=== PATIENT | male | born 1950 | race Caucasian/White ===

== ENCOUNTER 2022-04-22 16:35 | Emergency (ER) | payer OTHER, SELFPAY ==
--- NOTE | 2022-04-22 16:48 | ED.GENADULT ---
HPI - General Adult General Chief complaint: General Medical Stated complaint: needs trach replaced Time Seen by Provider: 04/22/22 16:47 Source: patient and EMS Mode of arrival: EMS Limitations: no limitations History of Present Illness HPI narrative: 72-year-old male presents via EMS for trach replacement. retirement facility removed the trach for cleaning, and they could not replace device back into his stoma. Onset (ago): hour(s) (With an hour of arrival) Location: neck Radiation: non-radiation Severity: mild Associated symptoms: denies other symptoms Treatments prior to arrival: none Related Data Allergies Allergy/AdvReac Type Severity Reaction Status Date / Time No Known Allergies Allergy Verified 04/22/22 16:52 Review of Systems Review of Systems: Constitutional: No Fever, No Chills ENT/Mouth: Trach stoma patent, No Ear Pain, No Hoarseness, No sore throat Eyes: No Eye Pain, No Swelling, No Redness, No Foreign Body Cardiovascular: No Chest Pain, No SOB Respiratory: No Cough, No Dyspnea Gastrointestinal: No Nausea, No Vomiting, No Diarrhea, No abdominal Pain Genitourinary: No Dysuria, No Hematuria Musculoskeletal: No joint pain, No Myalgias, No Joint Swelling Skin: No Skin lacerations, No rash Neuro: No Weakness, No Numbness, No Paresthesias, No Loss of Consciousness, No Dizziness, No Headache Psych: No Anxiety/Panic, No Depression Heme/Lymph: no easy bruising, no Lymphadenopathy Endocrine: No Polyuria, No Polydipsia Yes all other systems are reviewed and are negative [facility] Past Medical History Attestation statement: The following information was validated with the patient. Source: old records reviewed Social History Social History Advance Directives: Yes Advance Directives on File: Yes Advance Directives Date on File: 04/22/22 Physical Exam ED Vital Signs: Vital Signs - 24 hr 04/22/22 17:14 04/22/22 19:21 Temperature 98.0 F 97.6 F Pulse Rate 60 48 L Respiratory Rate 16 13 Blood Pressure 129/63 146/62 H Pulse Oximetry 100 100 Oxygen Delivery Method Room Air Nasal Cannula Oxygen Flow Rate 5 BMI result Body Mass Index 28.1 Appearance: Alert. Oriented X3. No acute distress. Eyes: Pupils equal, round and reactive to light. ENT: Pharynx normal. Trach stoma patent. Neck: Normal inspection. Neck supple. CVS: Normal heart rate and rhythm. Pulses normal. Respiratory: No respiratory distress. Breath sounds normal. Abdomen: Soft and nontender. Skin: Skin warm and dry. Normal skin color. Normal skin turgor. Extremities: No lower extremity edema. Moves all extremities against resistance. Neuro: No motor deficit. No sensory deficit. Cranial nerves 2-12 intact Course Course Course Narrative: 72-year-old male presents via EMS for trach replacement staff at his shelter facility removed the trach for cleaning, but could not get the trach back in. Patient has had this trach for over 20 years, [place] model, and would like his original trach placed. Patient did not arrive to this facility with a trach, nursing called shelter facility, stated that the trach was broken, however after further investigation, it was noted that there are no staff available to bring the trach to this patient at this facility. Respiratory at patient's bedside within 5 minutes of his arrival, called by this [facility] [facility]. Humidified air applied over trach site by Respiratory to keep stoma site moistened. 17:17 after multiple phone calls between chargemaster analyst, and shelter facility, patient's family will bring patient's trach to this facility. 19:00 trach replaced by respiratory. Supplies for care given to patient by respiratory. Patient [place] trach given to family. Patient verbalized understanding of and agrees to plan of care discharge home. Verbalized understanding of signs symptoms indicating need for emergent intervention Medications Administered Discontinued Medications Generic Name Dose Route Start Last Admin Trade Name Tami PRN Reason Stop Dose Admin Acetaminophen 650 mg 04/22/22 18:27 04/22/22 18:43 Acetaminophen 325 Mg Tablet PO 04/22/22 18:28 650 mg ONCE ONE Administration Morphine Sulfate 4 mg 04/22/22 16:52 04/22/22 17:23 Morphine Sulfate 4 Mg/Ml Cartridge IVPUSH 04/22/22 16:53 4 mg ONCE ONE Administration Protocol Ondansetron HCl 4 mg 04/22/22 16:52 04/22/22 17:23 Ondansetron Hcl 4 Mg/2 Ml Vial IVPUSH 04/22/22 16:53 4 mg ONCE ONE Administration Medical Decision Making Differential Diagnosis Differential Diagnosis: Trach replacement Medical Records Medical records reviewed: Yes I reviewed the patient's medical records. Discharge Plan Discharge Clinical Impression: Tracheostomy malfunction Patient Disposition: [facility] Instructions: Tracheostomy Care (ED) Additional Instructions: You were evaluated for tracheostomy replacement. Respiratory therapy replaced your tracheostomy. please continue tracheostomy care. Thank you for choosing this emergency department for evaluation. Please follow-up with primary care physician as needed. Return to the emergency department for any new, concerning, or worsening symptoms. Interventions: ED Discharge Assessment Last Done: 04/22/22 20:04 Discharge Date/Time: 04/22/22 20:05
[2022-04-22 16:56] VITALS: BP 156/80; PULSE 66; O2SAT 98; BMI 28.1
[2022-04-22 17:14] VITALS: BP 129/63; PULSE 60; RESP 16; TEMP 36.7; O2SAT 100
--- NOTE | 2022-04-22 17:21 | PC.RT ---
Addendum entered by Rik Bedolla, RT 04/22/22 17:47: Follow up pt spo2 97%, HR 86, rr 18. Original Note: Pt arrive ED CC loss of airway during care. Pt ia awake amd alert, placed om 28% coolmist to stoma, sxm small pale yellow sec. A 7.0 and 7.5 shiley cuffless trachs are at the bedside. Pts airway is as stated by pt as a 8.0 [place] metal trach. This airway was mot transported with patiemt, charge murse called pts facility, faclility refused to samd the airway over, RM spoke with family , son has offered to retrieve md zaragoza directly to the ER. Pt in mo distress, om monitor amd comfortable.
[2022-04-22] MEDS: ondansetron HCL 4 MG/2 ML VIAL IVPUSH (17:23)
[2022-04-22] MEDS: Morphine Sulfate 4 MG/ML CARTRIDGE IVPUSH (17:23)
--- OUTSIDE RECORDS SUMMARY | 2022-04-22 17:28 | XMS_ITS ---
:1950 Author Organization [facility] Address [address] [place] [id number] Support Name Relationship Address Phone HAY GU Unavailable [address] [place] [address] HAY GU Unavailable [address] [place] [address] Insurance Providers: All historical and current Section Date Range: From patient's date of to the date document was created.This section includes the names of all active insurance providers for the patient. Insurance Type of Plan Start of End of Group Member Insurance Policy P atient's Provider Coverage Name Policy Policy Number ID Provider's Ronquillo's Relationship Coverage Coverage Telephone Name to Policy Number Ronquillo MEDICARE MEDICARE PART Mar 23, PART A [id number] [place] N PATIENT (WNR) (M) A 2002A 4 MICHAEL MORRIS MEDICARE MEDICARE PART Mar 23, PART B [phone] HOFF[place] N PATIENT (WNR) (M) B 2002A 4 MICHAEL MORRIS MEDICARE MEDICARE PART Mar 23, PART A [id number] HOFFMA N,E PATIENT (WNR) (M) A [id number] [place] MEDICARE MEDICARE PART Mar 23, PART B [id number] HOFFMA N,E PATIENT (WNR) (M) B 2002A [place] MEDICARE MEDICARE PART Mar 23, PART A [id number] HOFFMA N PATIENT (WNR) (M) A 2002A 1 MICAHERNANDEZ MEDICARE MEDICARE PART Mar 23, PART B [id number] HOFFMA N PATIENT (WNR) (M) B 2002A MICHAEL Selected Encounter This section includes the information on record at [place] for the Encounter. Date/Time Encounter Type Encounter Description Reason Provider Source Apr 29, 2021 02:40 Outpatient Encounter PRIMARY CARE/MEDICINE PM [facility] Encounter Template Text not used by [place] Plan of Treatment: Future Appointments (+ 6 months) and Future Tests (+/- 45 days) The Plan of Treatment section includes future care activities for the patient from [facility] [place] [facility] This section includes future appointments and future orders which are active, pending orscheduled.Future Appointments This section includes appointments that were scheduled to occur 6 months from the date of the Encounter, up to a maximum of 20 appointments. The data comes from all [place] treatment [facility]. Appointment Date/Time Appointment Type Appointment Facili ty Name May 12, 2021 12:00 PM AM[facility] [place] [facility] May 13, 2021 12:30 PM [facility] [place] [facility] Jul 14, 2021 01:00 PM AMBULATORY - MEDICINE [place] Oct 27, 2021 01:00 PM AMBULATORY PSYCHIATRY [place] Active, Pending, and Scheduled Orders This section includes a listing of several types of active, pending, and scheduled orders, including clinic medications orders, diagnostic test orders, procedure orders and consult orders; where the start date of the order is 45 days before the date of the Encounter or 45 days after the date of the Encounter. The data comes from all [place] treatment [facility]. Test Date/Time Test Type Test Details Facility Name May 13, 2021 11:56 AM Consult Order [facility] Interactive Media Director's Choice Social History: Smoking Status (Most current) and Tobacco Use (All prior to encounter date) This section includes the most current, and the historical, smoking and tobacco-related health factors from the [place] facility where the Encounter took place.Current Smoking Status This section includes the most current smoking, or tobacco-related health factor, from the [place] facility where the Encounter took place. Date/Time Current Smoking Status Comment Facility Jul 03, 2020 02:53 PM VA-TOBACCO NEVER USED [place] [facility] Advance Directives: All historical and current Section Date Range: From patient's date of to the date document was created. This section includes ALL of a patient's completed or amended [place] Advance and Rescinded Directives. The entries below indicate that a directive exists for the patient, but an actual copy is not included with this document. The data comes from all [place] facilities. Date Advance Directives Provider Source Jan 06, 2022 ADVANCE DIRECTIVE CODEY WEBSTER Encounter Notes: All associated encounter notes This section contains the clinical notes associated to the Encounter. Date/Time Encounter Note(s) Provider Source Apr 29, 2021 02:40 PM PRIMARY CARE NOTE: MARIELENA BRYAN [facility] LOCAL TITLE: WALK-IN NOTE PRIMARY CARE (T) [facility] STANDARD TITLE: PRIMARY CARE NOTE DATE OF NOTE: APR 29, 2021@14:40 ENTRY DATE: APR 29, 2021@14:40:37 AUTHOR: MARIELENA BRYAN EXP COSIGNER: URGENCY: STATUS: COMPLETED WALK-IN NOTE PRIMARY CARE (T) Has ADDENDA * <====Click to Start Advanced Medical Support presents to the Primary Care clinic with the following request: [ ]Medication Renewal/Refill [ ]Consultation with Team RN [ X ]Symptoms cough, fever etc - waiting in car cell [phone] [ ]Other The states they are: [ X ]Waiting [ ]Not Waiting Yes Walk in visit scheduled with PACT Nurse [ X ] At this encounter the 's demographi cs were verified. [ X ] At this encounter the [place]'s Insurance information was verified. [ X ] At this encounter the below scheduled visi ts for the [place] were discussed and appointment reminder card wa s offered. Future appointments: 04/29/2021 15:00 CWM/NO/SIC K CALL RN /mainor/ MARIELENA BRYAN ADVANCED MSA Signed: 04/29/2021 14:41 Receipt Acknowledged By: * AWAITING SIGNATURE * MORE CORLEY 04/29/2021 ADDENDUM STATUS: COMPLETED Covid test ordered. /mainor/ DORY VALENTIN SALES AGENT PROTECTIVE SERVICE- NURSE PRACTITIONER Signed: 04/29/2021 15:00
--- OUTSIDE RECORDS SUMMARY | 2022-04-22 17:28 | XMS_ITS | Continuity of Care Document ---
:1950 Author Organization [facility] Care Team Providers Name Role Phone [facility] Unavailable Unavailable Problems Combined list of problems from Department of Defense and Veterans Affairs facilities. It does not include entries that were removed or entered in error. Problem Status Onset Problem Type Date of Comments Source Date Resolution Alcohol abuse Active Condition Feb 07, [facility] TRL 2018 Entered WSTRN By: KEYSHA CARMONA [facility] Comment: reviewed Anemia Active Condition [facility] WSTRN ANKITA Givens [facility] Bladder Carcinoma Active Condition [facility] (ICD-9-CM 188.9) WST RN ANKITA Givens [facility] Cancer, bladder, Active Condition [place] bladder neck JCT [facility] FRED Chronic low back Active Condition Nov 11, [place] pain (SNOMED CT 2017 Entered [id number]) By: ESTHER TRINH Comment: xray ordered- patient did not complete Chronic Active Condition [place] Obstructive [place] [facility] OC Pulmonary Disease * (ICD-9-CM 496.) Chronic pain Active Condition Jul 25, [facility] CNT RL 2013 Entered WSTRN By: BECCA THOMSON [facility] J Comment: NC RX REGISTRY CHECK 06/29/13 NO EVENTS Chronic Active Condition Jun 23springFIE LD post-traumatic 2018 Entered stress disorder By: KEYSHA ORTIZ Comment: reviewed Chronic sinusitis Active Condition [place] (ICD-9-CM 473.9) [facility] Chronic sinusitis Active Condition [facility] (SNOMED CT WSTRN [id number]) ANKITA Givens [facility] Deep venous Active Condition Jan 03, [facility] thrombosis of 2006 Entered WST RN lower extremity By: ANTHONY MARCH [facility] Tea ANDUJAR Comment: [facility] 1994 Depressive Active Condition Dec 02, [facility] disorder (SNOMED [address] 12780841) By: KEYSHA DOMINGUEZ [facility] Comment: reviewed Diabetes Mellitus Active Condition Nov 01, [place] Type II or 2006 Entered unspecified By: ANTHONY GLASS Comment: Sees Dr. Joel Sanchez Diverticulosis, Active Condition Jan 03, [facility] Colonic 2006 Entered WSTRN By: ANTHONY MONROY Comment: Colonosocpy1 [facility] September 27, 2011 Entered By: BECCA GUERRERO Comment: C'scope 02/2011 No new lesions May 01, 2008 Entered By: ANTHONY GLASS Comment: Colonscopy 04/17/08 just divertic adn hemmoroid Rodri Essential Active Condition [place] hypertension Generalized Active Condition Mar 13, [facility] anxiety disorder 2018 Entered WSTRN (SNOMED CT By: CARIDAD VASQUEZ [id number]) KEYSHA ORTIZ [facility] Comment: reviewed GERD * (ICD-9-CM Active Condition [facility] 530.81) WSTRN ANKITA Givens [facility] Gross Hematuria Active Condition Jun 03, [facility] 2008 Entered By: ANTHONY GLASS Comment: Negative ultrasound Hepatitis * Active Condition May 08, [facility] (ICD-9-CM 573.3) 2006 Entered WSTRN By: ANTHONY MONROY Comment: Negative Hep B & C and ceruloplasmi n, ferritin History of male Active Condition [facility] erectile disorder (SNOMED CT 494747253) Hyperlipidemia * Active Condition [facility] (ICD-9-CM 272.4) WST RN ANKITA Givens [facility] Low Back Pain * Active Condition [place] (ICD-9-CM 724.2) [facility] Obstructive Active Condition [place] chronic Bronchitis, with (Acute) Exacerbation (ICD-9-CM 491.21) Pain in joint Active Condition [place] involving forearm HC S (ICD-9-CM 719.43) 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, [facility] 2019 Entered By: MARCELLE CASH Comment: Blindness R Eye Sleep Apnea Active Condition Sep 01, [facility] (ICD-9-CM 2005 Entered WSTRN 780.57/786.09) By: [facility] [place]THONY RAINEY Comment: Severe resulting in TRACH in [place] 2001 Sleep Apnea Active Condition [place] (ICD-9-CM HCS 780.57/786.09) Tracheostomy Active Condition [place] Status (ICD-9-CM JCT [facility] V44.0) Tremor Active Condition [facility] [place] [facility] Diabetes Mellitus Inactive Condition 07/19/2006 V A CNTRL Type II or WSTRN unspecified [place] [facility] Diagnosis: Active Diagnosis [facility] ICD-10-CM F43.12 WST RN Post-traumatic [place] stress disorder, HCS chronicwith Provider Comments: Chronic post-traumatic stress disorder ([facility] [id number]) Diagnosis: Active Diagnosis [facility] ICD-10-CM G89.29 WST RN Other chronic [place] painwith Provider HC S Comments: Chronic pain ([facility] [id number]) Diagnosis: Active Diagnosis [facility] CNTR ICD-10-CM Z71.9 WSTR N Counseling, [place] unspecifiedwith HCS Provider Comments: Counseling, unspecified Medications Combined list of outpatient medications from Department of Defense and Veterans Affairs facilities. Medications provided include 1) outpatient medications from the last 15 months, and 2) patient-reported medications. Medication Details Route Status Patient Prescription Prescription Last Ordering Order Source Instructions Expires Number Dispense Provider Date Date ASPIRIN TAKE ONE ORAL ACTIVE GLASS,D 12/02/ SPR INGF 81MG TAB,EC TABLET RAIN CON 2005 IEL D BY MOUTH DAILY CETIRIZINE TAKE ONE ORAL 04/15/2022 [id number] L CAPO MOSLEY [facility] H[facility] 10MG TABLET 1 EL J 2020 CNTRL TAB BY MOUTH WSTRN ONCE [place] DAILY SETS FOR HCS ALLERGIE S GABAPENTIN TAKE ONE ORAL ACTIVE 10/26/2022 [id number] BROCK IANI springF 600MG TAB AND 2 ,CHINYERE 2021 IELD ONE-HALF TABLETS BY MOUTH THREE TIMES A DAY GABAPENTIN TAKE ONE ORAL DISCONT 06/25/2022 [id number] LETTY Y-GR 06/24/ VA 600MG TAB AND INUED 2 NICOLAS,CYNTH 2021 CNTRL ONE-HALF IA WSTRN TABLETS [place] BY MOUTH SETS THREE HCS TIMES A DAY GUAIFENESIN TAKE 10 ORAL 06/05/2021 [id number] MCCRA CKEN 12/16/ [place] 100MG/5ML MILLILIT 1 ,JEFFERSON 2020 IELD (SF & AF) ERS (2 LIQUID TEASPOON FULS) BY MOUTH EVERY 8 HOURS NEEDED FOR CONGESTI ON GUAIFENESIN TAKE TWO ORAL 07/30/2021 [id number] CAPO GUERRERO 07/30/ VA 200MG TAB TABLETS 2 EL J 2020 CNTRL BY MOUTH WSTRN TWICE [place] DAILY SETS NEEDED HCS FOR CONGESTI ON HYDROCODONE TAKE 1 ORAL DISCONT 07/24/2021 [id number] REED -GR VA 5MG/ACETAMI TABLET INUE 2 NICOLAS,CYNTH 2021 CNT RL NOPHEN BY MOUTH IA WSTRN 325MG TAB ONCE [place] DAILY SETS NEEDED HCS FOR PAIN [NEXT FILL 07/23/21 ] HYDROCODONE TAKE 1 ORAL 12/27/2021 [id number] MICHAE LS, 5MG/ACETAMI TABLET 2 [facility] 2021 IELD NOPHEN BY MOUTH 325MG TAB ONCE DAILY HYDROCODONE TAKE 1 ORAL 11/25/2021 [id number] DAVITI ANI springF 5MG/ACETAMI TABLET 2 ,CHINYERE2021 IELD NOPHEN BY MOUTH 325MG TAB ONCE DAILY HYDROCODONE TAKE 1 ORAL 08/18/2021 [id number] DAVITI ANI 07/20/ VA 5MG/ACETAMI TABLET 2 ,CHINYERE 2021 CNTRL NOPHEN BY MOUTH WSTRN 325MG TAB ONCE [place] DAILY SETS NEEDED HCS FOR PAIN NEXT FILL 08/20/21* * HYDROCODONE TAKE 1 ORAL 05/14/2021 [id number] Tea GUERRERO ANI 04/15/ VA 5MG/ACETAMI TABLET 1 EL J 2020 CNTRL NOPHEN BY MOUTH WSTRN 325MG TAB ONCE [place] DAILY SETS NEEDED HCS FOR PAIN [NEXT FILL 05/13/21 ] HYDROCODONE TAKE 1 ORAL 03/17/2021 [id number] Tea GUERRERO ANI 02/16/ VA 5MG/ACETAMI TABLET 1 EL J 2020 CNTRL NOPHEN BY MOUTH WSTRN 325MG TAB ONCE [place] DAILY SETS NEEDED HCS FOR PAIN (NEXT FILL 03/16/21 ) LISINOPRIL TAKE ONE ORAL 08/11/2021 [id number] CAPO DENNIS springF 10MG TAB TABLET 2 EL J 2020 IELD BY MOUTH DAILY TO CONTROL BLOOD PRESSURE METFORMIN TAKE ONE ORAL ACTIVE 10/26/2022 [id number] DAVITI ANI springF HCL 500MG TABLET 2 ,2021 IELD TAB BY MOUTH TWICE DAILY FOR DIABETES METFORMIN TAKE ONE ORAL DISCONT 08/11/2021 [id number] CAPO GUERRERO HCL 500MG TABLET INUED 2 J 2020 IELD TAB BY MOUTH TWICE DAILY FOR DIABETES MULTIVITAMI TAKE ONE ORAL ACTIVE GLASS,D NS TABLET RAIN ANDUJAR 2005 IELD W/MINERALS BY MOUTH TAB DAILY PRIMIDONE TAKE ONE ORAL ACTIVE 10/26/2022 [id number] DAVITI ANI springF 50MG TAB TABLET 2 ,2021 IELD BY MOUTH TWICE DAILY PRIMIDONE TAKE ONE ORAL DISCONT 12/19/2021 [id number] CAPO GUERRERO 12/18/ VA 50MG TAB TABLET INUED 2 J 2020 CNTRL BY MOUTH WSTRN TWICE [place] DAILY SETS HCS TRAZODONE TAKE ONE ORAL ACTIVE 10/08/2022 [id number] LUISA ORTIZ springF HCL 100MG AND 2 2021 IELD TAB ONE-HALF TABLETS BY MOUTH AT BEDTIME NEEDED FOR SLEEP TRAZODONE TAKE ONE ORAL DISCONT 2022 [id number] RINA AlcalaBR 04/16/ VA HCL 100MG AND INUED 2 JERRY 2020 CNTRL TAB ONE-HALF WSTRN TABLETS [place] BY MOUTH SETS AT [facility] BEDTIME NEEDED FOR SLEEP TRAZODONE TAKE ONE ORAL DISCONT 12/18/2021 [id number] RINA AlcalaBR 12/18/ [place] HCL 100MG AND INUE 1 JERRY 2020 IELD TAB ONE-HALF TABLETS BY MOUTH AT BEDTIME NEEDED FOR SLEEP VORTIOXETIN TAKE ONE ORAL DISCONT 12/18/2021 [id number] LARR[place],BR E 20MG TAB TABLET INUE 1 JERRY2020 IELD BY MOUTH EVERY MORNING VORTIOXETIN TAKE ONE ORAL 2022 [id number] L[place]OW,BR 04/16/ VA E 20MG TAB TABLET 1 JERRY2020 CNTRL BY MOUTH WSTRN EVERY [place] MORNING SETS HCS Allergies, Adverse Reactions, Alerts Combined list of allergies from Department of Defense and Veterans Affairs facilities. It does not include entries that were removed or entered in error. Substance Category Reaction Severity Reaction Status Date Comments S ource type Reported AMOXICILLIN Propensity HIVES Propensity active [facility] CNTRL to adverse to adverse 5 WS TRN reactions reactions [place] to drug to drug ETS HCS (finding) (finding) AMOXICILLIN Propensity Eruption Propensity active [place] to adverse to adverse 6 CU T HCS reactions reactions to drug to drug (finding) (finding) PENICILLIN Propensity Anaphylaxi Propensity active WHITE to adverse s to adverse 1 RI YUE reactions reactions JCT to drug to drug [facility] (finding) (finding) Immunizations Combined list of available immunizations from the Department of Defense and Veterans Affairs facilities. Immunization Series Date Administered Site Reaction Lot CVX Drug St atus Comments Source Given By Number Code Guidance Adviser COVID-19 1 complet MOD; SP RINGF (MODERNA), 2020 ed [id number]; IELD MRNA, LNP-S, 02 PF, 100 1 MCG/0.5 ML DOSE INFLUENZA, complet Site: INJECTABLE, 2018 ed Left IE LD QUADRIVALENT, Deltoi d PRESERVATIVE FREE PNEUMOCOCCAL complet POLYSACCHARID 2018 ed IELD E PPV23 PNEUMOCOCCAL complet CONJUGATE PCV 2017 ed IELD 13 TDAP complet Site: [place] 2018 ed Right IELD Deltoid ZOSTER 1 complet SPRI NGF RECOMBINANT 2017 ed IE LD INFLUENZA, complet VA SEASONAL, 2017 ed CNTR L INJECTABLE WST RN [place] [facility]S HCS FLU,3 YRS complet Site: S [place] (HISTORICAL) 2014 ed Right I ELD Deltoid FLU,3 YRS complet Site: S DOV (HISTORICAL) 2012 ed Left I ELD Deltoid FLU,3 YRS complet Site: [place] (HISTORICAL) 2011 ed Right I ELD Deltoid FLU,3 YRS complet Pt. was [facility] (HISTORICAL) 2010 ed vaccina te CNTRL d at a [facility] HCS FLU,3 YRS complet Site: [place] (HISTORICAL) 2009 ed Right I ELD Deltoid FLU,3 YRS complet Site: S DOV (HISTORICAL) 2008 ed Right I ELD Deltoid FLU,3 YRS complet Site: [place] (HISTORICAL) 2006 ed Right I ELD Deltoid FLU,3 YRS complet V A (HISTORICAL) 2005 ed C NTRL [facility] HCS FLU,3 YRS complet Site: C [place] (HISTORICAL) 2004 ed Left I CUT Deltoid HCS FLU,3 YRS 06/10/ VLADIMIR GAONA 88 complet [place] (HISTORICAL) 2004 ed I ELD PNEUMOCOCCAL, 06/10/ VLADIMIR GAONA 109 com plet [place] UNSPECIFIED 2004 ed IE LD FORMULATION TD(ADULT) 06/10/ VLADIMIR GAONA 139 complet [place] UNSPECIFIED 2004 ed IE LD FORMULATION FLU,3 YRS 03/27/ HAMZAH EVERETT 88 complet Site: [facility] (HISTORICAL) 2001 T M ed Left O N Deltoid Results Combined list of recent chemistry, hematology and other laboratory results from Department of Defense and Veterans Affairs, ranging from 15 months to all on record, depending upon the facility. Order Results Value Reference Date Interpretation Specimen Commen ts Source Name Range BASIC UREA 15 7 - 25 07/02 Specimen Type: S CESAR [place] METABOLIC NITROGEN /2020 No comment en tered. LD PANEL [MASS/VOLUM Ordering Pr ovider: BECCA GUERRERO (fasting) Cassie] IN SERUM Report Re leased Date/Time: Jul 02, 2020 01:27 PM OR PLASMA Reporting Lab : [address] [address] Performing Lab: [address] [place] [address] BASIC GLUCOSE 89 65 - 100 07/02 Specimen Type: [place] METABOLIC [MASS/VOLUM /2020 No comment entered. LD PANEL E] IN SERUM Ordering Pr ovider: BECCA GUERRERO (fasting) OR PLASMA Report Rele ased Date/Time: Jul 02, 2020 01:27 PM Reporting Lab: [facility] [address] [facility] [address] Performing Lab: [address] [address] BASIC SODIUM 134 135 - 145 02/10 L Specimen Type: SERUM [place] METABOLIC [MOLES/VOLU /2020 No comment entered. LD PANEL ME] IN Ordering Provid er: BECCA GUERRERO (fasting) SERUM OR Report Relea sed Date/Time: Jul 02, 2020 01:27 PM PLASMA Reporting Lab: [address] [address] Performing Lab: [address] [address] BASIC POTASSIUM 4.9 3.5 - 5.0 07/02 Specimen Typ e: SERUM [place] METABOLIC [MOLES/VOLU No comment entered. LD PANEL ME] IN Ordering Provid er: BECCA GUERRERO (fasting) SERUM OR Report Relea sed Date/Time: Jul 02, 2020 01:27 PM PLASMA Reporting Lab: [address] [address] Performing Lab: [address] [address] BASIC CHLORIDE 101 100 - 110 07/02 Specimen Type : SERUM [place] METABOLIC [MOLES/VOLU /2020 No comment entered. LD PANEL ME] IN Ordering Provid er: BECCA GUERRERO (fasting) SERUM OR Report Relea sed Date/Time: Jul 02, 2020 01:27 PM PLASMA Reporting Lab: [address] [address] Performing Lab: [address] [place] [address] BASIC CARBON 26 20 - 30 07/02 Specimen Type: S CESAR [place] METABOLIC DIOXIDE, /2020 No comment en tered. LD PANEL TOTAL Ordering Provid er: BECCA GUERRERO (fasting) [MOLES/VOLU Report Re leased Date/Time: Jul 02, 2020 01:27 PM ME] IN Reporting Lab: [facility] SERUM OR [address] [place] [address] PLASMA Performing Lab: [facility] [address] [facility] [address] BASIC CREATININE 0.85 0.50 - 07/02 Specimen Type : SERUM [place] METABOLIC [MASS/VOLUM 1.40 /2020 No comment entered. LD PANEL E] IN SERUM Ordering Pr ovider: BECCA GUERRERO (fasting) OR PLASMA Report Rele ased Date/Time: Jul 02, 2020 01:27 PM Reporting Lab: [address] [address] Performing Lab: [address] [address] BASIC GLOMERULAR 89 60 07/02 Specimen Type : SERUM [place] METABOLIC FILTRATION /2020 No comment entered. LD PANEL RATE/1.73 Ordering Prov ider: BECCA GUERRERO (fasting) SQ Report Releas ed Date/Time: Jul 02, 2020 01:27 PM M.PREDICTED Reporting L ab: [facility] [VOLUME [address] [facility] [address] RATE/AREA] Performing L ab: [facility] IN SERUM OR [address] [facility] [address] PLASMA BY CREATININE- BASED FORMULA (MDRD) MAGNESIUM MAGNESIUM 1.6 1.6 - 2.6 06/02 Specimen T ype: SERUM [place] [MASS/VOLUM /2020 No comment e ntered. LD E] IN SERUM Ordering Pr ovider: BECCA GUERRERO OR PLASMA Report Releas ed Date/Time: Feb 28, 2020 04:21 PM Reporting Lab: [address] [place] [address] Performing Lab: [facility] CN[facility]L WSTRN [facility] [address] [facility] [address] THYROGLOB THYROGLOBUL <1 - 1 06/02 Specimen T ype: SERUM [facility] ULIN IN AB /2020 Comment: Test [facility] by [facility], [facility], [address] [place] [address] Storm Bloom M.D., Ph.D., Director of Laboratories , CLIA [id number] WSTRN ANTIBODY [UNITS/VOLU Ordering P rovider: BECCA OLIVAS (q) ME] IN Report Released Date/Time: Jun 02, 2020 02:58 PM TS [facility] SERUM OR Reporting Lab: [facility] WSTRN [facility] PLASMA [address] [place] [address] Performing Lab: [facility] CN[facility] WSTRN [facility] THYROID TRIIODOTHYR 81.21 70 - 180 06/02 Specimen Ty pe: SERUM [facility] TOTAL T3 ONINE (T3) No comment e ntered. WSTRN [MASS/VOLUM Ordering Pr ovider: BECCA OLIVAS E] IN SERUM Report Rele ased Date/Time: Jun 02, 2020 02:58 PM TS HCS OR PLASMA Reporting Lab : [facility] WSTRN [facility] [address] [facility] [address] Performing Lab: [facility] CNTRL WSTRN [facility] [address] [facility] [address] VITAMIN D 25-HYDROXYV 66 20 - 50 06/02 H Specimen T ype: SERUM [facility] (25-OH) ITAMIN D3 No comment ent ered. WSTRN [MASS/VOLUM Ordering Pr ovider: BECCA OLIVAS] IN SERUM Report Rele ased Date/Time: Jun 02, 2020 02:58 PM TS HCS OR PLASMA Reporting Lab : [facility] WSTRN [facility] [address] [facility] [address] Performing Lab: [facility] [place] [facility] [address] [facility] [address] IRON & IRON 352 204 - 475 06/02 Specimen Type: SERUM [facility] TIBC BINDING /2020 No comment enter ed. WSTRN PANEL CAPACITY Ordering Provi shyam: BECCA OLIVAS [MASS/VOLUM Report Rele ased Date/Time: Jun 02, 2020 02:58 PM TS HCS E] IN SERUM Reporting L ab: [facility] [place] [facility] OR PLASMA [address] [facility] [address] Performing Lab: [facility] [facility] [address] [facility] [address] IRON & IRON 106 40 - 160 06/02 Specimen Type: SERUM [facility] TIBC [MASS/VOLUM /2020 No comment e ntered. WSTRN PANEL E] IN SERUM Ordering Pr ovider: BECCA OLIVAS OR PLASMA Report Releas ed Date/Time: Jun 02, 2020 02:58 PM TS HCS Reporting Lab: [facility] [place] [facility] [address] [facility] [address] Performing Lab: [facility] [facility] [address] [facility] [address] IRON & IRON/IRON 30.1 20.0 - 06/02 Specimen Type: SERUM [facility] TIBC BINDING 50.0 /2020 No comment enter ed. WSTRN PANEL CAPACITY.TO Ordering Pr ovider: BECCA OLIVAS YAHIR [MASS Report Releas ed Date/Time: Jun 02, 2020 02:58 PM TS HCS RATIO] IN Reporting Lab : [facility] [place] [facility] SERUM OR [address] [facility] [address] PLASMA Performing Lab: [facility] [place] [facility] [address] [facility] [address] CBC LEUKOCYTES 6.99 4.50 - 06/02 Specimen Type : BLOOD [facility] [#/VOLUME] . No comment en tered. WSTRN IN BLOOD BY Ordering Pr ovider: BECCA OLIVAS AUTOMATED Report Releas ed Date/Time: Jun 02, 2020 02:58 PM TS HCS COUNT Reporting Lab: [facility] [place] [facility] [address] [facility] [address] Performing Lab: [facility] [place] [facility] [address] [facility] [address] CBC ERYTHROCYTE 4.01 4.23 - 01 L Specimen Typ e: BLOOD [facility] S 5.66 /2020 No comment enter ed. WSTRN [#/VOLUME] Ordering Pro vider: BECCA OLIVAS [place] IN BLOOD BY Report Rele ased Date/Time: Jun 02, 2020 02:58 PM TS HCS AUTOMATED Reporting Lab : [facility] [place] [facility] COUNT [address] [facility] [address] Performing Lab: [facility] [place] [facility] [address] [facility] [address] CBC HEMOGLOBIN 13.6 12.8 - 17 06/02 Specimen Ty pe: BLOOD [facility] [MASS/VOLUM /2020 No comment e ntered. WSTRN E] IN BLOOD Ordering Pr ovider: BECCA OLIVAS [place] Report Released Date/Time: Jun 02, 2020 02:58 PM TS HCS Reporting Lab: [facility] [place] [facility] [address] [facility] [address] Performing Lab: [facility] [place] [facility] [address] [facility] [address] CBC HEMATOCRIT 39.6 39.2 - 06/02 Specimen Type : BLOOD [facility] [VOLUME 50.4 No comment enter ed. WSTRN FRACTION] Ordering Prov ider: BECCA OLIVAS [place] OF BLOOD BY Report Rele ased Date/Time: Jun 02, 2020 02:58 PM TS HCS AUTOMATED Reporting Lab : [facility] [place] [facility] COUNT [address] [facility] [address] Performing Lab: [facility] [place] [facility] [address] [facility] [address] CBC MCV 98.8 82 - 99 06/02 Specimen Type: B LOOD [facility] [ENTITIC /2020 No comment ente red. WSTRN VOLUME] BY Ordering Pro vider: BECCA OLIVASCHADRIEL AUTOMATED Report Releas ed Date/Time: Jun 02, 2020 02:58 PM TS HCS COUNT Reporting Lab: [facility] [place] [facility] [address] [facility] [address] Performing Lab: [facility] [place] [facility] [address] [facility] [address] CBC MCHC 34.3 30.8 - 06/02 Specimen Type: B LOOD [facility] [MASS/VOLUM 35.1 /2020 No comment e ntered. WSTRN E] BY Ordering Provid er: BECCA OLIVASCHUSE AUTOMATED Report Releas ed Date/Time: Jun 02, 2020 02:58 PM TS HCS COUNT Reporting Lab: [facility] [place] [facility] [address] [facility] [address] Performing Lab: [facility] [place] [facility] [address] [facility] [address] CBC PLATELETS 164 140 - 360 06/02 Specimen Typ e: BLOOD [facility] [#/VOLUME] /2020 No comment en tered. WSTRN IN BLOOD BY Ordering Pr ovider: BECCA OLIVASCHADRIEL AUTOMATED Report Releas ed Date/Time: Jun 02, 2020 02:58 PM TS HCS COUNT Reporting Lab: [facility] [place] [facility] [address] [facility] [address] Performing Lab: [facility] [place] [facility] [address] [facility] [address] CBC ERYTHROCYTE 12.6 12.0 - 06/02 Specimen Typ e: BLOOD [facility] DISTRIBUTIO 16.0 No comment e ntered. WSTRN N WIDTH Ordering Provid er: BECCA OLIVAS [RATIO] BY Report Relea sed Date/Time: Jun 02, 2020 02:58 PM TS HCS AUTOMATED Reporting Lab : [facility] [place] [facility] COUNT [address] [facility] [address] Performing Lab: [facility] [place] [facility] [address] [facility] [address] CBC MCH 33.9 26.2 - 06/02 H Specimen Type: B LOOD [facility] [ENTITIC 32.6 No comment ente red. WSTRN MASS] BY Ordering Provi shyam: BECCA OLIVAS MAS[place] AUTOMATED Report Releas ed Date/Time: Jun 02, 2020 02:58 PM TS HCS COUNT Reporting Lab: [facility] [place] [facility] [address] [facility] [address] Performing Lab: [facility] [place] [facility] [address] [facility] [address] Encounters Combined list of: 1) Encounters from Department of Veterans Affairs facilities going back up to the last 18 months. 2) Encounters from the Department of Defense facilities going back up to 280 months. Location Location Encounter Encounter Reason Attending ADM DC Stat us Disposition Source Details Type Number For Provider Date Date Visit Outpatient [id number] 11/21 [id number] [facility] [facility] Outpatient [id number] 11/21 [facility] [id number] [facility] [place] [facility] Outpatient [id number] 11/26 [facility] En[facility] [id number] /2020 [facility] [place] [facility] Outpatient [id number] 12/05 [facility] [id number] [facility] [place] [facility] Outpatient [id number] 12/08 [facility] En[facility] [id number] /2020 [facility] [place] [facility] Outpatient [id number] 12/08 [facility] [id number] /2020 [facility] [place] [facility] Outpatient [id number] 12/17 [facility] En[facility] [id number] /2020 [facility] [place] [facility] [facility] PRO [id number] [place], [place] 12/25 V A PHONE CALL [id number] is: CK L /2020 [facility] L 5-10 MIN ICD-10- [facility] CM [place] Z71.9 SETS [employer] HCS ing, unspeci fied
with Provide r Comment s: [employer] ing, unspeci fied Outpatient [id number] 01/15 [facility] [id number] [facility] [place] [facility] [id number] 01/16 [facility] [id number] [facility] [place] [id number] 01/16 [facility] [id number] [facility] [place] [facility] [id number] 01/16 [facility] [id number] [facility] [place] 11909-6.63 02/12 [facility] [id number] [facility] [place] [facility] 52412-2.63 02/13 [facility] [id number] [facility] [id number] 03/11 [facility] En[facility] [id number] /2021 [facility] [place] [facility] Outpatient [id number] 04/14 [facility] Encounter [id number] /2021 [facility] [place] [facility] Outpatient 49429-3.63 04/14 [facility] Encounter [id number] /2021 [facility] [place] [facility] Outpatient 60627-3.63 04/14 [facility] Encounter [id number] [facility] [place] [facility] Outpatient 24612-4.63 04/29 [facility] Encounter [id number] /2021 [facility] [place] [facility] OFFICE O/P 25507-3.63 Diagnos KELSEYLSON,TI 04/29 [facility] EST [id number] is: EMMETT E CNTRL MINIMAL ICD-10- WSTR[facility] PROB CM [place] Z71.9 SETS Windows Infrastructure Engineer HCS ing, unspeci fied
with Provide r Comment s: Windows Infrastructure Engineer ing, unspeci fied Outpatient [id number] 04/30 [facility] Encounter [id number] [facility] Outpatient 02484-6.63 04/30 [facility] Encounter [id number] [facility] Outpatient 91415-4.63 04/30 [facility] Encounter [id number] /2021 [facility] Outpatient 19632-3.63 05/04 [facility] Encounter [id number] [facility] Outpatient 04991-2.63 05/07 [facility] Encounter [id number] [facility] Outpatient 44714-1.63 05/08 [facility] Encounter [id number] [facility] Outpatient 55535-7.63 05/08 [facility] Encounter [id number] [facility] Outpatient 65006-6.63 05/11 [facility] Encounter [id number] /2021 [facility] Outpatient [id number] 05/12 [facility] Encounter [id number] [facility] Outpatient [id number] 05/12 [facility] Encounter [id number] [facility] Outpatient 72690-5.63 05/13 [facility] Encounter [id number] /2021 [facility] Outpatient [id number] 05/13 [facility] Encounter [id number] [facility] Outpatient 79506-0.63 06/04 [facility] Encounter [id number] /2022 [facility] Outpatient 56577-6.63 06/24 [facility] Encounter [id number] [facility] Outpatient [id number] 06/24 [facility] Encounter [id number] [facility] Outpatient 71051-5.63 06/24 [facility] Encounter [id number] /2022 [facility] Outpatient [id number] 07/15 [facility] Encounter [id number] [facility] Outpatient [id number] 07/17 [facility] Encounter [id number] [facility] Outpatient [id number] 07/18 [facility] Encounter [id number] [facility] Outpatient 76303-6.63 08/05 [facility] Encounter 1. [facility] Outpatient [id number] 08/07 [facility] Encounter [id number] /2022 [facility] Outpatient 56275-9.63 08/10 [facility] Encounter 1. [facility] Outpatient 89990-9.63 08/10 [facility] Encounter [id number] [facility] Outpatient 80939-6.63 08/10 [facility] Encounter [id number] [facility] Outpatient 61729-9.63 08/17 [facility] Encounter [id number] I[facility] 36 Outpatient 76693-2.63 09/01 [facility] Encounter [id number] [facility] 38 Outpatient 15294-1.63 10/05 [facility] Encounter 1. [facility] Outpatient [id number] 10/06 [facility] Encounter 1. [facility] Outpatient [id number] 10/16 [facility] Encounter 1. [facility] Outpatient 40461-9.63 10/26 [facility] Encounter 1. [facility] Outpatient 15906-2.63 10/26 [facility] Encounter [id number] [facility] Outpatient 58881-3.63 10/27 [facility] Encounter [id number] [facility] 42 Outpatient 94038-6.63 11/11 [facility] Encounter [id number] /2022 [facility] Outpatient 19930-5.63 11/16 [facility] Encounter [id number] /2022 [facility] Outpatient 79130-0.63 11/18 [facility] Encounter [id number] /2022 [facility] Outpatient 21137-2.63 07 [facility] Encounter [id number] [facility] Outpatient 47929-3.63 07 [facility] Encounter [id number] /2022 [facility] Outpatient 16271-4.63 07 [facility] Encounter [id number] /2022 [facility] Outpatient 04987-7.63 11/27 [facility] Encounter [id number] [facility] Outpatient 59721-6.63 11/27 [facility] Encounter [id number] /2022 [facility] Outpatient 42421-7.63 12/03 [facility] Encounter 1BY. [place] 08 Outpatient 63476-2.63 12/15 [facility] Encounter [id number] [facility] Outpatient 87244-9.63 12/15 VA Encounter [id number] /2022 [facility] Outpatient 77017-9.63 12/23 [facility] Encounter [id number] [facility] Outpatient 69744-9.63 12/24 [facility] Encounter [id number] [facility] Outpatient 49974-5.63 12/28 [facility] Encounter [id number] [facility] Outpatient 10959-4.63 12/28 [facility] Encounter [id number] /2022 [facility] Outpatient 94919-3.63 01/06 [facility] Encounter [id number] [facility] Outpatient 78979-8.63 01/07 [facility] Encounter [id number] [facility] Outpatient 80687-9.63 01/11 VA Encounter [id number] /2022 [facility] Outpatient 23532-3.63 01/18 [facility] Encounter [id number] [facility] Outpatient 27468-1.63 01/19 [facility] Encounter [id number] [facility] Outpatient 03794-9.63 01/19 [facility] Encounter [id number] [facility] Outpatient 72228-6.63 01/19 [facility] Encounter [id number] [facility] Outpatient 28574-4.63 02/08 [facility] Encounter [id number] [facility] Outpatient 21460-3.63 Diagnos Meredith BULLOCK 02/08 [facility] Encounter [id number] is: TIN J /2021 CNTR L ICD-10- [facility] [place] G89.29 SETS Other HCS chronic pain
with Provide r Comment s: Chronic pain (SCT [id number] 1) Outpatient 93229-4.63 02/15 [facility] Encounter [id number] /2022 [facility] Outpatient 46042-3.63 02/19 [facility] Encounter [id number] /2022 [facility] Outpatient 62029-8.63 02/19 [facility] Encounter [id number] [facility] Outpatient 53217-8.63 02/22 [facility] Encounter [id number] /2022 [facility] Outpatient 19925-4.63 02/22 [facility] Encounter [id number] [facility] [place] [facility] OFFICE O/P 01568-4.63 Diagnos EMORY DRUMMOND 03/04 [facility] EST [id number] is: ISTINE E /2021 [facility] MINIMAL ICD-10- [facility] PROB CM [place] F43.12 [facility] Post-tr HCS aumatic stress disorde r, chronic
wi Provide r Comment s: Chronic post-tr aumatic stress disorde r (SCT [id number] 04) Outpatient [id number] 03/08 [facility] Encounter [id number] /2022 [facility] Outpatient 59593-0.63 03/12 [facility] Encounter [id number] /2022 [facility] HC PRO 71409-0.63 Diagnos EMORY DRUMMOND 04/01 V A PHONE CALL [id number] is: ISTINE E C NTRL 11-20 MIN ICD-10- [facility] [place] F43.12 [facility] Post-tr HCS aumatic stress disorde r, chronic
wi th Provide r Comment s: Chronic post-tr aumatic stress disorde r (SCT [id number] 04) Social History Combined list of available smoking, tobacco, and other social [facility]. Social History Type Response Date Comment Source Tobacco smoking VA-TOBACCO NEVER USED 07/03/2020 [facility] status [facility] History of tobacco VA-TOBACCO QUIT 15 YRS 07/17/2019 [place] use OR MORE History of tobacco VA-TOBACCO NEVER USED 06/23/2018 [place] use History of tobacco FORMER SMOKER - <100 09/19/2017 [facility] [place] use LIFETIME CIGARETTES History of tobacco LIFETIME NON-TOBACCO 02/04/2017 [place] use USER History of tobacco QUIT TOBACCO USE > 7 06/05/2015 [place] use YEARS AGO History of tobacco LIFETIME NON-TOBACCO 03/16/2005 [facility] use USER History of tobacco LIFETIME NON-SMOKER 06/10/2004 [facility] use Advance Directives List of completed, amended, or rescinded Advance Directives on record at [facility] facilities. An actual copy of the Directive is not included. Date Advance Directive Provider Source 01/06/2022 ADVANCE DIRECTIVE CODEY WEBSTER
--- OUTSIDE RECORDS SUMMARY | 2022-04-22 17:28 | XMS_ITS ---
:1950 Author Organization [facility] Address [address] [place] [address] Support Name Relationship Address Phone HAY GU Unavailable [address] [place] [address] HAY GU Unavailable [address] [place] [address] Insurance Providers: All historical and current Section [...] MEDICARE MEDICARE PART Mar 23, PART A [id number] [place] N PATIENT (WNR) (M) A 2002A 4 MICHAEL [place]RIS MEDICARE MEDICARE PART Mar 23, PART B [id number] [place] N PATIENT (WNR) (M) B 2002A 4 [place] MEDICARE MEDICARE PART Mar 23, PART A [id number] [id number] [place] N,E PATIENT (WNR) (M) A 2002 26A 00 [place] MEDICARE MEDICARE PART Mar 23, PART B [id number] HOFF[place] N,E PATIENT (WNR) (M) B 2002A [place] MEDICARE MEDICARE PART Mar 23, PART A [id number] H[place] N PATIENT (WNR) (M) A 2002A 1 MICHAEL M[place]RIS MEDICARE MEDICARE PART Mar 23, PART B [id number] HOFF[place] N PATIENT (WNR) (M) B 2002A MICAHERNANDEZ Selected Encounter This section includes the information on record at [place] for the Encounter. Date/Time Encounter Type Encounter Reason Provider Source Description Apr 29, 2021 OFFICE O/P EST PRIMARY ICD-10-CM Z71.9 BARNEYCHERYLMICHEL 03:00 PM MINIMAL PROB CARE/MEDICINE Counseling, Y E unspecified with Provider Comments: Counseling, unspecified IHE Encounter Template Text not used by [place] Assessments - Encounter Diagnoses This section includes the primary and secondary diagnoses documented for the Encounter. Date/Time Primary/Secondary Diagnosis Name Provider Source Diagnosis Apr 29, 2021 PRIMARY Counseling, MARILYNN CORLEY [place] [facility] 03:34 PM unspecified Y E [facility] Plan of Treatment: Future Appointments (+ 6 months) and Future Tests (+/- 45 days) The Plan of Treatment section includes future care activities for the patient from all [place] [facility]. This section includes future appointments and future orders which are active, pending orscheduled.Future Appointments This section includes appointments that were scheduled to occur 6 months from the date of the Encounter, up to a maximum of 20 appointments. The data comes from all [place] treatment facilities. Appointment Date/Time Appointment Type Appointment Facili ty Name May 12, 2021 12:00 PM AMBULATORY - PSYCHIATRY [place] [facility] [place] [facility] May 13, 2021 12:30 PM AMBULATORY - MEDICINE [place] [facility] [place] [facility] Jul 14, 2021 01:00 PM AMBULATORY - MEDICINE [place] Oct 27, 2021 01:00 PM AMBULATORY PSYCHIATRY [place] Active, Pending, and Scheduled Orders This section includes a listing of several types of active, pending, and scheduled orders, including clinic medications orders, diagnostic test orders, procedure orders and consult orders; where the start date of the order is 45 days before the date of the Encounter or 45 days after the date of the Encounter. The data comes from all [place] treatment [facility]. Test Date/Time Test Type Test Details Facility Name May 13, 2021 11:56 AM Consult Order [facility] L [facility] Contemporary Or Modern Dancer's Choice Social History: Smoking Status (Most current) and Tobacco Use (All prior to encounter date) This section includes the most current, and the historical, smoking and tobacco-related health factors from the [place] facility where the Encounter took place.Current Smoking Status This section includes the most current smoking, or tobacco-related health factor, from the [facility] facility where the Encounter took place. Date/Time Current Smoking Status Comment Facility Jul 03, 2020 02:53 PM VA-TOBACCO NEVER USED ND C NTRL [facility] Advance Directives: All historical and current Section Date Range: From patient's date of to the date document was created. This section includes ALL of a patient's completed or amended [place] Advance and Rescinded Directives. The entries below indicate that a directive exists for the patient, but an actual copy is not included with this document. The data comes from all [place] facilities. Date Advance Directives Provider Source Jan 06, 2022 ADVANCE DIRECTIVE CODEY WEBSTER Encounter Notes: All associated encounter notes This section contains the clinical notes associated to the Encounter. Date/Time Encounter Note(s) Provider Source Apr 29, 2021 02:51 PM PRIMARY CARE OUTPATIENT NOTE: SEUN CORLEY [place] [facility] LOCAL TITLE: AMBULATORY/OUTPATIENT CARE NOTE [facility] STANDARD TITLE: PRIMARY CARE OUTPATIENT NOTE DATE OF NOTE: APR 29, 2021@14:51 ENTRY DATE: APR 29, 2021@14:51:57 AUTHOR: MORE CORLEY EXP COSIGNER: URGENCY: STATUS: COMPLETED AMBULATORY/OUTPATIENT CARE NOTE Has ADDENDA F: Walk-in D: Vet and two friends prese nted to [facility] walk-up window saying that this vet, has been coughing, has H/A, fever, N/V and w ould like to be seen. [facility] told them to wait out side in their car- they went in to the corridor and said that they are not going to wait out side in 30 degree weather. [facility] came and asked me to do a secondary survey and to get them outside to wait for a Covid swab. Two of the people who were in the yuliana maggie did not have a mask on. They got angry and said I'm going to report this . One of them said I h ave had both vaccines I don't have to worry. They were antonieta d that the protocol for suspected Covid was to swab them first and once found to be negative they could come in to be evaluated for their symtems. They were told that it could take 1-2 hrs to get results back from the test. It was suggested that they go to a local ER as they have Isolation rooms where he cou ld be tested and kept comfortable. They were brought out to the testing site and asked to get into th eir car and pull it into the tent. They were told that is RN would get a Covid test ordered and will bring out the swab. The PPE, order , swab was obtained when I went out to the tent they were gone. Tried to call them twice on the phone number provided in the [employer]agraph[employer] section of his chart but was unable to leave a message. /mainor/ MORE CORLEY MSN Ed., BSN BILINGUAL CASE MANAGER NURSE Signed: 04/29/2021 15:34 Receipt Acknowledged By: * AWAITING SIGNATURE * GILMER GOLDMAN * AWAITING SIGNATURE * BECCA GUERRERO * AWAITING SIGNATURE * PAKO MANCUSO * AWAITING SIGNATURE * DORY VALENTIN 04/29/2021 15:47 /es/ Mary Renee MSN RN C Firm Space Operations Officer 04/29/2021 ADDENDUM STATUS: COMPLETED F: Telephone call D: Called the number jamaal d- [phone] asked for Zhao- and was told that it was not Zhao. He saID that we were reporte d and that we would be on the news tonight. Was not allowed to speak to vet. /mainor/ MORE CORLEY MSN Ed., BSN BILINGUAL CASE MANAGER NURSE Signed: 04/29/2021 15:52
--- OUTSIDE RECORDS SUMMARY | 2022-04-22 17:29 | XMS_ITS | Encounter Summary ---
:1950 Author Organization [facility] Address [address] [place] [address] Support Name Relationship Address Phone HAY GU Unavailable [address] [place] [address] HAY GU Unavailable [address] [place] [address] Insurance Providers: All historical and current Section [...] MEDICARE MEDICARE PART Mar 23, PART A [id number] HOFF[place] N PATIENT (WNR) (M) A 2002A 1 MICHAEL MORRIS MEDICARE MEDICARE PART Mar 23, PART B [id number] HOFF[place] N PATIENT (WNR) (M) B 2002A 1 MICHAEL [place] MEDICARE MEDICARE PART Mar 23, PART B [id number] H[place] N PATIENT (WNR) (M) B 2002A 4 MICHAEL [place] MEDICARE MEDICARE PART Mar 23, PART A [id number] H[place] N PATIENT (WNR) (M) A 2002A 4 MIC[place]EL [place] MEDICARE MEDICARE PART Mar 23, PART A [id number] [phone] HOFFMA N,E PATIENT (WNR) (M) A 2002 00 [place] MEDICARE MEDICARE PART Mar 23, PART B [id number] [phone] HOFFMA N,E PATIENT (WNR) (M) B 2002 [place] Selected Encounter This section includes the information on record at ID for the Encounter. Date/Time Encounter Type Encounter Description Reason Provider Source Apr 30, 2021 09:02 Outpatient Encounter TELEPHONE CASE AM MANAGEMENT IHE Encounter Template Text not used by ID Plan of Treatment: Future Appointments (+ 6 months) and Future Tests (+/- 45 days) The Plan of Treatment section includes future care activities for the patient from all [facility]. This section includes future appointments and future orders which are active, pending orscheduled.Future Appointments This section includes appointments that were scheduled to occur 6 months from the date of the Encounter, up to a maximum of 20 appointments. The data comes from all ID treatment [facility]. Appointment Date/Time Appointment Type Appointment Facili ty Name May 12, 2021 12:00 PM AMBUL[facility]ORY [facility] [place] [facility] May 13, 2021 12:30 PM AM[facility]ULATORY - MEDICINE [place] [facility] [place] [facility] Jul 14, 2021 01:00 PM AMBULATORY - MEDICINE [place] Oct 27, 2021 01:00 PM AMBULATORY PSYCHIATRY [place] Active, Pending, and Scheduled Orders This section includes a listing of several types of active, pending, and scheduled orders, including clinic medications orders, diagnostic test orders, procedure orders and consult orders; where the start date of the order is 45 days before the date of the Encounter or 45 days after the date of the Encounter. The data comes from all ID treatment [facility]. Test Date/Time Test Type Test Details Facility Name May 13, 2021 11:56 AM Consult Order [facility] [place] [facility] Validation Scientist's Choice Social History: Smoking Status (Most current) and Tobacco Use (All prior to encounter date) This section includes the most current, and the historical, smoking and tobacco-related health factors from the ID facility where the Encounter took place.Current Smoking Status This section includes the most current smoking, or tobacco-related health factor, from the ID facility where the Encounter took place. Date/Time Current Smoking Status Comment Facility Jul 03, 2020 02:53 PM VA-TOBACCO NEVER USED ID C NTRL WSTRN [facility] Advance Directives: All historical and current Section Date Range: From patient's date of to the date document was created. This section includes ALL of a patient's completed or amended [place] Advance and Rescinded Directives. The entries below indicate that a directive exists for the patient, but an actual copy is not included with this document. The data comes from all ID facilities. Date Advance Directives Provider Source Jan 06, 2022 ADVANCE DIRECTIVE CODEY WEBSTER Encounter Notes: All associated encounter notes This section contains the clinical notes associated to the Encounter. Date/Time Encounter Note(s) Provider Source Apr 30, 2021 09:03 TRANSFER SUMMARIZATION NOTE: Linsey HAYES [facility] CNTRL WSTRN AM LOCAL TITLE: STICKER MACHINE OPERATOR/OCC/HOSPITAL NOTIFICATION NOTE [place] [facility] STANDARD TITLE: TRANSFER SUMMARIZATION NOTE DATE OF NOTE: APR 30, 2021@09:03 ENTRY DATE: APR 30, 2021@09:03:04 AUTHOR: GEOVANNY HAYES EXP COSIGNER: URGENCY: STATUS: COMPLETED STICKER MACHINE OPERATOR/OCC/HOSPITAL NOTIFICAT ION NOTE Has ADDENDA Call received from AMARA Nikki @ [facility] ER [facility] [place] presented last evening accompanied by friend and is currently being worked up- but at the moment Dx is failure to thrive. AMARA is interested in LTC placement as friend info rmed the facility that the is unable to care fo r hinself and does not have a working toilet in his apartment. PACT provider information given for more medical consultation. /mainor/ LAURIE HAYES RN, MSN, CERT CLINICAL STICKER MACHINE OPERATOR Signed: 04/30/2021 09:06 Receipt Acknowledged By: * AWAITING SIGNATURE * DEANA HOFFMANN 05/01/2021 ADDENDUM STATUS: COMPLETED per Edwina SORENSON, the [place] i s being treated for COPD and poor self care. He was seen by inpatient psych and found to lack capaci ty. /mainor/ Jacquelyn Delcid RN-BS Sweatband Separator Signed: 05/01/2021 12:56
--- OUTSIDE RECORDS SUMMARY | 2022-04-22 17:29 | XMS_ITS | Encounter Summary ---
:1950 Author Organization [facility] Address [address] [place] [id number] Support Name Relationship Address Phone HAY GU Unavailable [address] [place] [address] HAY GU Unavailable [address] [place] [address] Insurance Providers: All historical and current Section [...] MEDICARE MEDICARE PART Mar 23, PART A [id number] HOFFMA N PATIENT (WNR) (M) A 2002A 4 MICHAEL MORRIS MEDICARE MEDICARE PART Mar 23, PART B [id number] HOFFMA N PATIENT (WNR) (M) B 2002A 4 MICHAEL MORRIS MEDICARE MEDICARE PART Mar 23, PART A [id number] [id number] HOFFMA N,E PATIENT (WNR) (M) A 2002A 00 [place] MEDICARE MEDICARE PART Mar 23, PART B [id number] HOFFMA N,E PATIENT (WNR) (M) B 2002A [place] MEDICARE MEDICARE PART Mar 23, PART A [id number] HOFFMA N PATIENT (WNR) (M) A 2002A 1 MICHAEL MORRIS MEDICARE MEDICARE PART Mar 23, PART B [id number] HOFFMA N PATIENT (WNR) (M) B 2002A MICHAEL Selected Encounter This section includes the information on record at [place] for the Encounter. Date/Time Encounter Type Encounter Description Reason Provider Source Apr 30, 2021 09:15 Outpatient Encounter TELEPHONE TRIAGE AM IHE Encounter Template Text not used by [place] Plan of Treatment: Future Appointments (+ 6 months) and Future Tests (+/- 45 days) The Plan of Treatment section includes future care activities for the patient from [facility] [place] [facility] This section includes future appointments and future orders which are active, pending orscheduled.Future Appointments This section includes appointments that were scheduled to occur 6 months from the date of the Encounter, up to a maximum of 20 appointments. The data comes from all [facility]. Appointment Date/Time Appointment Type Appointment Facili ty Name May 12, 2021 12:00 PM AM[place] [place] [place] [facility] May 13, 2021 12:30 PM [facility] [place] [facility] Jul 14, 2021 01:00 PM AMBULATORY - MEDICINE [place] Oct 27, 2021 01:00 PM AMBULATORY PSYCHIATRY [place] Active, Pending, and Scheduled Orders This section includes a listing of several types of active, pending, and scheduled orders, including clinic medications orders, diagnostic test orders, procedure orders and consult orders; where the start date of the order is 45 days before the date of the Encounter or 45 days after the date of the Encounter. The data comes from all [facility]. Test Date/Time Test Type Test Details Facility Name May 13, 2021 11:56 AM Consult Order [facility] CN[facility] L [facility] [place] [facility] Social History: Smoking Status (Most current) and Tobacco Use (All prior to encounter date) This section includes the most current, and the historical, smoking and tobacco-related health factors from the [place] facility where the Encounter took place.Current Smoking Status This section includes the most current smoking, or tobacco-related health factor, from the [place] facility where the Encounter took place. Date/Time Current Smoking Status Comment Facility Jul 03, 2020 02:53 PM VA-TOBACCO NEVER USED [place] C NTRL [facility] Advance Directives: All historical and current Section Date Range: From patient's date of to the date document was created. This section includes ALL of a patient's completed or amended [place] Advance and Rescinded Directives. The entries below indicate that a directive exists for the patient, but an actual copy is not included with this document. The data comes from all [place] facilities. Date Advance Directives Provider Source Jan 06, 2022 ADVANCE DIRECTIVE YEE WESTON Encounter Notes: All associated encounter notes This section contains the clinical notes associated to the Encounter. Date/Time Encounter Note(s) Provider Source Apr 30, 2021 09:15 AM NURSING TELEPHONE ENCOUNTER TRIAGE NOTE: SANDOR GAGNON CNTRL [facility] LOCAL TITLE: VISN 1 [facility] STANDARD TITLE: NURSING TELEPHONE ENCOUNTER TRIA GE NOTE DATE OF NOTE: APR 30, 2021@09:15:16 ENTRY DATE: APR 30, 2021@09:18:09 AUTHOR: SANDOR DUARTE EXP COSIGNER: URGENCY: STATUS: COMPLETED VISN 1 CLINICAL CONTACT CENTER Has ADDENDA The patient, MICHAEL GU ([id number]) called the call center. The following identifiers were used to verify th is patient: SSN. Contact Type of call: ADMINISTRATIVE. Caller Response: ADM CALL RESOLVED Caller Area: [place] [facility] PC[facility] Provider Info: [facility] ([id number]) PACT: SO PACT 2 (Focus: Primary Care Only) Primary Care Provider: Hari Russo PHONE:[phone] Infant Childcare Provider: Yee Weston Clinical Associate: Nuha Reynaga Train Station Agent: Bruno Smith Clinical POC: Clinical Associate Linsey Reynaga Administrative POC: Train Station Agent Bruno Smith Author: SANDOR DUARTE Comments: Nikki Acosta showcase trimmer from [facility] called req to s peak to team. She can be reached at [phone]. She did not elaborate t o agent. kindly assist. Evaluation/Management Code: HC PRO PHONE CALL 5- 10 MIN ([phone]). Starting at: 04/30/2021 @ 9:15:16 AM Ending at: 04/30/2021 @ 9:16:58 AM Length: 1 minutes. Chief Complaint: Not applicable to call. Class Code: Other specified counseling. Patient's Email Address: /mainor/ SANDOR DUARTE ADVANCED COLOR REPAIRER Signed: 04/30/2021 09:18 Receipt Acknowledged By: 05/01/2021 09:21 /es/ MEGAN MCCARTHY RN-NATALEE REGISTERED NURSE 05/01/2021 09:22 /es/ NUHA REYNAGA LPN LPN 05/01/2021 ADDENDUM STATUS: COMPLETED Called and spoke to Nikki who reports that [place] 's family is seeking guardianship for . Nikki reports due to Tammyt amrit's inability to care for himself and his dog safely in home he is unable to return home at this time. Nikki reports that [place]'s sisters and friends a re working with [facility] regarding discharge planning and possible assistant terminal manager placem ent at a SNF. Nikki will be in contact with [facility] transfer staff and PACT team as needed. /mainor/ MEGAN MCCARTHY RN-NATALEE REGISTERED NURSE Signed: 05/04/2021 11:23
--- OUTSIDE RECORDS SUMMARY | 2022-04-22 17:30 | XMS_ITS | Encounter Summary ---
:1950 Author Organization [facility] Address [address] [place] [address] Support Name Relationship Address Phone HAY GU Unavailable [address] [place] [address] HAY GU Unavailable [address] [place] [address] Insurance Providers: All historical and current Section [...] MEDICARE MEDICARE PART Mar 23, PART A [id number] HOFFMA N PATIENT (WNR) (M) A 2002A 1 MICHAEL MORRIS MEDICARE MEDICARE PART Mar 23, PART B [id number] HOFFMA N PATIENT (WNR) (M) B 2002A 1 MICHAEL MORRIS MEDICARE MEDICARE PART Mar 23, PART A [id number] HOFFMA N PATIENT (WNR) (M) A 2002A 4 MICHAEL MORRIS MEDICARE MEDICARE PART Mar 23, PART B [id number] HOFFMA N PATIENT (WNR) (M) B 2002A 4 MICHAEL MORRIS MEDICARE MEDICARE PART Mar 23, PART A [id number] [phone] HOFFMA N,E PATIENT (WNR) (M) A 2002A 00 [place] MEDICARE MEDICARE PART Mar 23, PART B [id number] [id number] HOFFMA N,E PATIENT (WNR) (M) B 2002 SHAL[place] Selected Encounter This section includes the information on record at [place] for the Encounter. Date/Time Encounter Type Encounter Description Reason Provider Source Aug 10, 2021 10:47 Outpatient Encounter PRIMARY CARE/MEDICINE AM IHE Encounter Template Text not used by [place] Plan of Treatment: Future Appointments (+ 6 months) and Future Tests (+/- 45 days) The Plan of Treatment section includes future care activities for the patient [facility] [place] [facility]. This section includes future appointments and future orders which are active, pending orscheduled.Future Appointments This section includes appointments that were scheduled to occur 6 months from the date of the Encounter, up to a maximum of 20 appointments. The data comes from all [place] treatment facilities. Appointment Date/Time Appointment Type Appointment Facili ty Name Oct 27, 2021 01:00 PM AMBULATORY PSYCHIATRY [place] Nov 25, 2021 04:00 PM [facility]UL[place]ICINE [place] [facility] Jan 19, 2022 01:30 PM [facility] Social History: Smoking Status (Most current) and Tobacco Use (All prior to encounter date) This section includes the most current, and the historical, smoking and tobacco-related health factors from the [place] facility where the Encounter took place.Current Smoking Status This section includes the most current smoking, or tobacco-related health factor, from the [place] facility where the Encounter took place. Date/Time Current Smoking Status [facility] Facility Jul 03, 2020 02:53 PM [place]-TOBACCO NEVER USED [facility] Advance Directives: All historical and current Section Date Range: From patient's date of to the date document was created. This section includes ALL of a patient's completed or amended [place] Advance and Rescinded Directives. The entries below indicate that a directive exists for the patient, but an actual copy is not included with this document. The data comes from all [place] facilities. Date Advance Directives Provider Source Jan 06, 2022 ADVANCE DIRECTIVE CODEY WEBSTER Encounter Notes: All associated encounter notes This section contains the clinical notes associated to the Encounter. Date/Time Encounter Note(s) Provider Source Aug 10, 2021 10:47 AM ADMINISTRATIVE NOTE: TOLU PRAJAPATI [facility] LOCAL TITLE: ADMINISTRATIVE NOTE STANDARD TITLE: ADMINISTRATIVE NOTE DATE OF NOTE: AUG 10, 2021@10:47 ENTRY DATE: AUG 10, 2021@10:47:49 AUTHOR: TOLU PRAJAPATI EXP COSIGNER: URGENCY: STATUS: COMPLETED TELEPHONE CALL - Scheduling PCP appointment [place] record with respect to receipt of COVID- 19 vaccination [X} Received INITIAL VACCINATION at or via [facility] [phone] [ ] Received at another [place] facility [ ] Received in the community [X] CANCELLED APPT FOR 2ND VACCINATION, DID NOT RESCHEDULE [X] No indication of receipt of BOOSTER COVID-19 Initial Vaccination series NOT COMPLETE D PATIENT PHONE - PHONE NUMBER [CELLULAR] - NONE FOUND PURPOSE OF CALL: [X} Schedule appointment with PRIMARY CARE PROVI MARTIN [ ] Reschedule appointment with PRIMARY CARE PRO VIDER [X} Offer to schedule CWM/SO/MOD BOOSTER vaccine appointment Human Resources Leader called [place] - RESULTS OF CALL: [X] SUCCESSFUL CONTACT: [ ] UNABLE TO SCHEDULE an appointment [X] Scheduled subject appointment with PRIMARY CARE PROVIDER [X] Scheduled subject appointment to receive CW M/SO/COVID BOOSTER VACCINE === DETAILS OF CALL: Utilizing HIPAA Guidelines per current policy, maryam bautista with respondent, [ ] Patient [X} Patient open claims representative, sibling jamil Montoya whom [place] has authorized VA to communicate 's medi garth information. 's identity actively confirmed by: [X} Full name [X} Complete date of [X} Confirmed 's mailing address [X} Human Resources Leader negotiated with respondent, and sched uled subject PCP appointment for [place]. [X} Letter mailed as appointment reminder. [X} Confirmed 's mailing address as the following: MICHAEL GU [address] [place] [address] [X} Reminded respondent that wearing of masks is mandatory in VA facilities, and that an d any other visitor wear mask to any appointment, lab oratory testing, or other activities in [facility], as VA soto s not issue masks. Re: COVID-19 VACCINATION STATUS [X} Respondent requests a CWM/SO/COVID VACCINE a ppointment for [place]. [X} Human Resources Leader negotiated with respondent, and sched uled CWM/SO/COVID VACCINE appointments for [place]. [X} Reminded respondent that wearing of masks is mandatory in [place] facilities, and that an d any other visitor wear mask to any appointment, lab oratory testing, or other activies in [facility], as [place] does not issue masks. [X} Letter mailed as appointment reminder. Upcoming Appointments: 08/17/2021 13:00 CWM/SO/PACT 2 09/01/2021 14:00 SPOPC/MHC/PSYCHIATRY RESI /es/ TOLU PARIKH, [place] [facility], [facility] Signed: 08/10/2021 11:08
--- OUTSIDE RECORDS SUMMARY | 2022-04-22 17:30 | XMS_ITS | Encounter Summary ---
:1950 Author Organization [facility] Address [address] [place] [address] Support Name Relationship Address Phone HAY GU Unavailable [address] [place] [address] HAY GU Unavailable [address] [place] [address] Insurance Providers: All historical and current Section [...] MEDICARE MEDICARE PART Mar 23, PART A [id number] HOFFMA N PATIENT (WNR) (M) A 2002A 4 MICHAEL MORRIS MEDICARE MEDICARE PART Mar 23, PART B [id number] HOFFMA N PATIENT (WNR) (M) B 2002A 4 MICHAEL MORRIS MEDICARE MEDICARE PART Mar 23, PART A [id number] HOFFMA N PATIENT (WNR) (M) A 2002A 1 MICHAEL MORRIS MEDICARE MEDICARE PART Mar 23, PART B [id number] HOFFMA N PATIENT (WNR) (M) B 2002A 1 MICHAEL MORRIS MEDICARE MEDICARE PART Mar 23, PART A [id number] HOFFMA N,E PATIENT (WNR) (M) A 2002A 00 [place] MEDICARE MEDICARE PART Mar 23, PART B [id number] [id number] HOFFMA N,E PATIENT (WNR) (M) B 2002 SHALA Selected Encounter This section includes the information on record at [place] for the Encounter. Date/Time Encounter Type Encounter Description Reason Provider Source Aug 10, 2021 12:13 Outpatient Encounter TELEPHONE TRIAGE PM IHE Encounter Template Text not used by [place] Plan of Treatment: Future Appointments (+ 6 months) and Future Tests (+/- 45 days) The Plan of Treatment section includes future care activities for the patient from all [place] treatmentfacilities. This section includes future appointments and future orders which are active, pending orscheduled.Future Appointments This section includes appointments that were scheduled to occur 6 months from the date of the Encounter, up to a maximum of 20 appointments. The data comes from all [place] treatment facilities. Appointment Date/Time Appointment Type Appointment Facili ty Name Oct 27, 2021 01:00 PM AMBULATORY - PSYCHIATRY [facility] [place] Nov 25, 2021 04:00 PM [facility] Jan 19, 2022 01:30 PM [facility] Social History: Smoking Status (Most current) and Tobacco Use (All prior to encounter date) This section includes the most current, and the historical, smoking and tobacco-related health factors from the [place] facility where the Encounter took place.Current Smoking Status This section includes the most current smoking, or tobacco-related health factor, from the [place] facility where the Encounter took place. Date/Time Current Smoking Status Comment Facility Jul 03, 2020 02:53 PM [place]-TOBACCO NEVER USED [facility] Advance Directives: All historical and current Section Date Range: From patient's date of to the date document was created. This section includes ALL of a patient's completed or amended [place] Advance and Rescinded Directives. The entries below indicate that a directive exists for the patient, but an actual copy is not included with this document. The data comes from all [place] facilities. Date Advance Directives Provider Source Jan 06, 2022 ADVANCE DIRECTIVE CODEY WEBSTER NOREEN Encounter Notes: All associated encounter notes This section contains the clinical notes associated to the Encounter. Date/Time Encounter Note(s) Provider Source Aug 10, 2021 12:13 PM TELEPHONE ENCOUNTER NOTE: SHARI DUARTE [facility] LOCAL TITLE: VISN 1 CCC ACTION REQUIRED [facility] STANDARD TITLE: TELEPHONE ENCOUNTER NOTE DATE OF NOTE: AUG 10, 2021@12:13:10 ENTRY DATE: AUG 10, 2021@12:15:48 AUTHOR: SHARI DUARTE EXP COSIGNER: URGENCY: STATUS: COMPLETED [place] called in for MICHAEL GU ([phone]) . The following identifiers were used to verify th is patient: SSN. Contact Type of call: ADMINISTRATIVE. Caller Response: ADM CALL RESOLVED Caller Area: [facility] PCMM Provider Info: [facility] ([id number]) PACT: SO PACT 2 (Focus: Primary Care Only) Primary Care Provider: CHINYERE GUTIÉRREZ Lens Hardener: CODEY WEBSTER Clinical Associate: SARITA REYNAGA Pharmacy Laboratory Technician: TOLU PRAJAPATI Clinical POC: Clinical Associate Linsey REYNAGA Administrative POC: Pharmacy Laboratory Technician TOLU PRAJAPATI Author: SHARI DUARTE Comments: Sister Lindsay (on auth) called humberto britt to speak with [employer]. Kindly call back . Evaluation/Management Code: HC PRO PHONE CALL 5- 10 MIN ([phone]). Starting at: 08/10/2021 @ 12:13:10 PM Ending at: 08/10/2021 @ 12:14:44 PM Length: 1 minutes. Chief Complaint: Not applicable to call. Class Code: Other specified counseling. Patient's Email Address: /mainor/ SHARI DUARTE Advanced Line Out Man Signed: 08/10/2021 12:15 Receipt Acknowledged By: * AWAITING SIGNATURE * TOLU PRAJAPATI
--- OUTSIDE RECORDS SUMMARY | 2022-04-22 17:30 | XMS_ITS ---
:1950 Author Organization [facility] Address [address] [place] [address] Support Name Relationship Address Phone HAY GU Unavailable [address] [place] [address] HAY GU Unavailable [address] [place] [address] Insurance Providers: All historical and current Section [...] MEDICARE MEDICARE PART Mar 23, PART A [id number] HOFFMA N PATIENT (WNR) (M) A 2002A 1 MICHAEL MORRIS MEDICARE MEDICARE PART Mar 23, PART B [id number] HOFFMA N PATIENT (WNR) (M) B 2002A 1 MICHAEL MORRIS MEDICARE MEDICARE PART Mar 23, PART A [id number] HOFFMA N PATIENT (WNR) (M) A 2002A 4 MICHAEL MORRIS MEDICARE MEDICARE PART Mar 23, PART B [id number] HOFFMA N PATIENT (WNR) (M) B 2002A 4 MICHAEL MORRIS MEDICARE MEDICARE PART Mar 23, PART A [id number] HOFFMA N,E PATIENT (WNR) (M) A 2002 00 DWARD MEDICARE MEDICARE PART Mar 23, PART B [id number] HOFFMA N,E PATIENT (WNR) (M) B 2002 ISAARD Selected Encounter This section includes the information on record at [place] for the Encounter. Date/Time Encounter Type Encounter Description Reason Provider Source May 12, 2021 12:00 Outpatient Encounter [facility] PM - IND IHE Encounter Template Text not used by [place] Plan of Treatment: Future Appointments (+ 6 months) and Future Tests (+/- 45 days) The Plan of Treatment section includes future care activities for the patient [facility] [place] [facility] This section includes future appointments and future orders which are active, pending orscheduled.Future Appointments This section includes appointments that were scheduled to occur 6 months from the date of the Encounter, up to a maximum of 20 appointments. The data comes from all [place] treatment facilities. Appointment Date/Time Appointment Type Appointment Facili ty Name May 13, 2021 12:30 PM AMBULATORY - MEDICINE [place] [facility] Jul 14, 2021 01:00 PM AMBULATORY - MEDICINE [place] Oct 27, 2021 01:00 PM AMBULATORY - PS[place]CHIATRY [place] Active, Pending, and Scheduled Orders This section includes a listing of several types of active, pending, and scheduled orders, including clinic medications orders, diagnostic test orders, procedure orders and consult orders; where the start date of the order is 45 days before the date of the Encounter or 45 days after the date of the Encounter. The data comes from all [place] treatment [facility]. Test Date/Time Test Type Test Details Facility Name May 13, 2021 11:56 Consult Order [facility] CNTRL W STRN AM [facility] Cons [place] [facility] Rehab Tech[facility] Choice Jun 24, 2021 12:00 Laboratory - ALCOHOL, ETHYL URINE [place] CN[facility] AM Chemistry Order PANEL URINE (DRUG) [place] [facility] Jun 24, 2021 12:00 Laboratory - FENTANYL SCREEN PANEL [place] CNTR L W[facility]N AM Chemistry Order URINE (DRUG) [place] [facility] Jun 24, 2021 12:00 Laboratory - AMPHETAMINES SCREEN PANEL [place] [facility] AM Chemistry Order URINE (DRUG) [place] [facility] Jun 24, 2021 12:00 Laboratory - BENZODIAZEPINES SCREEN [place] CNT RL WSTRN AM Chemistry Order PANEL URINE (DRUG) [place] [facility] Jun 24, 2021 12:00 Laboratory - BUPRENORPHINE SCREEN [place] CNTRL W[facility] AM Chemistry Order PANEL URINE (DRUG) [place] [facility] Jun 24, 2021 12:00 Laboratory - CANNABINOIDS SCREEN PANEL [facility] W[facility] AM Chemistry Order URINE (DRUG) [facility] Jun 24, 2021 12:00 Laboratory - COCAINE SCREEN PANEL [facility] AM Chemistry Order URINE (DRUG) [facility] Jun 24, 2021 12:00 Laboratory - ETG SCREEN (wx) URINE [place] CN[facility] L [facility] AM Chemistry Order (DRUG) SP [facility] Jun 24, 2021 12:00 Laboratory - OPIATES SCREEN PANEL [place] [facility] AM Chemistry Order URINE (DRUG) SP [facility] Jun 24, 2021 12:00 Laboratory - METHADONE SCREEN URINE SP [place] CNTRL WSTRN AM Chemistry Order [facility] Jun 24, 2021 12:00 Laboratory - OXYCODONE SCREEN PANEL [place] CNT RL WSTRN AM Chemistry Order URINE (DRUG) [facility] Jun 24, 2021 12:00 Laboratory - URINALYSIS URINE SP [place] CNTRL WSTRN AM Chemistry Order [facility] Jun 24, 2021 12:00 Laboratory - CBC AND DIFF (AUTO) BLOOD [place] CN[facility] AM Chemistry Order (LAV-BLOOD) [facility] Jun 24, 2021 12:00 Laboratory - HEMOGLOBIN A1C PANEL [facility] CN[facility]L W[facility] AM Chemistry Order BLOOD (LAV-BLOOD) [facility] Jun 24, 2021 12:00 Laboratory - PSA BLOOD (SST-SERUM) SP [facility] C NTRL WSTRN AM Chemistry Order [facility] Jun 24, 2021 12:00 Laboratory - PROTEIN,TOTAL BLOOD [facility] CN[facility] AM Chemistry Order (SST-SERUM) [facility] Jun 24, 2021 12:00 Laboratory - BILIRUBIN, TOTAL BLOOD [facility] CNT RL WSTRN AM Chemistry Order (SST-SERUM) [facility] Jun 24, 2021 12:00 Laboratory - TSH BLOOD (SST-SERUM) SP [facility] C NTRL WSTRN AM Chemistry Order [facility] Jun 24, 2021 12:00 Laboratory - URIC ACID BLOOD [facility] CNTRL WSTR N AM Chemistry Order (SST-SERUM) [facility] Jun 24, 2021 12:00 Laboratory - AST BLOOD (SST-SERUM) SP [facility] C NTRL WSTRN AM Chemistry [facility] Jun 24, 2021 12:00 Laboratory - ALBUMIN BLOOD (SST-SERUM) [facility] AM Chemistry Order SP [facility] Jun 24, 2021 12:00 Laboratory - ALT BLOOD (SST-SERUM) [facility] C NTRL WSTRN AM Chemistry Order [facility] Jun 24, 2021 12:00 Laboratory - GAMMA-GTP BLOOD [facility] CNTRL WSTR N AM Chemistry Order (SST-SERUM) SP [facility] Jun 24, 2021 12:00 Laboratory - GLUCOSE BLOOD (SST-SERUM) [facility] AM Chemistry Order SP [facility] Jun 24, 2021 12:00 Laboratory - CREATININE (GFR [facility] CNTRL WSTR N AM Chemistry Order Est.included) BLOOD [facility] (SST-SERUM) Jun 24, 2021 12:00 Laboratory - UREA NITROGEN BLOOD [place] CNTRL WSTRN AM Chemistry Order (SST-SERUM) [facility] Jun 24, 2021 12:00 Laboratory - ELECTROLYTE PANEL BLOOD NC CN TRL WSTRN AM Chemistry Order (SST-SERUM) [facility] Jun 24, 2021 12:00 Laboratory - LIPID PANEL FASTING BLOOD [place] CNTRL WSTRN AM Chemistry Order (SST-SERUM) [facility] Jun 24, 2021 12:00 Laboratory - GABAPENTIN, Urine URINE [place] CN TRL WSTRN AM Chemistry Order (DRUG) [facility] Social History: Smoking Status (Most current) and Tobacco Use (All prior to encounter date) This section includes the most current, and the historical, smoking and tobacco-related health factors from the [place] facility where the Encounter took place.Current Smoking Status This section includes the most current smoking, or tobacco-related health factor, from the [place] facility where the Encounter took place. Date/Time Current Smoking Status Comment Facility Jul 03, 2020 02:53 PM VA-TOBACCO NEVER USED [facility] NTRL WSTRN [facility] Advance Directives: All historical and current Section Date Range: From patient's date of to the date document was created. This section includes ALL of a patient's completed or amended [place] Advance and Rescinded Directives. The entries below indicate that a directive exists for the patient, but an actual copy is not included with this document. The data comes from all [place] facilities. Date Advance Directives Provider Source Jan 06, 2022 ADVANCE DIRECTIVE CODEY WEBSTER Encounter Notes: All associated encounter notes This section contains the clinical notes associated to the Encounter. Date/Time Encounter Note(s) Provider Source May 12, 2021 12:56 PM CLERICAL NOTE: ARNEL ORTIZ [place] CN[facility] STR[facility] LOCAL TITLE: APPOINTMENT NO SHOW [facility] STANDARD TITLE: CLERICAL NOTE DATE OF NOTE: MAY 12, 2021@12:56 ENTRY DATE: MAY 12, 2021@12:57:02 AUTHOR: ARNEL ORTIZ EXP COSIGNER: URGENCY: STATUS: COMPLETED Patient Name: MICHAEL GU Patient SSN: [id number] Date and time of Appointment No show : 05/12/21 12:00 PATIENT PHONE - PHONE NUMBER [CELLULAR] - NONE FOUND Patient's medical record was reviewed. Follow-up actions were determined and initiated: Please check/complete as applies: [X]Telephoned Directly [ ]Re-scheduled for next available appt [ ]Sent a N0-show letter ( must call for appointment) [ ]Other (Emergent/Overbook, etc.): Additional Comments: No answer. Steffi from the [facility] agency to which he'd been referred says his current coverage is through [employer], an Advantage Plan carve-out of some sort. Have alerted nurse that there's no workable plan in place yet. Future Clinic Visits No data available /es/ ARNEL ORTIZ, PhD Clinical Psychologist Signed: 05/12/2021 13:05 Receipt Acknowledged By: * AWAITING SIGNATURE * ARNOLDO PANCHAL
--- OUTSIDE RECORDS SUMMARY | 2022-04-22 17:31 | XMS_ITS | Encounter Summary ---
:1950 Author Organization [facility] Address [address] [place] [address] Support Name Relationship Address Phone HAY GU Unavailable [address] [place] [address] HAY GU Unavailable [address] [place] [address] Insurance Providers: All historical and current Section [...] MEDICARE MEDICARE PART Mar 23, PART A [id number] HOFFMA N,E PATIENT (WNR) (M) A 2002A 00 DWARD MEDICARE MEDICARE PART Mar 23, PART B [id number] HOFFMA N,E PATIENT (WNR) (M) B 2002A 00 DW[place] MEDICARE MEDICARE PART Mar 23, PART A [id number] HOFFMA N PATIENT (WNR) (M) A 2002A 4 MICHAEL MORRIS MEDICARE MEDICARE PART Mar 23, PART B [id number] HOFFMA N PATIENT (WNR) (M) B 2002A 4 MICHAEL MORRIS MEDICARE MEDICARE PART Mar 23, PART A [id number] HOFFMA N PATIENT (WNR) (M) A 2002A 1 MICHEAL MORRIS MEDICARE MEDICARE PART Mar 23, PART B [id number] HOFFMA N PATIENT (WNR) (M) B 2002A 1 MICHAEL Selected Encounter This section includes the information on record at [place] for the Encounter. Date/Time Encounter Type Encounter Description Reason Provider Source Jul 17, 2021 03:53 Outpatient Encounter TELEPHONE TRIAGE PM IHE Encounter Template Text not used by [place] Plan of Treatment: Future Appointments (+ 6 months) and Future Tests (+/- 45 days) The Plan of Treatment section includes future care activities for the patient [facility] [place] [facility] This section includes future appointments and future orders which are active, pending orscheduled.Future Appointments This section includes appointments that were scheduled to occur 6 months from the date of the Encounter, up to a maximum of 20 appointments. The data comes from all [place] treatment facilities. Appointment Date/Time Appointment Type Appointment Facili ty Name Oct 27, 2021 01:00 PM AMBULATORY - PS[place]CHIATRY [place] Nov 25, 2021 04:00 PM AMBULATORY - MEDICINE [place] CNTR [facility] Active, Pending, and Scheduled Orders This section includes a listing of several types of active, pending, and scheduled orders, including clinic medications orders, diagnostic test orders, procedure orders and consult orders; where the start date of the order is 45 days before the date of the Encounter or 45 days after the date of the Encounter. The data comes from all [place] treatment [facility]. Test Date/Time Test Type Test Details Facility Name Jun 24, 2021 12:00 Laboratory - AMPHETAMINES SCREEN PANEL [place] CN[facility]L W[facility] AM Chemistry [facility] Jun 24, 2021 12:00 Laboratory - ALCOHOL, ETHYL URINE [place] CN[facility] AM Chemistry Order PAN[facility] Jun 24, 2021 12:00 Laboratory - FENTANYL SCREEN PANEL [place] CNTR L WSTRN AM Chemistry Order URINE (DRUG) [place] [facility] Jun 24, 2021 12:00 Laboratory - BENZODIAZEPINES SCREEN [place] CNT RL WSTRN AM Chemistry Order PANEL URINE (DRUG) [place] [facility] Jun 24, 2021 12:00 Laboratory - CANNABINOIDS SCREEN PANEL [place] CNTRL WSTR[facility] AM Chemistry Order URINE (DRUG) [place] [facility] Jun 24, 2021 12:00 Laboratory - BUPRENORPHINE SCREEN [place] CNTRL WSTRN AM Chemistry Order PANEL URINE (DRUG) [place] [facility] Jun 24, 2021 12:00 Laboratory - COCAINE SCREEN PANEL [place] CNTRL WSTRN AM Chemistry [facility] Jun 24, 2021 12:00 Laboratory - OPIATES SCREEN PANEL [place] CNTRL WSTRN AM Chemistry Order URINE (DRUG) [facility] Jun 24, 2021 12:00 Laboratory - ETG SCREEN (wx) URINE [facility] CNTR L WSTRN AM Chemistry Order (DRUG) [facility] Jun 24, 2021 12:00 Laboratory - METHADONE SCREEN URINE SP [place] CNTRL WSTRN AM Chemistry Order [facility] Jun 24, 2021 12:00 Laboratory - OXYCODONE SCREEN PANEL [facility] CNT RL WSTRN AM Chemistry Order URINE (DRUG) [facility] Jun 24, 2021 12:00 Laboratory - URINALYSIS URINE SP [facility] CNTRL WSTRN AM Chemistry Order [facility] Jun 24, 2021 12:00 Laboratory - HEMOGLOBIN A1C PANEL [facility] CNTRL WSTRN AM Chemistry Order BLOOD (LAV-BLOOD) [facility] Jun 24, 2021 12:00 Laboratory - CBC AND DIFF (AUTO) BLOOD [facility] CN[facility] AM Chemistry Order (LAV-BLOOD) [facility] Jun 24, 2021 12:00 Laboratory - PSA BLOOD (SST-SERUM) SP [facility] C NTRL WSTRN AM Chemistry Order [facility] Jun 24, 2021 12:00 Laboratory - ALBUMIN BLOOD (SST-SERUM) [facility] AM Chemistry Order [facility] Jun 24, 2021 12:00 Laboratory - URIC ACID BLOOD [facility] CNTRL WSTR N AM Chemistry Order (SST-SERUM) [facility] Jun 24, 2021 12:00 Laboratory - BILIRUBIN, TOTAL BLOOD VA CNT RL WSTRN AM Chemistry Order (SST-SERUM) [facility] Jun 24, 2021 12:00 Laboratory - TSH BLOOD (SST-SERUM) SP [facility] C NTRL WSTRN AM Chemistry Order [facility] Jun 24, 2021 12:00 Laboratory - PROTEIN,TOTAL BLOOD [facility] CN[facility] W[facility] AM Chemistry Order (SST-SERUM) [facility] Jun 24, 2021 12:00 Laboratory - ALT BLOOD (SST-SERUM) SP [facility] C NTRL WSTRN AM Chemistry Order [facility] Jun 24, 2021 12:00 Laboratory - GAMMA-GTP BLOOD [place] CNTRL WSTR N AM Chemistry Order (SST-SERUM) [facility] Jun 24, 2021 12:00 Laboratory - AST BLOOD (SST-SERUM) SP [place] C NTRL WSTRN AM Chemistry [facility] Jun 24, 2021 12:00 Laboratory - GLUCOSE BLOOD (SST-SERUM) [facility] AM Chemistry Order [facility] Jun 24, 2021 12:00 Laboratory - UREA NITROGEN BLOOD [place] CNTRL WSTRN AM Chemistry Order (SST-SERUM) [facility] Jun 24, 2021 12:00 Laboratory - ELECTROLYTE PANEL BLOOD [place] CN TRL WSTRN AM Chemistry Order (SST-SERUM) [facility] Jun 24, 2021 12:00 Laboratory - CREATININE (GFR [place] CNTRL WSTR N AM Chemistry Order Est.included) BLOOD [facility] (SST-SERUM) Jun 24, 2021 12:00 Laboratory - LIPID PANEL FASTING BLOOD [place] CNTRL WSTRN AM Chemistry Order (SST-SERUM) [facility] Jun 24, 2021 12:00 Laboratory - GABAPENTIN, Urine URINE [place] CN TRL WSTRN AM Chemistry Order (DRUG) [facility] Social History: Smoking Status (Most current) and Tobacco Use (All prior to encounter date) This section includes the most current, and the historical, smoking and tobacco-related health factors from the [place] facility where the Encounter took place.Current Smoking Status This section includes the most current smoking, or tobacco-related health factor, from the [place] facility where the Encounter took place. Date/Time Current Smoking Status Comment Facility Jul 03, 2020 02:53 PM VA-TOBACCO NEVER USED [place] C NTRL WSTRN [facility] Advance Directives: All historical and current Section Date Range: From patient's date of to the date document was created. This section includes ALL of a patient's completed or amended [place] Advance and Rescinded Directives. The entries below indicate that a directive exists for the patient, but an actual copy is not included with this document. The data comes from all [place] facilities. Date Advance Directives Provider Source Jan 06, 2022 ADVANCE DIRECTIVE CODEY WEBSTER Encounter Notes: All associated encounter notes This section contains the clinical notes associated to the Encounter. Date/Time Encounter Note(s) Provider Source Jul 17, 2021 03:53 PM TELEPHONE ENCOUNTER NOTE: NEISHA KATZ [facility] LOCAL TITLE: VISN 1 [facility] STANDARD TITLE: TELEPHONE ENCOUNTER NOTE DATE OF NOTE: JUL 17, 2021@15:53:01 ENTRY DATE: JUL 17, 2021@15:55:15 AUTHOR: NEISHA KATZ EXP COSIGNER: URGENCY: STATUS: COMPLETED The patient, MICHAEL GU ([id number]) called the call center. The following identifiers were used to verify th is patient: . SSN. Contact Type of call: PHARMACY. Caller Response: ADM CALL RESOLVED Caller Area: [place] [facility] Provider Info: [facility] ([id number]) PACT: SO PACT 2 (Focus: Primary Care Only) Primary Care Provider: CHINYERE GUTIÉRREZ Winch Driver: CODEY WEBSTER Clinical Associate: SARITA REYNAGA Chief Of Field Operations: TOLU PRAJAPATI Clinical POC: Clinical Associate Linsey REYNAGA Administrative POC: Chief Of Field Operations TOLU PRAJAPATI Author: NEISHA KATZ Comments: Renew for mail Imported Information: Medications ACTIVE: HYDROCODONE 5MG/ACETAMINOPHEN 325MG TAB Prescription #:[id number] Prescribing Physician: EVGENY LAW [facility] on 06/24/2021 13:25 Frequency/Dosage: 1 TABLET HYDROCODONE 5MG /ACETAMINOPHEN 325MG TAB ACTIVE: LISINOPRIL 10MG TAB Prescription #:[id number] Prescribing Physician: BECCA GUERRERO (PHYSICIAN) on 08/10/2020 22:08 Frequency/Dosage: 10MG ORAL DAILY OMEPRAZOLE 20MG CAP,EC [id number] 11/20/2019 11/23/2019 (0) SIG: TAKE ONE CAPSULE BY MOUTH EVERY MORNING NEEDED Provider: BECCA GUERRERO Cost/Fill: $ 1.62 Exp/C an Dt: 02/18/2020 Evaluation/Management Code: HC PRO PHONE CALL 5- 10 MIN ([phone]). Starting at: 07/17/2021 @ 3:53:01 PM Ending at: 07/17/2021 @ 3:54:12 PM Length: 1 minutes. Chief Complaint: Not applicable to call. Class Code: Other specified counseling. Patient's Email Address: /mainor/ NEISHA KATZ [employer] DIRECTOR Signed: 07/17/2021 15:55 Receipt Acknowledged By: * AWAITING SIGNATURE * CODEY WEBSTER * AWAITING SIGNATURE * SARITA REYNAGA
--- OUTSIDE RECORDS SUMMARY | 2022-04-22 17:31 | XMS_ITS ---
:1950 Author Organization [facility] Address [address] [place] [id number] Support Name Relationship Address Phone HAY GU Unavailable [address] [place] [address] HAY GU Unavailable [address] [place] [address] Insurance Providers: All historical and current Section [...] [place] MEDICARE MEDICARE PART Mar 23, PART B [id number] HOFF[place] N PATIENT (WNR) (M) B 2002A 4 MICHAEL MORRIS MEDICARE MEDICARE PART Mar 23, PART A [id number] HOFFMA N PATIENT (WNR) (M) A 2002A 4 MICHAEL MORRIS MEDICARE MEDICARE PART Mar 23, PART A [id number] HOFFMA N,E PATIENT (WNR) (M) A 2002 26A 00 [place] MEDICARE MEDICARE PART Mar 23, PART B [id number] HOFFMA N,E PATIENT (WNR) (M) B 2002A 00 [place] MEDICARE MEDICARE PART Mar 23, PART A [id number] HOFFMA N PATIENT (WNR) (M) A 2002A 1 MICHAEL MORRIS MEDICARE MEDICARE PART Mar 23, PART B [id number] HOFFMA N PATIENT (WNR) (M) B 2002A 1 MICHAEL Selected Encounter This section includes the information on record at ME for the Encounter. Date/Time Encounter Type Encounter Description Reason Provider Source Aug 07, 2021 01:59 Outpatient Encounter PRIMARY CARE/MEDICINE PM IHE Encounter Template Text not used by ME Plan of Treatment: Future Appointments (+ 6 months) and Future Tests (+/- 45 days) The Plan of Treatment section includes future care activities for the patient from all [facility] This section includes future appointments and future orders which are active, pending orscheduled.Future Appointments This section includes appointments that were scheduled to occur 6 months from the date of the Encounter, up to a maximum of 20 appointments. The data comes from all [place] treatment [facility]. Appointment Date/Time Appointment Type Appointment Facili ty Name Oct 27, 2021 01:00 PM AMBULATORY - [place]IATRY [place] Nov 25, 2021 04:00 PM [facility] Jan 19, 2022 01[facility]30 PM [facility] Active, Pending, and Scheduled Orders This section includes a listing of several types of active, pending, and scheduled orders, including clinic medications orders, diagnostic test orders, procedure orders and consult orders; where the start date of the order is 45 days before the date of the Encounter or 45 days after the date of the Encounter. The data comes from all ME treatment [facility]. Test Date/Time Test Type Test Details Facility Name Jun 24, 2021 12:00 Laboratory - AMPHETAMINES SCREEN PANEL ME [facility]L W[facility]N AM Chemistry Order URINE (DRUG) [facility] Jun 24, 2021 12:00 Laboratory - ALCOHOL, ETHYL URINE [facility] AM Chemistry Order PANEL URINE (DRUG) [place] [facility] Jun 24, 2021 12:00 Laboratory - FENTANYL SCREEN PANEL ME CNTR L WSTRN AM Chemistry Order URINE (DRUG[facility] Jun 24, 2021 12:00 Laboratory - BENZODIAZEPINES SCREEN ME CNT RL WSTRN AM Chemistry Order PANEL URINE (DRUG) [place] [facility] Jun 24, 2021 12:00 Laboratory - BUPRENORPHINE SCREEN [facility]N AM Chemistry Order PANEL URINE (DRUG) [place] [facility] Jun 24, 2021 12:00 Laboratory - CANNABINOIDS SCREEN PANEL [facility] Chemistry [facility] Jun 24, 2021 12:00 Laboratory - COCAINE SCREEN PANEL [facility] AM Chemistry Order URINE (DRUG) SP [facility] Jun 24, 2021 12:00 Laboratory - OXYCODONE SCREEN PANEL [facility] CNT RL WSTRN AM Chemistry Order URINE (DRUG) SP [facility] Jun 24, 2021 12:00 Laboratory - ETG SCREEN (wx) URINE [facility] AM Chemistry Order (DRUG) SP [facility] Jun 24, 2021 12:00 Laboratory - OPIATES SCREEN PANEL [facility] AM Chemistry Order URINE (DRUG) SP [facility] Jun 24, 2021 12:00 Laboratory - METHADONE SCREEN URINE SP [facility] AM Chemistry Order [facility] Jun 24, 2021 12:00 Laboratory - CBC AND DIFF (AUTO) BLOOD [facility] AM Chemistry Order (LAV-BLOOD) [facility] Jun 24, 2021 12:00 Laboratory - HEMOGLOBIN A1C PANEL [facility] AM Chemistry Order BLOOD (LAV-BLOOD) [facility] Jun 24, 2021 12:00 Laboratory - URIC ACID BLOOD [facility] N AM Chemistry Order (SST-SERUM) [facility] Jun 24, 2021 12:00 Laboratory - PSA BLOOD (SST-SERUM) [facility] AM Chemistry Order [facility] Jun 24, 2021 12:00 Laboratory - ALBUMIN BLOOD (SST-SERUM) [facility] AM Chemistry Order SP [facility] Jun 24, 2021 12:00 Laboratory - URINALYSIS URINE SP [facility] AM Chemistry Order [facility] Jun 24, 2021 12:00 Laboratory - PROTEIN,TOTAL BLOOD [facility] AM Chemistry Order (SST-SERUM) [facility] Jun 24, 2021 12:00 Laboratory - BILIRUBIN, TOTAL BLOOD VA CNT RL WSTRN AM Chemistry Order (SST-SERUM) SP [facility] Jun 24, 2021 12:00 Laboratory - TSH BLOOD (SST-SERUM) [facility] C N[facility] AM Chemistry Order [facility] Jun 24, 2021 12:00 Laboratory - ALT BLOOD (SST-SERUM) SP ME C NTRL WSTRN AM Chemistry [facility] Jun 24, 2021 12:00 Laboratory - AST BLOOD (SST-SERUM) [facility] C NTRL WSTRN AM Chemistry Order [facility] Jun 24, 2021 12:00 Laboratory - GAMMA-GTP BLOOD ME CN[facility]L WSTR N AM Chemistry Order (SST-SERUM) [facility] Jun 24, 2021 12:00 Laboratory - GLUCOSE BLOOD (SST-SERUM) [facility] AM Chemistry Order SP [facility] Jun 24, 2021 12:00 Laboratory - UREA NITROGEN BLOOD [facility]L [facility]N AM Chemistry Order (SST-SERUM) [facility] Jun 24, 2021 12:00 Laboratory - CREATININE (GFR [facility] N AM Chemistry Order Est.included) BLOOD [facility] (SST-SERUM) Jun 24, 2021 12:00 Laboratory - ELECTROLYTE PANEL BLOOD ME CN TRL WSTRN AM Chemistry Order (SST-SERUM) [facility] Jun 24, 2021 12:00 Laboratory - LIPID PANEL FASTING BLOOD ME CN[facility]L WSTRN AM Chemistry Order (SST-SERUM) [facility] Jun 24, 2021 12:00 Laboratory - GABAPENTIN, Urine URINE ME CN TRL WSTRN AM Chemistry Order (DRUG) [facility] Social History: Smoking Status (Most current) and Tobacco Use (All prior to encounter date) This section includes the most current, and the historical, smoking and tobacco-related health factors from the ME facility where the Encounter took place.Current Smoking Status This section includes the most current smoking, or tobacco-related health factor, from the ME facility where the Encounter took place. Date/Time Current Smoking Status Comment Facility Jul 03, 2020 02:53 PM VA-TOBACCO NEVER USED [facility] NTRL WSTRN [facility] Advance Directives: All historical and current Section Date Range: From patient's date of to the date document was created. This section includes ALL of a patient's completed or amended [place] Advance and Rescinded Directives. The entries below indicate that a directive exists for the patient, but an actual copy is not included with this document. The data comes from all [place] facilities. Date Advance Directives Provider Source Jan 06, 2022 ADVANCE DIRECTIVE WEBSTERCODEY NOREEN Encounter Notes: All associated encounter notes This section contains the clinical notes associated to the Encounter. Date/Time Encounter Note(s) Provider Source Aug 07, 2021 01:59 PM ADMINISTRATIVE NOTE: TOLU PRAJAPATI [facility] LOCAL TITLE: ADMINISTRATIVE NOTE STANDARD TITLE: ADMINISTRATIVE NOTE DATE OF NOTE: AUG 07, 2021@13:59 ENTRY DATE: AUG 07, 2021@13:59:52 AUTHOR: TOLU PRAJAPATI EXP COSIGNER: URGENCY: STATUS: COMPLETED ADMINISTRATIVE NOTE Has ADDENDA TELEPHONE CALL Cataloging Assistant called PATIENT PHONE - PHONE NUMBER [CELLULAR] - NONE FOUND PURPOSE OF CALL: To remind 1) of the following appt, 2) of any need for bloodwork prior to upcoming appt, and 3) of requirement to wear a mask whenever insid e a ME facility. [X} CWM/SO/PACT 2 [ ] CWM/SO/PACT 2 TEL [ ] CWM/SO/TH/VVC/PACT 2 and [ ] CWM/SO/ENTER Laboratory - Fasting blood work [ ] CWM/SO/ENTER Laboratory - Non-fasting blood work [X} Blood work has NOT been DONE. UNSUCCESSFUL CONTACT: [X} Unable to leave a message, PERSISTENT BUSY SIGNAL; NO ANSWER, NO VM. [ ] Unable to leave a message, mail Box is full, or no VM set up on phone. Upcoming Appointments: 08/10/2021 11:00 CWM/SO/PACT 2 09/01/2021 14:00 SPOPC/MHC/PSYCHIATRY RESI /mainor/ TOLU PRAJAPATI [facility], [facility] Signed: 08/07/2021 14:06 08/10/2021 ADDENDUM STATUS: COMPLETED Spoke with Veterans sister Lindsay - she is requ esting an appt tomorrow, if possible. [place] had appt today but he canceled , sister states he was being difficult. /mainor/ SARITA REYNAGA LPN LPN Signed: 08/10/2021 10:00 Receipt Acknowledged By: * AWAITING SIGNATURE * TOLU PRAJAPATI
--- OUTSIDE RECORDS SUMMARY | 2022-04-22 17:31 | XMS_ITS ---
:1950 Author Organization [facility] Address [address] [place] [id number] Support Name Relationship Address Phone HAY GU Unavailable [address] [place] [address] HAY GU Unavailable [address] [place] [address] Insurance Providers: All historical and current Section [...] MEDICARE MEDICARE PART Mar 23, PART A [id number] HOFFMA N PATIENT (WNR) (M) A 2002A 4 MICHAEL MORRIS MEDICARE MEDICARE PART Mar 23, PART B [id number] HOFFMA N PATIENT (WNR) (M) B 2002A 4 MICHAEL MORRIS MEDICARE MEDICARE PART Mar 23, PART A [id number] HOFFMA N,E PATIENT (WNR) (M) A 2002 26A 00 [place] MEDICARE MEDICARE PART Mar 23, PART B [id number] HOFFMA N,E PATIENT (WNR) (M) B 2002A 00 [place] MEDICARE MEDICARE PART Mar 23, PART A [id number] HOFFMA N PATIENT (WNR) (M) A 2002A 1 MICAHERNANDEZ MEDICARE MEDICARE PART Mar 23, PART B [id number] HOFFMA N PATIENT (WNR) (M) B 2002A MICHAEL Selected Encounter This section includes the information on record at [place] for the Encounter. Date/Time Encounter Type Encounter Description Reason Provider Source Aug 10, 2021 12:54 Outpatient Encounter PRIMARY CARE/MEDICINE PM IHE Encounter Template Text not used by [place] Plan of Treatment: Future Appointments (+ 6 months) and Future Tests (+/- 45 days) The Plan of Treatment section includes future care activities for the patient from all [place] [facility]. This section includes future appointments and future orders which are active, pending orscheduled.Future Appointments This section includes appointments that were scheduled to occur 6 months from the date of the Encounter, up to a maximum of 20 appointments. The data comes from all [place] treatment facilities. Appointment Date/Time Appointment Type Appointment Facili ty Name Oct 27, 2021 01:00 PM AMBULATORY PSYCHIATRY [facility] Nov 25, 2021 04:00 PM AM[facility]ULATORY [facility]ICINE [place] [facility] Jan 19, 2022 01:30 PM [facility] Social History: Smoking Status (Most current) and Tobacco Use (All prior to encounter date) This section includes the most current, and the historical, smoking and tobacco-related health factors from the [facility] facility where the Encounter took place.Current Smoking Status This section includes the most current smoking, or tobacco-related health factor, from the [place] facility where the Encounter took place. Date/Time Current Smoking Status Comment Facility Jul 03, 2020 02:53 PM VA-TOBACCO NEVER USED [facility] NTR [facility]N [facility] Advance Directives: All historical and current Section Date Range: From patient's date of to the date document was created. This section includes ALL of a patient's completed or amended [place] Advance and Rescinded Directives. The entries below indicate that a directive exists for the patient, but an actual copy is not included with this document. The data comes from all [place] facilities. Date Advance Directives Provider Source Jan 06, 2022 ADVANCE DIRECTIVE CODEY WEBSTER Encounter Notes: All associated encounter notes This section contains the clinical notes associated to the Encounter. Date/Time Encounter Note(s) Provider Source Aug 10, 2021 12:54 PM ADMINISTRATIVE NOTE: TOLU PRAJAPATI [facility] LOCAL TITLE: ADMINISTRATIVE NOTE STANDARD TITLE: ADMINISTRATIVE NOTE DATE OF NOTE: AUG 10, 2021@12:54 ENTRY DATE: AUG 10, 2021@12:54:59 AUTHOR: TOLU PRAJAPATI EXP COSIGNER: URGENCY: STATUS: COMPLETED [employer] returned call per [facility] note this d ate, spoke with , who requested to cancel PCP appt sched for 08/17/2021. [place] stated intent to call back to later to reschedule. /mainor/ TOLU PRAJAPATI [facility], [facility] Signed: 08/10/2021 12:59
--- OUTSIDE RECORDS SUMMARY | 2022-04-22 17:31 | XMS_ITS ---
:1950 Author Organization [facility] Address [address] [place] [address] Support Name Relationship Address Phone HAY GU Unavailable [address] [place] [address] HAY GU Unavailable [address] [place] [address] Insurance Providers: All historical and current Section [...] MEDICARE MEDICARE PART Mar 23, PART A [id number] HOFFMA N PATIENT (WNR) (M) A 2002A 4 MICHAEL MORRIS MEDICARE MEDICARE PART Mar 23, PART B [id number] HOFFMA N PATIENT (WNR) (M) B 2002A 4 MICHAEL MORRIS MEDICARE MEDICARE PART Mar 23, PART A [id number] HOFFMA N,E PATIENT (WNR) (M) A 2002 26A 00 DWARD MEDICARE MEDICARE PART Mar 23, PART B [id number] HOFFMA N,E PATIENT (WNR) (M) B 2002A [place] MEDICARE MEDICARE PART Mar 23, PART A [id number] HOFFMA N PATIENT (WNR) (M) A 2002A 1 MICAHERNANDEZ MEDICARE MEDICARE PART Mar 23, PART B [id number] HOFFMA N PATIENT (WNR) (M) B 2002A MICHAEL Selected Encounter This section includes the information on record at [place] for the Encounter. Date/Time Encounter Type Encounter Description Reason Provider Source Jul 18, 2021 08:39 Outpatient Encounter PRIMARY CARE/MEDICINE PM IHE Encounter Template Text not used by [place] Plan of Treatment: Future Appointments (+ 6 months) and Future Tests (+/- 45 days) The Plan of Treatment section includes future care activities for the patient from [facility] [place] [facility]. This section includes future appointments and future orders which are active, pending orscheduled.Future Appointments This section includes appointments that were scheduled to occur 6 months from the date of the Encounter, up to a maximum of 20 appointments. The data comes from all [place] treatment facilities. Appointment Date/Time Appointment Type Appointment Facili ty Name Oct 27, 2021 01:00 PM AMBULATORY - PSYCHIATRY [place] Nov 25, 2021 04:00 PM AMBULATORY - [facility]ICINE [place] [facility] Active, Pending, and Scheduled Orders This section includes a listing of several types of active, pending, and scheduled orders, including clinic medications orders, diagnostic test orders, procedure orders and consult orders; where the start date of the order is 45 days before the date of the Encounter or 45 days after the date of the Encounter. The data comes from all [place] treatment [facility]. Test Date/Time Test Type Test Details Facility Name Jun 24, 2021 12:00 Laboratory - ALCOHOL, ETHYL URINE [place] [facility] AM Chemistry Order PANEL URINE (DRUG) [place] [facility] Jun 24, 2021 12:00 Laboratory - AMPHETAMINES SCREEN PANEL [place] [facility] AM Chemistry Order [facility] ([facility] Jun 24, 2021 12:00 Laboratory - FENTANYL SCREEN PANEL [place] [facility] L [facility] AM Chemistry [facility] Jun 24, 2021 12:00 Laboratory - BENZODIAZEPINES SCREEN [place] CNT RL WSTRN AM Chemistry Order PANEL URINE (DRUG) SP [place] [facility] Jun 24, 2021 12:00 Laboratory - BUPRENORPHINE SCREEN [place] [facility] W[facility]N AM Chemistry Order PANEL [facility]DRUG[facility] Jun 24, 2021 12:00 Laboratory - COCAINE SCREEN PANEL [place] [facility] AM Chemistry Order URINE (DRUG) SP [facility] Jun 24, 2021 12:00 Laboratory - ETG SCREEN (wx) URINE [place] CN[place] L W[facility] AM Chemistry Order (DRUG) SP [facility] Jun 24, 2021 12:00 Laboratory - CANNABINOIDS SCREEN PANEL [place] [facility] AM Chemistry Order URINE (DRUG) SP [facility] Jun 24, 2021 12:00 Laboratory - OPIATES SCREEN PANEL [place] [facility] AM Chemistry Order URINE (DRUG) SP [facility] Jun 24, 2021 12:00 Laboratory - METHADONE SCREEN URINE SP [place] [facility] AM Chemistry Order [facility] Jun 24, 2021 12:00 Laboratory - OXYCODONE SCREEN PANEL [place] CNT RL WSTRN AM Chemistry Order URINE (DRUG) SP [facility] Jun 24, 2021 12:00 Laboratory - URINALYSIS URINE SP [place] [facility] AM Chemistry Order [facility] Jun 24, 2021 12:00 Laboratory - CBC AND DIFF (AUTO) BLOOD [place] [facility] AM Chemistry Order (LAV-BLOOD) SP [facility] Jun 24, 2021 12:00 Laboratory - ALBUMIN BLOOD (SST-SERUM) [place] [facility] AM Chemistry Order SP [facility] Jun 24, 2021 12:00 Laboratory - PSA BLOOD (SST-SERUM) SP [place] C NTRL W[facility]N AM Chemistry Order [facility] Jun 24, 2021 12:00 Laboratory - URIC ACID BLOOD [place] [facility] WSTR N AM Chemistry Order (SST-SERUM) [facility] Jun 24, 2021 12:00 Laboratory - HEMOGLOBIN A1C PANEL [place] [facility] AM Chemistry Order BLOOD (LAV-BLOOD) SP [facility] Jun 24, 2021 12:00 Laboratory - PROTEIN,TOTAL BLOOD [place] [facility] AM Chemistry Order (SST-SERUM) SP [facility] Jun 24, 2021 12:00 Laboratory - BILIRUBIN, TOTAL BLOOD [place] CNT RL WSTRN AM Chemistry Order (SST-SERUM) SP [facility] Jun 24, 2021 12:00 Laboratory - TSH BLOOD (SST-SERUM) SP [place] C NTRL WSTRN AM Chemistry Order [facility] Jun 24, 2021 12:00 Laboratory - AST BLOOD (SST-SERUM) SP [place] C N[facility]L [facility]N AM Chemistry Order [facility] Jun 24, 2021 12:00 Laboratory - ALT BLOOD (SST-SERUM) SP [place] C NTRL WSTRN AM Chemistry Order [facility] Jun 24, 2021 12:00 Laboratory - GAMMA-GTP BLOOD [place] [facility] N AM Chemistry Order (SST-SERUM) SP [facility] Jun 24, 2021 12:00 Laboratory - GLUCOSE BLOOD (SST-SERUM) [place] [facility] AM Chemistry Order SP [facility] Jun 24, 2021 12:00 Laboratory - UREA NITROGEN BLOOD [place] CN[facility] AM Chemistry Order (SST-SERUM) SP [facility] Jun 24, 2021 12:00 Laboratory - CREATININE (GFR [place] [facility] N AM Chemistry Order Est.included) [facility] ([facility]ST-[facility]UM[facility] Jun 24, 2021 12:00 Laboratory - ELECTROLYTE PANEL BLOOD [place] CN TRL WSTRN AM Chemistry Order (SST-SERUM) [facility] Jun 24, 2021 12:00 Laboratory - LIPID PANEL FASTING BLOOD [place] [facility] AM Chemistry Order (SST-SERUM) [facility] Jun 24, 2021 12:00 Laboratory - GABAPENTIN, Urine URINE [place] CN TRL W[facility]N AM Chemistry Order (DRUG) [facility] Social History: Smoking Status (Most current) and Tobacco Use (All prior to encounter date) This section includes the most current, and the historical, smoking and tobacco-related health factors from the [place] facility where the Encounter took place.Current Smoking Status This section includes the most current smoking, or tobacco-related health factor, from the [place] facility where the Encounter took place. Date/Time Current Smoking Status Comment Facility Jul 03, 2020 02:53 PM VA-TOBACCO NEVER USED [place] C NTRL WSTRN [facility] Advance Directives: All historical and current Section Date Range: From patient's date of to the date document was created. This section includes ALL of a patient's completed or amended [place] Advance and Rescinded Directives. The entries below indicate that a directive exists for the patient, but an actual copy is not included with this document. The data comes from all [place] facilities. Date Advance Directives Provider Source Jan 06, 2022 ADVANCE DIRECTIVE CODEY WESTON Encounter Notes: All associated encounter notes This section contains the clinical notes associated to the Encounter. Date/Time Encounter Note(s) Provider Source Jul 18, 2021 08:45 PM ACCOUNTING OF DISCLOSURES NOTE: NOMI WESTON [facility] TITLE: STATE PRESCRIPTION DRUG MONITORING PROGRAM STANDARD TITLE: ACCOUNTING OF DISCLOSURES NOTE DATE OF NOTE: JUL 18, 2021@20:45:40 ENTRY DATE: JUL 18, 2021@20:45:40 AUTHOR: CODEY WESTON EXP COSIGNER: LINDSAY LLOYD URGENCY: STATUS: COMPLETED This PDMP query was submitted by Codey Weston n behalf of Lindsay Tony NP. The clinical justification for this PDMP query i s to review controlled substances prescribed outside of the [facility], and any additional information that may become available, as an important compo nent of standard clinical care, and in accordance with [facility] policy. Patient information was shared with the PDMP Sheila [facility] [place]. The VA prescriber, for which I am a delegate, wi ll be alerted of these PDMP findings through co-signature of this progr ess note. No prescription(s) for controlled substances out side the [facility] were found in the last 90 days. /MEGAN Miles RN-BC REGISTERED NURSE Signed: 07/18/2021 20:45 /mainor/ LINDSAY TONY RN,MSN,GLOBAL MARKETING COORDINATOR-C PRIMARY CARE NURSE PRACTITIONER Cosigned: 07/20/2021 11:36 Jul 18, 2021 08:45 PM ADMINISTRATIVE NOTE: CODEY WESTON [facility] TITLE: ADMINISTRATIVE NOTE STANDARD TITLE: ADMINISTRATIVE NOTE DATE OF NOTE: JUL 18, 2021@20:45 ENTRY DATE: JUL 18, 2021@20:45:54 AUTHOR: CODEY WESTON COSIGNER: URGENCY: STATUS: COMPLETED ADMINISTRATIVE NOTE Has ADDENDA Please contact Elora and advise that he has fa sting labwork orders in place and to please present to lab prior to upcoming p cp appt. /MEGAN Miles RN-BC REGISTERED NURSE Signed: 07/18/2021 20:46 Receipt Acknowledged By: 07/21/2021 10:23 /mainor/ SIMEON MORRELL NUISANCE ANIMAL DAMAGE CONTROL AGENT REGULATORY AFFAIRS COORDINATOR for TOLU PRAJAPATI 07/21/2021 ADDENDUM STATUS: COMPLETED FORWARD TO LEAD JL /mainor/ SIMEON MORRELL NUISANCE ANIMAL DAMAGE CONTROL AGENT REGULATORY AFFAIRS COORDINATOR Signed: 07/21/2021 10:23 Receipt Acknowledged By: 07/21/2021 13:21 /mainor/ JUSTIN SIMMONS ADVANCED REGULATORY AFFAIRS COORDINATOR 07/21/2021 ADDENDUM STATUS: COMPLETED Done /mainor/ JUSTIN SIMMONS ADVANCED REGULATORY AFFAIRS COORDINATOR Signed: 07/21/2021 13:21 Jul 18, 2021 08:40 PM MEDICATION MGT NOTE: CODEY WESTON LOCAL TITLE: OPIOID/CONTROLLED SUBSTANCE RENEWA L NOTE STANDARD TITLE: MEDICATION MGT NOTE DATE OF NOTE: JUL 18, 2021@20:40 ENTRY DATE: JUL 18, 2021@20:40:20 AUTHOR: CODEY WESTON EXP COSIGNER: URGENCY: STATUS: COMPLETED Standard Opioid Renewal/Controlled Substance Not e Requested Medication: Vicodin Mail to patient A Valid Consent for Long-Term Opioids for Pain i s on file and available for viewing in appweevr. CONSENT FOR LONG-TERM OPIOIDS FOR PAIN Feb 20 015 A State Prescription Drug Monitoring Program (SP DMP) Review Note has been documented in the medical r ecord at least once in the last 9 months. [facility] PRESCRIPTION DRUG MONITORING PROGRAM (SPDM P) NOTE Mar 13, 2020 [place] Prescription Monitoring Program (M A PRECIPITATOR) checked today. [email or web address] Drug Screen Last UDFebruary 2020. Orders for UDS and fastin g blood work are in place Most Recent Naloxone Prescription Information: Reminder Term: VA-NALOXONE USE Drug: NALOXONE HCL 4MG/SPRAY SOLN NASAL SPRAY Outpatient Medication: NALOXONE HCL 4MG/SPRAY S OLN NASAL SPRAY 12/18/2019@15:53 Status: Start date: 12/17/2019@15:53 Stop date: 020@15:53 Duration: 1 D Last release date: 12/17/2019@15:53 Days supply : Ramya /mainor/ MEGAN MCCARTHY RN-BC REGISTERED NURSE Signed: 07/18/2021 20:44 Jul 18, 2021 08:39 PM MEDICATION MGT NOTE: CODEY WESTON LOCAL TITLE: OUTPATIENT MEDICATION REQUEST STANDARD TITLE: MEDICATION MGT NOTE DATE OF NOTE: JUL 18, 2021@20:39 ENTRY DATE: JUL 18, 2021@20:39:29 AUTHOR: CODEY WESTON EXP COSIGNER: URGENCY: STATUS: COMPLETED Renew for mail Imported Information: Medications ACTIVE: HYDROCODONE 5MG/ACETAMINOPHEN 325MG TAB Prescription #:[id number] Prescribing Physician: LINDSAY TONY ([facility]) on 06/24/2021 13:25 Frequency/Dosage: 1 TABLET HYDROCODONE 5MG /ACETAMINOPHEN 325MG TAB /es/ BROOKE MCCARTHYN RN-BC REGISTERED NURSE Signed: 07/18/2021 20:39 Receipt Acknowledged By: * AWAITING SIGNATURE * CHINYERE GUTIÉRREZ
--- OUTSIDE RECORDS SUMMARY | 2022-04-22 17:31 | XMS_ITS ---
:1950 Author Organization [facility] Address [address] [place] [address] Support Name Relationship Address Phone HAY GU Unavailable [address] [place] [address] HAY GU Unavailable [address] [place] [address] Insurance Providers: All historical and current Section [...] MEDICARE MEDICARE PART Mar 23, PART A [id number] HOFFMA N PATIENT (WNR) (M) A 2002A 4 MICHAEL MORRIS MEDICARE MEDICARE PART Mar 23, PART B [id number] HOFFMA N PATIENT (WNR) (M) B 2002A 4 MICHAEL MORRIS MEDICARE MEDICARE PART Mar 23, PART A [id number] HOFFMA N PATIENT (WNR) (M) A 2002A 1 MICHAEL MORRIS MEDICARE MEDICARE PART Mar 23, PART B [id number] HOFFMA N PATIENT (WNR) (M) B 2002A 1 MICHAEL MORRIS MEDICARE MEDICARE PART Mar 23, PART A [id number] HOFFMA N,E PATIENT (WNR) (M) A 2002A 00 DWARD MEDICARE MEDICARE PART Mar 23, PART B [id number] HOFFMA N,E PATIENT (WNR) (M) B 2002 SHALA Selected Encounter This section includes the information on record at [place] for the Encounter. Date/Time Encounter Type Encounter Description Reason Provider Source Aug 05, 2021 01:45 Outpatient Encounter PRIMARY CARE/MEDICINE PM IHE Encounter Template Text not used by [place] Plan of Treatment: Future Appointments (+ 6 months) and Future Tests (+/- 45 days) The Plan of Treatment section includes future care activities for the patient from all [place] [facility]. This section includes future appointments and future orders which are active, pending orscheduled.Future Appointments This section includes appointments that were scheduled to occur 6 months from the date of the Encounter, up to a maximum of 20 appointments. The data comes from all [place] treatment [facility]. Appointment Date/Time Appointment Type Appointment Facili ty Name Oct 27, 2021 01:00 PM AMBULATORY - PSYCHIATRY [place] Nov 25, 2021 04:00 PM [facility]ORY MED[facility] Jan 19, 2022 01:30 PM AMBULATORY MEDICINE [facility] Active, Pending, and Scheduled Orders This section includes a listing of several types of active, pending, and scheduled orders, including clinic medications orders, diagnostic test orders, procedure orders and consult orders; where the start date of the order is 45 days before the date of the Encounter or 45 days after the date of the Encounter. The data comes from all [place] treatment [facility]. Test Date/Time Test Type Test Details Facility Name Jun 24, 2021 12:00 Laboratory - ALCOHOL, ETHYL URINE [place] CN[facility] W[facility] AM Chemistry Order PAN[facility] Jun 24, 2021 12:00 Laboratory - AMPHETAMINES SCREEN PANEL [facility] Chemistry [facility] Jun 24, 2021 12:00 Laboratory - FENTANYL SCREEN PANEL [place] CNTR L [facility] AM Chemistry Order URINE (DRUG) [facility] Jun 24, 2021 12:00 Laboratory - BENZODIAZEPINES SCREEN [place] CNT RL WSTRN AM Chemistry Order PANEL URINE (DRUG) [place] [facility] Jun 24, 2021 12:00 Laboratory - BUPRENORPHINE SCREEN [place] CNTRL WSTRN AM Chemistry Order PANEL URINE (DRUG) [facility] Jun 24, 2021 12:00 Laboratory - CANNABINOIDS SCREEN PANEL [facility] AM Chemistry [facility] Jun 24, 2021 12:00 Laboratory - ETG SCREEN (wx) URINE [place] [facility] AM Chemistry Order (DRUG) [facility] Jun 24, 2021 12:00 Laboratory - OPIATES SCREEN PANEL [place] CN[facility]L [facility]N AM Chemistry Order URINE (DRUG) SP [facility] Jun 24, 2021 12:00 Laboratory - METHADONE SCREEN URINE SP [facility] CN[facility] AM Chemistry Order [facility] Jun 24, 2021 12:00 Laboratory - OXYCODONE SCREEN PANEL [place] CNT RL WSTRN AM Chemistry Order URINE (DRUG) [facility] Jun 24, 2021 12:00 Laboratory - COCAINE SCREEN PANEL [place] [facility] AM Chemistry Order URINE (DRUG) [facility] Jun 24, 2021 12:00 Laboratory - URINALYSIS URINE SP [facility] AM Chemistry Order [facility] Jun 24, 2021 12:00 Laboratory - HEMOGLOBIN A1C PANEL [place] [facility] AM Chemistry Order BLOOD (LAV-BLOOD) [facility] Jun 24, 2021 12:00 Laboratory - PSA BLOOD (SST-SERUM) SP [facility] C NTRL WSTRN AM Chemistry Order [facility] Jun 24, 2021 12:00 Laboratory - ALBUMIN BLOOD (SST-SERUM) [facility] AM Chemistry Order [facility] Jun 24, 2021 12:00 Laboratory - CBC AND DIFF (AUTO) BLOOD [facility] AM Chemistry Order (LAV-BLOOD) [facility] Jun 24, 2021 12:00 Laboratory - PROTEIN,TOTAL BLOOD [place] [facility] AM Chemistry Order (SST-SERUM) [facility] Jun 24, 2021 12:00 Laboratory - URIC ACID BLOOD [place] CN[facility]L WSTR N AM Chemistry Order (SST-SERUM) [facility] Jun 24, 2021 12:00 Laboratory - BILIRUBIN, TOTAL BLOOD [place] CNT RL WSTRN AM Chemistry Order (SST-SERUM) [facility] Jun 24, 2021 12:00 Laboratory - TSH BLOOD (SST-SERUM) SP [facility] C NTRL WSTRN AM Chemistry Order [facility] Jun 24, 2021 12:00 Laboratory - AST BLOOD (SST-SERUM) SP [place] C NTRL WSTRN AM Chemistry [facility] Jun 24, 2021 12:00 Laboratory - ALT BLOOD (SST-SERUM) [facility] C NTRL WSTRN AM Chemistry Order [facility] Jun 24, 2021 12:00 Laboratory - GAMMA-GTP BLOOD [place] CNTRL WSTR N AM Chemistry Order (SST-SERUM) SP [facility] Jun 24, 2021 12:00 Laboratory - UREA NITROGEN BLOOD [place] [facility] AM Chemistry Order (SST-SERUM) [facility] Jun 24, 2021 12:00 Laboratory - CREATININE (GFR [place] [facility] WSTR N AM Chemistry Order Est.included) [facility] (SST-SERUM) Jun 24, 2021 12:00 Laboratory - ELECTROLYTE PANEL BLOOD [place] CN TRL WSTRN AM Chemistry Order (SST-SERUM) [facility] Jun 24, 2021 12:00 Laboratory - LIPID PANEL FASTING BLOOD [place] CN[facility]L W[facility]N AM Chemistry Order (SST-SERUM) [facility] Jun 24, 2021 12:00 Laboratory - GLUCOSE BLOOD (SST-SERUM) [place] CN[facility] AM Chemistry Order [facility] Jun 24, 2021 12:00 Laboratory - GABAPENTIN, Urine URINE [place] CN TRL WSTRN AM Chemistry Order (DRUG) [facility] Social History: Smoking Status (Most current) and Tobacco Use (All prior to encounter date) This section includes the most current, and the historical, smoking and tobacco-related health factors from the [place] facility where the Encounter took place.Current Smoking Status This section includes the most current smoking, or tobacco-related health factor, from the [place] facility where the Encounter took place. Date/Time Current Smoking Status Comment Facility Jul 03, 2020 02:53 PM VA-TOBACCO NEVER USED [facility] NTRL WSTRN [facility] Advance Directives: All historical and current Section Date Range: From patient's date of to the date document was created. This section includes ALL of a patient's completed or amended [place] Advance and Rescinded Directives. The entries below indicate that a directive exists for the patient, but an actual copy is not included with this document. The data comes from all [place] facilities. Date Advance Directives Provider Source Jan 06, 2022 ADVANCE DIRECTIVE CODEY WEBSTER Encounter Notes: All associated encounter notes This section contains the clinical notes associated to the Encounter. Date/Time Encounter Note(s) Provider Source Aug 05, 2021 02:14 PM NURSING NOTE: CODEY WEBSTER LOCAL TITLE: NURSING/TELEPHONE STANDARD TITLE: NURSING NOTE DATE OF NOTE: AUG 05, 2021@14:14 ENTRY DATE: AUG 05, 2021@14:14:33 AUTHOR: CODEY WEBSTER EXP COSIGNER: URGENCY: STATUS: COMPLETED Received call from 's sister, Rosie delacruz on comm auth, and she reports that she will be able to come with Veter an to his pcp appt on 08/10. author advised Rosie of information discussed between author and serenity in earlier call. Author advised Rosie that she sh ould stop with at mental health check in/out window on 08/10 and ivania donohueuss scheduling [place] for a mental health appt since has not had an appt with a mental health provider since early 2020. rosie advised author that mental healt h schedulers can contact her to assist with scheduling 's appt... /es/ MEGAN MCCARTHY RN-BC REGISTERED NURSE Signed: 08/05/2021 14:22 Aug 05, 2021 01:45 PM NURSING NOTE: CODEY WEBSTER LOCAL TITLE: NURSING/TELEPHONE STANDARD TITLE: NURSING NOTE DATE OF NOTE: AUG 05, 2021@13:45 ENTRY DATE: AUG 05, 2021@13:45:18 AUTHOR: CODEY WEBSTERIGNER: URGENCY: STATUS: COMPLETED NURSING/TELEPHONE Has ADDENDA Received call from Serenity Becerra at [facility] on Aging inquiring whether there are manager social services or menta health providers through the [place] health system that can go to 's homes for visits to work wit h and evaluate/assist with his living situation. Author advised that [facility] does have a PCP appt coming up on 08/10 at 11 am but author was unable to reach by phne to pr ovide a reminder of appt and labs ordered. Serenity reports thatTammyterastephen does not always participate with phone calls and does not drive him self to appt. Author advised that [facility] transportation is available if contacted by [facility] or family member to request transportation to [facility] appt from home. Author notes that [facility] was participating in t elephone visits with mental health dept at [place] but does not appear to be a no te since August 2020. Author will included primary care s ocial worker and previous mental health provider to this alert for review and assistance. /mainor/ BROOKE MCCARTHYN RN-BC REGISTERED NURSE Signed: 08/05/2021 13:51 Receipt Acknowledged By: 08/07/2021 10:59 /mainor/ JESSICA PATTON CLIN ASST 08/05/2021 14:03 /mainor/ KEYSHA ORTIZ DO Psychiatrist 08/05/2021 ADDENDUM STATUS: COMPLETED AMSA--please try again to schedule with Dr. Lynne. Thank you. /mainor/ KEYSHA ORTIZ DO Psychiatrist Signed: 08/05/2021 14:04 Receipt Acknowledged By: 08/05/2021 14:37 /mainor/ LULU GRUBER ADVANCED GIS SPECIALIST 08/05/2021 20:17 /mainor/ Cat Kilgore ADVANCED GIS SPECIALIST 08/05/2021 ADDENDUM STATUS: COMPLETED consumer loan underwriter spoke to rosie, ([phone]) on comm auth, and scd next f2f appt 09/01/2021 @ 1400. /mainor/ LULU GRUBER ADVANCED GIS SPECIALIST Signed: 08/05/2021 14:38 08/07/2021 ADDENDUM STATUS: COMPLETED This consumer loan underwriter is available to see vet when he come s for PCP appt if needed. Possible options to evaluate/assist with his li ving situation are [facility] and/or [facility] c ontracted home care services if vet is in agreement. Thanks /mainor/ JESSICA PATTON CLIN ASST Signed: 08/07/2021 11:02 Receipt Acknowledged By: * AWAITING SIGNATURE * CODEY WEBSTER * AWAITING SIGNATURE * CHINYERE GUTIÉRREZ
--- OUTSIDE RECORDS SUMMARY | 2022-04-22 17:32 | XMS_ITS ---
:1950 Author Organization [facility] Address [address] [place] [id number] Support Name Relationship Address Phone HAY GU Unavailable [address] [place] [address] HAY GU Unavailable [address] [place] [address] Insurance Providers: All historical and current Section [...] MEDICARE MEDICARE PART Mar 23, PART A [id number] HOFFMA N PATIENT (WNR) (M) A 2002A 4 MICHAEL MORRIS MEDICARE MEDICARE PART Mar 23, PART B [id number] HOFF[place] N PATIENT (WNR) (M) B 2002A 4 MICHAEL MORRIS MEDICARE MEDICARE PART Mar 23, PART A [id number] HOFFMA N,E PATIENT (WNR) (M) A 2002 26A 00 DWARD MEDICARE MEDICARE PART Mar 23, PART B [id number] HOFFMA N,E PATIENT (WNR) (M) B 2002A 00 [place] MEDICARE MEDICARE PART Mar 23, PART A [id number] HOFFMA N PATIENT (WNR) (M) A 2002A 1 MICAHERNANDEZ MEDICARE MEDICARE PART Mar 23, PART B [id number] HOFFMA N PATIENT (WNR) (M) B 2002A 1 MICHAEL Selected Encounter This section includes the information on record at [place] for the Encounter. Date/Time Encounter Type Encounter Description Reason Provider Source Jun 24, 2021 12:42 Outpatient Encounter PRIMARY CARE/MEDICINE PM IHE Encounter Template Text not used by [place] Plan of Treatment: Future Appointments (+ 6 months) and Future Tests (+/- 45 days) The Plan of Treatment section includes future care activities for the patient from all [place] [facility] This section includes future appointments and future orders which are active, pending orscheduled.Future Appointments This section includes appointments that were scheduled to occur 6 months from the date of the Encounter, up to a maximum of 20 appointments. The data comes from all [place] treatment facilities. Appointment Date/Time Appointment Type Appointment Facili ty Name Jul 14, 2021 01:00 PM AMBULATORY - MEDICINE [place] Oct 27, 2021 01:00 PM AMBULATORY - PSYCHIATRY [place] Nov 25, 2021 04:00 PM [facility]UL[facility] [place] [facility] Active, Pending, and Scheduled Orders This section includes a listing of several types of active, pending, and scheduled orders, including clinic medications orders, diagnostic test orders, procedure orders and consult orders; where the start date of the order is 45 days before the date of the Encounter or 45 days after the date of the Encounter. The data comes from all [place] treatment [facility]. Test Date/Time Test Type Test Details Facility Name May 13, 2021 11:56 Consult Order [facility] CNTRL W STRN AM [facility] CARE Cons [place] [facility] Butadiene Converter Operator's Choice Jun 24, 2021 12:00 Laboratory - ALCOHOL, ETHYL URINE [facility] AM Chemistry Order PANEL URINE (DRUG) [place] [facility] Jun 24, 2021 12:00 Laboratory - AMPHETAMINES SCREEN PANEL [facility] AM Chemistry Order URINE (DRUG) [place] [facility] Jun 24, 2021 12:00 Laboratory - FENTANYL SCREEN PANEL [facility] CNTR L WSTRN AM Chemistry Order URINE (DRUG) [place] [facility] Jun 24, 2021 12:00 Laboratory - BENZODIAZEPINES SCREEN [facility] CNT RL WSTRN AM Chemistry Order PANEL URINE (DRUG) [place] [facility] Jun 24, 2021 12:00 Laboratory - COCAINE SCREEN PANEL [facility] AM Chemistry Order URINE (DRUG) [place] [facility] Jun 24, 2021 12:00 Laboratory - CANNABINOIDS SCREEN PANEL [facility] AM Chemistry Order URINE (DRUG) SP [facility] Jun 24, 2021 12:00 Laboratory - ETG SCREEN (wx) URINE [facility] CN[facility] L W[facility] AM Chemistry Order (DRUG) SP [facility] Jun 24, 2021 12:00 Laboratory - OPIATES SCREEN PANEL [facility] AM Chemistry Order URINE (DRUG) [facility] Jun 24, 2021 12:00 Laboratory - METHADONE SCREEN URINE SP [facility] CN[facility]L [facility] AM Chemistry Order [facility] Jun 24, 2021 12:00 Laboratory - BUPRENORPHINE SCREEN [facility] CN[facility]L WSTRN AM Chemistry Order PANEL URINE (DRUG) [facility] Jun 24, 2021 12:00 Laboratory - OXYCODONE SCREEN PANEL [facility] CNT RL WSTRN AM Chemistry Order URINE (DRUG) [facility] Jun 24, 2021 12:00 Laboratory - CBC AND DIFF (AUTO) BLOOD [facility] AM Chemistry Order (LAV-BLOOD) [facility] Jun 24, 2021 12:00 Laboratory - HEMOGLOBIN A1C PANEL [facility] CN[facility]L [facility] AM Chemistry Order BLOOD (LAV-BLOOD) [facility] Jun 24, 2021 12:00 Laboratory - PSA BLOOD (SST-SERUM) SP [facility] C NTRL WSTRN AM Chemistry Order [facility] Jun 24, 2021 12:00 Laboratory - URINALYSIS URINE SP [facility] CN[facility]L W[facility] AM Chemistry Order [facility] Jun 24, 2021 12:00 Laboratory - ALBUMIN BLOOD (SST-SERUM) [facility] CN[facility] AM Chemistry Order SP [facility] Jun 24, 2021 12:00 Laboratory - URIC ACID BLOOD [facility] CNTRL WSTR N AM Chemistry Order (SST-SERUM) [facility] Jun 24, 2021 12:00 Laboratory - PROTEIN,TOTAL BLOOD [facility] CN[facility]L W[facility] AM Chemistry Order (SST-SERUM) [facility] Jun 24, 2021 12:00 Laboratory - TSH BLOOD (SST-SERUM) SP [facility] C NTRL WSTRN AM Chemistry Order [facility] Jun 24, 2021 12:00 Laboratory - BILIRUBIN, TOTAL BLOOD VA CNT RL WSTRN AM Chemistry Order (SST-SERUM) [facility] Jun 24, 2021 12:00 Laboratory - AST BLOOD (SST-SERUM) [facility] C NTRL WSTRN AM Chemistry Order [facility] Jun 24, 2021 12:00 Laboratory - GAMMA-GTP BLOOD SD CNTRL WSTR N AM Chemistry Order (SST-SERUM) [facility] Jun 24, 2021 12:00 Laboratory - GLUCOSE BLOOD (SST-SERUM) [facility] AM Chemistry Order [facility] Jun 24, 2021 12:00 Laboratory - ALT BLOOD (SST-SERUM) [facility] C NTRL WSTRN AM Chemistry Order [facility] Jun 24, 2021 12:00 Laboratory - UREA NITROGEN BLOOD [place] CNTRL WSTRN AM Chemistry Order (SST-SERUM) [facility] Jun 24, 2021 12:00 Laboratory - CREATININE (GFR [facility] CNTRL WSTR N AM Chemistry Order Est.included) BLOOD [facility] (SST-SERUM) Jun 24, 2021 12:00 Laboratory - ELECTROLYTE PANEL BLOOD SD CN TRL WSTRN AM Chemistry Order (SST-SERUM) [facility] Jun 24, 2021 12:00 Laboratory - LIPID PANEL FASTING BLOOD SD CNTRL WSTRN AM Chemistry Order (SST-SERUM) [facility] Jun 24, 2021 12:00 Laboratory - GABAPENTIN, Urine URINE [place] CN TRL WSTRN AM Chemistry Order (DRUG) [facility] Social History: Smoking Status (Most current) and Tobacco Use (All prior to encounter date) This section includes the most current, and the historical, smoking and tobacco-related health factors from the [place] facility where the Encounter took place.Current Smoking Status This section includes the most current smoking, or tobacco-related health factor, from the [place] facility where the Encounter took place. Date/Time Current Smoking Status Comment Facility Jul 03, 2020 02:53 PM VA-TOBACCO NEVER USED [facility] NTRL WSTRN [facility] Advance Directives: All historical and current Section Date Range: From patient's date of to the date document was created. This section includes ALL of a patient's completed or amended [place] Advance and Rescinded Directives. The entries below indicate that a directive exists for the patient, but an actual copy is not included with this document. The data comes from all [place] facilities. Date Advance Directives Provider Source Jan 06, 2022 ADVANCE DIRECTIVE CODEY WEBSTERFIELD Encounter Notes: All associated encounter notes This section contains the clinical notes associated to the Encounter. Date/Time Encounter Note(s) Provider Source Jun 24, 2021 12:42 PM ACCOUNTING OF DISCLOSURES NOTE: FARA PAREDES LOCAL TITLE: STATE PRESCRIPTION DRUG MONITORING PROGRAM STANDARD TITLE: ACCOUNTING OF DISCLOSURES NOTE DATE OF NOTE: JUN 24, 2021@12:42:50 ENTRY DATE: JUN 24, 2021@12:42:50 AUTHOR: FARA GOMEZ EXP COSIGNER: LINDSAY WILSON URGENCY: STATUS: COMPLETED This PDMP query was submitted by David Gomez RN on behalf of Lindsay Tony NP. The clinical justification for this PDMP query i s to review controlled substances prescribed outside of the [facility], and any additional information that may become available, as an important compo nent of standard clinical care, and in accordance with [facility] policy. Patient information was shared with the PDMP [place]. The VA prescriber, for which I am a delegate, wi ll be alerted of these PDMP findings through co-signature of this progr ess note. No prescription(s) for controlled substances out side the [facility] were found in the last 90 days. /mainor/ Fara Gomez RN Registered Nurse Signed: 06/24/2021 12:42 /mainor/ LINDSAY TONY RN,MSN,MUSIC HISTORIAN-C PRIMARY CARE NURSE PRACTITIONER Cosigned: 06/24/2021 13:14
--- OUTSIDE RECORDS SUMMARY | 2022-04-22 17:32 | XMS_ITS | Encounter Summary ---
:1950 Author Organization [facility] Address [address] [place] [address] Support Name Relationship Address Phone HAY GU Unavailable [address] [place] [address] HAY GU Unavailable [address] [place] [address] Insurance Providers: All historical and current Section [...] MEDICARE MEDICARE PART Mar 23, PART A [id number] HOFF[place] N PATIENT (WNR) (M) A 2002A 4 MICHAEL MORRIS MEDICARE MEDICARE PART Mar 23, PART B [id number] HOFF[place] N PATIENT (WNR) (M) B 2002A 4 MICHAEL MORRIS MEDICARE MEDICARE PART Mar 23, PART A [id number] HOFF[place] N PATIENT (WNR) (M) A 2002A 1 MICHAEL MORRIS MEDICARE MEDICARE PART Mar 23, PART B [id number] [place] N PATIENT (WNR) (M) B 2002A 1 MICHAEL MORRIS MEDICARE MEDICARE PART Mar 23, PART A [id number] [place] N,E PATIENT (WNR) (M) A 2002A 00 DWARD MEDICARE MEDICARE PART Mar 23, PART B [id number] [id number] HOFFMA N,E PATIENT (WNR) (M) B 2002 SHALA Selected Encounter This section includes the information on record at [place] for the Encounter. Date/Time Encounter Type Encounter Description Reason Provider Source Jun 24, 2021 11:58 Outpatient Encounter TELEPHONE TRIAGE AM IHE Encounter Template Text not used by [place] Plan of Treatment: Future Appointments (+ 6 months) and Future Tests (+/- 45 days) The Plan of Treatment section includes future care activities for the patient from all [place] [facility]. This section includes future appointments and future orders which are active, pending orscheduled.Future Appointments This section includes appointments that were scheduled to occur 6 months from the date of the Encounter, up to a maximum of 20 appointments. The data comes from all [place] treatment facilities. Appointment Date/Time Appointment Type Appointment Facili ty Name Jul 14, 2021 01:00 PM AMBULATORY - MEDICINE [place] Oct 27, 2021 01:00 PM AMBULATORY - PSYCHIATRY [place] Nov 25, 2021 04:00 PM AMBULATORY - MEDICINE [facility] WSTRN [facility] Active, Pending, and Scheduled Orders This section includes a listing of several types of active, pending, and scheduled orders, including clinic medications orders, diagnostic test orders, procedure orders and consult orders; where the start date of the order is 45 days before the date of the Encounter or 45 days after the date of the Encounter. The data comes from all [place] treatment [facility]. Test Date/Time Test Type Test Details Facility Name May 13, 2021 11:56 Consult Order [facility] CNTRL W STRN AM SKILLED HOME CARE Cons [place] [facility] Computer Engineering Technologist's Choice Jun 24, 2021 12:00 Laboratory - ALCOHOL, ETHYL URINE [place] CNTRL WSTR[place] AM Chemistry Order PANEL URINE (DRUG) [place] [facility] Jun 24, 2021 12:00 Laboratory - AMPHETAMINES SCREEN PANEL [place] CNTRL [place] AM Chemistry Order URINE (DRUG) SP [place] [facility] Jun 24, 2021 12:00 Laboratory - BENZODIAZEPINES SCREEN VA CNT RL WSTRN AM Chemistry Order PANEL URINE (DRUG) [place] [facility] Jun 24, 2021 12:00 Laboratory - FENTANYL SCREEN PANEL [place] CNTR L WSTR[place] AM Chemistry Order URINE (DRUG) [place] [facility] Jun 24, 2021 12:00 Laboratory - BUPRENORPHINE SCREEN [place] CNTRL W[place] AM Chemistry Order PANEL URINE (DRUG) [place] [facility] Jun 24, 2021 12:00 Laboratory - CANNABINOIDS SCREEN PANEL [facility] CN[facility]L WSTRN AM Chemistry Order URINE (DRUG) SP [facility] Jun 24, 2021 12:00 Laboratory - COCAINE SCREEN PANEL [facility] CNTRL WSTRN AM Chemistry Order URINE (DRUG) SP [facility] Jun 24, 2021 12:00 Laboratory - OPIATES SCREEN PANEL [facility] CNTRL WSTRN AM Chemistry Order URINE (DRUG) [facility] Jun 24, 2021 12:00 Laboratory - ETG SCREEN (wx) URINE [facility] CNTR L WSTRN AM Chemistry Order (DRUG) SP [facility] Jun 24, 2021 12:00 Laboratory - OXYCODONE SCREEN PANEL VA CNT RL WSTRN AM Chemistry Order URINE (DRUG) [facility] Jun 24, 2021 12:00 Laboratory - METHADONE SCREEN URINE SP [facility] CNTRL WSTRN AM Chemistry Order [facility] Jun 24, 2021 12:00 Laboratory - CBC AND DIFF (AUTO) BLOOD [facility] CNTRL WSTRN AM Chemistry Order (LAV-BLOOD) SP [facility] Jun 24, 2021 12:00 Laboratory - HEMOGLOBIN A1C PANEL [facility] CNTRL WSTRN AM Chemistry Order BLOOD (LAV-BLOOD) [facility] Jun 24, 2021 12:00 Laboratory - URINALYSIS URINE SP [facility] CNTRL WSTRN AM Chemistry Order [facility] Jun 24, 2021 12:00 Laboratory - PSA BLOOD (SST-SERUM) SP [facility] C NTRL WSTRN AM Chemistry Order [facility] Jun 24, 2021 12:00 Laboratory - ALBUMIN BLOOD (SST-SERUM) [facility] CN[facility]L [facility] AM Chemistry Order SP [facility] Jun 24, 2021 12:00 Laboratory - URIC ACID BLOOD [facility] CNTRL WSTR N AM Chemistry Order (SST-SERUM) SP [facility] Jun 24, 2021 12:00 Laboratory - PROTEIN,TOTAL BLOOD [facility] CNTRL WSTRN AM Chemistry Order (SST-SERUM) [facility] Jun 24, 2021 12:00 Laboratory - BILIRUBIN, TOTAL BLOOD VA CNT RL WSTRN AM Chemistry Order (SST-SERUM) [facility] Jun 24, 2021 12:00 Laboratory - TSH BLOOD (SST-SERUM) SP [facility] C NTRL WSTRN AM Chemistry Order [facility] Jun 24, 2021 12:00 Laboratory - ALT BLOOD (SST-SERUM) [facility] C NTRL WSTRN AM Chemistry Order [facility] Jun 24, 2021 12:00 Laboratory - GAMMA-GTP BLOOD [facility] CNTRL WSTR N AM Chemistry Order (SST-SERUM) SP [facility] Jun 24, 2021 12:00 Laboratory - AST BLOOD (SST-SERUM) [facility] C NTRL WSTRN AM Chemistry Order [facility] Jun 24, 2021 12:00 Laboratory - GLUCOSE BLOOD (SST-SERUM) [facility] AM Chemistry Order [facility] Jun 24, 2021 12:00 Laboratory - UREA NITROGEN BLOOD [place] CNTRL [place] AM Chemistry Order (SST-SERUM) [facility] Jun 24, 2021 12:00 Laboratory - CREATININE (GFR [facility] CNTRL WSTR N AM Chemistry Order Est.included) BLOOD [facility] (SST-SERUM) Jun 24, 2021 12:00 Laboratory - ELECTROLYTE PANEL BLOOD [place] CN TRL WSTRN AM Chemistry Order (SST-SERUM) [facility] Jun 24, 2021 12:00 Laboratory - LIPID PANEL FASTING BLOOD [place] CNTRL WSTR[place] AM Chemistry Order (SST-SERUM) [facility] Jun 24, 2021 12:00 Laboratory - GABAPENTIN, Urine URINE [place] CN TRL WSTRN AM Chemistry Order (DRUG) [facility] Social History: Smoking Status (Most current) and Tobacco Use (All prior to encounter date) This section includes the most current, and the historical, smoking and tobacco-related health factors from the [place] facility where the Encounter took place.Current Smoking Status This section includes the most current smoking, or tobacco-related health factor, from the [place] facility where the Encounter took place. Date/Time Current Smoking Status Comment Facility Jul 03, 2020 02:53 PM VA-TOBACCO NEVER USED [place] NTRL WSTRN [facility] Advance Directives: All historical and current Section Date Range: From patient's date of to the date document was created. This section includes ALL of a patient's completed or amended [place] Advance and Rescinded Directives. The entries below indicate that a directive exists for the patient, but an actual copy is not included with this document. The data comes from all [place] facilities. Date Advance Directives Provider Source Jan 06, 2022 ADVANCE DIRECTIVE CODEY WESTON Encounter Notes: All associated encounter notes This section contains the clinical notes associated to the Encounter. Date/Time Encounter Note(s) Provider Source Jun 24, 2021 11:58 AM TELEPHONE ENCOUNTER NOTE: YUSRA MAC [place] CNTRL WSTR[place] LOCAL TITLE: VISN 1 CCC MED RENEWAL [place] [facility] STANDARD TITLE: TELEPHONE ENCOUNTER NOTE DATE OF NOTE: JUN 24, 2021@11:58:57 ENTRY DATE: JUN 24, 2021@11:59:45 AUTHOR: YUSRA MAC EXP COSIGNER: URGENCY: STATUS: COMPLETED VISN 1 CCC MED RENEWAL Has ADDENDA The patient, MICHAEL GU ([id number]) called the call center. The following identifiers were used to verify th is patient: . SSN. Contact Type of call: PHARMACY. Caller Response: ADM CALL RESOLVED Caller Area: [place] [facility] Provider Info: [facility] ([id number]) PACT: SO PACT 2 (Focus: Primary Care Only) Primary Care Provider: Lindsay Law PHONE:[phone] Knot Tier: Codey Weston Clinical Associate: Nuha Reynaga [facility] Aide: Tolu Prajapati Clinical POC: Clinical Associate Linsey Reynaga Administrative POC: Hospice Home Health Aide Tolu Prajapati Author: YUSRA MAC Comments: renew and mail Imported Information: Medications : GABAPENTIN 600MG TAB Prescription #:[id number] Prescribing Physician: BECCA GUERRERO (PHYSICIAN) on 03/16/20 09:39 Frequency/Dosage: 900MG ORAL TID : HYDROCODONE 5MG/ACETAMINOPHEN 325MG TA B Prescription #:[id number] Prescribing Physician: BECCA GUERRERO (PHYSICIAN) on 04/14/2021 15:35 Frequency/ Dosage: 1 TABLET HYDROCODONE 5MG/ACETAMINOPHEN 3 25MG TAB Evaluation/Management Code: HC PRO PHONE CALL 5- 10 MIN ([id number]). Starting at: 06/24/2021 @ 11:58:57 AM Ending at: 06/24/2021 @ 11:59:25 AM Length: 0 minutes. Chief Complaint: Not applicable to call. Class Code: Other specified counseling. Patient's Email Address: /es/ YUSRA MAC ADVANCED ASSEMBLER SEMICONDUCTOR Signed: 06/24/2021 11:59 Receipt Acknowledged By: 06/24/2021 12:42 /es/ SIENNA FULLER EMBROIDERY CUTTER PCASALLY EMBROIDERY CUTTER for CODEY WESTON 06/24/2021 12:42 /es/ NUHA REYNAGA LPN LPN 06/24/2021 ADDENDUM STATUS: COMPLETED Please schedule fasting labs and OD recall w PAC T 2 provider. /es/ LINDSAY LAW RN,MSN,ASSISTANT OPERATIONS MANAGER-C PRIMARY CARE NURSE PRACTITIONER Signed: 06/24/2021 13:19 Receipt Acknowledged By: * AWAITING SIGNATURE * TOLU PRAJAPATI 07/07/2021 ADDENDUM STATUS: COMPLETED As seen in [facility] lab and PCP appt have been booked . /es/ JUSTIN SIMMONS ADVANCED ASSEMBLER SEMICONDUCTOR Signed: 07/07/2021 11:06
--- OUTSIDE RECORDS SUMMARY | 2022-04-22 17:32 | XMS_ITS | Encounter Summary ---
:1950 Author Organization [facility] Address [address] [place] [id number] Support Name Relationship Address Phone HAY GU Unavailable [address] [place] [address] HAY GU Unavailable [address] [place] [address] Insurance Providers: All historical and current Section [...] MEDICARE MEDICARE PART Mar 23, PART A [id number] HOFFMA N PATIENT (WNR) (M) A 2002A 4 MICHAEL MORRIS MEDICARE MEDICARE PART Mar 23, PART B [id number] HOFFMA N PATIENT (WNR) (M) B 2002A 4 MICHAEL MORRIS MEDICARE MEDICARE PART Mar 23, PART A [id number] HOFFMA N PATIENT (WNR) (M) A 2002A 1 MICHAEL MORRIS MEDICARE MEDICARE PART Mar 23, PART B [id number] HOFFMA N PATIENT (WNR) (M) B 2002A 1 MICHAEL MORRIS MEDICARE MEDICARE PART Mar 23, PART A [id number] [id number] HOFFMA N,E PATIENT (WNR) (M) A 2002A 00 DWARD MEDICARE MEDICARE PART Mar 23, PART B [id number] [id number] HOFFMA N,E PATIENT (WNR) (M) B 2002 SHALA Selected Encounter This section includes the information on record at NE for the Encounter. Date/Time Encounter Type Encounter Description Reason Provider Source Jun 24, 2021 12:38 Outpatient Encounter PRIMARY CARE/MEDICINE PM IHE Encounter Template Text not used by NE Plan of Treatment: Future Appointments (+ 6 months) and Future Tests (+/- 45 days) The Plan of Treatment section includes future care activities for the patient from all [facility] This section includes future appointments and future orders which are active, pending orscheduled.Future Appointments This section includes appointments that were scheduled to occur 6 months from the date of the Encounter, up to a maximum of 20 appointments. The data comes from all NE treatment facilities. Appointment Date/Time Appointment Type Appointment Facili ty Name Jul 14, 2021 01:00 PM AMBULATORY - MEDICINE [place] Oct 27, 2021 01:00 PM AMBULATORY - PSYCHIATRY [place] Nov 25, 2021 04:00 PM [facility] Active, Pending, and Scheduled Orders This section includes a listing of several types of active, pending, and scheduled orders, including clinic medications orders, diagnostic test orders, procedure orders and consult orders; where the start date of the order is 45 days before the date of the Encounter or 45 days after the date of the Encounter. The data comes from all NE treatment [facility]. Test Date/Time Test Type Test Details Facility Name May 13, 2021 11:56 Consult Order [facility] CNTRL W STRN AM [facility] Cons [place] [facility] Jun 24, 2021 12:00 Laboratory - ALCOHOL, ETHYL URINE NE CNTRL WSTRN AM Chemistry Order PANEL URINE (DRUG) [place] [facility] Jun 24, 2021 12:00 Laboratory - FENTANYL SCREEN PANEL NE CNTR L WSTRN AM Chemistry Order URINE (DRUG) [place] [facility] Jun 24, 2021 12:00 Laboratory - AMPHETAMINES SCREEN PANEL [facility] CNTRL W[facility]N AM Chemistry Order URINE (DRUG) SP [place] [facility] Jun 24, 2021 12:00 Laboratory - BENZODIAZEPINES SCREEN NE CNT RL WSTRN AM Chemistry Order PANEL URINE (DRUG) [place] [facility] Jun 24, 2021 12:00 Laboratory - CANNABINOIDS SCREEN PANEL NE CNTRL WSTRN AM Chemistry Order URINE (DRUG) SP [place] [facility] Jun 24, 2021 12:00 Laboratory - BUPRENORPHINE SCREEN [facility] CNTRL W[facility]N AM Chemistry Order PANEL URINE (DRUG) SP [facility] Jun 24, 2021 12:00 Laboratory - COCAINE SCREEN PANEL [facility] CNTRL W[facility]N AM Chemistry Order URINE (DRUG) SP [facility] Jun 24, 2021 12:00 Laboratory - ETG SCREEN (wx) URINE [facility] CNTR L WSTRN AM Chemistry Order (DRUG) SP [facility] Jun 24, 2021 12:00 Laboratory - METHADONE SCREEN URINE SP [facility] CNTRL WSTRN AM Chemistry Order [facility] Jun 24, 2021 12:00 Laboratory - OPIATES SCREEN PANEL VA CNTRL WSTRN AM Chemistry Order URINE (DRUG) [facility] Jun 24, 2021 12:00 Laboratory - OXYCODONE SCREEN PANEL VA CNT RL WSTRN AM Chemistry Order URINE (DRUG) [facility] Jun 24, 2021 12:00 Laboratory - URINALYSIS URINE SP [facility] CNTRL WSTRN AM Chemistry Order [facility] Jun 24, 2021 12:00 Laboratory - CBC AND DIFF (AUTO) BLOOD [facility] CNTRL WSTRN AM Chemistry Order (LAV-BLOOD) SP [facility] Jun 24, 2021 12:00 Laboratory - HEMOGLOBIN A1C PANEL [facility] CNTRL WSTRN AM Chemistry Order BLOOD (LAV-BLOOD) [facility] Jun 24, 2021 12:00 Laboratory - PSA BLOOD (SST-SERUM) SP VA C NTRL WSTRN AM Chemistry Order [facility] Jun 24, 2021 12:00 Laboratory - URIC ACID BLOOD VA CNTRL WSTR N AM Chemistry Order (SST-SERUM) [facility] Jun 24, 2021 12:00 Laboratory - PROTEIN,TOTAL BLOOD [facility] CNTRL WSTRN AM Chemistry Order (SST-SERUM) [facility] Jun 24, 2021 12:00 Laboratory - ALBUMIN BLOOD (SST-SERUM) [facility] CN[facility]L [facility] AM Chemistry Order [facility] Jun 24, 2021 12:00 Laboratory - BILIRUBIN, TOTAL BLOOD VA CNT RL WSTRN AM Chemistry Order (SST-SERUM) [facility] Jun 24, 2021 12:00 Laboratory - TSH BLOOD (SST-SERUM) SP [facility] C NTRL WSTRN [facility] Jun 24, 2021 12:00 Laboratory - AST BLOOD (SST-SERUM) SP NE C NTRL WSTRN AM Chemistry Order [facility] Jun 24, 2021 12:00 Laboratory - ALT BLOOD (SST-SERUM) SP NE C NTRL WSTRN AM Chemistry Order [facility] Jun 24, 2021 12:00 Laboratory - GAMMA-GTP BLOOD VA CNTRL WSTR N AM Chemistry Order (SST-SERUM) SP [facility] Jun 24, 2021 12:00 Laboratory - GLUCOSE BLOOD (SST-SERUM) [facility] CNTRL WSTRN AM Chemistry Order SP [facility] Jun 24, 2021 12:00 Laboratory - UREA NITROGEN BLOOD [facility] CNTRL WSTRN AM Chemistry Order (SST-SERUM) [facility] Jun 24, 2021 12:00 Laboratory - CREATININE (GFR [facility] CNTRL WSTR N AM Chemistry Order Est.included) BLOOD [facility] (SST-SERUM) Jun 24, 2021 12:00 Laboratory - ELECTROLYTE PANEL BLOOD NE CN TRL WSTRN AM Chemistry Order (SST-SERUM) [facility] Jun 24, 2021 12:00 Laboratory - LIPID PANEL FASTING BLOOD NE CNTRL WSTRN AM Chemistry Order (SST-SERUM) [facility] Jun 24, 2021 12:00 Laboratory - GABAPENTIN, Urine URINE NE CN TRL WSTRN AM Chemistry Order (DRUG) [facility] Social History: Smoking Status (Most current) and Tobacco Use (All prior to encounter date) This section includes the most current, and the historical, smoking and tobacco-related health factors from the NE facility where the Encounter took place.Current Smoking Status This section includes the most current smoking, or tobacco-related health factor, from the NE facility where the Encounter took place. Date/Time Current Smoking Status Comment Facility Jul 03, 2020 02:53 PM VA-TOBACCO NEVER USED [facility] NTRL WSTRN [facility] Advance Directives: All historical and current Section Date Range: From patient's date of to the date document was created. This section includes ALL of a patient's completed or amended NE Advance and Rescinded Directives. The entries below indicate that a directive exists for the patient, but an actual copy is not included with this document. The data comes from all NE facilities. Date Advance Directives Provider Source Jan 06, 2022 ADVANCE DIRECTIVE WEBSTERCODEY NOREEN Encounter Notes: All associated encounter notes This section contains the clinical notes associated to the Encounter. Date/Time Encounter Note(s) Provider Source Jun 24, 2021 12:40 PM MEDICATION MGT NOTE: SARITA REYNAGA [facility] TITLE: OPIOID/CONTROLLED SUBSTANCE RENEWA L NOTE STANDARD TITLE: MEDICATION MGT NOTE DATE OF NOTE: JUN 24, 2021@12:40 ENTRY DATE: JUN 24, 2021@12:40:50 AUTHOR: SARITA REYNAGA EXP COSIGNER: URGENCY: STATUS: COMPLETED Standard Opioid Renewal/Controlled Substance Not e Requested Medication: hydrocodone Mail to vasyl Harper Valid Consent for Long-Term Opioids for Pain i s on file and available for viewing in [employer]. CONSENT FOR LONG-TERM OPIOIDS FOR PAIN Feb 20 015 A State Prescription Drug Monitoring Program (SP DMP) Review Note has been documented in the medical r ecord at least once in the last 9 months. [facility] PRESCRIPTION DRUG MONITORING PROGRAM (SPDM P) NOTE Mar 13, 2020 [place] Prescription Monitoring Program (M A REPAIR MANAGER) checked today. [email or web address] Drug Screen No data available for: OPIATES SCREEN OXYCODONE SCREEN METHADONE SCREEN BENZODIAZEPINES SCREEN COCAINE SCREEN CANNABINOIDS SCREEN ALCOHOL, ETHYL URINE AMPHETAMINES SCREEN BUPRENORPHINE (URINE) Ethyl Glucuronide Screen Ethyl Sulfate Ethyl Glucuronide Conf Naloxone Most Recent Naloxone Prescription Information: Reminder Term: VA-NALOXONE USE Drug: NALOXONE HCL 4MG/SPRAY SOLN NASAL SPRAY Outpatient Medication: NALOXONE HCL 4MG/SPRAY S OLN NASAL SPRAY 12/18/2019@15:53 Status: Start date: 12/17/2019@15:53 Stop date: 020@15:53 Duration: 1 D Last release date: 12/17/2019@15:53 Days supply : Ramya /mainor/ SARITA REYNAGA LPN LPN Signed: 06/24/2021 12:42 Jun 24, 2021 12:39 PM ACCOUNTING OF DISCLOSURES NOTE: SARITA REYNAGA LOCAL TITLE: STATE PRESCRIPTION DRUG MONITORING PROGRAM STANDARD TITLE: ACCOUNTING OF DISCLOSURES NOTE DATE OF NOTE: JUN 24, 2021@12:39:59 ENTRY DATE: JUN 24, 2021@12:39:59 AUTHOR: SARITA REYNAGA EXP COSIGNER: EVGENY LANE URGENCY: STATUS: COMPLETED This PDMP query was submitted by Quynh Reynaga on behalf of Evgeny Tony TUBE FILLER. The clinical justification for this PDMP query i s to review controlled substances prescribed outside of the [facility], and any additional information that may become available, as an important compo nent of standard clinical care, and in accordance with [facility] policy. Patient information was shared with the PDMP [place]. The VA prescriber, for which I am a delegate, wi ll be alerted of these PDMP findings through co-signature of this progr ess note. No prescription(s) for controlled substances out side the VA were found in the last 90 days. /mainor/ SARITA REYNAGA LPN LPN Signed: 06/24/2021 12:43 /mainor/ EVGENY OTNY RN,MSN,SONOGRAPHY TECHNICIAN-C PRIMARY CARE NURSE PRACTITIONER Cosigned: 06/24/2021 13:32 Jun 24, 2021 12:38 PM MEDICATION MGT NOTE: SARITA REYNAGA [facility] TITLE: OUTPATIENT MEDICATION REQUEST STANDARD TITLE: MEDICATION MGT NOTE DATE OF NOTE: JUN 24, 2021@12:38 ENTRY DATE: JUN 24, 2021@12:39 AUTHOR: SARITA REYNAGA EXP COSIGNER: URGENCY: STATUS: COMPLETED Medication Request Date of Request: Jun Is this a New Medication? No Requests Renewal and Mail : GABAPENTIN 600MG TAB Prescription #:[id number] Prescribing Physician: BECCA GUERRERO (PHYSICIAN) on 03/16/20 09:39 Frequency/Dosage: 900MG ORAL TID : HYDROCODONE 5MG/ACETAMINOPHEN 325MG TA B Prescription #:[id number] Prescribing Physician: BECCA GUERRERO (PHYSICIAN) on 04/14/2021 15:35 Frequency/ Dosage: 1 TABLET HYDROCODONE 5MG/ACETAMINOPHEN 3 25MG TAB /mainor/ SARITA REYNAGA LPN LPN Signed: 06/24/2021 12:39 Receipt Acknowledged By: * AWAITING SIGNATURE * EVGENY TONY
--- OUTSIDE RECORDS SUMMARY | 2022-04-22 17:32 | XMS_ITS | Encounter Summary ---
:1950 Author Organization [facility] Address [address] [place] [id number] Support Name Relationship Address Phone HAY GU Unavailable [address] [place] [address] HAY GU Unavailable [address] [place] [address] Insurance Providers: All historical and current Section [...] MEDICARE MEDICARE PART Mar 23, PART A [id number] HOFFMA N PATIENT (WNR) (M) A 2002A 4 MICHAEL MORRIS MEDICARE MEDICARE PART Mar 23, PART B [id number] HOFFMA N PATIENT (WNR) (M) B 2002A 4 MICHAEL MORRIS MEDICARE MEDICARE PART Mar 23, PART A [id number] HOFFMA N,E PATIENT (WNR) (M) A 2002A 00 [place] MEDICARE MEDICARE PART Mar 23, PART B [id number] HOFFMA N,E PATIENT (WNR) (M) B 2002A 00 [place] MEDICARE MEDICARE PART Mar 23, PART A [id number] HOFFMA N PATIENT (WNR) (M) A 2002A 1 MICAHERNANDEZ MEDICARE MEDICARE PART Mar 23, PART B [id number] HOFFMA N PATIENT (WNR) (M) B 2002A MICHAEL Selected Encounter This section includes the information on record at [place] for the Encounter. Date/Time Encounter Type Encounter Description Reason Provider Source Jul 15, 2021 09:47 Outpatient Encounter TELEPHONE TRIAGE AM IHE Encounter Template Text not used by [place] Plan of Treatment: Future Appointments (+ 6 months) and Future Tests (+/- 45 days) The Plan of Treatment section includes future care activities for the [facility] This section includes future appointments and future orders which are active, pending orscheduled.Future Appointments This section includes appointments that were scheduled to occur 6 months from the date of the Encounter, up to a maximum of 20 appointments. The data comes from all [place] treatment facilities. Appointment Date/Time Appointment Type Appointment Facili ty Name Oct 27, 2021 01:00 PM AMBULATORY - PSYCHIATRY [place] Nov 25, 2021 04:00 PM [facility] Active, Pending, and Scheduled Orders This section includes a listing of several types of active, pending, and scheduled orders, including clinic medications orders, diagnostic test orders, procedure orders and consult orders; where the start date of the order is 45 days before the date of the Encounter or 45 days after the date of the Encounter. The data comes from all [place] treatment [facility]. Test Date/Time Test Type Test Details Facility Name Jun 24, 2021 12:00 Laboratory - ALCOHOL, ETHYL URINE DE CNTRL WSTRN AM Chemistry Order PANEL URINE (DRUG) [place] [facility] Jun 24, 2021 12:00 Laboratory - AMPHETAMINES SCREEN PANEL DE CNTRL WSTRN AM Chemistry [facility] Jun 24, 2021 12:00 Laboratory - FENTANYL SCREEN PANEL DE CNTR L WSTRN AM Chemistry Order URINE (DRUG) [place] [facility] Jun 24, 2021 12:00 Laboratory - BENZODIAZEPINES SCREEN DE CNT RL WSTRN AM Chemistry Order PANEL URINE (DRUG) SP [place] [facility] Jun 24, 2021 12:00 Laboratory - BUPRENORPHINE SCREEN DE CNTRL WSTRN AM Chemistry Order PANEL URINE (DRUG) SP [place] [facility] Jun 24, 2021 12:00 Laboratory - CANNABINOIDS SCREEN PANEL DE CNTRL WSTRN AM Chemistry Order [facility]INE (DRUG) [facility] Jun 24, 2021 12:00 Laboratory - COCAINE SCREEN PANEL DE CNTRL WSTRN AM Chemistry Order URINE (DRUG) [facility] Jun 24, 2021 12:00 Laboratory - [...] VA CNTRL WSTRN AM Chemistry Order (LAV-BLOOD) [facility] Jun 24, 2021 12:00 Laboratory - HEMOGLOBIN A1C PANEL VA CNTRL WSTRN AM Chemistry Order BLOOD (LAV-BLOOD) SP [facility] Jun 24, 2021 12:00 Laboratory - PSA BLOOD (SST-SERUM) SP VA C NTRL WSTRN AM Chemistry Order [facility] Jun 24, 2021 12:00 Laboratory - ALBUMIN BLOOD (SST-SERUM) [facility] CNTRL WSTRN AM Chemistry Order [facility] Jun 24, 2021 12:00 Laboratory - URIC ACID BLOOD VA CNTRL WSTR N AM Chemistry Order (SST-SERUM) [facility] Jun 24, 2021 12:00 Laboratory - [...] 24, 2021 12:00 Laboratory - PROTEIN,TOTAL BLOOD DE CNTRL WSTRN AM Chemistry Order (SST-SERUM) [facility] Jun 24, 2021 12:00 Laboratory - GAMMA-GTP BLOOD DE CNTRL WSTR N AM Chemistry Order (SST-SERUM) [facility] Jun 24, 2021 12:00 Laboratory - GLUCOSE BLOOD (SST-SERUM) [facility] CNTRL [facility] AM Chemistry Order [facility] Jun 24, 2021 12:00 Laboratory - UREA NITROGEN BLOOD DE CNTRL WSTRN AM Chemistry Order (SST-SERUM) [facility] Jun 24, 2021 12:00 Laboratory - CREATININE (GFR VA CNTRL WSTR N AM Chemistry Order Est.included) [facility]LOOD [facility] (SST-SERUM) Jun 24, 2021 12:00 Laboratory - ELECTROLYTE PANEL BLOOD DE CN TRL WSTRN AM Chemistry Order (SST-SERUM) [facility] Jun 24, 2021 12:00 Laboratory - GABAPENTIN, Urine URINE DE CN TRL WSTRN AM Chemistry Order (DRUG) [facility] Jun 24, 2021 12:00 Laboratory - LIPID PANEL FASTING BLOOD DE CNTRL WSTRN AM Chemistry Order (SST-SERUM) [facility] Social History: Smoking Status (Most current) and Tobacco Use (All prior to encounter date) This section includes the most current, and the historical, smoking and tobacco-related health factors from the [place] facility where the Encounter took place.Current Smoking Status This section includes the most current smoking, or tobacco-related health factor, from the [place] facility where the Encounter took place. Date/Time Current Smoking Status Comment Facility Jul 03, 2020 02:53 PM VA-TOBACCO NEVER USED DE C NTRL WSTRN [facility] Advance Directives: All historical and current Section Date Range: From patient's date of to the date document was created. This section includes ALL of a patient's completed or amended [place] Advance and Rescinded Directives. The entries below indicate that a directive exists for the patient, but an actual copy is not included with this document. The data comes from all [place] facilities. Date Advance Directives Provider Source Jan 06, 2022 ADVANCE DIRECTIVE CODEY WEBSTER Encounter Notes: All associated encounter notes This section contains the clinical notes associated to the Encounter. Date/Time Encounter Note(s) Provider Source Jul 15, 2021 09:47 AM TELEPHONE ENCOUNTER NOTE: SHARI DUARTE DE CNTRL WSTRN LOCAL TITLE: VISN 1 CCC ACTION REQUIRED [place] [facility] STANDARD TITLE: TELEPHONE ENCOUNTER NOTE DATE OF NOTE: JUL 15, 2021@09:47:29 ENTRY DATE: JUL 15, 2021@09:50:20 AUTHOR: SHARI DUARTE EXP COSIGNER: URGENCY: STATUS: COMPLETED VISN 1 CCC ACTION REQUIRED Has ADDENDA OTHER called in for MICHAEL GU ([phone]) . The following identifiers were used to verify th is patient: . SSN. Contact [phone] Type of call: REFERRAL/CONSULT REQUEST. Caller Response: ADM CALL RESOLVED Caller Area: [facility] Provider Info: [facility] ([id number]) PACT: PACT 2 (Focus: Primary Care Only) Primary Care Provider: CHINYERE GUTIÉRREZ Sandwich Peddler: CODEY WEBSTER Clinical Associate: SARITA REYNAGA Bleach Maker: TOLU PRAJAPATI Clinical POC: Clinical Associate Linsey REYNAGA Administrative POC: Bleach Maker TOLU PRAJAPATI Author: SHARI DUARTE Comments: Serenity SUÁREZ from [facility] called to request a home SW consult for the to have outside support . She is requesting a call back at [phone]. Evaluation/Management Code: HC PRO PHONE CALL 5- 10 MIN ([phone]). Starting at: 07/15/2021 @ 9:47:29 AM Ending at: 07/15/2021 @ 9:49:09 AM Length: 1 minutes. Chief Complaint: Not applicable to call. Class Code: Other specified counseling. Patient's Email Address: /mainor/ SHARI DUARTE Advanced Silviculturist Signed: 07/15/2021 09:50 Receipt Acknowledged By: 07/15/2021 13:33 /mainor/ BROOKE MCCARTHYN RN-BC REGISTERED NURSE * AWAITING SIGNATURE * SARITA REYNAGA 07/15/2021 ADDENDUM STATUS: COMPLETED Called Serenity Becerra and left voicemail requesting call back to author's direct line to discuss request /es/ BROOKE MCCARTHYN RN-BC REGISTERED NURSE Signed: 07/15/2021 13:34
--- OUTSIDE RECORDS SUMMARY | 2022-04-22 17:33 | XMS_ITS | Encounter Summary ---
:1950 Author Organization [facility] Address [address] [place] [id number] Support Name Relationship Address Phone HAY GU Unavailable [address] [place] [address] HAY GU Unavailable [address] [place] [address] Insurance Providers: All historical and current Section [...] MEDICARE MEDICARE PART Mar 23, PART B [id number] HOFFMA N PATIENT (WNR) (M) B 2002A 4 MICHAEL MORRIS MEDICARE MEDICARE PART Mar 23, PART A [id number] HOFFMA N PATIENT (WNR) (M) A 2002A 4 MICHAEL MORRIS MEDICARE MEDICARE PART Mar 23, PART A [id number] HOFFMA N,E PATIENT (WNR) (M) A 2002A 00 [place] MEDICARE MEDICARE PART Mar 23, PART B [id number] HOFFMA N,E PATIENT (WNR) (M) B 2002A [place] MEDICARE MEDICARE PART Mar 23, PART A [id number] HOFFMA N PATIENT (WNR) (M) A 2002A 1 MICHAEL MORRIS MEDICARE MEDICARE PART Mar 23, PART B [id number] HOFFMA N PATIENT (WNR) (M) B 2002A MICHAEL Selected Encounter This section includes the information on record at MI for the Encounter. Date/Time Encounter Type Encounter Description Reason Provider Source May 12, 2021 09:32 Outpatient Encounter TELEPHONE TRIAGE AM IHE Encounter Template Text not used by MI Plan of Treatment: Future Appointments (+ 6 months) and Future Tests (+/- 45 days) The Plan of Treatment section includes future care activities for the patient from all [facility] This section includes future appointments and future orders which are active, pending orscheduled.Future Appointments This section includes appointments that were scheduled to occur 6 months from the date of the Encounter, up to a maximum of 20 appointments. The data comes from all MI treatment facilities. Appointment Date/Time Appointment Type Appointment Facili ty Name May 13, 2021 12:30 PM [facility] Jul 14, 2021 01:00 PM [facility]UL[facility]ORY - MEDICINE [place] Oct 27, 2021 01:00 PM AMBULATORY - PSYCHIATRY [place] Active, Pending, and Scheduled Orders This section includes a listing of several types of active, pending, and scheduled orders, including clinic medications orders, diagnostic test orders, procedure orders and consult orders; where the start date of the order is 45 days before the date of the Encounter or 45 days after the date of the Encounter. The data comes from all MI treatment [facility]. Test Date/Time Test Type Test Details Facility Name May 13, 2021 11:56 Consult Order [facility] [place] [facility] Chemical Radiation Technician's Choice Jun 24, 2021 12:00 Laboratory - ALCOHOL, ETHYL URINE [facility] WSTRN AM Chemistry Order PANEL URINE (DRUG) [place] [facility] Jun 24, 2021 12:00 Laboratory - AMPHETAMINES SCREEN PANEL [place] CNTRL WSTRN AM Chemistry Order URINE (DRUG) SP [place] [facility] Jun 24, 2021 12:00 Laboratory - FENTANYL SCREEN PANEL [place] CNTR L WSTRN AM Chemistry Order URINE (DRUG) SP [place] [facility] Jun 24, 2021 12:00 Laboratory - BENZODIAZEPINES SCREEN [facility] RL WSTRN AM Chemistry Order PANEL URINE (DRUG) [place] [facility] Jun 24, 2021 12:00 Laboratory - BU[facility]ENORPHINE [facility]CREEN [facility] Chemistry Order PANEL URINE (DRUG) [place] [facility] Jun 24, 2021 12:00 Laboratory - CANNABINOIDS SCREEN PANEL [facility] AM Chemistry Order URINE (DRUG) SP [facility] Jun 24, 2021 12:00 Laboratory - COCAINE SCREEN PANEL [facility] AM Chemistry Order URINE (DRUG) SP [facility] Jun 24, 2021 12:00 Laboratory - ETG SCREEN (wx) URINE [facility] L [facility] AM Chemistry Order (DRUG) SP [facility] Jun 24, 2021 12:00 Laboratory - METHADONE SCREEN URINE SP [facility] W[facility] AM Chemistry Order [facility] Jun 24, 2021 12:00 Laboratory - OPIATES SCREEN PANEL [facility] W[facility] AM Chemistry Order URINE (DRUG) [facility] Jun 24, 2021 12:00 Laboratory - OXYCODONE SCREEN PANEL [facility] CNT RL WSTRN AM Chemistry Order URINE (DRUG) [facility] Jun 24, 2021 12:00 Laboratory - URINALYSIS URINE SP [facility] CN[facility]L W[facility] AM Chemistry Order [facility] Jun 24, 2021 12:00 Laboratory - CBC AND DIFF (AUTO) BLOOD [facility] AM Chemistry Order (LAV-BLOOD) SP [facility] Jun 24, 2021 12:00 Laboratory - HEMOGLOBIN A1C PANEL [facility] W[facility] AM Chemistry Order BLOOD (LAV-BLOOD) [facility] Jun 24, 2021 12:00 Laboratory - PSA BLOOD (SST-SERUM) SP [facility] C NTRL WSTRN AM Chemistry Order [facility] Jun 24, 2021 12:00 Laboratory - ALBUMIN BLOOD (SST-SERUM) [facility] AM Chemistry Order SP [facility] Jun 24, 2021 12:00 Laboratory - URIC ACID BLOOD [facility] WSTR N AM Chemistry Order (SST-SERUM) [facility] Jun 24, 2021 12:00 Laboratory - PROTEIN,TOTAL BLOOD [facility] W[facility] AM Chemistry Order (SST-SERUM) [facility] Jun 24, 2021 12:00 Laboratory - BILIRUBIN, TOTAL BLOOD [facility] CNT RL WSTRN AM Chemistry Order (SST-SERUM) [facility] Jun 24, 2021 12:00 Laboratory - TSH BLOOD (SST-SERUM) SP [facility] C NTRL WSTRN AM [facility] Jun 24, 2021 12:00 Laboratory - AST BLOOD (SST-SERUM) SP [facility] NTRL WSTRN AM Chemistry Order [facility] Jun 24, 2021 12:00 Laboratory - ALT BLOOD (SST-SERUM) [facility] C NTRL WSTRN AM Chemistry Order [facility] Jun 24, 2021 12:00 Laboratory - GAMMA-GTP BLOOD MI CNTRL WSTR N AM Chemistry Order (SST-SERUM) [facility] Jun 24, 2021 12:00 Laboratory - GLUCOSE BLOOD (SST-SERUM) [facility] AM Chemistry Order SP [facility] Jun 24, 2021 12:00 Laboratory - UREA NITROGEN BLOOD [facility] W[facility] AM Chemistry Order (SST-SERUM) [facility] Jun 24, 2021 12:00 Laboratory - CREATININE (GFR [facility] CN[facility]L WSTR N AM Chemistry Order Est.included) BLOOD [facility] (SST-SERUM) Jun 24, 2021 12:00 Laboratory - ELECTROLYTE PANEL BLOOD MI CN TRL WSTRN AM Chemistry Order (SST-SERUM) [facility] Jun 24, 2021 12:00 Laboratory - LIPID PANEL FASTING BLOOD MI CNTRL WSTRN AM Chemistry Order (SST-SERUM) [facility] Jun 24, 2021 12:00 Laboratory - GABAPENTIN, Urine URINE MI CN TRL WSTRN AM Chemistry Order (DRUG) [facility] Social History: Smoking Status (Most current) and Tobacco Use (All prior to encounter date) This section includes the most current, and the historical, smoking and tobacco-related health factors from the MI facility where the Encounter took place.Current Smoking Status This section includes the most current smoking, or tobacco-related health factor, from the MI facility where the Encounter took place. Date/Time Current Smoking Status Comment Facility Jul 03, 2020 02:53 PM VA-TOBACCO NEVER USED [facility] NTRL WSTRN [facility] Advance Directives: All historical and current Section Date Range: From patient's date of to the date document was created. This section includes ALL of a patient's completed or amended MI Advance and Rescinded Directives. The entries below indicate that a directive exists for the patient, but an actual copy is not included with this document. The data comes from all MI facilities. Date Advance Directives Provider Source Jan 06, 2022 ADVANCE DIRECTIVE CODEY WESTON Encounter Notes: All associated encounter notes This section contains the clinical notes associated to the Encounter. Date/Time Encounter Note(s) Provider Source May 12, 2021 09:32 AM TELEPHONE ENCOUNTER NOTE: ANNETTE RIOS [place] CNTRL WSTRN LOCAL TITLE: VISN 1 CCC ACTION REQUIRED [place] [facility] STANDARD TITLE: TELEPHONE ENCOUNTER NOTE DATE OF NOTE: MAY 12, 2021@09:32:59 ENTRY DATE: MAY 12, 2021@09:35:35 AUTHOR: ANNETTE RIOS EXP COSIGNER: URGENCY: STATUS: COMPLETED The patient, MICHAEL GU ([id number]) called the call center. The following identifiers were used to verify th is patient: . SSN. Contact Type of call: SCHEDULING. Caller Response: ADM CALL RESOLVED Caller Area: [facility] Provider Info: LOCAL [facility] ([id number]) PACT: SO PACT 2 (Focus: Primary Care Only) Primary Care Provider: Hari Russo PHONE:[phone] Audit Analyst: Codey Weston Clinical Associate: Nuha Graff Travel Rn Or: Bruno Smith Clinical POC: Clinical Associate Linsey Graff Administrative POC: Travel Rn Or Bruno Smith Author: ANNETTE RIOS Comments: Vet requests to cancel the ollowing appt., and will C/B at a later date to R/S Imported Information: Appointments S: 05/12/2021 12:00:00 PM BAUDILIOM/AGUSTÍN/ANGEL Evaluation/Management Code: HC PRO PHONE CALL 5- 10 MIN ([phone]). Starting at: 05/12/2021 @ 9:32:59 AM Ending at: 05/12/2021 @ 9:34:37 AM Length: 1 minutes. Chief Complaint: Not applicable to call. Class Code: Other specified counseling. Patient's Email Address: /mainor/ ANNETTE RIOS [employer] MECHANIC APPRENTICE Signed: 05/12/2021 09:35 Receipt Acknowledged By: * AWAITING SIGNATURE * ARNEL ORTIZ * AWAITING SIGNATURE * LILY ALEJO
--- OUTSIDE RECORDS SUMMARY | 2022-04-22 17:33 | XMS_ITS ---
:1950 Author Organization [facility] Address [address] [place] [address] Support Name Relationship Address Phone HAY GU Unavailable [address] [place] [address] HAY GU Unavailable [address] [place] [address] Insurance Providers: All historical and current Section [...] MEDICARE MEDICARE PART Mar 23, PART A [id number] HOFFMA N PATIENT (WNR) (M) A 2002A 4 MICHAEL MORRIS MEDICARE MEDICARE PART Mar 23, PART B [id number] HOFFMA N PATIENT (WNR) (M) B 2002A 4 MICHAEL MORRIS MEDICARE MEDICARE PART Mar 23, PART A [id number] HOFFMA N PATIENT (WNR) (M) A 2002A 1 MICHAEL MORRIS MEDICARE MEDICARE PART Mar 23, PART B [id number] HOFFMA N PATIENT (WNR) (M) B 2002A 1 MICHAEL MORRIS MEDICARE MEDICARE PART Mar 23, PART A [id number] HOFFMA N,E PATIENT (WNR) (M) A 2002A 00 [place] MEDICARE MEDICARE PART Mar 23, PART B [id number] HOFFMA N,E PATIENT (WNR) (M) B 2002 SHALA Selected Encounter This section includes the information on record at IA for the Encounter. Date/Time Encounter Type Encounter Description Reason Provider Source Jun 04, 2021 10:34 Outpatient Encounter PRIMARY CARE/MEDICINE AM IHE Encounter Template Text not used by IA Plan of Treatment: Future Appointments (+ 6 months) and Future Tests (+/- 45 days) The Plan of Treatment section includes future care activities for the patient from all [facility]. This section includes future appointments and future orders which are active, pending orscheduled.Future Appointments This section includes appointments that were scheduled to occur 6 months from the date of the Encounter, up to a maximum of 20 appointments. The data comes from all IA treatment facilities. Appointment Date/Time Appointment Type Appointment Facili ty Name Jul 14, 2021 01:00 PM AMBULATORY - MEDICINE [place] Oct 27, 2021 01:00 PM AMBULATORY - PSYCHIATRY [place] Nov 25, 2021 04:00 PM AMBULATORY - MEDICINE [facility] WSTRN [facility] Active, Pending, and Scheduled Orders This section includes a listing of several types of active, pending, and scheduled orders, including clinic medications orders, diagnostic test orders, procedure orders and consult orders; where the start date of the order is 45 days before the date of the Encounter or 45 days after the date of the Encounter. The data comes from all IA treatment [facility]. Test Date/Time Test Type Test Details Facility Name May 13, 2021 11:56 Consult [facility] AM SK[facility]ED HOME CARE Cons [place] [facility] Oak [facility] Jun 24, 2021 12:00 Laboratory - ALCOHOL, ETHYL URINE [place] CNTRL WSTRN AM Chemistry Order PANEL URINE (DRUG) SP [place] [facility] Jun 24, 2021 12:00 Laboratory - AMPHETAMINES SCREEN PANEL [place] CNTRL WSTRN AM Chemistry Order URINE (DRUG) SP [place] [facility] Jun 24, 2021 12:00 Laboratory - FENTANYL SCREEN PANEL IA CNTR L WSTRN AM Chemistry Order URINE (DRUG) SP [place] [facility] Jun 24, 2021 12:00 Laboratory - BENZODIAZEPINES SCREEN IA CNT RL WSTRN AM Chemistry Order PANEL URINE (DRUG) [place] [facility] Jun 24, 2021 12:00 Laboratory - BUPRENORPHINE SCREEN [place] CNTRL WSTRN AM Chemistry Order PANEL URINE (DRUG) [place] [facility] Jun 24, 2021 12:00 Laboratory - COCAINE SCREEN PANEL [facility] CN[facility]L WSTRN AM Chemistry Order URINE (DRUG) SP [facility] Jun 24, 2021 12:00 Laboratory - OPIATES SCREEN PANEL [facility] CN[facility]L WSTRN AM Chemistry Order URINE (DRUG) SP [facility] Jun 24, 2021 12:00 Laboratory - CANNABINOIDS SCREEN PANEL [facility]L WSTRN AM Chemistry Order URINE (DRUG) SP [facility] Jun 24, 2021 12:00 Laboratory - METHADONE SCREEN URINE SP [facility] CN[facility]L WSTRN AM Chemistry Order [facility] Jun 24, 2021 12:00 Laboratory - ETG SCREEN (wx) URINE [facility] CNTR L WSTRN AM Chemistry Order (DRUG) [facility] Jun 24, 2021 12:00 Laboratory - OXYCODONE SCREEN PANEL VA CNT RL WSTRN AM Chemistry Order URINE (DRUG) [facility] Jun 24, 2021 12:00 Laboratory - URINALYSIS URINE SP [facility] CNTRL WSTRN AM Chemistry Order [facility] Jun 24, 2021 12:00 Laboratory - CBC AND DIFF (AUTO) BLOOD [facility]L WSTRN AM Chemistry Order (LAV-BLOOD) [facility] Jun 24, 2021 12:00 Laboratory - PSA BLOOD (SST-SERUM) SP [facility] C NTRL WSTRN AM Chemistry Order [facility] Jun 24, 2021 12:00 Laboratory - ALBUMIN BLOOD (SST-SERUM) [facility] WSTR[facility] AM Chemistry Order SP [facility] Jun 24, 2021 12:00 Laboratory - HEMOGLOBIN A1C PANEL [facility] CN[facility]L WSTRN AM Chemistry Order BLOOD (LAV-BLOOD) [facility] Jun 24, 2021 12:00 Laboratory - URIC ACID BLOOD IA CNTRL WSTR N AM Chemistry Order (SST-SERUM) [facility] Jun 24, 2021 12:00 Laboratory - PROTEIN,TOTAL BLOOD [facility] CN[facility]L WSTRN AM Chemistry Order (SST-SERUM) [facility] Jun 24, 2021 12:00 Laboratory - BILIRUBIN, TOTAL BLOOD VA CNT RL WSTRN AM Chemistry Order (SST-SERUM) [facility] Jun 24, 2021 12:00 Laboratory - TSH BLOOD (SST-SERUM) SP [facility] C NTRL WSTRN AM [facility] Jun 24, 2021 12:00 Laboratory - AST BLOOD (SST-SERUM) SP IA C NTRL WSTRN AM Chemistry Order [facility] Jun 24, 2021 12:00 Laboratory - GAMMA-GTP BLOOD IA CNTRL WSTR N AM Chemistry Order (SST-SERUM) [facility] Jun 24, 2021 12:00 Laboratory - ALT BLOOD (SST-SERUM) [facility] C NTRL WSTRN AM Chemistry Order [facility] Jun 24, 2021 12:00 Laboratory - UREA NITROGEN BLOOD IA CNTRL WSTRN AM Chemistry Order (SST-SERUM) [facility] Jun 24, 2021 12:00 Laboratory - GLUCOSE BLOOD (SST-SERUM) [place] CNTRL WSTRN AM Chemistry Order [facility] Jun 24, 2021 12:00 Laboratory - CREATININE (GFR [facility] CNTRL WSTR N AM Chemistry Order Est.included) BLOOD [facility] (SST-SERUM) Jun 24, 2021 12:00 Laboratory - ELECTROLYTE PANEL BLOOD IA CN TRL WSTRN AM Chemistry Order (SST-SERUM) [facility] Jun 24, 2021 12:00 Laboratory - LIPID PANEL FASTING BLOOD IA CNTRL WSTRN AM Chemistry Order (SST-SERUM) [facility] Jun 24, 2021 12:00 Laboratory - GABAPENTIN, Urine URINE IA CN TRL WSTRN AM Chemistry Order (DRUG) [facility] Social History: Smoking Status (Most current) and Tobacco Use (All prior to encounter date) This section includes the most current, and the historical, smoking and tobacco-related health factors from the [place] facility where the Encounter took place.Current Smoking Status This section includes the most current smoking, or tobacco-related health factor, from the [place] facility where the Encounter took place. Date/Time Current Smoking Status Comment Facility Jul 03, 2020 02:53 PM VA-TOBACCO NEVER USED [facility] NTRL WSTRN [facility] Advance Directives: All historical and current Section Date Range: From patient's date of to the date document was created. This section includes ALL of a patient's completed or amended [place] Advance and Rescinded Directives. The entries below indicate that a directive exists for the patient, but an actual copy is not included with this document. The data comes from all [place] facilities. Date Advance Directives Provider Source Jan 06, 2022 ADVANCE DIRECTIVE CODEY WEBSTER Encounter Notes: All associated encounter notes This section contains the clinical notes associated to the Encounter. Date/Time Encounter Note(s) Provider Source Jun 04, 2021 10:34 AM ADMINISTRATIVE NOTE: ROSA MARIA MORALES [facility] LOCAL TITLE: ADMINISTRATIVE NOTE STANDARD TITLE: ADMINISTRATIVE NOTE DATE OF NOTE: JUN 04, 2021@10:34 ENTRY DATE: JUN 04, 2021@10:34:14 AUTHOR: ROSA MARIA MORALES EXP COSIGNER: URGENCY: STATUS: COMPLETED CALLED VET TO SCHEDULE PID 12/17/20 APPT. NO ANS WER ON PHONE. == [place] [address] [phone] * [phone] * Fax [phone] == MICHAEL GU [address], [place] [address] Date: JUN 04, 2021 Dear Biggs: Thank you for choosing [facility] as your primary choice for health care. As a partner in your health care, we are attempt ing to contact you because we have been unsuccessful in re aching you by phone to schedule an appointment with Dr. Garrison. We want to assure you that e are doing everything possible to schedule veterans for their appointments. Please call us at to speak with a staff member who can assist you with securing an appointment. Thank you for your service and we look forward t o hearing from you soon. Sincerely; [facility] [address] [place] [address] [phone] Upcoming Appointments: No data available /mainor/ ROSA MARIA PARIKH Signed: 06/04/2021 10:36
--- OUTSIDE RECORDS SUMMARY | 2022-04-22 17:33 | XMS_ITS | Encounter Summary ---
:1950 Author Organization [facility] Address [address] [place] [id number] Support Name Relationship Address Phone HAY GU Unavailable [address] [place] [address] HAY GU Unavailable [address] [place] [address] Insurance Providers: All historical and current Section [...] MEDICARE MEDICARE PART Mar 23, PART A [id number] HOFFMA N PATIENT (WNR) (M) A 2002A 1 MICHAEL MORRIS MEDICARE MEDICARE PART Mar 23, PART B [id number] HOFFMA N PATIENT (WNR) (M) B 2002A 1 MICHAEL MORRIS MEDICARE MEDICARE PART Mar 23, PART A [id number] HOFFMA N PATIENT (WNR) (M) A 2002A 4 MICHAEL MORRIS MEDICARE MEDICARE PART Mar 23, PART B [id number] HOFFMA N PATIENT (WNR) (M) B 2002A 4 MICHAEL MORRIS MEDICARE MEDICARE PART Mar 23, PART A [id number] HOFFMA N,E PATIENT (WNR) (M) A 2002 00 [place] MEDICARE MEDICARE PART Mar 23, PART B [id number] HOFFMA N,E PATIENT (WNR) (M) B 2002 SHALA Selected Encounter This section includes the information on record at [place] for the Encounter. Date/Time Encounter Type Encounter Description Reason Provider Source May 13, 2021 08:56 Outpatient Encounter TELEPHONE TRIAGE AM IHE Encounter Template Text not used by [place] Plan of Treatment: Future Appointments (+ 6 months) and Future Tests (+/- 45 days) The Plan of Treatment section includes future care activities for the patient from [facility] [place] [facility] This section includes future appointments and future orders which are active, pending orscheduled.Future Appointments This section includes appointments that were scheduled to occur 6 months from the date of the Encounter, up to a maximum of 20 appointments. The data comes from all [place] treatment facilities. Appointment Date/Time Appointment Type Appointment Facili ty Name Jul 14, 2021 01:00 PM AMBULATORY - MEDICINE [facility] Oct 27, 2021 01:00 PM AMBULATORY - PSYCHIATRY [facility] Active, Pending, and Scheduled Orders This section includes a listing of several types of active, pending, and scheduled orders, including clinic medications orders, diagnostic test orders, procedure orders and consult orders; where the start date of the order is 45 days before the date of the Encounter or 45 days after the date of the Encounter. The data comes from all [place] treatment [facility]. Test Date/Time Test Type Test Details Facility Name May 13, 2021 11:56 Consult Order [facility] CNTRL W STRN AM [facility] Cons [place] [facility] Art Therapy Specialist's Choice Jun 24, 2021 12:00 Laboratory - ALCOHOL, ETHYL URINE [place] CNTRL W[facility] AM Chemistry Order PANEL URINE (DRUG) [place] [facility] Jun 24, 2021 12:00 Laboratory - FENTANYL SCREEN PANEL [place] CNTR L WSTR[facility] AM Chemistry Order URINE (DRUG) [place] [facility] Jun 24, 2021 12:00 Laboratory - AMPHETAMINES SCREEN PANEL [place] CNTRL W[facility] AM Chemistry Order URINE (DRUG) SP [place] [facility] Jun 24, 2021 12:00 Laboratory - BENZODIAZEPINES SCREEN [place] CNT RL WSTRN AM Chemistry Order PANEL URINE (DRUG) SP [place] [facility] Jun 24, 2021 12:00 Laboratory - BUPRENORPHINE SCREEN [place] CNTRL W[facility] AM Chemistry Order PANEL URINE (DRUG) [facility] [place] [facility] Jun 24, 2021 12:00 Laboratory - COCAINE SCREEN PANEL [place] CNTR W[facility] AM Chemistry Order URINE (DRUG) SP [place] [facility] Jun 24, 2021 12:00 Laboratory - CANNABINOIDS SCREEN PANEL [facility] AM Chemistry Order URINE (DRUG) [facility] Jun 24, 2021 12:00 Laboratory - OPIATES SCREEN PANEL [facility] AM Chemistry Order URINE (DRUG) [facility] Jun 24, 2021 12:00 Laboratory - ETG SCREEN (wx) URINE [facility] CN[facility] L W[facility] AM Chemistry Order (DRUG) [facility] Jun 24, 2021 12:00 Laboratory - METHADONE SCREEN URINE SP [facility] CNTRL WSTRN AM Chemistry Order [facility] Jun 24, 2021 12:00 Laboratory - OXYCODONE SCREEN PANEL [facility] CNT RL WSTRN AM Chemistry Order URINE (DRUG) [facility] Jun 24, 2021 12:00 Laboratory - URINALYSIS URINE SP [facility] CN[facility]L W[facility] AM Chemistry Order [facility] Jun 24, 2021 12:00 Laboratory - HEMOGLOBIN A1C PANEL [facility] CN[facility] AM Chemistry Order BLOOD (LAV-BLOOD) [facility] Jun 24, 2021 12:00 Laboratory - PSA BLOOD (SST-SERUM) SP [facility] C NTRL WSTRN AM Chemistry Order [facility] Jun 24, 2021 12:00 Laboratory - ALBUMIN BLOOD (SST-SERUM) [facility] CNTRL W[facility] AM Chemistry Order [facility] Jun 24, 2021 12:00 Laboratory - CBC AND DIFF (AUTO) BLOOD [facility] AM Chemistry Order (LAV-BLOOD) [facility] Jun 24, 2021 12:00 Laboratory - URIC ACID BLOOD [facility] CNTRL WSTR N AM Chemistry Order (SST-SERUM) [facility] Jun 24, 2021 12:00 Laboratory - PROTEIN,TOTAL BLOOD [facility] CN[facility]L WSTRN AM Chemistry Order (SST-SERUM) [facility] Jun 24, 2021 12:00 Laboratory - BILIRUBIN, TOTAL BLOOD [facility] CNT RL WSTRN AM Chemistry Order (SST-SERUM) [facility] Jun 24, 2021 12:00 Laboratory - TSH BLOOD (SST-SERUM) SP [facility] C NTRL WSTRN AM Chemistry Order [facility] Jun 24, 2021 12:00 Laboratory - AST BLOOD (SST-SERUM) SP [facility] C NTRL WSTRN AM Chemistry Order [facility] Jun 24, 2021 12:00 Laboratory - GAMMA-GTP BLOOD [place] CNTRL WSTR N AM Chemistry Order (SST-SERUM) SP [facility] Jun 24, 2021 12:00 Laboratory - ALT BLOOD (SST-SERUM) [facility] C NTRL WSTRN AM Chemistry Order [facility] Jun 24, 2021 12:00 Laboratory - GLUCOSE BLOOD (SST-SERUM) [facility] CN[facility] AM Chemistry Order SP [facility] Jun 24, 2021 12:00 Laboratory - UREA NITROGEN BLOOD [place] CNTRL WSTRN AM Chemistry Order (SST-SERUM) [facility] Jun 24, 2021 12:00 Laboratory - CREATININE (GFR [facility] CNTRL WSTR N AM Chemistry Order Est.included) BLOOD [facility] (SST-SERUM) Jun 24, 2021 12:00 Laboratory - ELECTROLYTE PANEL BLOOD [place] CN TRL WSTRN AM Chemistry Order (SST-SERUM) [facility] Jun 24, 2021 12:00 Laboratory - LIPID PANEL FASTING BLOOD [place] CNTRL WSTRN AM Chemistry Order (SST-SERUM) [facility] Jun 24, 2021 12:00 Laboratory - GABAPENTIN, Urine URINE [place] CN TRL WSTRN AM Chemistry Order (DRUG) [facility] Social History: Smoking Status (Most current) and Tobacco Use (All prior to encounter date) This section includes the most current, and the historical, smoking and tobacco-related health factors from the [place] facility where the Encounter took place.Current Smoking Status This section includes the most current smoking, or tobacco-related health factor, from the [place] facility where the Encounter took place. Date/Time Current Smoking Status Comment Facility Jul 03, 2020 02:53 PM VA-TOBACCO NEVER USED [facility] NTRL WSTRN [facility] Advance Directives: All historical and current Section Date Range: From patient's date of to the date document was created. This section includes ALL of a patient's completed or amended [place] Advance and Rescinded Directives. The entries below indicate that a directive exists for the patient, but an actual copy is not included with this document. The data comes from all [place] facilities. Date Advance Directives Provider Source Jan 06, 2022 ADVANCE DIRECTIVE CODEY WESTON Encounter Notes: All associated encounter notes This section contains the clinical notes associated to the Encounter. Date/Time Encounter Note(s) Provider Source May 13, 2021 08:56 AM TELEPHONE ENCOUNTER NOTE: SHARI DUARTE CNTRL WSTRN LOCAL TITLE: VISN 1 CCC ACTION REQUIRED [place] [facility] STANDARD TITLE: TELEPHONE ENCOUNTER NOTE DATE OF NOTE: MAY 13, 2021@08:56:48 ENTRY DATE: MAY 13, 2021@09:00:35 AUTHOR: SHARI DUARTE EXP COSIGNER: URGENCY: STATUS: COMPLETED VISN 1 CCC ACTION REQUIRED Has ADDENDA OTHER called in for BRITTANIEMICHAEL ([id number]) . The following identifiers were used to verify th is patient: DOB. LEY. Contact Type of call: ADMINISTRATIVE. Caller Response: ADM CALL RESOLVED Caller Area: [facility] PCMM Provider Info: [facility] ([id number]) PACT: SO PACT 2 (Focus: Primary Care Only) Primary Care Provider: Hari Russo PHONE:[phone] Hat Stock Laminating Machine Operator: Codey Weston Clinical Associate: Nuha Reynaga Putty Patcher: Bruno Smith Clinical POC: Clinical Associate Linsey Reynaga Administrative POC: Putty Patcher Bruno Smith Author: SHARI DUARTE Comments: [place] was discharged from [facility] 1 week a go. Ngoc shoe caser called in regards to 's home care. [place] canceled auth due to private insurance. Ngoc stated that Priyanka does not take the Medicare Advanta ge plan the has. She requesting shelter and SW for the vetera n through the [place]. Ngoc can be reached at [phone]. Evaluation/Management Code: HC PRO PHONE CALL 5- 10 MIN ([id number]). Starting at: 05/13/2021 @ 8:56:48 AM Ending at: 05/13/2021 @ 8:59:02 AM Length: 2 minutes. Chief Complaint: Not applicable to call. Class Code: Other specified counseling. Patient's Email Address: /mainor/ SHARI DUARTE Advanced Docking Saw Operator Signed: 05/13/2021 09:00 Receipt Acknowledged By: 05/13/2021 12:21 /mainor/ ARNOLDO PANCHAL, QUEEN'S COUNSEL NURSE for CODEY WESTON * AWAITING SIGNATURE * NUHA REYNAGA 05/13/2021 ADDENDUM STATUS: COMPLETED this has been taken care of by home care purchas e coordinator. /mainor/ ARNOLDO PANCHAL, QUEEN'S COUNSEL NURSE Signed: 05/13/2021 12:22
--- OUTSIDE RECORDS SUMMARY | 2022-04-22 17:33 | XMS_ITS | Encounter Summary ---
:1950 [facility] Address [address] [place] [id number] Support Name Relationship Address Phone HAY GU Unavailable [address] [place] [address] HAY GU Unavailable [address] [place] [address] Insurance Providers: All historical and current Section [...] MEDICARE MEDICARE PART Mar 23, PART A [id number] [place] N PATIENT (WNR) (M) A 2002A 4 MICHAEL MORRIS MEDICARE MEDICARE PART Mar 23, PART B [id number] HOFF[place] N PATIENT (WNR) (M) B 2002A 4 MICHAEL MORRIS MEDICARE MEDICARE PART Mar 23, PART A [id number] [place] N PATIENT (WNR) (M) A 2002A 1 MICHAEL MORRIS MEDICARE MEDICARE PART Mar 23, PART B [id number] H[place] N PATIENT (WNR) (M) B 2002A 1 MICHAEL MORRIS MEDICARE MEDICARE PART Mar 23, PART A [id number] HOFF[place] N,E PATIENT (WNR) (M) A 2002A 00 [place] MEDICARE MEDICARE PART Mar 23, PART B [id number] HOFFMA N,E PATIENT (WNR) (M) B 2002 SHALA Selected Encounter This section includes the information on record at [place] for the Encounter. Date/Time Encounter Type Encounter Description Reason Provider Source May 11, 2021 08:33 Outpatient Encounter TELEPHONE TRIAGE AM IHE Encounter Template Text not used by [place] Plan of Treatment: Future Appointments (+ 6 months) and Future Tests (+/- 45 days) The Plan of Treatment section includes future care activities for the patient from all [place] [facility]. This section includes future appointments and future orders which are active, pending orscheduled.Future Appointments This section includes appointments that were scheduled to occur 6 months from the date of the Encounter, up to a maximum of 20 appointments. The data comes from all [place] treatment [facility]. Appointment Date/Time Appointment Type Appointment Facili ty Name May 12, 2021 12:00 PM AMBULATORY [facility]IAT[facility] [place] [facility] May 13, 2021 12:30 PM AMBULATORY - MEDICINE [place] [facility] [place] [facility] Jul 14, 2021 01:00 PM AMBULATORY - MEDICINE [facility] Oct 27, 2021 01:00 PM AMBULATORY PSYCHIATRY [facility] Active, Pending, and Scheduled Orders This section includes a listing of several types of active, pending, and scheduled orders, including clinic medications orders, diagnostic test orders, procedure orders and consult orders; where the start date of the order is 45 days before the date of the Encounter or 45 days after the date of the Encounter. The data comes from all [place] treatment [facility]. Test Date/Time Test Type Test Details Facility Name May 13, 2021 11:56 Consult Order [facility] CNTRL W STRN AM [facility] CARE Cons [facility] Reheat Furnace Operator's Choice Jun 24, 2021 12:00 Laboratory - AMPHETAMINES SCREEN PANEL [place] CNTRL WSTRN AM Chemistry Order URINE (DRUG) [place] [facility] Jun 24, 2021 12:00 Laboratory - ALCOHOL, ETHYL URINE [place] CNTRL WSTRN AM Chemistry Order PANEL URINE (DRUG) [facility] [place] [facility] Jun 24, 2021 12:00 Laboratory - FENTANYL SCREEN PANEL [place] CNTR L WSTRN AM Chemistry Order URINE (DRUG) SP [place] [facility] Jun 24, 2021 12:00 Laboratory - BENZODIAZEPINES SCREEN [place] CNT RL WSTRN AM Chemistry Order PANEL URINE (DRUG) [facility] [place] [facility] Jun 24, 2021 12:00 Laboratory - BUPRENORPHINE SCREEN [place] CNTRL WSTRN AM Chemistry Order PANEL URINE (DRUG) [facility] [place] [facility] Jun 24, 2021 12:00 Laboratory - CANNABINOIDS SCREEN PANEL [facility] AM Chemistry [facility] Jun 24, 2021 12:00 Laboratory - COCAINE SCREEN PANEL [facility] CN[facility]L WSTRN AM Chemistry Order URINE (DRUG) SP [facility] Jun 24, 2021 12:00 Laboratory - ETG SCREEN (wx) URINE [facility] CNTR L WSTR[facility] AM Chemistry Order (DRUG) SP [facility] Jun 24, 2021 12:00 Laboratory - OPIATES SCREEN PANEL [facility] CN[facility]L W[facility] AM Chemistry Order URINE (DRUG) SP [facility] Jun 24, 2021 12:00 Laboratory - METHADONE SCREEN URINE SP [facility] CNTRL WSTRN AM Chemistry Order [facility] Jun 24, 2021 12:00 Laboratory - OXYCODONE SCREEN PANEL [facility] CNT RL WSTRN AM Chemistry Order URINE (DRUG) SP [facility] Jun 24, 2021 12:00 Laboratory - CBC AND DIFF (AUTO) BLOOD [facility] AM Chemistry Order (LAV-BLOOD) SP [facility] Jun 24, 2021 12:00 Laboratory - HEMOGLOBIN A1C PANEL [facility] CN[facility]L WSTRN AM Chemistry Order BLOOD (LAV-BLOOD) SP [facility] Jun 24, 2021 12:00 Laboratory - PSA BLOOD (SST-SERUM) SP [facility] C NTRL WSTRN AM Chemistry Order [facility] Jun 24, 2021 12:00 Laboratory - ALBUMIN BLOOD (SST-SERUM) [facility] AM [facility] Jun 24, 2021 12:00 Laboratory - URINALYSIS URINE SP [facility] CN[facility]L W[facility] AM Chemistry Order [facility] Jun 24, 2021 12:00 Laboratory - URIC ACID BLOOD [facility] CNTRL WSTR N AM Chemistry Order (SST-SERUM) SP [facility] Jun 24, 2021 12:00 Laboratory - PROTEIN,TOTAL BLOOD [facility] CNTRL WSTRN AM Chemistry Order (SST-SERUM) SP [facility] Jun 24, 2021 12:00 Laboratory - BILIRUBIN, TOTAL BLOOD [facility] CNT RL WSTRN AM Chemistry Order (SST-SERUM) SP [facility] Jun 24, 2021 12:00 Laboratory - TSH BLOOD (SST-SERUM) SP [place] C NTRL WSTRN AM [facility] Jun 24, 2021 12:00 Laboratory - AST BLOOD (SST-SERUM) SP [place] C NTRL WSTRN AM Chemistry Order [facility] Jun 24, 2021 12:00 Laboratory - ALT BLOOD (SST-SERUM) [facility] C NTRL WSTRN AM Chemistry Order [facility] Jun 24, 2021 12:00 Laboratory - GAMMA-GTP BLOOD [facility] CNTRL WSTR N AM Chemistry Order (SST-SERUM) [facility] Jun 24, 2021 12:00 Laboratory - UREA NITROGEN BLOOD [facility] CNTRL WSTRN AM Chemistry Order (SST-SERUM) [facility] Jun 24, 2021 12:00 Laboratory - GLUCOSE BLOOD (SST-SERUM) [place] CNTRL WSTRN AM Chemistry Order [facility] Jun 24, 2021 12:00 Laboratory - CREATININE (GFR [facility] CNTRL WSTR N AM Chemistry Order Est.included) BLOOD [facility] (SST-SERUM) Jun 24, 2021 12:00 Laboratory - ELECTROLYTE PANEL BLOOD [place] CN TRL WSTRN AM Chemistry Order (SST-SERUM) [facility] Jun 24, 2021 12:00 Laboratory - GABAPENTIN, Urine URINE [place] CN TRL WSTRN AM Chemistry Order (DRUG) [facility] Jun 24, 2021 12:00 Laboratory - LIPID PANEL FASTING BLOOD [place] CNTRL WSTRN AM Chemistry Order (SST-SERUM) [facility] Social History: Smoking Status (Most current) [...] 03, 2020 02:53 PM VA-TOBACCO NEVER USED IA C NTRL WSTRN [facility] Advance Directives: All historical and current Section [...] Encounter. Date/Time Encounter Note(s) Provider Source May 11, 2021 08:33 AM TELEPHONE ENCOUNTER NOTE: NEISHA KATZ [place] CNTRL WSTRN LOCAL TITLE: VISN 1 CCC ACTION REQUIRED [place] [facility] STANDARD TITLE: TELEPHONE ENCOUNTER NOTE DATE OF NOTE: MAY 11, 2021@08:33:32 ENTRY DATE: MAY 11, 2021@08:37:55 AUTHOR: NEISHA KATZ EXP COSIGNER: URGENCY: STATUS: COMPLETED VISN 1 CCC ACTION REQUIRED Has ADDENDA VNA called in for BRITTANIEMICHAEL ([id number]) . The following identifiers were used to verify th is patient: . SSN. Contact Type of call: REFERRAL/CONSULT REQUEST. Caller Response: ADM CALL RESOLVED Caller Area: [facility] CB PCMM Provider Info: [facility] ([id number]) PACT: SO PACT 2 (Focus: Primary Care Only) Primary Care Provider: Hari Russo PHONE:[phone] Buttermaker: Codey Weston Clinical Associate: Nuha Reynaga Physics Department Chair: Bruno Smith Clinical POC: Clinical Associate Linsey Reynaga Administrative POC: Physics Department Chair Bruno Smith Author: NEISHA KATZ Comments: Steffi, calling with [employer] [facility], , requests an authorization to start care with vet. Please see notes from . Evaluation/Management Code: HC PRO PHONE CALL 5- 10 MIN ([phone]). Starting at: 05/11/2021 @ 8:33:32 AM Ending at: 05/11/2021 @ 8:35:52 AM Length: 2 minutes. Chief Complaint: Not applicable to call. Class Code: Other specified counseling. Patient's Email Address: /mainor/ NEISHA KATZ ADVANCED FIELD SALES MANAGER Signed: 05/11/2021 08:37 Receipt Acknowledged By: 05/11/2021 10:32 /mainor/ ARNOLDO PANCHAL, TIRE VULCANIZER NURSE for CODEY WESTON 05/11/2021 11:23 /es/ NUHA REYNAGA LPN LPN 05/11/2021 ADDENDUM STATUS: COMPLETED call returned to Steffi. Pt was d/c from [facility] on 05/06/21 and has been mariely e without any services since then. He is in need of SN and MACHINE SANDER BRITANY. Steffi jamil ll fax the referral and d/c summary that she rec'd. Will place order and ask MD to please sign today so they can go in for assessment. /mainor/ ARNOLDO PANCHAL, TIRE VULCANIZER NURSE Signed: 05/11/2021 10:41 05/11/2021 ADDENDUM STATUS: COMPLETED Ngoc called back from [facility] regarding his V NA services - he was d/c home on 05/06 and apparently have not been able to get his services started as they have been waiting for approval. I placed VNA consult this am, however it was den ied stating that he should be utilizing his Medicare. She tells me she could not find his medicare info - she ended finding it and sent to [facility]. She tells me everything is all set. /mainor/ ARNOLDO PANCHLA, TIRE VULCANIZER NURSE Signed: 05/11/2021 16:05
--- OUTSIDE RECORDS SUMMARY | 2022-04-22 17:34 | XMS_ITS | Encounter Summary ---
:1950 Author Organization [facility] Address [address] [place] [address] Support Name Relationship Address Phone HAY GU Unavailable [address] [place] [address] HAY GU Unavailable [address] [place] [address] Insurance Providers: All historical and current Section [...] MEDICARE MEDICARE PART Mar 23, PART A [id number] HOFFMA N PATIENT (WNR) (M) A 2002A 4 MICHAEL MORRIS MEDICARE MEDICARE PART Mar 23, PART B [id number] HOFFMA N PATIENT (WNR) (M) B 2002A 4 MICHAEL MORRIS MEDICARE MEDICARE PART Mar 23, PART A [id number] HOFFMA N PATIENT (WNR) (M) A 2002A 1 MICHAEL MORRIS MEDICARE MEDICARE PART Mar 23, PART B [id number] HOFFMA N PATIENT (WNR) (M) B 2002A 1 MICHAEL MORRIS MEDICARE MEDICARE PART Mar 23, PART A [id number] HOFFMA N,E PATIENT (WNR) (M) A 2002A 00 [place]ARD MEDICARE MEDICARE PART Mar 23, PART B [id number] HOFFMA N,E PATIENT (WNR) (M) B 2002 SHLAA Selected Encounter This section includes the information on record at NH for the Encounter. Date/Time Encounter Type Encounter Description Reason Provider Source May 07, 2021 08:24 Outpatient Encounter TELEPHONE TRIAGE AM IHE Encounter Template Text not used by NH Plan of Treatment: Future Appointments (+ 6 months) and Future Tests (+/- 45 days) The Plan of Treatment section includes future care activities for the patient from all [facility] This section includes future appointments and future orders which are active, pending orscheduled.Future Appointments This section includes appointments that were scheduled to occur 6 months from the date of the Encounter, up to a maximum of 20 appointments. The data comes from all [facility]. Appointment Date/Time Appointment Type Appointment Facili ty Name May 12, 2021 12:00 PM AMBULATORY - [facility] May 13, 2021 12:30 PM AMBULATORY - MEDICINE [place] [facility] Jul 14, 2021 01:00 PM AMBULATORY - MEDICINE [place] Oct 27, 2021 01:00 PM AMBULATORY PSYCHIATRY [place] Active, Pending, and Scheduled Orders This section includes a listing of several types of active, pending, and scheduled orders, including clinic medications orders, diagnostic test orders, procedure orders and consult orders; where the start date of the order is 45 days before the date of the Encounter or 45 days after the date of the Encounter. The data comes from all [facility]. Test Date/Time Test Type Test Details Facility Name May 13, 2021 11:56 AM Consult Order [facility] CNTR L [facility] [place] [facility] Winder Helper's Choice Social History: Smoking Status (Most current) and Tobacco Use (All prior to encounter date) This section includes the most current, and the historical, smoking and tobacco-related health factors from the NH facility where the Encounter took place.Current Smoking Status This section includes the most current smoking, or tobacco-related health factor, from the NH facility where the Encounter took place. Date/Time Current Smoking Status Comment Facility Jul 03, 2020 02:53 PM VA-TOBACCO NEVER USED NH C NTRL WSTRN [facility] Advance Directives: All historical and current Section Date Range: From patient's date of to the date document was created. This section includes ALL of a patient's completed or amended NH Advance and Rescinded Directives. The entries below indicate that a directive exists for the patient, but an actual copy is not included with this document. The data comes from all NH facilities. Date Advance Directives Provider Source Jan 06, 2022 ADVANCE DIRECTIVE CODEY WESTON Encounter Notes: All associated encounter notes This section contains the clinical notes associated to the Encounter. Date/Time Encounter Note(s) Provider Source May 07, 2021 08:24 AM TELEPHONE ENCOUNTER NOTE: YUSRA MAC [place] CNTRL WSTRN LOCAL TITLE: VISN 1 CCC ACTION REQUIRED [place] [facility] STANDARD TITLE: TELEPHONE ENCOUNTER NOTE DATE OF NOTE: MAY 07, 2021@08:24:20 ENTRY DATE: MAY 07, 2021@08:25:34 AUTHOR: YUSRA MAC EXP COSIGNER: URGENCY: STATUS: COMPLETED VISN 1 CCC ACTION REQUIRED Has ADDENDA OTHER called in for GUMICHAEL AMES ([id number]) . The following identifiers were used to verify th is patient: . Other: Ngoc. Contact Type of call: REFERRAL/CONSULT REQUEST. Caller Response: ADM CALL RESOLVED Caller Area: [facility] PCMM Provider Info: [facility] ([id number]) PACT: SO PACT 2 (Focus: Primary Care Only) Primary Care Provider: Hari Russo PHONE:[phone] Scan Technician: Codey Weston Clinical Associate: Sarita Reynaga Rest Room Maid: Bruno Smith Clinical POC: Clinical Associate Linsey Reynaga Administrative POC: Rest Room Maid Bruno Smith Author: YUSRA MAC Comments: Ngoc from [facility] states the was d\c yesterday and needs to have VNA services. They would like a referral to [facility]. Ngoc can be reached at [phone] Evaluation/Management Code: HC PRO PHONE CALL 5- 10 MIN ([phone]). Starting at: 05/07/2021 @ 8:24:20 AM Ending at: 05/07/2021 @ 8:25:03 AM Length: 0 minutes. Chief Complaint: Not applicable to call. Class Code: Other specified counseling. Patient's Email Address: /mainor/ YUSRA MAC ADVANCED RESP THERAPIST Signed: 05/07/2021 08:25 Receipt Acknowledged By: 05/08/2021 14:43 /mainor/ MEGAN MCCARTHY RN-BC REGISTERED NURSE * AWAITING SIGNATURE * SARITA REYNAGA 05/08/2021 ADDENDUM STATUS: COMPLETED Called to Ngoc at contact num ric provided and left voicemail requesting call back to [phone] to request services needed and o ther details for consult request. /mainor/ MEGAN MCCARTHY RN-BC REGISTERED NURSE Signed: 05/08/2021 14:42
--- OUTSIDE RECORDS SUMMARY | 2022-04-22 17:34 | XMS_ITS | Encounter Summary ---
:1950 Author Organization [facility] Address [address] [place] [address] Support Name Relationship Address Phone HAY GU Unavailable [address] [place] [address] HAY GU Unavailable [address] [place] [address] Insurance Providers: All historical and current Section [...] MEDICARE MEDICARE PART Mar 23, PART A [id number] [id number] HOFFMA N,E PATIENT (WNR) (M) A 2002A 00 [place] MEDICARE MEDICARE PART Mar 23, PART B [id number] [id number] HOFFMA N,E PATIENT (WNR) (M) B 2002A 00 [place] MEDICARE MEDICARE PART Mar 23, PART B [id number] HOFFMA N PATIENT (WNR) (M) B 2002A 4 MICHAEL MORRIS MEDICARE MEDICARE PART Mar 23, PART A [id number] HOFFMA N PATIENT (WNR) (M) A 2002A 4 MICHAEL MORRIS MEDICARE MEDICARE PART Mar 23, PART A [id number] HOFFMA N PATIENT (WNR) (M) A 2002A 1 MICHAEL MORRIS MEDICARE MEDICARE PART Mar 23, PART B [id number] HOFFMA N PATIENT (WNR) (M) B 2002A 1 MICHAEL Selected Encounter This section includes the information on record at [place] for the Encounter. Date/Time Encounter Type Encounter Description Reason Provider Source May 08, 2021 03:43 Outpatient Encounter TELEPHONE TRIAGE PM IHE Encounter Template Text not used by [place] Plan of Treatment: Future Appointments (+ 6 months) and Future Tests (+/- 45 days) The Plan of Treatment section includes future care activities for the patient from all [place] [facility]. This section includes future appointments and future orders which are active, pending orscheduled.Future Appointments This section includes appointments that were scheduled to occur 6 months from the date of the Encounter, up to a maximum of 20 appointments. The data comes from all [place] treatment [facility]. Appointment Date/Time Appointment Type Appointment Facili ty Name May 12, 2021 12:00 PM AMBULATORY - [facility] [place] [facility] May 13, 2021 12:30 PM AMBULATORY - MEDICINE [place] [facility] Jul 14, 2021 01:00 PM AMBULATORY - MEDICINE [place] Oct 27, 2021 01:00 PM AMBULATORY PSYCHIATRY [place] Active, Pending, and Scheduled Orders This section includes a listing of several types of active, pending, and scheduled orders, including clinic medications orders, diagnostic test orders, procedure orders and consult orders; where the start date of the order is 45 days before the date of the Encounter or 45 days after the date of the Encounter. The data comes from all [place] treatment [facility]. Test Date/Time Test Type Test Details Facility Name May 13, 2021 11:56 AM Consult Order [facility] CNTR L W[facility]N [facility] [place] [facility] Gas Booster Engineer's Choice Social History: Smoking Status (Most current) and Tobacco Use (All prior to encounter date) This section includes the most current, and the historical, smoking and tobacco-related health factors from the [place] facility where the Encounter took place.Current Smoking Status This section includes the most current smoking, or tobacco-related health factor, from the [place] facility where the Encounter took place. Date/Time Current Smoking Status Comment Facility Jul 03, 2020 02:53 PM VA-TOBACCO NEVER USED [place] C NTRL WSTRN [facility] Advance Directives: All historical and current Section Date Range: From patient's date of to the date document was created. This section includes ALL of a patient's completed or amended [place] Advance and Rescinded Directives. The entries below indicate that a directive exists for the patient, but an actual copy is not included with this document. The data comes from all [place] facilities. Date Advance Directives Provider Source Jan 06, 2022 ADVANCE DIRECTIVE CODEY WESTON Encounter Notes: All associated encounter notes This section contains the clinical notes associated to the Encounter. Date/Time Encounter Note(s) Provider Source May 08, 2021 03:43 TELEPHONE ENCOUNTER NOTE: SIMEON KRAFT CNTRL WSTRN PM LOCAL TITLE: VISN 1 CCC ACTION REQUIRED [place] [facility] STANDARD TITLE: TELEPHONE ENCOUNTER NOTE DATE OF NOTE: MAY 08, 2021@15:43:09 ENTRY DATE: MAY 08, 2021@15:47:23 AUTHOR: SIMEON KRAFT EXP COSIGNER: URGENCY: STATUS: COMPLETED OTHER called in for BRITTANIEMICHAEL SERAFIN ([id number]) . The following identifiers were used to verify th is patient: . Contact Type of call: ADMINISTRATIVE. Caller Response: ADM CALL RESOLVED Caller Area: [place] [facility] PCMM Provider Info: [facility] ([id number]) PACT: SO PACT 2 (Focus: Primary Care Only) Primary Care Provider: Hari Russo PHONE:[phone] [address] Machine Operator: Codey Weston Clinical Associate: Nuha Reynaga Tile Grader: Bruno Smith Clinical POC: Clinical Associate Linsey Reynaga Administrative POC: Tile Grader Bruno Smith Author: SIMEON KRAFT Comments: Ngoc rn field case manager from [facility] called requesting to s peak to Pact RN. Window Shade Cutter And Mounter reached out to RN via MS Teams unsucessfully Ngoc can be reached at [phone] (direct line) Evaluation/Management Code: HC PRO PHONE CALL 5- 10 MIN ([phone]). Starting at: 05/08/2021 @ 3:43:09 PM Ending at: 05/08/2021 @ 3:45:33 PM Length: 2 minutes. Chief Complaint: Not applicable to call. Class Code: Other specified counseling. Patient's Email Address: /mainor/ SIMEON KRAFT ADVANCED HAMMERER TAB Signed: 05/08/2021 15:47 Receipt Acknowledged By: * AWAITING SIGNATURE * CODEY WESTON * AWAITING SIGNATURE * NUHA REYNAGA
--- OUTSIDE RECORDS SUMMARY | 2022-04-22 17:34 | XMS_ITS ---
:1950 Author Organization [facility] Address [address] [place] [address] Support Name Relationship Address Phone HAY GU Unavailable [address] [place] [address] HAY GU Unavailable [address] [place] [address] Insurance Providers: All historical and current Section [...] MEDICARE MEDICARE PART Mar 23, PART A [id number] HOFFMA N PATIENT (WNR) (M) A 2002A 4 MICHAEL MORRIS MEDICARE MEDICARE PART Mar 23, PART B [id number] HOFFMA N PATIENT (WNR) (M) B 2002A 4 MICHAEL MORRIS MEDICARE MEDICARE PART Mar 23, PART A [id number] HOFFMA N PATIENT (WNR) (M) A 2002A 1 MICHAEL MORRIS MEDICARE MEDICARE PART Mar 23, PART B [id number] HOFFMA N PATIENT (WNR) (M) B 2002A 1 MICHAEL MORRIS MEDICARE MEDICARE PART Mar 23, PART A [id number] [id number] HOFFMA N,E PATIENT (WNR) (M) A 2002A 00 DW[place] MEDICARE MEDICARE PART Mar 23, PART B [id number] [phone] HOFFMA N,E PATIENT (WNR) (M) B 2002 SHALA Selected Encounter This section includes the information on record at CT for the Encounter. Date/Time Encounter Type Encounter Description Reason Provider Source Apr 30, 2021 01:14 Outpatient Encounter TELEPHONE CASE PM MANAGEMENT IHE Encounter Template Text not used by CT Plan of Treatment: Future Appointments (+ 6 months) and Future Tests (+/- 45 days) The Plan of Treatment section includes future care activities for the patient from all [facility]. This section includes future appointments and future orders which are active, pending orscheduled.Future Appointments This section includes appointments that were scheduled to occur 6 months from the date of the Encounter, up to a maximum of 20 appointments. The data comes from all [facility] treatment [facility]. Appointment Date/Time Appointment Type Appointment Facili ty Name May 12, 2021 12:00 PM AMBULATORY - PSYCHIATRY [facility] May 13, 2021 12:30 PM AMBULATORY - MEDICINE [place] [facility] Jul 14, 2021 01:00 PM AMBULATORY - MEDICINE [place] Oct 27, 2021 01:00 PM AMBULATORY PSYCHIATRY [place] Active, Pending, and Scheduled Orders This section includes a listing of several types of active, pending, and scheduled orders, including clinic medications orders, diagnostic test orders, procedure orders and consult orders; where the start date of the order is 45 days before the date of the Encounter or 45 days after the date of the Encounter. The data comes from all [facility] treatment [facility]. Test Date/Time Test Type Test Details Facility Name May 13, 2021 11:56 AM Consult Order [facility] CNTR L WSTRN [facility] [place] [facility] Splitter Hand's Choice Social History: Smoking Status (Most current) and Tobacco Use (All prior to encounter date) This section includes the most current, and the historical, smoking and tobacco-related health factors from the CT facility where the Encounter took place.Current Smoking Status This section includes the most current smoking, or tobacco-related health factor, from the CT facility where the Encounter took place. Date/Time Current Smoking Status Comment Facility Jul 03, 2020 02:53 PM VA-TOBACCO NEVER USED CT C NTRL WSTRN [facility] Advance Directives: All historical and current Section Date Range: From patient's date of to the date document was created. This section includes ALL of a patient's completed or amended [place] Advance and Rescinded Directives. The entries below indicate that a directive exists for the patient, but an actual copy is not included with this document. The data comes from all CT facilities. Date Advance Directives Provider Source Jan 06, 2022 ADVANCE DIRECTIVE CODEY WEBSTER Encounter Notes: All associated encounter notes This section contains the clinical notes associated to the Encounter. Date/Time Encounter Note(s) Provider Source May 04, 2021 01:14 TRANSFER SUMMARIZATION NOTE: Linsey HAYES CT CNTRL WSTRN PM LOCAL TITLE: THIRD RAIL INSTALLER/OCC/HOSPITAL NOTIFICATION NOTE [place] [facility] STANDARD TITLE: TRANSFER SUMMARIZATION NOTE DATE OF NOTE: MAY 04, 2021@13:14 ENTRY DATE: MAY 04, 2021@13:14:52 AUTHOR: GEOVANNY HAYES EXP COSIGNER: URGENCY: STATUS: COMPLETED TC office to follow for transfer/discharge dispo sition /mainor/ LAURIE HAYES, RN, MSN, CERT CLINICAL THIRD RAIL INSTALLER Signed: 05/04/2021 13:15
--- OUTSIDE RECORDS SUMMARY | 2022-04-22 17:34 | XMS_ITS ---
:1950 Author Organization [facility] Address [address] [place] [address] Support Name Relationship Address Phone HAY GU Unavailable [address] [place] [address] HAY GU Unavailable [address] [place] [address] Insurance Providers: All historical and current Section [...] MEDICARE MEDICARE PART Mar 23, PART A [id number] HOFFMA N PATIENT (WNR) (M) A 2002A 4 MICHAEL MORRIS MEDICARE MEDICARE PART Mar 23, PART B [id number] HOFFMA N PATIENT (WNR) (M) B 2002A 4 MICHAEL MORRIS MEDICARE MEDICARE PART Mar 23, PART A [id number] HOFFMA N PATIENT (WNR) (M) A 2002A 1 MICHAEL MORRIS MEDICARE MEDICARE PART Mar 23, PART B [id number] HOFFMA N PATIENT (WNR) (M) B 2002A 1 MICHAEL MORRIS MEDICARE MEDICARE PART Mar 23, PART A [id number] [phone] HOFFMA N,E PATIENT (WNR) (M) A 2002A 00 [place] MEDICARE MEDICARE PART Mar 23, PART B [id number] [phone] HOFFMA N,E PATIENT (WNR) (M) B 2002 SHALA Selected Encounter This section includes the information on record at [place] for the Encounter. Date/Time Encounter Type Encounter Description Reason Provider Source May 04, 2021 11:10 Outpatient Encounter COMMUNITY CARE AM CONSULT IHE Encounter Template Text not used by [place] Plan of Treatment: Future Appointments (+ 6 months) and Future Tests (+/- 45 days) The Plan of Treatment section includes future care activities for the patient from all [place] [facility]. This section includes future appointments and future orders which are active, pending orscheduled.Future Appointments This section includes appointments that were scheduled to occur 6 months from the date of the Encounter, up to a maximum of 20 appointments. The data comes from all [place] treatment [facility]. Appointment Date/Time Appointment Type Appointment Facili ty Name May 12, 2021 12:00 PM AMBULATORY - [facility] [place] [facility] May 13, 2021 12:30 PM AMBULATORY - MEDICINE [place] [facility] Jul 14, 2021 01:00 PM AMBULATORY - MEDICINE [place] Oct 27, 2021 01:00 PM AMBULATORY PSYCHIATRY [place] Active, Pending, and Scheduled Orders This [...] The data comes from all [place] treatment [facility]. Test Date/Time Test Type Test Details Facility Name May 13, 2021 11:56 AM Consult Order [facility] CNTR L WSTRN [facility] [place] [facility] Counterintelligence Agent's Choice Social History: Smoking Status (Most current) [...] 03, 2020 02:53 PM VA-TOBACCO NEVER USED [place] C NTRL WSTRN [facility] Advance Directives: All historical and [...] Encounter Note(s) Provider Source May 04, 2021 11:10 AM NONVA NOTE: 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 Yes Route of Admission: ER Date/Time of Admission: Admitting Diagnosis: Z600 - Problems of adjustm ent to life-cycle transitions Community Care Provider: Confirm Level of Care: Community Facility Point of Contact: Name: Marion info from [employer] /mainor/ DILLON PRAKASH AMSMeredith Signed: 05/04/2021 11:11 Receipt Acknowledged By: 05/04/2021 11:23 /mainor/ MEGAN MCCARTHY RN-BC REGISTERED NURSE * AWAITING SIGNATURE * LAURIE HAYES * AWAITING SIGNATURE * TOMÁS PATRICK * AWAITING SIGNATURE * BECCA GUERRERO 05/04/2021 ADDENDUM STATUS: COMPLETED Please request copy of ED/inpatient records from [facility] /MEGAN Miles RN-BC REGISTERED NURSE Signed: 05/04/2021 11:23 Receipt Acknowledged By: * AWAITING SIGNATURE * TOLU PRAJAPATI
--- OUTSIDE RECORDS SUMMARY | 2022-04-22 17:34 | XMS_ITS | Encounter Summary ---
:1950 Author Organization [facility] Address [address] [place] [address] Support Name Relationship Address Phone HAY GU Unavailable [phone] [place] [address] HAY GU Unavailable [address] [place] [address] Insurance Providers: All historical and current Section [...] MEDICARE MEDICARE PART Mar 23, PART A [id number] HOFFMA N PATIENT (WNR) (M) A 2002A 1 MICHAEL MORRIS MEDICARE MEDICARE PART Mar 23, PART B [id number] HOFFMA N PATIENT (WNR) (M) B 2002A 1 MICHAEL MORRIS MEDICARE MEDICARE PART Mar 23, PART A [id number] HOFFMA N PATIENT (WNR) (M) A 2002A 4 MICHAEL MORRIS MEDICARE MEDICARE PART Mar 23, PART B [id number] HOFFMA N PATIENT (WNR) (M) B 2002A 4 MICHAEL MORRIS MEDICARE MEDICARE PART Mar 23, PART A [id number] HOFFMA N,E PATIENT (WNR) (M) A 2002A 00 DWARD MEDICARE MEDICARE PART Mar 23, PART B [id number] [id number] HOFFMA N,E PATIENT (WNR) (M) B 2002 SHALA Selected Encounter This section includes the information on record at [place] for the Encounter. Date/Time Encounter Type Encounter Description Reason Provider Source May 08, 2021 02:52 Outpatient Encounter TELEPHONE TRIAGE PM IHE Encounter Template Text not used by [place] Plan of Treatment: Future Appointments (+ 6 months) and Future Tests (+/- 45 days) The Plan of Treatment section includes future care activities for the patient from all [place] [facility] This section includes future appointments and future orders which are active, pending orscheduled.Future Appointments This section includes appointments that were scheduled to occur 6 months from the date of the Encounter, up to a maximum of 20 appointments. The data comes from all [place] treatment [facility]. Appointment Date/Time Appointment Type Appointment Facili ty Name May 12, 2021 12:00 PM AMBULATORY [place] [place] [facility] May 13, 2021 12:30 PM [place]UL[place] [place]ICINE [place] [facility] [place] [facility] Jul 14, 2021 01:00 PM AMBULATORY - MEDICINE [place] Oct 27, 2021 01:00 PM AMBULATORY PSYCHIATRY [place] Active, Pending, and Scheduled Orders This section includes a listing of several types of active, pending, and scheduled orders, including clinic medications orders, diagnostic test orders, procedure orders and consult orders; where the start date of the order is 45 days before the date of the Encounter or 45 days after the date of the Encounter. The data comes from all [place] treatment [facility]. Test Date/Time Test Type Test Details Facility Name May 13, 2021 11:56 AM Consult Order [facility] [place] [facility] Psychiatrist's Choice Social History: Smoking Status (Most current) and Tobacco Use (All prior to encounter date) This section includes the most current, and the historical, smoking and tobacco-related health factors from the [place] facility where the Encounter took place.Current Smoking Status This section includes the most current smoking, or tobacco-related health factor, from the [place] facility where the Encounter took place. Date/Time Current Smoking Status Comment Facility Jul 03, 2020 02:53 PM VA-TOBACCO NEVER USED [place] C [facility]TRL [facility] Advance Directives: All historical and current Section Date Range: From patient's date of to the date document was created. This section includes ALL of a patient's completed or amended [place] Advance and Rescinded Directives. The entries below indicate that a directive exists for the patient, but an actual copy is not included with this document. The data comes from all [place] facilities. Date Advance Directives Provider Source Jan 06, 2022 ADVANCE DIRECTIVE CODEY WESTON Encounter Notes: All associated encounter notes This section contains the clinical notes associated to the Encounter. Date/Time Encounter Note(s) Provider Source May 08, 2021 02:52 PM TELEPHONE ENCOUNTER NOTE: SHARI DUARTE [place] [facility] LOCAL TITLE: VISN 1 CCC ACTION REQUIRED [place] [facility] STANDARD TITLE: TELEPHONE ENCOUNTER NOTE DATE OF NOTE: MAY 08, 2021@14:52:25 ENTRY DATE: MAY 08, 2021@14:53:50 AUTHOR: SHARI DUARTE EXP COSIGNER: URGENCY: STATUS: COMPLETED VISN 1 CCC ACTION REQUIRED Has ADDENDA OTHER called in for GUMICHAEL AMES ([id number]) . The following identifiers were used to verify th is patient: . SSN. Contact Type of call: ADMINISTRATIVE. Caller Response: ADM CALL RESOLVED Caller Area: [place] [facility] Provider Info: LOCAL [facility] ([id number]) PACT: SO PACT 2 (Focus: Primary Care Only) Primary Care Provider: Hari Guerrero PHONE:[phone] Squilgeer: Cdoey Weston Clinical Associate: Nuha Reynaga Cooler Room Worker: Bruno Smith Clinical POC: Clinical Associate Linsey Reynaga Administrative POC: Cooler Room Worker Bruno Smith Author: SHARI DUARTE Comments: Ngoc registered nurse hh case manager from [facility] re turned missed call from RN. She stated that will need correction. Kindly call back. Evaluation/Management Code: HC PRO PHONE CALL 5- 10 MIN ([phone]). Starting at: 05/08/2021 @ 2:52:25 PM Ending at: 05/08/2021 @ 2:53:16 PM Length: 0 minutes. Chief Complaint: Not applicable to call. Class Code: Other specified counseling. Patient's Email Address: /mainor/ SHARI DUARTE [employer] Signed: 05/08/2021 14:53 Receipt Acknowledged By: 05/08/2021 16:19 /MEGAN Miles RN-BC REGISTERED NURSE * AWAITING SIGNATURE * NUHA REYNAGA 05/08/2021 ADDENDUM STATUS: COMPLETED Called Ngoc back and she repo rts that was discharged to home and he is in need of correction services at home for med ication management and education. was deemed competitent while inpatient and chose to return to his home and was agreeabl e to homecare services as recommended by discharging provider. Ngoc also provided contact number for Tea bhagat ([phone]) who is staff with [employer] [facility] who is mayela britt to obtain referral for services for . Author will forward request to PCP for review /mainor/ MEGAN MCCARTHY RN-BC REGISTERED NURSE Signed: 05/08/2021 16:33 Receipt Acknowledged By: * AWAITING SIGNATURE * HARI GUERRERO 05/08/2021 ADDENDUM STATUS: COMPLETED Author called dian and left voicemail requesting call back to PACT team at /mainor/ MEGAN MCCARTHY RN-BC REGISTERED NURSE Signed: 05/08/2021 16:36
--- OUTSIDE RECORDS SUMMARY | 2022-04-22 17:40 | XMS_ITS ---
:1950 Author Organization [facility] Address [address] [place] [address] Support Name Relationship Address Phone HAY GU Unavailable [address] [email or web address] [address] HAY GU Unavailable [address] [email or web address] [address] Insurance Providers: All historical and current Section [...] MEDICARE MEDICARE PART Mar 23, PART A [id number] HOFFMA N PATIENT (WNR) (M) A 2002A 4 MICHAEL MORRIS MEDICARE MEDICARE PART Mar 23, PART B [id number] HOFFMA N PATIENT (WNR) (M) B 2002A 4 MICHAEL MORRIS MEDICARE MEDICARE PART Mar 23, PART A [id number] [id number] HOFFMA N,E PATIENT (WNR) (M) A 2002A 00 DWARD MEDICARE MEDICARE PART Mar 23, PART A [id number] HOFFMA N PATIENT (WNR) (M) A 2002A 1 MICHAEL MORRIS MEDICARE MEDICARE PART Mar 23, PART B [id number] HOFFMA N PATIENT (WNR) (M) B 2002A 1 MICHAEL MORRIS MEDICARE MEDICARE PART Mar 23, PART B [id number] [id number] HOFFMA N,E PATIENT (WNR) (M) B 2002A [place] Selected Encounter This section includes the information on record at [place] for the Encounter. Date/Time Encounter Type Encounter Description Reason Provider Source October 05, 2021 01:24 Outpatient Encounter ADMIN PAT CEDRICK PM (AISHA) IHE Encounter Template Text not used by [place] Plan of Treatment: Future Appointments (+ 6 months) and Future Tests (+/- 45 days) The Plan of Treatment section includes future care activities for the patient from all [place] treatmentfacilities. This section includes future appointments and future orders which are active, pending orscheduled.Future Appointments This section includes appointments that were scheduled to occur 6 months from the date of the Encounter, up to a maximum of 20 appointments. The data comes from all [place] treatment facilities. Appointment Date/Time Appointment Type Appointment Facili ty Name Oct 27, 2021 01:00 PM AMBULATORY - PS[place]CHIATRY [place] Nov 25, 2021 04:00 PM AMBULATORY MEDICINE [place] [facility] [place] [facility] Jan 19, 2022 01:30 PM [facility] Feb 22, 2022 10:15 AM [facility] Social History: Smoking Status (Most current) and Tobacco Use (All prior to encounter date) This section includes the most current, and the historical, smoking and tobacco-related health factors from the [place] facility where the Encounter took place.Current Smoking Status This section includes the most current smoking, or tobacco-related health factor, from the [place] facility where the Encounter took place. Date/Time Current Smoking Status Comment Facility Jul 03, 2020 02:53 PM [place]-TOBACCO NEVER USED [facility] Advance Directives: All historical and current Section Date Range: From patient's date of to the date document was created. This section includes ALL of a patient's completed or amended [place] Advance and Rescinded Directives. The entries below indicate that a directive exists for the patient, but an actual copy is not included with this document. The data comes from all [place] facilities. Date Advance Directives Provider Source Jan 06, 2022 ADVANCE DIRECTIVE CODEY WEBSTER [place] Encounter Notes: All associated encounter notes This section contains the clinical notes associated to the Encounter. Date/Time Encounter Note(s) Provider Source October 05, 2021 01:24 PM NURSING TELEPHONE ENCOUNTER TRIAGE NOTE: SANDOR GAGNON [facility] LOC[facility] TITLE: VISN 1 CLINICAL CONTACT CENTER [facility] STANDARD TITLE: NURSING TELEPHONE ENCOUNTER [place] LR NOTE DATE OF NOTE: OCTOBER 05, 2021@13:24:02 ENTRY DATE: OCTOBER 05, 2021@13:27:39 AUTHOR: SANDOR DUARTE EXP COSIGNER: URGENCY: STATUS: COMPLETED The patient, MICHAEL GU ([id number]) called the call center. The following identifiers were used to verify th is patient: SSN. Contact Type of call: ADMINISTRATIVE. Caller Response: ADM CALL RESOLVED Caller Area: [place] CB PCMM Provider Info: LOCAL [facility] ([id number]) PACT: SO PACT 2 (Focus: Primary Care Only) Primary Care Provider: CHINYERE GUTIÉRREZ Turn Sewer: CODEY WEBSTER Clinical Associate: DARIO AGUILAR Demand Generator Manager: TOLU PRAJAPATI Clinical POC: Clinical Associate Linsey AGUILAR Administrative POC: Demand Generator Manager TOLU PRAJAPATI Author: SANDOR DUARTE Comments: Renew med and mail. vet req meds that re not sharron marrero . kindly assist. Imported Information: Medications ACTIVE: PRIMIDONE 50MG TAB Prescription #:[id number] Prescribing Physician: BECCA GUERRERO (PHYSICIAN) on 12/18/2020 13:43 Fr equency/Dosage: 50MG ORAL BID ACTIVE: TRAZODONE HCL 100MG TAB Prescription #: [id number] Prescribing Physician: KEYSHA ORTIZ (PSYCHIATRIST) on 2020 08:13 Frequency/Dosage: 150MG ORAL QHS PRN DISCONTINUED: HYDROCODONE 5MG/ACETAMINOPHEN 325 MG TAB Prescription #:[id number] Prescribing Physician: EVGENY LAW ([facility] PRACTITIO) on 06/24/2021 13:25 Frequency/Dosage: 1 TABLET HYDROCODONE 5MG /ACETAMINOPHEN 325MG TAB : METFORMIN HCL 500MG TAB Prescription # :[id number] Prescribing Physician: BECCA GUERRERO (PHYSICIAN) on 08/11/19 21 22:08 Frequency/Dosage: 500MG ORAL BID Evaluation/Management Code: HC PRO PHONE CALL 5- 10 MIN ([phone]). Starting at: 10/05/2021 @ 1:24:02 PM Ending at: 10/05/2021 @ 1:26:00 PM Length: 1 minutes. Chief Complaint: Not applicable to call. Class Code: Other specified counseling. Patient's Email Address: /mainor/ SANDOR DUARTE [employer] Signed: 10/05/2021 13:27 Receipt Acknowledged By: * AWAITING SIGNATURE * CODEY WEBSTER * AWAITING SIGNATURE * DARIO AGUILAR
--- OUTSIDE RECORDS SUMMARY | 2022-04-22 17:40 | XMS_ITS | Encounter Summary ---
:1950 Author Organization [facility] Address [address] [place] [address] Support Name Relationship Address Phone HAY GU Unavailable [address] [place] [address] HAY GU Unavailable [address] [place] [address] Insurance Providers: All historical and current Section [...] MEDICARE MEDICARE PART Mar 23, PART A [id number] HOFFMA N PATIENT (WNR) (M) A 2002A 1 MICHAEL MORRIS MEDICARE MEDICARE PART Mar 23, PART B [id number] HOFFMA N PATIENT (WNR) (M) B 2002A 1 MICHAEL MORRIS MEDICARE MEDICARE PART Mar 23, PART A [id number] HOFFMA N PATIENT (WNR) (M) A 2002A 4 MICHAEL MORRIS MEDICARE MEDICARE PART Mar 23, PART B [id number] HOFFMA N PATIENT (WNR) (M) B 2002A 4 MICHAEL MORRIS MEDICARE MEDICARE PART Mar 23, PART A [id number] HOFFMA N,E PATIENT (WNR) (M) A 2002A 00 DW[place] MEDICARE MEDICARE PART Mar 23, PART B [id number] [phone] HOFFMA N,E PATIENT (WNR) (M) B 2002 SHALA Selected Encounter This section includes the information on record at [place] for the Encounter. Date/Time Encounter Type Encounter Description Reason Provider Source October 06, 2021 02:06 Outpatient Encounter PRIMARY CARE/MEDICINE PM IHE Encounter Template Text not used by [place] Plan of Treatment: Future Appointments (+ 6 months) and Future Tests (+/- 45 days) The Plan of Treatment section includes future care activities for the patient [facility] [place] [facility]. This section includes future appointments and future orders which are active, pending orscheduled.Future Appointments This section includes appointments that were scheduled to occur 6 months from the date of the Encounter, up to a maximum of 20 appointments. The data comes from all [place] treatment facilities. Appointment Date/Time Appointment Type Appointment Facili ty Name Oct 27, 2021 01:00 PM AMBULATORY PSYCHIATRY [place] Nov 25, 2021 04:00 PM AMBULATORY MEDICINE [place] [facility] [place] [facility] Jan 19, 2022 01:30 PM AMBULATORY MEDICINE [place] [facility] [facility] Feb 22, 2022 10:15 AM [facility] Social History: Smoking Status (Most current) and Tobacco Use (All prior to encounter date) This section includes the most current, and the historical, smoking and tobacco-related health factors from the [place] facility where the Encounter took place.Current Smoking Status This section includes the most current smoking, or tobacco-related health factor, from the [place] facility where the Encounter took place. Date/Time Current Smoking Status Comment Facility Jul 03, 2020 02:53 PM [place]-TOBACCO NEVER [facility]ED [facility] Advance Directives: All historical and current Section Date Range: From patient's date of to the date document was created. This section includes ALL of a patient's completed or amended [place] Advance and Rescinded Directives. The entries below indicate that a directive exists for the patient, but an actual copy is not included with this document. The data comes from all [place] facilities. Date Advance Directives Provider Source Jan 06, 2022 ADVANCE DIRECTIVE CODEY WEBSTER Encounter Notes: All associated encounter notes This section contains the clinical notes associated to the Encounter. Date/Time Encounter Note(s) Provider Source October 06, 2021 02:06 PM MEDICATION MGT NOTE: CODEY WEBSTER [facility] LOCAL TITLE: OUTPATIENT MEDICATION REQUEST STANDARD TITLE: MEDICATION MGT NOTE DATE OF NOTE: OCTOBER 06, 2021@14:06 ENTRY DATE: OCTOBER 06, 2021@14:07 AUTHOR: CODEY WEBSTER EXP COSIGNER: URGENCY: STATUS: COMPLETED OUTPATIENT MEDICATION REQUEST Has ADDENDA * Renew med and mail. Imported Information: Medications ACTIVE: PRIMIDONE 50MG TAB Prescription #:[id number] Prescribing Physician: BECCA GUERRERO (PHYSICIAN) on 12/18/2020 13:43 Fr equency/Dosage: 50MG ORAL BID ACTIVE: TRAZODONE HCL 100MG TAB Prescription #: [id number] Prescribing Physician: KEYSHA ORTIZ (PSYCHIATRIST) on 2020 08:13 Frequency/Dosage: 150MG ORAL QHS PRN DISCONTINUED: HYDROCODONE 5MG/ACETAMINOPHEN 325 MG TAB Prescription #:[id number] Prescribing Physician: EVGENY LAW ([facility] PRACTITIO) on 06/24/2021 13:25 Frequency/Dosage: 1 TABLET HYDROCODONE 5MG /ACETAMINOPHEN 325MG TAB : METFORMIN HCL 500MG TAB Prescription # :[id number] Prescribing Physician: BECCA GUERRERO (PHYSICIAN) on 08/11/19 22:08 Frequency/Dosage: 500MG ORAL BID TRACHEOSTOMY TUBE RONQUILLO KENTRELL #240 USE 1 TUBE RONQUILLO DIRECTED ONCE DAILY Quantity: 30 Refills: /es/ BROOKE MCCARTHYN RN-BC REGISTERED NURSE Signed: 10/06/2021 14:12 Receipt Acknowledged By: 10/07/2021 13:28 /mainor/ KEYSHA ORTIZ DO Psychiatrist * AWAITING SIGNATURE * CHINYERE GUTIÉRREZ 10/07/2021 ADDENDUM STATUS: COMPLETED I atempted to call veter, as he canceled his last appointment with Dr. Lynne and didn't reschedule. There was no answer, and I was not given the option of leaving a message. AMSA--please schedule for a follow-up appt. in resident clinic, and mail out a letter indicatin g date and time to . Thank you. /naga ORTIZ DO Psychiatrist Signed: 10/07/2021 13:29 Receipt Acknowledged By: * AWAITING SIGNATURE * ALICE RANDHAWA
--- OUTSIDE RECORDS SUMMARY | 2022-04-22 17:41 | XMS_ITS | Encounter Summary ---
:1950 Author Organization [facility] Address [address] [place] [address] Support Name Relationship Address Phone HAY GU Unavailable [address] [place] [address] HAY GU Unavailable [address] [place] [address] Insurance Providers: All historical and current Section [...] MEDICARE MEDICARE PART Mar 23, PART B [id number] HOFFMA N PATIENT (WNR) (M) B 2002A 4 MICHAEL MORRIS MEDICARE MEDICARE PART Mar 23, PART A [id number] HOFFMA N PATIENT (WNR) (M) A 2002A 4 MICHAEL MORRIS MEDICARE MEDICARE PART Mar 23, PART A [id number] HOFFMA N,E PATIENT (WNR) (M) A 2002A [place] MEDICARE MEDICARE PART Mar 23, PART B [id number] HOFFMA N,E PATIENT (WNR) (M) B 2002A [place] MEDICARE MEDICARE PART Mar 23, PART A [id number] HOFFMA N PATIENT (WNR) (M) A 2002A 1 MICHAEL MORRIS MEDICARE MEDICARE PART Mar 23, PART B [id number] HOFFMA N PATIENT (WNR) (M) B 2002A MICHAEL Selected Encounter This section includes the information on record at ME for the Encounter. Date/Time Encounter Type Encounter Description Reason Provider Source Aug 17, 2021 01:00 Outpatient Encounter PRIMARY CARE/MEDICINE PM IHE Encounter Template Text not used by ME Plan of Treatment: Future Appointments (+ 6 months) and Future Tests (+/- 45 days) The Plan of Treatment section includes future care activities for the [facility] This section includes future appointments and future orders which are active, pending orscheduled.Future Appointments This section includes appointments that were scheduled to occur 6 months from the date of the Encounter, up to a maximum of 20 appointments. The data comes from all ME treatment facilities. Appointment Date/Time Appointment Type Appointment Facili ty Name Oct 27, 2021 01:00 PM AMBULATORY - PSYCHIATRY [facility] Nov 25, 2021 04:00 PM AMBULATORY MEDICINE [facility] Jan 19, 2022 01:30 PM AMBULATORY MEDICINE [facility] Social History: Smoking Status (Most [...] Date/Time Current Smoking Status Comment Facility Jul 17, 2019 02:48 PM ME-TOBACCO QUIT 15 YRS OR MORE [facility] Tobacco Use History This section includes a history of the smoking, or tobacco- related health factors, that were collected on or before the date of the Encounter. The data comes from the ME facility where the Encounter took place. Date/Time Smoking Status/Tobacco Use Comment [facility] Jul 17, 2019 02:48 PM VA-TOBACCO QUIT 15 YRS OR MORE [facility] Jun 23, 2018 02:38 PM VA-TOBACCO NEVER USED [facility] Sep 19, 2017 01:57 PM FORMER SMOKER - <100 LIFETIME CIGARETTES [facility] Feb 04, 2017 01:33 PM LIFETIME NON-TOBACCO USER [facility] Jun 05, 2015 03:07 PM QUIT TOBACCO USE > 7 YEARS AGO [facility] Jun 10, 2004 09:45 AM LIFETIME NON-SMOKER [facility] Jun 10, 2004 09:45 AM LIFETIME NON-TOBACCO USER [facility] Advance Directives: All historical and current Section [...] Encounter. Date/Time Encounter Note(s) Provider Source October 16, 2021 04:05 PM MEDICATION MGT NOTE: PHAN BUSTILLO [facility] TITLE: OUTPATIENT MEDICATION REQUEST STANDARD TITLE: MEDICATION MGT NOTE DATE OF NOTE: OCTOBER 16, 2021@16:05 ENTRY DATE: OCTOBER 16, 2021@16:05:30 AUTHOR: PHAN BUSTILLO EXP COSIGNER: URGENCY: STATUS: COMPLETED OUTPATIENT MEDICATION REQUEST Has ADDENDA * Medication Request Date of Request: September Is this a New Medication? No RENEW/MAIL Imported Information: Medications : HYDROCODONE 5MG/ACETAMINOPHEN 325MG TA B Prescription #:[id number] Prescribing Physician: CHINYERE GUTIÉRREZ (PHYSICI AN) on 07/19/2021 08:42 Frequency/Dosage: 1 TABLET HYDROCODONE 5MG/ACETA MINOPHEN 325MG TAB : METFORMIN HCL 500MG TAB Prescription # :[id number] Prescribing Physician: BECCA GUERRERO (PHYSICIAN) on 08/11/19 21 22:08 Frequency/Dosage: 500MG ORAL BID /mainor/ Phan Bustillo RN Registered Nurse (RN) Signed: 10/16/2021 16:06 Receipt Acknowledged By: * AWAITING SIGNATURE * CHINYERE GUTIÉRREZ * AWAITING SIGNATURE * DELMI HAMMOND 10/16/2021 ADDENDUM STATUS: COMPLETED Vet also requests to order a trach collar /mainor/ Phan Bustillo RN Registered Nurse (RN) Signed: 10/16/2021 16:12 Receipt Acknowledged By: * AWAITING SIGNATURE * CHINYERE GUTIÉRREZ * AWAITING SIGNATURE * DELMI HAMMOND October 16, 2021 04:03 PM ACCOUNTING OF DISCLOSURES NOTE: RACHAEL [facility] LOCAL TITLE: STATE PRESCRIPTION DRUG MONITORING PROGRAM STANDARD TITLE: ACCOUNTING OF DISCLOSURES NOTE DATE OF NOTE: OCTOBER 16, 2021@16:03:24 ENTRY DATE: OCTOBER 16, 2021@16:03:24 AUTHOR: PHAN BUSTILLO EXP COSIGNER: ALIYAH HAMMOND URGENCY: STATUS: COMPLETED This PDMP query was submitted by Phan Bustillo behalf of Delmi Hammond. The clinical justification for this PDMP query i s to review controlled substances prescribed outside of the [facility], and any additional information that may become available, as an important compo nent of standard clinical care, and in accordance with [facility] policy. Patient information was shared with the PDMP [employer] [place]. The VA prescriber, for which I am a delegate, wi ll be alerted of these PDMP findings through co-signature of this progr ess note. No prescription(s) for controlled substances out side the [facility] were found in the last 90 days. /mainor/ Phan Bustillo RN Registered Nurse (RN) Signed: 10/16/2021 16:03 /mainor/ DELMI HAMMOND MD, EDELMIRA PHYSICIAN, DIMETHYLANILINE SULFATOR OPERATOR Cosigned: 10/20/2021 09:26 October 16, 2021 04:03 PM MEDICATION MGT NOTE: PHAN BUSTILLO COUNTS INCLUDE 234 BEDS AT THE [facility] LOCAL TITLE: OPIOID/CONTROLLED SUBSTANCE RENEWA L NOTE STANDARD TITLE: MEDICATION MGT NOTE DATE OF NOTE: OCTOBER 16, 2021@16:03 ENTRY DATE: OCTOBER 16, 2021@16:03:44 AUTHOR: PHAN BUSTILLO EXP COSIGNER: URGENCY: STATUS: COMPLETED Standard Opioid Renewal/Controlled Substance Not e Requested Medication: HYDROCODONE 5MG/ACETAMINOP HEN 325MG TAB A Valid Consent for Long-Term Opioids for Pain i s on file and available for viewing in [employer] Education. CONSENT FOR LONG-TERM OPIOIDS FOR PAIN Feb 20 015 A State Prescription Drug Monitoring Program (SP DMP) Review Note has been documented in the medical r ecord at least once in the last 9 months. [facility] PRESCRIPTION DRUG MONITORING PROGRAM (SPDM P) NOTE Mar 13, 2020 [place] Prescription Monitoring Program ( A COLLEGE COUNSELOR) checked today. [email or web address] Drug ScreenLAST UDS 02/2020 No data available for: ---- URINE DRUG SCREEN AND CONFIRMATIONS (Con) B Y GC/MS or HPLC ---- URINE Feb 272019 14:44 Units Ranges BENZO NONE-DETECTED Ref: None-Detected, Cutoff = 200 ng/mL BenzCon Ref: Negative, Cutoff = 100 (Alprazolam 50) ng/mL COCAINE NONE-DETECTED Ref: None-Detected,Cutoff = 300 ng/mL CocaCon ng/mL Ref: Not Detected: Cutoff = 100 ng /mL OPIATES NONE-DETECTED Ref: None-Detected, Cutoff = 300 ng/mL OpiConf Ref: Negative, Cutoff = 100 ng/mL THC NONE-DETECTED Ref: None-Detected,Cutoff = 50 ng/mL THCConf ng/mL Ref: Not Detected: Cutoff = 5 ng/m L BARBIT Ref: None-Detected,Cutoff = 200 ng/mL BARBCon Ref: Neg PROPOXY PROPCon Ref: Negative, Cutoff = 100 ng/mL /mainor/ Phan Bustillo, MAURY Registered Nurse (RN) Signed: 10/16/2021 16:05 Receipt Acknowledged By: * AWAITING SIGNATURE * DELMI HAMMOND
--- OUTSIDE RECORDS SUMMARY | 2022-04-22 17:41 | XMS_ITS | Encounter Summary ---
:1950 Author Organization [facility] Address [address] [place] [address] Support Name Relationship Address Phone HAY GU Unavailable [address] [place] [address] HAY GU Unavailable [address] [place] [address] Insurance Providers: All historical and current Section [...] MEDICARE MEDICARE PART Mar 23, PART A [id number] HOFFMA N PATIENT (WNR) (M) A 2002A 4 MICHAEL MORRIS MEDICARE MEDICARE PART Mar 23, PART A [id number] [id number] HOFFMA N,E PATIENT (WNR) (M) A 2002 26A 00 [place] MEDICARE MEDICARE PART Mar 23, PART B [id number] HOFFMA N,E PATIENT (WNR) (M) B 2002 26A 00 [place] MEDICARE MEDICARE PART Mar 23, PART B [id number] HOFFMA N PATIENT (WNR) (M) B 2002A 4 MICHAEL MORRIS MEDICARE MEDICARE PART Mar 23, PART A [id number] HOFFMA N PATIENT (WNR) (M) A 2002A 1 MICHAEL MORRIS MEDICARE MEDICARE PART Mar 23, PART B [id number] HOFFMA N PATIENT (WNR) (M) B 2002A 1 MICHAEL MORRIS Selected Encounter This section includes the information on record at [place] for the Encounter. Date/Time Encounter Type Encounter Description Reason Provider Source October 16, 2021 03:55 Outpatient Encounter TELEPHONE TRIAGE PM IHE Encounter Template Text not used by [place] Plan of Treatment: Future Appointments (+ 6 months) and Future Tests (+/- 45 days) The Plan of Treatment section includes future care activities for the patient from all [place] [facility]. This section includes future appointments and future orders which are active, pending orscheduled.Future Appointments This section includes appointments that were scheduled to occur 6 months from the date of the Encounter, up to a maximum of 20 appointments. The data comes from all [place] treatment facilities. Appointment Date/Time Appointment Type Appointment Facili ty Name Oct 27, 2021 01:00 PM AMBULATORY - PSYCHIATRY [facility] Nov 25, 2021 04:00 PM [facility] Jan 19, 2022 01:30 PM [facility] Feb 22, 2022 10:15 AM AMBULATORY MEDICINE [facility] Social History: Smoking Status (Most current) and Tobacco Use (All prior to encounter date) This section includes the most current, and the historical, smoking and tobacco-related health factors from the [place] facility where the Encounter took place.Current Smoking Status This section includes the most current smoking, or tobacco-related health factor, from the [place] facility where the Encounter took place. Date/Time Current Smoking Status Comment Facility Jul 03, 2020 02:53 PM [place]-TOBACCO NEVER USED [facility] Advance Directives: All historical and current Section Date Range: From patient's date of to the date document was created. This section includes ALL of a patient's completed or amended [place] Advance and Rescinded Directives. The entries below indicate that a directive exists for the patient, but an actual copy is not included with this document. The data comes from all [place] facilities. Date Advance Directives Provider Source Jan 06, 2022 ADVANCE DIRECTIVE CODEY WEBSTER [facility] Encounter Notes: All associated encounter notes This section contains the clinical notes associated to the Encounter. Date/Time Encounter Note(s) Provider Source October 16, 2021 03:55 PM TELEPHONE ENCOUNTER NOTE: ANNETTE RIOS [facility] LOCAL TITLE: VISN 1 [facility] STANDARD TITLE: TELEPHONE ENCOUNTER NOTE DATE OF NOTE: OCTOBER 16, 2021@15:55:35 ENTRY DATE: OCTOBER 16, 2021@15:59:03 AUTHOR: ANNETTE RIOS EXP COSIGNER: URGENCY: STATUS: COMPLETED The patient, MICHAEL GU ([id number]) called the call center. The following identifiers were used to verify th is patient: . SSN. Contact Type of call: PHARMACY. Caller Response: ADM CALL RESOLVED Caller Area: [facility] Provider Info: [facility] ([id number]) PACT: SO PACT 8 (Focus: Womens Health) Designated Pcp: DELMI [facility]OCK Slot Floor Supervisor: CODEY WEBSTER Clinical Associate: AIDAN SCHRADER PHON E:[id number] Police Officer: KRIS BUSCH Clinical POC: Clinical Associate AIDAN CONNOR PHONE:[phone] Administrative POC: Police Officer KRIS BUSCH Author: ANNETTE RIOS Comments: RENEW/MAIL Vet also requests to order a trach collar Imported Information: Medications : HYDROCODONE 5MG/ACETAMINOPHEN 325MG TA B Prescription #:[id number] Prescribing Physician: CHINYERE GUTIÉRREZ (PHYSICI AN) on 07/19/2021 08:42 Frequency/Dosage: 1 TABLET HYDROCODONE 5MG/ACETA MINOPHEN 325MG TAB : METFORMIN HCL 500MG TAB Prescription # :[id number] Prescribing Physician: BECCA GUERRERO (PHYSICIAN) on 08/11/19 21 22:08 Frequency/Dosage: 500MG ORAL BID Evaluation/Management Code: HC PRO PHONE CALL 5- 10 MIN ([phone]). Starting at: 10/16/2021 @ 3:55:35 PM Ending at: 10/16/2021 @ 3:57:42 PM Length: 2 minutes. Chief Complaint: Not applicable to call. Class Code: Other specified counseling. Patient's Email Address: /mainor/ ANNETTE RIOS [employer] SUPERINTENDENT Signed: 10/16/2021 15:59 Receipt Acknowledged By: * AWAITING SIGNATURE * DELMI BULLOCK * AWAITING SIGNATURE * CODEY WEBSTER
--- OUTSIDE RECORDS SUMMARY | 2022-04-22 17:44 | XMS_ITS ---
:1950 Author Organization [facility] Address [address] [place] [address] Support Name Relationship Address Phone HAY GU Unavailable [address] [place] [address] HAY GU Unavailable [address] [place] [address] Insurance Providers: All historical and current Section [...] MEDICARE MEDICARE PART Mar 23, PART B [id number] HOFFMA N PATIENT (WNR) (M) B 2002A 4 MICHAEL MORRIS MEDICARE MEDICARE PART Mar 23, PART A [id number] HOFFMA N PATIENT (WNR) (M) A 2002A 4 MICHAEL MORRIS MEDICARE MEDICARE PART Mar 23, PART A [id number] [phone] HOFFMA N,E PATIENT (WNR) (M) A 2002 26A 00 [place] MEDICARE MEDICARE PART Mar 23, PART B [id number] [id number] HOFFMA N,E PATIENT (WNR) (M) B 2002A 00 [place] MEDICARE MEDICARE PART Mar 23, PART A [id number] HOFFMA N PATIENT (WNR) (M) A 2002A 1 MICHAEL MORRIS MEDICARE MEDICARE PART Mar 23, PART B [id number] HOFFMA N PATIENT (WNR) (M) B 2002A MICHAEL Selected Encounter This section includes the information on record at [place] for the Encounter. Date/Time Encounter Type Encounter Description Reason Provider Source Oct 26, 2021 11:38 Outpatient Encounter PRIMARY CARE/MEDICINE AM IHE Encounter Template Text not used by [place] Plan of Treatment: Future Appointments (+ 6 months) and Future Tests (+/- 45 days) The Plan of Treatment section includes future care activities for the patient from all [place] [facility]. This section includes future appointments and future orders which are active, pending orscheduled.Future Appointments This section includes appointments that were scheduled to occur 6 months from the date of the Encounter, up to a maximum of 20 appointments. The data comes from all [place] treatment facilities. Appointment Date/Time Appointment Type Appointment Facili ty Name Oct 27, 2021 01:00 PM AMBULATORY PSYCHIATRY [facility] Nov 25, 2021 04:00 PM AMBULATORY MEDICINE [facility] [place] [facility] Jan 19, 2022 01:30 PM AMBULATORY MEDICINE [facility] [place] [facility] Feb 22, 2022 10:15 AM [facility] Social History: Smoking Status (Most current) and Tobacco Use (All prior to encounter date) This section includes the most current, and the historical, smoking and tobacco-related health factors from the [place] facility where the Encounter took place.Current Smoking Status This section includes the most current smoking, or tobacco-related health factor, from the [place] facility where the Encounter took place. Date/Time Current Smoking Status Comment Facility Jul 03, 2020 02:53 PM [place]-TOBACCO NEVER USED [facility] Advance Directives: All historical and current Section Date Range: From patient's date of to the date document was created. This section includes ALL of a patient's completed or amended [place] Advance and Rescinded Directives. The entries below indicate that a directive exists for the patient, but an actual copy is not included with this document. The data comes from all [place] facilities. Date Advance Directives Provider Source Jan 06, 2022 ADVANCE DIRECTIVE CODEY WEBSTER Encounter Notes: All associated encounter notes This section contains the clinical notes associated to the Encounter. Date/Time Encounter Note(s) Provider Source Oct 26, 2021 11:40 AM MEDICATION MGT NOTE: CODEY WEBSTER [facility] LOCAL TITLE: OUTPATIENT MEDICATION REQUEST STANDARD TITLE: MEDICATION MGT NOTE DATE OF NOTE: OCT 26, 2021@11:40 ENTRY DATE: OCT 26, 2021@11:40:45 AUTHOR: CODEY WEBSTER EXP COSIGNER: URGENCY: STATUS: COMPLETED Please renew for mail TRACHEOSTOMY TUBE RONQUILLO [facility][id number] USE 1 TUBE RONQUILLO DIRECTED ONCE DAILY Quantity: 30 Refills: / MEGAN MCCARTHY RN-BC REGISTERED NURSE Signed: 10/26/2021 11:41 Receipt Acknowledged By: * AWAITING SIGNATURE * DELMI BULLOCK
--- OUTSIDE RECORDS SUMMARY | 2022-04-22 17:45 | XMS_ITS | Encounter Summary ---
:1950 Author Organization [facility] Address [address] [place] [address] Support Name Relationship Address Phone HAY GU Unavailable [address] [place] [address] HAY GU Unavailable [address] [place] [address] Insurance Providers: All historical and current Section [...] MEDICARE MEDICARE PART Mar 23, PART B [id number] HOFFMA N PATIENT (WNR) (M) B 2002A 4 MICHAEL MORRIS MEDICARE MEDICARE PART Mar 23, PART A [id number] HOFFMA N PATIENT (WNR) (M) A 2002A 4 MICHAEL MORRIS MEDICARE MEDICARE PART Mar 23, PART A [id number] [id number] HOFFMA N,E PATIENT (WNR) (M) A 2002A 00 [place] MEDICARE MEDICARE PART Mar 23, PART B [id number] [id number] HOFFMA N,E PATIENT (WNR) (M) B 2002A [place] MEDICARE MEDICARE PART Mar 23, PART A [id number] HOFFMA N PATIENT (WNR) (M) A 2002A 1 MICHAEL MORRIS MEDICARE MEDICARE PART Mar 23, PART B [id number] HOFFMA N PATIENT (WNR) (M) B 2002A MICHAEL Selected Encounter This section includes the information on record at [place] for the Encounter. Date/Time Encounter Type Encounter Description Reason Provider Source Nov 18, 2021 03:18 Outpatient Encounter TELEPHONE CASE PM MANAGEMENT IHE Encounter Template Text not used by [place] Plan of Treatment: Future Appointments (+ 6 months) and Future Tests (+/- 45 days) The Plan of Treatment section includes future care activities for the patient from all [place] treatmentfacilities. This section includes future appointments and future orders which are active, pending orscheduled.Future Appointments This section includes appointments that were scheduled to occur 6 months from the date of the Encounter, up to a maximum of 20 appointments. The data comes from all [place] treatment facilities. Appointment Date/Time Appointment Type Appointment Facili ty Name Nov 25, 2021 04:00 PM AMBULATORY - [facility]ICINE [place] [facility] Jan 19, 2022 01:30 PM [facility] Feb 22, 2022 10:15 AM AMBULATORY MEDICINE [facility] Social History: Smoking Status (Most current) and Tobacco Use (All prior to encounter date) This section includes the most current, and the historical, smoking and tobacco-related health factors from the [place] facility where the Encounter took place.Current Smoking Status This section includes the most current smoking, or tobacco-related health factor, from the [place] facility where the Encounter took place. Date/Time Current Smoking Status Comment Facility Jul 03, 2020 02:53 PM VA-TOBACCO NEVER [facility] Advance Directives: All historical and current Section Date Range: From patient's date of to the date document was created. This section includes ALL of a patient's completed or amended [place] Advance and Rescinded Directives. The entries below indicate that a directive exists for the patient, but an actual copy is not included with this document. The data comes from all [place] facilities. Date Advance Directives Provider Source Jan 06, 2022 ADVANCE DIRECTIVE CODEY WEBSTER Encounter Notes: All associated encounter notes This section contains the clinical notes associated to the Encounter. Date/Time Encounter Note(s) Provider Source Nov 18, 2021 03:18 PM TRANSFER SUMMARIZATION NOTE: JACQUELYN PATRICK [facility] LOC[facility] TITLE: SOFTWARE LICENSING EXECUTIVE/OCC/HOSPITAL NOTIFICATION NOTE [facility] STANDARD TITLE: TRANSFER SUMMARIZATION NOTE DATE OF NOTE: NOV 18, 2021@15:18 ENTRY DATE: NOV 18, 2021@15:18:47 AUTHOR: JACQUELYN PATRICK EXP COSIGNER: URGENCY: STATUS: COMPLETED SOFTWARE LICENSING EXECUTIVE/[facility]/HOSPITAL NOTIFICAT JIN NOTE Has ADDENDA call from cyanide case hardener Ariadna at [facility]. Veter an in the hospital and per Ariadna, house may be condemned due to hoarding. Psych eval is pending to determine capacity. Ariadna notified that [facility] eligible for VA rehab or LTC benefit. Plan to be determined based on psych ev al. /mainor/ RC Saeed Heating Unit Installer Signed: 11/18/2021 15:20 11/20/2021 ADDENDUM STATUS: COMPLETED Ariadna cyanide case hardener at [facility] called to see if eligible for respite stay at a VA contracted facility. has no caregiver living in the home and per Ariadna, home is a ho arding situation and family unable to assist at this time. Has no rehab needs. Paramjit bagley aware of the names of [place] contracted facilities and may refer for LTC. /RC Calloway Heating Unit Installer Signed: 11/20/2021 13:59 Receipt Acknowledged By: 11/20/2021 16:09 /mainor/ Donnie Valenzuela [facility] SKILLED NURSINGWATERSHED TENDER 11/24/2021 17:02 /mainor/ CHRISTINE ANTHONY,[facility] STAFF BIODIESEL PLANT MANAGER 11/25/2021 ADDENDUM STATUS: COMPLETED TC office received notifkeyonna sotelo that offered VA short term rehab bed at [facility] and per Ariadna at [facility], he is medically stable for discharge today. Per Ariadna, the is on Avilez 6B in room 73 A. He has an old trach but not currently requiring suctioning . COVID was negative as of 11/23/21. No other needs. Call to Jacquelyn at [facility] [phone] to arrange 1600 ETA at [facility]. [facility] will trans port from [facility] to [facility] in [place]. Per Jacquelyn, [facility] can accomodate this time frame. Ariadna aware that transport arranged. /mainor/ Jacquelyn Farhana, RN-BS Heating Unit Installer Signed: 11/25/2021 15:08 Receipt Acknowledged By: * AWAITING SIGNATURE * ONESIMO MALONEY
--- OUTSIDE RECORDS SUMMARY | 2022-04-22 17:45 | XMS_ITS ---
:1950 Author Organization [facility] Address [address] [place] [address] Support Name Relationship Address Phone HAY GU Unavailable [address] [place] [address] HAY GU Unavailable [address] [place] [address] Insurance Providers: All historical and current Section [...] MEDICARE MEDICARE PART Mar 23, PART A [id number] HOFFMA N,E PATIENT (WNR) (M) A 2002A 00 [place] MEDICARE MEDICARE PART Mar 23, PART B [id number] [id number] HOFFMA N,E PATIENT (WNR) (M) B 2002A 00 [place] MEDICARE MEDICARE PART Mar 23, PART A [id number] HOFFMA N PATIENT (WNR) (M) A 2002A 4 MICHAEL MORRIS MEDICARE MEDICARE PART Mar 23, PART B [id number] HOFFMA N PATIENT (WNR) (M) B 2002A 4 MICHAEL MORRIS MEDICARE MEDICARE PART Mar 23, PART A [id number] HOFFMA N PATIENT (WNR) (M) A 2002A 1 MICHAEL MORRIS MEDICARE MEDICARE PART Mar 23, PART B [id number] HOFFMA N PATIENT (WNR) (M) B 2002A 1 MICHAEL MORRIS Selected Encounter This section includes the information on record at [place] for the Encounter. Date/Time Encounter Type Encounter Description Reason Provider Source Nov 11, 2021 11:32 Outpatient Encounter ADMIN YOLANDA CEDRICK HERI (AISHA) CARLOZ Encounter Template Text not used by [place] Plan of Treatment: Future Appointments (+ 6 months) and Future Tests (+/- 45 days) The Plan of Treatment section includes future care activities for the patient from all [place] treatmentfacilities. This section includes future appointments and future orders which are active, pending orscheduled.Future Appointments This section includes appointments that were scheduled to occur 6 months from the date of the Encounter, up to a maximum of 20 appointments. The data comes from all [place] treatment facilities. Appointment Date/Time Appointment Type Appointment Facili ty Name Nov 25, 2021 04:00 PM AMBULAT[facility] [place] [facility] Jan 19, 2022 01:30 PM AMBULATORY MEDIC[facility] [place] [facility] [place] [facility] Feb 22, 2022 10:15 AM [facility] Social History: Smoking Status (Most current) and Tobacco Use (All prior to encounter date) This section includes the most current, and the historical, smoking and tobacco-related health factors from the VA facility where the Encounter took place.Current Smoking Status This section includes the most current smoking, or tobacco-related health factor, from the [place] facility where the Encounter took place. Date/Time Current Smoking Status Comment Facility Jul 03, 2020 02:53 PM AL-TOBACCO NEVER USED [facility] Advance Directives: All historical and current Section Date Range: From patient's date of to the date document was created. This section includes ALL of a patient's completed or amended [place] Advance and Rescinded Directives. The entries below indicate that a directive exists for the patient, but an actual copy is not included with this document. The data comes from all [place] facilities. Date Advance Directives Provider Source Jan 06, 2022 ADVANCE DIRECTIVE CODEY WEBSTER Encounter Notes: All associated encounter notes This section contains the clinical notes associated to the Encounter. Date/Time Encounter Note(s) Provider Source Nov 11, 2021 11:32 TELEPHONE ENCOUNTER NOTE: ARVIN ELMORE AL CNTR WSTRN LOCAL TITLE: VISN 1 [facility] STANDARD TITLE: TELEPHONE ENCOUNTER NOTE DATE OF NOTE: NOV 11, 2021@11:32:59 ENTRY DATE: NOV 11, 2021@11:35:25 AUTHOR: ARVIN ELMORE EXP COSIGNER: URGENCY: STATUS: COMPLETED VISN 1 [facility] ACTION REQUIRED Has ADDENDA OTHER called in for MICHAEL GU ([id number]) . The following identifiers were used to v erify this patient: SSN. Other: Karina. Contact [phone] Type of call: CLINICAL INFORMATION/EDUCATION. Caller Response: ADM CALL RESOLVED Caller Area: VIAN CB PCMM Provider Info: [facility] ([id number]) PACT: PACT 8 (Focus: Womens Health) Designated Pcp: DELMI BULLOCK Beam Racker: CODEY WEBSTER Clinical Associate: AIDAN SCHRADER PHON E:[phone] Election Clerk: KRIS BUSCH Clinical POC: Clinical Associate AIDAN CONNOR PHONE:[phone] Administrative POC: Election Clerk KRIS BUSCH Author: ARVIN ELMORE Comments: Karina from [facility] [employer] is reques ting whether is able to make decisions for himself, the level of care , medical compliance, and if the Dr. have any concerns. Evaluation/Management Code: HC PRO PHONE CALL 5- 10 MIN ([phone]). Starting at: 11/11/2021 @ 11:32:59 AM Ending at: 11/11/2021 @ 11:34:24 AM Length: 1 minutes. Chief Complaint: Not applicable to call. Class Code: Other specified counseling. Patient's Email Address: /es/ ARVIN SMITHN 1 [facility] AMSA Signed: 11/11/2021 11:35 Receipt Acknowledged By: 11/12/2021 10:14 /mainor/ MEGAN MCCARTHY RN-BC REGISTERED NURSE 11/12/2021 10:18 /mainor/ AIDAN SCHRADER LPN Licensed Practical Nurse 11/12/2021 ADDENDUM STATUS: COMPLETED Returned call to Karina and a dvised that has not seen new provider so PCP does not know [facility] yet. A dvised Karina of recently cancelled appts by [facility] but that [facility] has been requesting medication refills within last 2 months without issue. /es/ MEGAN MCCARTHY RN-BC REGISTERED NURSE Signed: 11/12/2021 10:16
--- OUTSIDE RECORDS SUMMARY | 2022-04-22 17:45 | XMS_ITS | Encounter Summary ---
:1950 Author Organization [facility] Address [address] [place] [address] Support Name Relationship Address Phone HAY GU Unavailable [address] [place] [address] HAY GU Unavailable [address] [place] [address] Insurance Providers: All historical and current Section [...] MEDICARE MEDICARE PART Mar 23, PART A [id number] [id number] HOFFMA N,E PATIENT (WNR) (M) A 2002A 00 [place] MEDICARE MEDICARE PART Mar 23, PART B [id number] [id number] HOFFMA N,E PATIENT (WNR) (M) B 2002A 00 [place] MEDICARE MEDICARE PART Mar 23, PART A [id number] HOFFMA N PATIENT (WNR) (M) A 2002A 4 MICHAEL MORRIS MEDICARE MEDICARE PART Mar 23, PART B [id number] HOFFMA N PATIENT (WNR) (M) B 2002A 4 MICHAEL MORRIS MEDICARE MEDICARE PART Mar 23, PART A [id number] HOFFMA N PATIENT (WNR) (M) A 2002A 1 MICHAEL MORRIS MEDICARE MEDICARE PART Mar 23, PART B [id number] HOFFMA N PATIENT (WNR) (M) B 2002A 1 MICAHERNANDEZ Selected Encounter This section includes the information on record at [place] for the Encounter. Date/Time Encounter Type Encounter Description Reason Provider Source Oct 27, 2021 01:00 Outpatient Encounter [facility] PM - IND IHE Encounter Template Text not used by [place] Plan of Treatment: Future Appointments (+ 6 months) and Future Tests (+/- 45 days) The Plan of Treatment section includes future care activities for the patient from [facility] [place] [facility] This section includes future appointments and future orders which are active, pending orscheduled.Future Appointments This section includes appointments that were scheduled to occur 6 months from the date of the Encounter, up to a maximum of 20 appointments. The data comes from all [place] treatment facilities. Appointment Date/Time Appointment Type Appointment Facili ty Name Nov 25, 2021 04:00 PM AMBULATORY MEDICINE [facility] Jan 19, 2022 01:30 PM [facility] MEDICINE [facility] Feb 22, 2022 10:15 AM [facility] MEDICINE [facility] Social History: Smoking Status (Most current) and Tobacco Use (All prior to encounter date) This section includes the most current, and the historical, smoking and tobacco-related health factors from the [place] facility where the Encounter took place.Current Smoking Status This section includes the most current smoking, or tobacco-related health factor, from the [place] facility where the Encounter took place. Date/Time Current Smoking Status Comment Facility Jul 17, 2019 02:48 PM LA-TOBACCO QUIT 15 YRS OR MORE [facility] Tobacco Use History This section includes a history of the smoking, or tobacco- related health factors, that were collected on or before the date of the Encounter. The data comes from the [place] facility where the Encounter took place. Date/Time Smoking Status/Tobacco Use Comment [facility] Jul 17, 2019 02:48 PM [place]-TOBACCO QUIT 15 YRS OR MORE [facility] Jun 23, 2018 02:38 PM VA-TOBACCO NEVER USED [facility] Sep 19, 2017 01:57 PM FORMER SMOKER - <100 LIFETIME CIGARETTES [facility] Feb 04, 2017 01:33 PM LIFETIME NON-TOBACCO USER [facility] Jun 05, 2015 03:07 PM QUIT TOBACCO USE > 7 YEARS AGO [facility] Jun 10, 2004 09:45 AM LIFETIME NON-SMOKER [facility] Jun 10, 2004 09:45 AM LIFETIME NON-TOBACCO USER [facility] Advance Directives: All historical and current Section Date Range: From patient's date of to the date document was created. This section includes ALL of a patient's completed or amended VA Advance and Rescinded Directives. The entries below indicate that a directive exists for the patient, but an actual copy is not included with this document. The data comes from all [place] facilities. Date Advance Directives Provider Source Jan 06, 2022 ADVANCE DIRECTIVE CODEY WEBSTER Encounter Notes: All associated encounter notes This section contains the clinical notes associated to the Encounter. Date/Time Encounter Note(s) Provider Source Oct 27, 2021 01:13 PM CLERICAL NOTE: PAMELA BRAGG LOCAL TITLE: APPOINTMENT NO SHOW STANDARD TITLE: CLERICAL NOTE DATE OF NOTE: OCT 27, 2021@13:13 ENTRY DATE: OCT 27, 2021@13:13:51 AUTHOR: PAMELA BRAGG COSIGNER: Joyce ORTIZ URGENCY: STATUS: COMPLETED APPOINTMENT NO SHOW Has ADDENDA Patient Name: MICHAEL GU Patient SSN: [id number] Date and time of Appointment No show : 10/27/21 13:00 PATIENT PHONE - PHONE NUMBER [CELLULAR] - NONE FOUND Patient's medical record was reviewed. Follow-up actions were determined and initiated: Please check/complete as applies: [X]Telephoned Directly [ ]Re-scheduled for next available appt [X]Sent a N0-show letter ( must call for appointment) [ ]Other (Emergent/Overbook, etc.): Additional Comments: Attempted to call patient but there was no answe r. This is patient's first psychiatry appointment in ap proximately one year and it is not clear his reason for re-engagement. Future Clinic Visits No data available /mainor/ PAMELA BRAGG FINISHING WIRE SAWYER Signed: 10/27/2021 13:15 /mainor/ KEYSHA ORTIZ DO Psychiatrist Cosigned: 10/27/2021 15:55 Receipt Acknowledged By: 11/05/2021 16:50 /mainor/ JASON Peace CONTRACT NEGOTIATION SPECIALIST 11/05/2021 ADDENDUM STATUS: COMPLETED PC to . He was not aware of the missed ap pt, I never got a reminder . He was asked if he would lik e a future appt w psychiatry, no I don't think so, I am doing pretty good . /mainor/ JASON Peace CONTRACT NEGOTIATION SPECIALIST Signed: 11/05/2021 16:54
--- OUTSIDE RECORDS SUMMARY | 2022-04-22 17:46 | XMS_ITS | Encounter Summary ---
:1950 Author Organization [facility] Address [address] [place] [address] Support Name Relationship Address Phone HAY GU Unavailable [address] [place] [address] HAY GU Unavailable [address] [place] [address] Insurance Providers: All historical and current Section [...] MEDICARE MEDICARE PART Mar 23, PART A [id number] HOFFMA N PATIENT (WNR) (M) A 2002A 4 MICHAEL MORRIS MEDICARE MEDICARE PART Mar 23, PART B [id number] HOFFMA N PATIENT (WNR) (M) B 2002A 4 MICHAEL MORRIS MEDICARE MEDICARE PART Mar 23, PART A [id number] HOFFMA N,E PATIENT (WNR) (M) A 2002 26A 00 [place] MEDICARE MEDICARE PART Mar 23, PART A [id number] HOFFMA N PATIENT (WNR) (M) A 2002A 1 MICHAEL MORRIS MEDICARE MEDICARE PART Mar 23, PART B [id number] HOFFMA N,E PATIENT (WNR) (M) B 2002A 00 [place] MEDICARE MEDICARE PART Mar 23, PART B [id number] HOFFMA N PATIENT (WNR) (M) B 2002A 1 MICHAEL MORRIS Selected Encounter This section includes the information on record at [place] for the Encounter. Date/Time Encounter Type Encounter Description Reason Provider Source Nov 24, 2021 04:49 Outpatient Encounter TELEPHONE/GERIATRICS PM IHE Encounter Template Text not used [...] Nov 25, 2021 04:00 PM AM[facility]ULATORY [facility]INE [place] [facility] Jan 19, 2022 01:30 PM [facility]UL[facility] Feb 22, 2022 10:15 AM [facility] Social History: Smoking Status (Most current) [...] 03, 2020 02:53 PM VA-TOBACCO NEVER USED [facility] Advance Directives: All historical and current [...] Encounter. Date/Time Encounter Note(s) Provider Source Nov 24, 2021 04:49 PM GERIATRIC MEDICINE NURSING NOTE: KARINE MALONEY [facility] LOCAL TITLE: COMMUNITY USP SOCIAL WORK ER [facility] STANDARD TITLE: GERIATRIC MEDICINE NURSING NOTE DATE OF NOTE: NOV 24, 2021@16:49 ENTRY DATE: NOV 24, 2021@16:49:25 AUTHOR: ONESIMO MALONEY EXP COSIGNER: URGENCY: STATUS: COMPLETED COMMUNITY LICENSED PSYCHOLOGIST DIRECTOR Has PAULINO LAGUNA Received inquiry from [facility] regarding this 71-year-old 100% Service Connected who is currently [facility]ospi tal[facility] at [facility] 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 The is cu rrently being considered for possible discharge to [facility]. In order for this to go to [facility] under his VA benefit, a [facility] Rehab CN consult would need to be entered on his be half. Will forward clinical information for his PACT team to review for placement of consult, if appr opriate. /mainor/ CHRISTINE ANTHONY,HYDROELECTRIC PLANT MAINTAINER STAFF SPINDLE PLUMBER Signed: 11/25/2021 13:55 Receipt Acknowledged By: 11/25/2021 14:58 /es/ MEGAN MCCARTHY RN-BC REGISTERED NURSE * AWAITING SIGNATURE * DELMI BULLOCK 11/25/2021 14:39 /es/ Jacquelyn Delcid RN-BS Conveyancer 11/25/2021 ADDENDUM STATUS: COMPLETED placed consult as requested and held for pcp rev iew. /MEGAN Miles RN-BC REGISTERED NURSE Signed: 11/25/2021 14:59 11/25/2021 ADDENDUM STATUS: COMPLETED This will be admitting to [facility] for short-term rehab under [facility] on 11/25/21. Please make note. /CHRISTINE Mcgee,HYDROELECTRIC PLANT MAINTAINER STAFF SPINDLE PLUMBER Signed: 11/25/2021 15:50 Receipt Acknowledged By: * AWAITING SIGNATURE * PHAN ARCOS * AWAITING SIGNATURE * PAKO LAW
--- OUTSIDE RECORDS SUMMARY | 2022-04-22 17:46 | XMS_ITS ---
:[address] [facility] Address [address] [place] [address] Support Name Relationship Address Phone HAY GU Unavailable [address] [place] [address] HAY GU Unavailable [address] [place] [address] Insurance Providers: All historical and current Section [...] MEDICARE MEDICARE PART Mar 23, PART A [id number] HOFFMA N PATIENT (WNR) (M) A 2002A 4 MICHAEL MORRIS MEDICARE MEDICARE PART Mar 23, PART B [id number] HOFFMA N PATIENT (WNR) (M) B 2002A 4 MICHAEL MORRIS MEDICARE MEDICARE PART Mar 23, PART A [id number] HOFFMA N PATIENT (WNR) (M) A 2002A 1 MICHAEL MORRIS MEDICARE MEDICARE PART Mar 23, PART B [id number] HOFFMA N PATIENT (WNR) (M) B 2002A 1 MICHAEL MORRIS MEDICARE MEDICARE PART Mar 23, PART A [id number] HOFFMA N,E PATIENT (WNR) (M) A 2002A 00 [place] MEDICARE MEDICARE PART Mar 23, PART B [id number] [id number] HOFFMA N,E PATIENT (WNR) (M) B 2002A [facility] Selected Encounter This section includes the information on record at [place] for the Encounter. Date/Time Encounter Type Encounter Description Reason Provider Source Nov 24, 2021 10:48 Outpatient Encounter COMMUNITY CARE AM CONSULT IHE Encounter Template Text not used by [place] Plan of Treatment: Future Appointments (+ 6 months) and Future Tests (+/- 45 days) The Plan of Treatment section includes future care activities for the patient from all [place] treatmentfacilities. This section includes future appointments and future orders which are active, pending orscheduled.Future Appointments This section includes appointments that were scheduled to occur 6 months from the date of the Encounter, up to a maximum of 20 appointments. The data comes from all [place] treatment facilities. Appointment Date/Time Appointment Type Appointment Facili ty Name Nov 25, 2021 04:00 PM AMBULATORY - MEDICINE [place] [facility] [place] [facility] Jan 19, 2022 01:30 PM AMBULATORY MEDICINE [place] [facility] [place] [facility] Feb 22, 2022 10:15 AM [facility] Social History: Smoking Status (Most current) and [...] 03, 2020 02:53 PM VA-TOBACCO NEVER USED [facility] N[facility]L [facility] Advance Directives: All historical and [...] Encounter Note(s) Provider Source Nov 24, 2021 10:48 AM NONVA NOTE: DILLON PRAKASH LOCAL TITLE: COMMUNITY CARE COORDINATION PLAN STANDARD TITLE: NONVA NOTE DATE OF NOTE: NOV 24, 2021@10:48 ENTRY DATE: NOV 24, 2021@10:48:14 AUTHOR: DILLON PRAKASH EXP COSIGNER: URGENCY: STATUS: COMPLETED COMMUNITY CARE COORDINATION PLAN Has ADDEND A Winona self-presented to community emergency fa cility Emergency Notification Intake Date Presenting to the Facility: Oct [facility] Name: Hospital: [place], [place] [phone] Address: City: [place] State: Zip Code: Phone : Chief complaint: Failure to thrive, bradycardia Primary Diagnosis: R62.7, R00.1 Patient Admitted? Yes Route of Admission: ER Date/Time of Admission: Oct@17:00 Admitting Diagnosis: R62.7, R00.1 Community Care Provider: Confirm Level of Care: Community Facility Point of Contact: Name: Veronica Phone: info from [facility] /naga PRAKASH AMSA Signed: 11/24/2021 10:49 Receipt Acknowledged By: 11/27/2021 08:07 /mainor/ MEGAN MCCARTHY RN-BC REGISTERED NURSE 11/24/2021 11:00 /mainor/ Jacquelyn Delcid, RN-BS It Trainer * AWAITING SIGNATURE * DELMI BULLOCK * AWAITING SIGNATURE * MORE CASANOVA 11/27/2021 ADDENDUM STATUS: COMPLETED records obtained and entered into cprs and sent to marie /mainor/ MEGAN MCCARTHY RN-BC REGISTERED NURSE Signed: 11/27/2021 08:08
--- OUTSIDE RECORDS SUMMARY | 2022-04-22 17:47 | XMS_ITS ---
:1950 Author Organization [facility] Address [address] [place] [address] Support Name Relationship Address Phone HAY GU Unavailable [address] [place] [address] HAY GU Unavailable [address] [place] [address] Insurance Providers: All historical and current Section [...] MEDICARE MEDICARE PART Mar 23, PART A [id number] HOFFMA N PATIENT (WNR) (M) A 2002A 4 MICHAEL MORRIS MEDICARE MEDICARE PART Mar 23, PART B [id number] HOFFMA N PATIENT (WNR) (M) B 2002A 4 MICHAEL MORRIS MEDICARE MEDICARE PART Mar 23, PART A [id number] HOFFMA N,E PATIENT (WNR) (M) A 2002 26A 00 [place] MEDICARE MEDICARE PART Mar 23, PART B [id number] HOFFMA N,E PATIENT (WNR) (M) B 2002A 00 [place] MEDICARE MEDICARE PART Mar 23, PART A [id number] HOFFMA N PATIENT (WNR) (M) A 2002A 1 MICAHERNANDEZ MEDICARE MEDICARE PART Mar 23, PART B [id number] HOFFMA N PATIENT (WNR) (M) B 2002A MICHAEL Selected Encounter This section includes the information on record at [place] for the Encounter. Date/Time Encounter Type Encounter Description Reason Provider Source Nov 27, 2021 08:08 Outpatient Encounter PRIMARY CARE/MEDICINE AM IHE Encounter Template Text not used by [place] Plan of Treatment: Future Appointments (+ 6 months) and Future Tests (+/- 45 days) The Plan of Treatment section includes future care activities for the patient from all [place] treatmentfacilities. This section includes future appointments and future orders which are active, pending orscheduled.Future Appointments This section includes appointments that were scheduled to occur 6 months from the date of the Encounter, up to a maximum of 20 appointments. The data comes from all [place] treatment facilities. Appointment Date/Time Appointment Type Appointment Facili ty Name Jan 19, 2022 01:30 PM [facility] [place] [facility] [place] Feb 22, 2022 10:15 AM [facility] Social History: Smoking Status [...] 03, 2020 02:53 PM VA-TOBACCO [facility] US[facility] Advance Directives: All historical [...] Encounter. Date/Time Encounter Note(s) Provider Source Nov 27, 2021 08:15 AM NONVA NOTE: CODEY WEBSTER LOCAL TITLE: NON-VA MEDICAL RECORD SUMMARY STANDARD TITLE: NONVA NOTE DATE OF NOTE: NOV 27, 2021@08:15 ENTRY DATE: NOV 27, 2021@08:15:45 AUTHOR: CODEY WEBSTER EXP COSIGNER: URGENCY: STATUS: COMPLETED NON-VA MEDICAL RECORD SUMMARY Has ADDENDA * NON [place] DISCHARGE SUMMARY Below copied from NON [place] MEDICAL RECORD Place of Service: Admission Date: Oct Discharge Date: Nov Discharged to: Rehab Patient Information Discharge Location: B Primary Care Physician: Hari Russo MD Admit Date/Time: 11/16/21 22:02 Discharge Disposition: Prison Facility/ Rehab Discharge Diagnosis Bradycardia, sinus (R00.1) Failure to thrive in adult (R62.7) Malnutrition Housing instability/poor living situation [place] Diabetes mellitus Depression Insomnia Seizure disorder Tracheostomy in place _ Discharge Medications Acetaminophen / Hydrocodone (acetaminophen-HYDRO codone 325 mg-5 mg oral tablet) 1 tab(s) By Mouth Daily as needed as nee ded for pain Aspirin (aspirin 81 mg oral delayed release tabl et) 81 Milligram 1 tablet By Mouth Daily Dispense: 30 tab(s) Durable Medical Equipment (Cane) See Instruction s Dispense: 1 Each as needed Folic Acid (folic acid 1 mg oral tablet) 1 Madison gram 1 tablet By Mouth Daily Gabapentin (gabapentin 600 mg oral tablet) 1.5 t ab(s) 900 Milligram By Mouth 3 times a day Guaifenesin (guaiFENesin 100 mg/5 mL oral liquid ) 10 Milliliter 200 Milligram By Mouth 4 times a day Loratadine (loratadine 10 mg oral capsule) 1 cap katerin 10 Milligram By Mouth Daily Dispense: 24 capsule Metformin 500 Milligram By Mouth 2 times a day Multivitamin (multivitamin Lipotropic with Multi vitamins oral capsule) 1 capsule By Mouth Daily Dispense: 30 capsule Primidone (primidone 50 mg oral tablet) 50 Madison gram 1 tablet By Mouth 2 times a day Dispense: 60 tab(s) Thiamine (thiamine 100 mg oral tablet) 100 Madison gram 1 tablet By Mouth Daily Trazodone (traZODone 100 mg oral tablet) 150 Mil ligram 1.5 tablet By Mouth Daily at bedtime as needed Sleep vortioxetine (Trintellix) 20 Milligram By Mouth Daily in AM Medications Started Guaifenesin (guaiFENesin 100 mg/5 mL oral liquid ) 10 Milliliter 200 Milligram By Mouth 4 times a day Thiamine (thiamine 100 mg oral tablet) 100 Madison gram 1 tablet By Mouth Daily Folic Acid (folic acid 1 mg oral tablet) 1 Madison gram 1 tablet By Mouth Daily Medications Discontinued None Doses Changed None PCP Follow-Up/Heads-Up Patient was seen in the hospital for generalized weakness and malaise Found to have poor living situation with failure to thrive [facility] has placed restrictions on home and he cannot go back until his living situation is improved which h is brother in law is currently working on In the meantime will be discharged to rehab [facility] e his living situation is settled Found to have asymptomatic bradycardia while inp atient. No interventions needed. This occurs usually overnight when patie nt is sleeping. Has remained asymptomatic. Patient's generalized malaise was likely related to poor nutrition and deconditioning for which physical therapy and re hab placement was recommended by inpatient PT team Please follow up with patient in 1-2 weeks to ivania davila home living situation and ensure his symptoms of generalized fatigue/m alaise are improving. There seems to be an element of depression as well for which the patient will need outpatient support. Objective Assessment and Plan 71-year-old male with a history of diabetes type 2, obstructive sleep apnea s/p tracheostomy who was brought in by EMS for g eneralized weakness. Was admitted for failure to thrive/concern for self- neglect with compicated home living situation. Will be discharged to rehab [facility] brother in law improves home living situation. Failure to thrive/concern for self-neglect Per reports from EMS/police department, patient's home very unkempt and unsafe to return home to. Patient concerned about caring for his pets, and is expressing to be discharged Patient does not know what any of his medication s are and he receives them from the [facility] has placed restrictions on the h ome. Pt needs to fix some issues before being allowed to move back in. Bro ther-in-law, Christian, is willing to fix these items but pt will need rehab until this is done. Recommendations: - Will be discharged to rehab for PT while broth er in law begins fixing home situation - PCP follow up in 1-2 weeks to discuss process of these issues Generalized malaise Chronic pain Patient reporting 3 weeks worth of generalized c hills and feeling unwell Afebrile during his hospitalization and patient is without leukocytosis. Chest x-ray. without any focal consolidations. Urinaly sis not suggestive of infection. No clear etiology for his malaise, possibly due to depression as patient states that he has had no motivation recently to do anything. Nutrition and deconditioning may also have been a factor Recommendations - Continue scheduled tylenol - Continue home gabapentin 900mg TID - Discharge to rehab - Continue thiamine and folate supplementation - PCP follow up in 1-2 weeks to ensure nutrition is stable and overall status has improved Asymptomatic Sinus Bradycardia: Sinus bradycardia while sleeping down to the 30s . Obtained 2-3 EKGs during bradycardia. Unfortunately we do have multiple a rtifacts due to the EKG machine and thus used 3 different EKG machines f or all those EKGs. Overall does not seem to have high degree AV block. Most ly sinus bradycardia in the setting of sleep. When he is awake heart rate was up to the 60s. He denied any recent dizziness or lightheadedness. Neely s not seem to be what was contributing to his generalized malaise and he complains to h ave recently. Currently stable; patient remains asymptomatic Recommendations: - PCP follow up in 1-2 weeks to ensure patient h as remained asymptomatic - Continue to monitor patient's bradycardia with PCP Type 2 diabetes - Continue home metformin Depression Insomnia - Continue home Trintellix - Continue home trazodone 150mg at bedtime Possible seizure disorder Unclear if patient has had seizures in the past, however per external med rec patient was on antiseizure medication Recommendations: - Continuing home primidone - PCP follow up to discuss past seizure disorder s with neurology referral if warranted Upcoming Appointments: No data available SENT TO SCANNING Sasha /MEGAN Miles RN-BC REGISTERED NURSE Signed: 11/27/2021 08:20 Receipt Acknowledged By: * AWAITING SIGNATURE * DELMI BULLOCK Brina 11/27/2021 ADDENDUM STATUS: COMPLETED please contact or [facility] to schedule PCP inpatient follow up appt within 1-2 per ED r ecommendations. Records have been obtained and noted in cprs and sent to scan stan /mainor/ MEGAN MCCARTHY RN-BC REGISTERED NURSE Signed: 11/27/2021 08:23 Receipt Acknowledged By: * AWAITING SIGNATURE * TOLU PRAJAPATI Nov 27, 2021 08:08 AM NONVA NOTE: CODEY WEBSTER LOCAL TITLE: NON-VA MEDICAL RECORD SUMMARY STANDARD TITLE: NONVA NOTE DATE OF NOTE: NOV 27, 2021@08:08 ENTRY DATE: NOV 27, 2021@08:08:32 AUTHOR: CODEY WEBSTER EXP COSIGNER: URGENCY: STATUS: COMPLETED NON [place] Medical Report Below copied from NON VA MEDICAL RECORD Emergency Department Note Visit Type: Emergency Dept Date: Oct Place of Service: [facility] Service/Department: ED History source: Patient. Arrival mode: Ambulance. History limitation: None. Additional information: The patient is a 71-year -old male with a history of diabetes type 2, obstructive sleep apnea and sta tus post tracheostomy who was brought in by EMS for generalized weakness. Kateryna ent generalized weakness, malaise, fatigue sweating and chills for the las t week or so. He has not experienced headaches, focal weakness, recent fa lls/injury, chest pain, shortness of breath, abdominal pain or vomiting. He does mention one episode of diarrhea this morning. No other changes in kassie wel habits. No urinary symptoms. He has been maintaining his tracheosto my site does not notice any surrounding redness, drainage or discomfort from the trach site. Patient lives with his dog at home and states hi s brother checks in on him frequently. He cooks meals for himself has Meals on Wheels d elivered. Reports that he has been eating and drinking as normal amounts. Repo rts drinking socially last alcohol was 1 month ago. No tobacco or drug use. Medical Decision Making Differential Diagnosis: Anemia, dehydration, hyp oglycemia, viral syndrome, influenza, pneumonia, sepsis, urinary tract infe ction, electrolyte imbalance, heart block. Rationale: 71-year-old male presenting by EMS fo r generalized weakness/malaise/chills for last week. 1 episode of diarrhea today. No focal neurodeficits, chest pain or shortness of breath reported. Vital signs are notable for bradycardia. Patient is afebrile and normotensive. On exam significant findings include decreased breath so unds in left posterior lung faustin and bradycardia. No focal neurodeficits o n my exam. Differential diagnosis includes Acute coronary syndrome: Patient with history of diabetes. EKG shows sinus bradycardia. Will obtain troponin Infectious causes including pneumonia and UTI. P atient not meeting sepsis criteria at this time. Will obtain chest x-ray a nd urinalysis. Hypothyroidism. Will obtain TSH Electrolyte imbalance/dehydration. Patient lives alone and and cooks meals for himself. Reports he has been eating and drin deepa his normal amounts. We will obtain basic metabolic panel here. Anemia. Will obtain CBC. Electrocardiogram: Time 11/16/2021 17:30:00, rate 48, normal sinus rhythm, No ST-T changes, EP Interp. Chest X-Ray: No acute disease process, FINDINGS: LINES AND TUBES: Stable satisfactory positioning of tracheostomy cannula. LUNGS AND PLEURA: Low lung volumes with mild basilar atele ctasis. Lungs are otherwise clear with no consolidation. No pleural effusion. No pneumothorax. HEART, MEDIASTINUM AND GAMALIEL: Heart is normal in size. Normal upper mediastinal and hilar contour. 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 IMPRESSION: No acute abnormality. Well-positioned tracheostomy. 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 Reexamination/ Reevaluation Time: 11/16/2021 21:11:00 . Notes: Reassessed patient. Remains bradycardic i n 50s Patient complaining of diffuse body aches spite receiving Toradol earlier Will provide 2 mg IV morphine for analgesia Reviewed lab work: CBC electrolytes, TSH and tro ponin are unremarkable Chest x-ray shows no acute disease Awaiting urine collection Given that the patient lives alone and appears u nkempt here we will admit for failure to thrive. Upcoming Appointments: No data available SENT TO JOSEFINA /mainor/ BROOKE MCCARTHYN RN-BC REGISTERED NURSE Signed: 11/27/2021 08:12
--- OUTSIDE RECORDS SUMMARY | 2022-04-22 17:49 | XMS_ITS ---
:1950 Author Organization [facility] Address [address] [place] [address] Support Name Relationship Address Phone HAY GU Unavailable [address] [place] [address] HAY GU Unavailable [address] [place] [address] Insurance Providers: All historical and current Section [...] MEDICARE MEDICARE PART Mar 23, PART A [id number] HOFFMA N PATIENT (WNR) (M) A 2002A 4 MICHAEL MORRIS MEDICARE MEDICARE PART Mar 23, PART B [id number] HOFFMA N PATIENT (WNR) (M) B 2002A 4 MICHAEL MORRIS MEDICARE MEDICARE PART Mar 23, PART A [id number] [phone] HOFFMA N,E PATIENT (WNR) (M) A 2002 26A 00 [place] MEDICARE MEDICARE PART Mar 23, PART B [id number] [id number] HOFFMA N,E PATIENT (WNR) (M) B 2002A 00 [place] MEDICARE MEDICARE PART Mar 23, PART A [id number] HOFFMA N PATIENT (WNR) (M) A 2002A 1 MICAHERNANDEZ MEDICARE MEDICARE PART Mar 23, PART B [id number] HOFFMA N PATIENT (WNR) (M) B 2002A MICHAEL Selected Encounter This section includes the information on record at [place] for the Encounter. Date/Time Encounter Type Encounter Description Reason Provider Source Nov 27, 2021 01:40 Outpatient Encounter PRIMARY CARE/MEDICINE PM IHE Encounter Template Text not used by [place] Plan of Treatment: Future Appointments (+ 6 months) and Future Tests (+/- 45 days) The Plan of Treatment section includes future care activities for the patient from all [place] treatmentfacilities. This section includes future appointments and future orders which are active, pending orscheduled.Future Appointments This section includes appointments that were scheduled to occur 6 months from the date of the Encounter, up to a maximum of 20 appointments. The data comes from all [place] treatment facilities. Appointment Date/Time Appointment Type Appointment Facili ty Name Jan 19, 2022 01:30 PM [facility] [place] [facility] Feb 22, 2022 10:15 AM [facility] Social History: Smoking Status (Most current) and Tobacco Use (All prior to encounter date) This section includes the most current, and the historical, smoking and tobacco-related health factors from the [place] facility where the Encounter took place.Current Smoking Status This section includes the most current smoking, or tobacco-related health factor, from the [place] facility where the Encounter took place. Date/Time Current Smoking Status Comment Facility Jul 03, 2020 02:53 PM VA-TOBACCO [facility]ED [facility] Advance Directives: All historical and current Section Date Range: From patient's date of to the date document was created. This section includes ALL of a patient's completed or amended [place] Advance and Rescinded Directives. The entries below indicate that a directive exists for the patient, but an actual copy is not included with this document. The data comes from all [place] facilities. Date Advance Directives Provider Source Jan 06, 2022 ADVANCE DIRECTIVE CODEY WEBSTER Encounter Notes: All associated encounter notes This section contains the clinical notes associated to the Encounter. Date/Time Encounter Note(s) Provider Source Nov 27, 2021 01:49 PM LETTERS: TOLU PRAJAPATI [facility] TITLE: PATIENT LETTER (T) STANDARD TITLE: LETTERS DATE OF NOTE: NOV 27, 2021@13:49 ENTRY DATE: NOV 27, 2021@13:49:49 AUTHOR: TOLU PRAJAPATI COSIGNER: URGENCY: STATUS: COMPLETED [facility] Toll Free Number Primary Care Telephone Assistance can be reached at extension [phone] [facility] scheduling can be reac hed at extension [phone] [facility] scheduling can be emeka ched at ext [phone] November 27, 2021 MICHAEL SERAFIN GU [address] [facility] [place] [address] Dear [place], Our goal at the [facility] is to provide you with quality medical care. We have t ried to reach you, without success, to advise you that your prescri ption for hydrocosone is ready for you to cloth picker at the [place] [facility] window. For more information, please send a secure [employer] message to your Primary Care Team via [employer], OR phone us at (do not press 1 for the PHARMACY, and do not press 2, but instead sp eak with a b2b sales representative), and ask them to take a secure e [employer] message to your Primary Care Team, giving us a good number and a good time frame for us to call you. You may also reach us toll-free at [phone]. If you have any further questions, or wo uld like more information regarding [place] health care benefits, please call toll free at e LTG [employer] /[phone] or [phone]) or [phone]), visit the [place] website at www.[place]health[place], or contact your local [place] Medical Center. Thank you for your service to our nation. Sincerely, Your Primary Care Team [facility] [address] [facility] [address] [place] [address] [place], [place] [id number] [facility] [address] [place] [address] [address] [place] [address] [place] [address] [phone] [facility] [address] [facility] [place] [address] [place] [address] Nov 27, 2021 01:40 PM ADMINISTRATIVE NOTE: TOLU PRAJAPATI [facility] TITLE: ADMINISTRATIVE NOTE STANDARD TITLE: ADMINISTRATIVE NOTE DATE OF NOTE: NOV 27, 2021@13:40 ENTRY DATE: NOV 27, 2021@13:40:58 AUTHOR: TOLU PRAJAPATI EXP COSIGNER: URGENCY: STATUS: COMPLETED As directed per PCP IM, writ er called [place]'s number of record to advise that Hydrocodone is ready for pickup at [facility] window. No answer, no voice mail. [employer] I Assembler mailed letter. /mainor/ TOLU PRAJAPATI [facility] Signed: 11/27/2021 13:49
--- OUTSIDE RECORDS SUMMARY | 2022-04-22 17:49 | XMS_ITS ---
:1950 Author Organization [facility] Address [address] [place] [address] Support Name Relationship Address Phone HAY GU Unavailable [address] [place] [address] HYA GU Unavailable [address] [place] [address] Insurance Providers: All historical and current Section [...] MEDICARE MEDICARE PART Mar 23, PART A [id number] HOFFMA N PATIENT (WNR) (M) A 2002A 4 MICHAEL MORRIS MEDICARE MEDICARE PART Mar 23, PART B [id number] HOFFMA N PATIENT (WNR) (M) B 2002A 4 MICHAEL MORRIS MEDICARE MEDICARE PART Mar 23, PART A [id number] [id number] HOFFMA N,E PATIENT (WNR) (M) A 2002 26A 00 [place] MEDICARE MEDICARE PART Mar 23, PART B [id number] [phone] HOFFMA N,E PATIENT (WNR) (M) B 2002A 00 [place] MEDICARE MEDICARE PART Mar 23, PART A [id number] HOFFMA N PATIENT (WNR) (M) A 2002A 1 MICAHERNANDEZ MEDICARE MEDICARE PART Mar 23, PART B [id number] HOFFMA N PATIENT (WNR) (M) B 2002A 1 MICHAEL Selected Encounter This section includes the information on record at [place] for the Encounter. Date/Time Encounter Type Encounter Description Reason Provider Source Nov 16, 2021 12:00 Outpatient Encounter EVENT (HISTORICAL) AM IHE Encounter Template Text not used by [place] Plan of Treatment: Future Appointments (+ 6 months) and Future Tests (+/- 45 days) The Plan of Treatment section includes future care activities for the patient from all [place] treatmentfacilities. This section includes future appointments and future orders which are active, pending orscheduled.Future Appointments This section includes appointments that were scheduled to occur 6 months from the date of the Encounter, up to a maximum of 20 appointments. The data comes from all [place] treatment facilities. Appointment Date/Time Appointment Type Appointment Facili ty Name Nov 25, 2021 04:00 PM [facility] Jan 19, 2022 01:30 PM [facility] Feb 22, 2022 10:15 AM AMBULATORY MEDICINE [facility] Social History: Smoking Status (Most current) and Tobacco Use (All prior to encounter date) This section includes the most current, and the historical, smoking and tobacco-related health factors from the [place] facility where the Encounter took place.Current Smoking Status This section includes the most current smoking, or tobacco-related health factor, from the [place] facility where the Encounter took place. Date/Time Current Smoking Status Comment Facility Jul 03, 2020 02:53 PM VA-TOBACCO [facility] USED [facility] Advance Directives: All historical and current Section Date Range: From patient's date of to the date document was created. This section includes ALL of a patient's completed or amended [place] Advance and Rescinded Directives. The entries below indicate that a directive exists for the patient, but an actual copy is not included with this document. The data comes from all [place] facilities. Date Advance Directives Provider Source Jan 06, 2022 ADVANCE DIRECTIVE CODEY WEBSTER Encounter Notes: All associated encounter notes This section contains the clinical notes associated to the Encounter. Date/Time Encounter Note(s) Provider Source Nov 16, 2021 12:00 AM NONVA NOTE: [place] [facility] LOCAL TITLE: NON-VA [facility]OSPITALIZ[facility] STANDARD TITLE: NONVA NOTE DATE OF NOTE: NOV 16, 2021 ENTRY DATE: DEC 10 022@15:10:14 AUTHOR: IVY PUCKETT EXP COSIGNER: URGENCY: STATUS: COMPLETED VistA Imaging - Scanned Document SCANNED DOCUMENT SIGNATURE NOT REQUIRED Electronically Filed: 12/10/2021 by: IVY PUCKETT PHARMACOLOGIST
--- OUTSIDE RECORDS SUMMARY | 2022-04-22 17:49 | XMS_ITS | Encounter Summary ---
:1950 Author Organization [facility] Address [address] [place] [address] Support Name Relationship Address Phone HAY GU Unavailable [address] [place] [address] HAY GU Unavailable [address] [place] [address] Insurance Providers: All historical and current Section [...] MEDICARE MEDICARE PART Mar 23, PART A [id number] HOFFMA N PATIENT (WNR) (M) A 2002A 4 MICHAEL MORRIS MEDICARE MEDICARE PART Mar 23, PART B [id number] HOFFMA N PATIENT (WNR) (M) B 2002A 4 MICHAEL MORRIS MEDICARE MEDICARE PART Mar 23, PART A [id number] HOFFMA N,E PATIENT (WNR) (M) A 2002A [place] MEDICARE MEDICARE PART Mar 23, PART B [id number] [id number] HOFFMA N,E PATIENT (WNR) (M) B 2002A 00 [place] MEDICARE MEDICARE PART Mar 23, PART A [id number] HOFFMA N PATIENT (WNR) (M) A 2002A 1 MICHAEL MORRIS MEDICARE MEDICARE PART Mar 23, PART B [id number] HOFFMA N PATIENT (WNR) (M) B 2002A MICHAEL MORRIS Selected Encounter This section includes the information on record at CT for the Encounter. Date/Time Encounter Type Encounter Description Reason Provider Source Dec 03, 2021 08:30 Outpatient Encounter TELEPHONE PRIMARY AM CARE IHE Encounter Template Text not used by CT Plan of Treatment: Future Appointments (+ 6 months) and Future Tests (+/- 45 days) The Plan of Treatment section includes future care activities for the patient from all [facility]. This section includes future appointments and future orders which are active, pending orscheduled.Future Appointments This section includes appointments that were scheduled to occur 6 months from the date of the Encounter, up to a maximum of 20 appointments. The data comes from all CT treatment facilities. Appointment Date/Time Appointment Type Appointment Facili ty Name Jan 19, 2022 01:30 PM AMBULATORY MEDICINE [facility] Feb 22, 2022 10:15 AM AMBULATORY MEDICINE [facility] Social History: Smoking Status (Most [...] Comment Facility Jul 17, 2019 02:[address]-TOBACCO QUIT 15 YRS OR MORE E[facility] Tobacco Use History This section includes a history of the smoking, or tobacco- related health factors, that were collected on or before the date of the Encounter. The data comes from the CT facility where the Encounter took place. Date/Time Smoking Status/Tobacco Use Comment [facility] Jul 17, 2019 02:[address]-TOBACCO QUIT 15 YRS OR MORE ELROD Jun 23, 2018 02:38 PM VA-TOBACCO NEVER USED [facility] Sep 19, 2017 01:57 PM FORMER SMOKER - <100 LIFETIME CIGARETTES ELR[facility] Feb 04, 2017 01:33 PM LIFETIME NON-TOBACCO USER [facility] Jun 05, 2015 03:07 PM QUIT TOBACCO USE > 7 YEARS AGO E[facility] Jun 10, 2004 09:45 AM LIFETIME NON-SMOKER [facility] Jun 10, 2004 09:45 AM LIFETIME NON-TOBACCO USER [facility] Advance Directives: All historical and current Section Date Range: From patient's date of to the date document was created. This section includes ALL of a patient's completed or amended CT Advance and Rescinded Directives. The entries below [...] the Encounter. Date/Time Encounter Note(s) Provider Source Dec 03, 2021 08:04 AM ADMINISTRATIVE NOTE: AIDAN SCHRADER [facility] LOCAL TITLE: ADMINISTRATIVE NOTE STANDARD TITLE: ADMINISTRATIVE NOTE DATE OF NOTE: DEC 03, 2021@08:04 ENTRY DATE: DEC 03, 2021@08:04:26 AUTHOR: AIDAN SCHRADER EXP COSIGNER: URGENCY: STATUS: COMPLETED ADMINISTRATIVE NOTE Has ADDENDA 1st attempt 2nd attempt DEC 03, 2021 08:05 - Unable to reach [place] DEC 03, 2021 08:05 - Unable to leave message, Voice Mail NOT set up /mainor/ AIDAN SCHRADER LPN Licensed Practical Nurse Signed: 12/03/2021 08:07 12/03/2021 ADDENDUM STATUS: COMPLETED [place] is at [address] [place] [address] for CCN/OP [facility] ST[facility]. NAME: PRASHANTWILLIAMSCAROL MELCHOR [address]: [address] [place] [address], ZIP: [place] [address] PHONE: [phone] /mainor/ PAKO LAW EDUCATIONAL TECHNOLOGY SPECIALISTCLOTH EXAMINER MACHINE COMMUNITY CARE Signed: 12/03/2021 14:57 Receipt Acknowledged By: 12/03/2021 16:18 /naga SCHRADER LPN Licensed Practical Nurse 12/07/2021 13:32 /mainor/ TOLU PARIKH, [facility] 12/03/2021 ADDENDUM STATUS: COMPLETED Called PRASHANTZHANNAKAREN MELCHOR speak with the Nurse Meanor he unable to transfer the call to his room stated [place] is sleeping. /naga SCHRADER LPN Licensed Practical Nurse Signed: 12/03/2021 16:15 12/07/2021 ADDENDUM STATUS: COMPLETED TEL appt for PCP ED DC FU rescheduled to 022 @ 0830 - [facility] for [facility] Reminders and PCP appt. /mainor/ KAVITHA CHAPPELL OC, [facility] Signed: 12/07/2021 13:36
--- OUTSIDE RECORDS SUMMARY | 2022-04-22 17:50 | XMS_ITS | Encounter Summary ---
:1950 Author Organization [facility] Address [address] [place] [address] Support Name Relationship Address Phone HAY GU Unavailable [address] [place] [address] HAY GU Unavailable [address] [place] [address] Insurance Providers: All historical and current Section [...] MEDICARE MEDICARE PART Mar 23, PART A [id number] HOFFMA N PATIENT (WNR) (M) A 2002A 1 MICHAEL MORRIS MEDICARE MEDICARE PART Mar 23, PART B [id number] HOFFMA N PATIENT (WNR) (M) B 2002A 1 MICHAEL MORRIS MEDICARE MEDICARE PART Mar 23, PART A [id number] HOFFMA N PATIENT (WNR) (M) A 2002A 4 MICHAEL MORRIS MEDICARE MEDICARE PART Mar 23, PART B [id number] HOFFMA N PATIENT (WNR) (M) B 2002A 4 MICHAEL MORRIS MEDICARE MEDICARE PART Mar 23, PART A [id number] HOFFMA N,E PATIENT (WNR) (M) A 2002A 00 [place] MEDICARE MEDICARE PART Mar 23, PART B [id number] [id number] HOFFMA N,E PATIENT (WNR) (M) B 2002 SHALA Selected Encounter This section includes the information on record at [place] for the Encounter. Date/Time Encounter Type Encounter Description Reason Provider Source Dec 15, 2021 10:28 Outpatient Encounter TELEPHONE/GERIATRICS AM IHE Encounter Template Text not used by [place] Plan of Treatment: Future Appointments (+ 6 months) and Future Tests (+/- 45 days) The Plan of Treatment section includes future care activities for the patient from all [place] treatmentfacilities. This section includes future appointments and future orders which are active, pending orscheduled.Future Appointments This section includes appointments that were scheduled to occur 6 months from the date of the Encounter, up to a maximum of 20 appointments. The data comes from all [place] treatment facilities. Appointment Date/Time Appointment Type Appointment Facili ty Name Jan 19, 2022 01:30 PM [facility] Feb 22, 2022 10:15 AM AMBULATORY MEDICINE [facility] Social History: Smoking Status (Most current) and Tobacco Use (All prior to encounter date) This section includes the most current, and the historical, smoking and tobacco-related health factors from the [place] facility where the Encounter took place.Current Smoking Status This section includes the most current smoking, or tobacco-related health factor, from the [place] facility where the Encounter took place. Date/Time Current Smoking Status Comment Facility Jul 03, 2020 02:53 PM [facility]CO [facility] Advance Directives: All historical and current Section Date Range: From patient's date of to the date document was created. This section includes ALL of a patient's completed or amended [place] Advance and Rescinded Directives. The entries below indicate that a directive exists for the patient, but an actual copy is not included with this document. The data comes from all [place] facilities. Date Advance Directives Provider Source Jan 06, 2022 ADVANCE DIRECTIVE CODEY WEBSTER Encounter Notes: All associated encounter notes This section contains the clinical notes associated to the Encounter. Date/Time Encounter Note(s) Provider Source Dec 15, 2021 10:28 AM GERIATRIC MEDICINE NURSING NOTE: KARINE MALONEY [facility] LOCAL TITLE: COMMUNITY HALFWAY SOCIAL WORK ER [facility] STANDARD TITLE: GERIATRIC MEDICINE NURSING NOTE DATE OF NOTE: DEC 15, 2021@10:28 ENTRY DATE: DEC 15, 2021@10:28:24 AUTHOR: ONESIMO MALONEY EXP COSIGNER: URGENCY: STATUS: COMPLETED COMMUNITY SANDBLAST OPERATOR Has PAULINO LAGUNA This hand sign writer has received several calls from kelly garza at [facility] regarding this 71-year-old 100% Service Connecte d , who is currently recieving short-term rehab services under his [place] [facility](CCN) benefit. On 12/09/21 this hand sign writer also took part i n a care planning meeting at [facility] by phone with the brother and sister of the in addition to the Photographer Still Camilo Kwong and D dioctor of Nursing Kathy. During this meeting it was disussed that the vet amrit would likely need to remain at the facility for long-term care and th at he may not be able to return to the home due to the poor condition, is sues with hoarding, self- neglect, etc. Informed staff at at [facility] that the was administratively eligible for long-term are and could remain at the [place] contract intermediate if need be. Will request t hat the 's PACT team consider placing a Community Care [facility] Long-term Care CNH consult on is behalf in case he needs to covert over to his VA benefi t at [facility] for LTC. /mainor/ CHRISTINE ANTHONY,[facility] STAFF SPACER TYPE BAR AND SEGMENT Signed: 12/15/2021 10:54 Receipt Acknowledged By: * AWAITING SIGNATURE * DEANA HOFFMANN * AWAITING SIGNATURE * DELMI BULLOCK 12/15/2021 11:02 /mainor/ MEGAN MCCARTHY RN-BC REGISTERED NURSE * AWAITING SIGNATURE * RUTHIE DRUMMOND 12/15/2021 ADDENDUM STATUS: COMPLETED Placed community care [facility] rn long term care CNH consult as requested and held for provider review. /maionr/ MEGAN MCCARTHY RN-BC REGISTERED NURSE Signed: 12/15/2021 11:08
--- OUTSIDE RECORDS SUMMARY | 2022-04-22 17:50 | XMS_ITS | Encounter Summary ---
:1950 Author Organization [facility] Address [address] [place] [address] Support Name Relationship Address Phone HAY GU Unavailable [address] [place] [address] HAY GU Unavailable [address] [place] [address] Insurance Providers: All historical and current Section [...] MEDICARE MEDICARE PART Mar 23, PART A [id number] HOFFMA N PATIENT (WNR) (M) A 2002A 4 MICHAEL MORRIS MEDICARE MEDICARE PART Mar 23, PART B [id number] HOFFMA N PATIENT (WNR) (M) B 2002A 4 MICHAEL MORRIS MEDICARE MEDICARE PART Mar 23, PART A [id number] HOFFMA N,E PATIENT (WNR) (M) A 2002A 00 [place] MEDICARE MEDICARE PART Mar 23, PART B [id number] [id number] HOFFMA N,E PATIENT (WNR) (M) B 2002A [place] MEDICARE MEDICARE PART Mar 23, PART A [id number] HOFFMA N PATIENT (WNR) (M) A 2002A MICA MORRISHERNANDEZ MEDICARE MEDICARE PART Mar 23, PART B [id number] HOFFMA N PATIENT (WNR) (M) B 2002A MICHAEL Selected Encounter This section includes the information on record at [place] for the Encounter. Date/Time Encounter Type Encounter Description Reason Provider Source Dec 15, 2021 01:32 Outpatient Encounter TELEPHONE TRIAGE PM IHE Encounter Template Text not used by [place] Plan of Treatment: Future Appointments (+ 6 months) and Future Tests (+/- 45 days) The Plan of Treatment section includes future care activities for the patient from all [place] treatmentfacilities. This section includes future appointments and future orders which are active, pending orscheduled.Future Appointments This section includes appointments that were scheduled to occur 6 months from the date of the Encounter, up to a maximum of 20 appointments. The data comes from all [place] treatment facilities. Appointment Date/Time Appointment Type Appointment Facili ty Name Jan 19, 2022 01:30 PM [facility] Feb 22, 2022 10:15 AM AMBULATORY MEDICINE [facility] Social History: Smoking Status (Most current) [...] 03, 2020 02:53 PM [facility] Advance Directives: All historical [...] Encounter Note(s) Provider Source Dec 15, 2021 01:32 PM ADMINISTRATIVE NOTE: NEISHA KATZ [place] C [facility]STRN LOCAL TITLE: CCC: SCHEDULING ADMINISTRATION [facility] STANDARD TITLE: ADMINISTRATIVE NOTE DATE OF NOTE: DEC 15, 2021@13:32:01 ENTRY DATE: DEC 15, 2021@13:34:10 AUTHOR: NEISHA KATZ EXP COSIGNER: URGENCY: STATUS: COMPLETED CCC: SCHEDULING ADMINISTRATION Has ADDENDA Type of call: CLINICAL INFORMATION/EDUCATION. PCMM Provider Info: [facility] ([id number]) PACT: SO PACT 8 *WH* (Focus: Womens Health) Designated Pcp: DELMI BULLOCK Telecommunication Systems Designer: CODEY WEBSTER Clinical Associate: AIDAN SCHRADER PHON [id number] Appraisal Manager: TOLU PRAJAPATI PACT Clinical Pharmacist: EHSAN GARCIA Clinical POC: Clinical Associate AIDAN CONNOR PHONE:[phone] Administrative POC: Appraisal Manager TOLU PRAJAPATI SIBLING called in for GUMICHAEL ([phone]) . The following identifiers were used to verify th is patient: DOB. LEY. Contact Caller Response: ADM CALL RESOLVED Caller Area: [facility] Comments: Verified caller, Iman, , reports ve t was admitted to [facility] on 11/20/21 and will n ot be going home. Iman would like to cancel all of vets future appts, please assist. Imported Information: Appointments S: 12/21/2021 8:30:00 AM CWM/SO/PACT EIGHT WH TE LE Author: NEISHA KATZ Evaluation/Management Code: HC PRO PHONE CALL 5- 10 MIN ([phone]). Starting at: 12/15/2021 @ 1:32:01 PM Ending at: 12/15/2021 @ 1:33:14 PM Length: 1 minutes. Chief Complaint: Not applicable to call. Class Code: Other specified counseling. /naga KATZ ADVANCED EKG MANAGER Signed: 12/15/2021 13:34 Receipt Acknowledged By: 12/15/2021 13:40 /naga SCHRADER LPN Licensed Practical Nurse * AWAITING SIGNATURE * TOLU PRAJAPATI 12/16/2021 ADDENDUM STATUS: COMPLETED All appts cancelled. Please remove from panel. /mainor/ SIMEON MORRELL EKG MONITOR TECH EKG MANAGER Signed: 12/16/2021 08:03 Receipt Acknowledged By: * AWAITING SIGNATURE * RENETTA JACOBSEN 12/18/2021 ADDENDUM STATUS: COMPLETED At this time, a must remain on a panel veto deleon in the Community Custodial program. Please keep on panel. Than k you. /mainor/ Donnie Valenzuela [facility] CHCFPIT SHOVELER Signed: 12/18/2021 11:11 Receipt Acknowledged By: * AWAITING SIGNATURE * SIMEON MORRELL * AWAITING SIGNATURE * CODEY WEBSTER
--- OUTSIDE RECORDS SUMMARY | 2022-04-22 17:51 | XMS_ITS | Encounter Summary ---
:1950 Author Organization [facility] Address [address] [place] [address] Support Name Relationship Address Phone HAY GU Unavailable [address] [place] [address] HAY GU Unavailable [address] [place] [address] Insurance Providers: All historical and current Section [...] MEDICARE MEDICARE PART Mar 23, PART A [id number] HOFFMA N PATIENT (WNR) (M) A 2002A 1 MICHAEL MORRIS MEDICARE MEDICARE PART Mar 23, PART B [id number] HOFFMA N PATIENT (WNR) (M) B 2002A 1 MICHAEL MORRIS MEDICARE MEDICARE PART Mar 23, PART A [id number] HOFFMA N PATIENT (WNR) (M) A 2002A 4 MICHAEL MORRIS MEDICARE MEDICARE PART Mar 23, PART B [id number] HOFFMA N PATIENT (WNR) (M) B 2002A 4 MICHAEL MORRIS MEDICARE MEDICARE PART Mar 23, PART A [id number] HOFFMA N,E PATIENT (WNR) (M) A 2002 00 [place] MEDICARE MEDICARE PART Mar 23, PART B [id number] [id number] HOFFMA N,E PATIENT (WNR) (M) B 2002 [place] Selected Encounter This section includes the information on record at [place] for the Encounter. Date/Time Encounter Type Encounter Description Reason Provider Source Dec 23, 2021 02:18 Outpatient Encounter ADMIN PAT ACTIVTIES PM ([place]) IHE Encounter Template Text not used by [place] Plan of Treatment: Future Appointments (+ 6 months) and Future Tests (+/- 45 days) The Plan of Treatment section includes future care activities for the patient from all [place] treatmentfacilities. This section includes future appointments and future orders which are active, pending orscheduled.Future Appointments This section includes appointments that were scheduled to occur 6 months from the date of the Encounter, up to a maximum of 20 appointments. The data comes from all [place] treatment facilities. Appointment Date/Time Appointment Type Appointment Facili ty Name Jan 19, 2022 01:30 PM AMBULATORY - MEDICINE [facility] Feb 22, 2022 10:15 AM AMBULATORY MEDICINE [facility] Social History: Smoking Status (Most current) [...] 03, 2020 02:53 PM VA-TOBACCO NEVER USED [facility] Advance Directives: All historical and current Section [...] Encounter. Date/Time Encounter Note(s) Provider Source Dec 23, 2021 02:18 PM ADMINISTRATIVE NOTE: SOPHIE VILLEDA [facility] TRL WSTRN LOCAL TITLE: CCC: SCHEDULING ADMINISTRATION [facility] STANDARD TITLE: ADMINISTRATIVE NOTE DATE OF NOTE: DEC 23, 2021@14:18:12 ENTRY DATE: DEC 23, 2021@14:26:22 AUTHOR: SOPHIE VILLEDA EXP COSIGNER: URGENCY: STATUS: COMPLETED CCC: SCHEDULING ADMINISTRATION Has ADDENDA Type of call: SCHEDULING. PCMM Provider Info: [facility] ([id number]) PACT: SO PACT 8 (Focus: Womens Health) Designated Pcp: DELMI BULLOCK Sports Book Writer: CODEY WEBSTER Clinical Associate: AIDAN SCHRADER PHON [phone] Senior Dot Net Developer: TOLU PRAJAPATI PACT Clinical Pharmacist: EHSAN GARCIA Clinical POC: Clinical Associate AIDAN CONNOR PHONE:[phone] Administrative POC: Senior Dot Net Developer TOLU PRAJAPATI OTHER called in for BRITTANIEMICHAEL BETANCOURT ([phone]) . The following identifiers were used to verify th is patient: DOB. ORELLANAN. Contact Caller Response: ADM CALL RESOLVED Caller Area: [facility] Comments: payton, [facility] at [facility], Payton called to schedule an appt for the patien t to have his trach changed. She is unsure who takes care of his changes and she states the patient could not remember as well. Please assist. Author: SOPHIE VILLEDA Evaluation/Management Code: HC PRO PHONE CALL 5- 10 MIN ([phone]). Starting at: 12/23/2021 @ 2:18:12 PM Ending at: 12/23/2021 @ 2:25:47 PM Length: 7 minutes. Chief Complaint: Not applicable to call. Class Code: Other specified counseling. /naga VILLEDA Signed: 12/23/2021 14:26 Receipt Acknowledged By: 12/25/2021 16:00 /MEGAN Miles RN-BC REGISTERED NURSE 12/24/2021 15:06 /mainor/ AIDAN SCHRADER LPN Licensed Practical Nurse 12/24/2021 ADDENDUM STATUS: COMPLETED Attempted to call facility and no answer or voic email occurred. /MEGAN Miles RN-BC REGISTERED NURSE Signed: 12/24/2021 16:22 12/25/2021 ADDENDUM STATUS: COMPLETED Called [facility] at [phone] and was transferred to charge nurse on 's unit but no answer. /mainor/ MEGAN MCCARTHY RN-BC REGISTERED NURSE Signed: 12/25/2021 08:52 12/25/2021 ADDENDUM STATUS: [facility]TED [facility] spoke with charge nurse who reports that [facility] current trach is broken at end and needs replace ment. [facility] will not let facility staff perform trach care and insists on doing it himself. Charge nurse would like to have consult placed for ev aluation of current trach. Author will place comm care ENT consult to previous provider and hold for provider signature. Note made on consult to contact [facility] residential facility for scheduling efforts. /mainor/ MEGAN MCCARTHY RN-BC REGISTERED NURSE Signed: 12/25/2021 16:00
--- OUTSIDE RECORDS SUMMARY | 2022-04-22 17:51 | XMS_ITS | Encounter Summary ---
:1950 Author Organization [facility] Address [address] [place] [address] Support Name Relationship Address Phone HAY GU Unavailable [address] [place] [address] HAY GU Unavailable [address] [place] [address] Insurance Providers: All historical and current Section [...] MEDICARE MEDICARE PART Mar 23, PART A [id number] HOFFMA N PATIENT (WNR) (M) A 2002A 4 MICHAEL MORRIS MEDICARE MEDICARE PART Mar 23, PART B [id number] HOFFMA N PATIENT (WNR) (M) B 2002A 4 MICHAEL MORRIS MEDICARE MEDICARE PART Mar 23, PART A [id number] HOFFMA N,E PATIENT (WNR) (M) A 2002 26A 00 DWARD MEDICARE MEDICARE PART Mar 23, PART B [id number] HOFFMA N,E PATIENT (WNR) (M) B 2002A [place] MEDICARE MEDICARE PART Mar 23, PART A [id number] HOFFMA N PATIENT (WNR) (M) A 2002A 1 MICHAEL MORRIS MEDICARE MEDICARE PART Mar 23, PART B [id number] HOFFMA N PATIENT (WNR) (M) B 2002A MICHAEL Selected Encounter This section includes the information on record at ME for the Encounter. Date/Time Encounter Type Encounter Description Reason Provider Source Dec 24, 2021 11:12 Outpatient Encounter TELEPHONE/GERIATRICS AM IHE Encounter Template Text not used by ME Plan of Treatment: Future Appointments (+ 6 months) and Future Tests (+/- 45 days) The Plan of Treatment section includes future care activities for the patient from all [place] treatmentfacilities. This section includes future appointments and future orders which are active, pending orscheduled.Future Appointments This section includes appointments that were scheduled to occur 6 months from the date of the Encounter, up to a maximum of 20 appointments. The data comes from all ME treatment facilities. Appointment Date/Time Appointment Type Appointment Facili ty Name Jan 19, 2022 01:30 PM [facility] Feb 22, 2022 10:15 AM AMBULATORY MEDICINE [facility] Social History: Smoking Status (Most current) [...] Comment Facility Jul 03, 2020 02:53 PM ME-TOBACCO NEVER USED [facility] Advance Directives: All historical and current Section [...] Encounter. Date/Time Encounter Note(s) Provider Source Dec 24, 2021 11:12 AM GERIATRIC MEDICINE NURSING NOTE: Yudi VALENZUELA [facility] LOCAL TITLE: COMMUNITY FDC SOCIAL WORK ER [facility] STANDARD TITLE: GERIATRIC MEDICINE NURSING NOTE DATE OF NOTE: DEC 24, 2021@11:12 ENTRY DATE: DEC 24, 2021@11:12:53 AUTHOR: DONNIE VALENZUELA EXP COSIGNER: URGENCY: STATUS: COMPLETED COMMUNITY PRE PAROLE COUNSELING AIDE Has PAULINO LAGUNA [facility] KAMINI spoke with Leland, admin at [facility] and to Ngoc in the business office regarding the status of this vete ran. Leland was under the impression that he was still there for rehab ([facility]) and would be switching over to LTC once a Health Care Proxy was signed. Leland has be en working with family and the team at has approached the to have him sign t he proxy. So far, allie has declined. Leland said that the is able to m yfn his own decisions. The complication is that his home is not safe. There was a reported problem with hoarding, cleanliness, and there may be a questi on of the apartment being condemned although that has not been confirmed. The intends to return to his home and it is also uncl ear if he is aware that someone took his pets to the [facility] and there may be iss ues with his apartment. Family was going to tell him soon. Internet Site Designer suggested that if the decid es to leave the facility and they do not think that his home was safe to retu rn to, they should report the situation to [facility]. Leland agreed that might be the best way to go. Leland asked questions abou t extending the authorization and asked that I speak to his medicaid business analyst. licensed psychologist manager said that the w as changed over to respite on 12/11/29, with his last covered day with [facility] on . The medicaid business analyst says that the ME coordinator Aly, who i s out on leave, had approved a 30 respite stay. This senior grant writer had not been informed of a respite stay a nd there is a long term care phlebotomist care consult in for continued care. Pampa remains at [facility]. Business office and Admin are ageeable to wait for the coordinator to return to the office to provide the correct authorization. /mainor/ Donnie Valenzuela [facility] COMMUNITY FDCCALL OUT CLERK Signed: 12/24/2021 11:28 Receipt Acknowledged By: * AWAITING SIGNATURE * PHAN ARCOS * AWAITING SIGNATURE * ONESIMO MALONEY 12/24/2021 ADDENDUM STATUS: COMPLETED engineering design manager is Phoebe. /mainor/ Donnie Valenzuela [facility] FDCCALL OUT CLERK Signed: 12/24/2021 11:57
--- OUTSIDE RECORDS SUMMARY | 2022-04-22 17:51 | XMS_ITS | Encounter Summary ---
:1950 Author Organization [facility] Address [address] [place] [address] Support Name Relationship Address Phone HAY GU Unavailable [address] [place] [address] HAY GU Unavailable [address] [place] [address] Insurance Providers: All historical and current Section [...] MEDICARE MEDICARE PART Mar 23, PART A [id number] HOFFMA N PATIENT (WNR) (M) A 2002A 4 MICHAEL MORRIS MEDICARE MEDICARE PART Mar 23, PART B [id number] HOFFMA N PATIENT (WNR) (M) B 2002A 4 MICHAEL MORRIS MEDICARE MEDICARE PART Mar 23, PART A [id number] HOFFMA N PATIENT (WNR) (M) A 2002A 1 MICHAEL MORRIS MEDICARE MEDICARE PART Mar 23, PART B [id number] HOFFMA N PATIENT (WNR) (M) B 2002A 1 MICHAEL MORRIS MEDICARE MEDICARE PART Mar 23, PART A [id number] [phone] HOFFMA N,E PATIENT (WNR) (M) A 2002A 00 [place] MEDICARE MEDICARE PART Mar 23, PART B [id number] [id number] HOFFMA N,E PATIENT (WNR) (M) B 2002 SHALA Selected Encounter This section includes the information on record at [place] for the Encounter. Date/Time Encounter Type Encounter Description Reason Provider Source Dec 28, 2021 06:16 Outpatient Encounter PRIMARY CARE/MEDICINE AM IHE Encounter Template Text not used by [place] Plan of Treatment: Future Appointments (+ 6 months) and Future Tests (+/- 45 days) The Plan of Treatment section includes future care activities for the patient from all [place] treatmentfacilities. This section includes future appointments and future orders which are active, pending orscheduled.Future Appointments This section includes appointments that were scheduled to occur 6 months from the date of the Encounter, up to a maximum of 20 appointments. The data comes from all [place] treatment facilities. Appointment Date/Time Appointment Type Appointment Facili ty Name Jan 19, 2022 01:30 PM AMBULATORY [facility] [place] [facility] Feb 22, 2022 10:15 AM [facility] Social History: Smoking Status (Most [...] 03, 2020 02:53 PM VA-TOBACCO NEVER USED [facility] Advance Directives: All historical and current [...] Encounter. Date/Time Encounter Note(s) Provider Source Dec 26, 2021 12:01 AM ADMINISTRATIVE NOTE: ANASTASIA SALVADOR [facility] LOCAL TITLE: FAX/MAIL RECEIVED STANDARD TITLE: ADMINISTRATIVE NOTE DATE OF NOTE: DEC 26, 2021@00:01 ENTRY DATE: DEC 28, 2021@06:16:51 AUTHOR: ANASTASIA SALVADOR EXP COSIGNER: URGENCY: STATUS: COMPLETED Document Received On: Dec Document Type: Other: Health Care proxy Date of Service: Facility and or Provider: Edwina Blood Contact Information: PCP of Record: DELMI BULLOCK Next visit with PCP: No future appointments Primary Care May keep copies of this document fo r up to 14 days and send the original for scanning. /mainor/ ANASTASIA SALVADOR LICENSED THERAPIST REHANA/ARTHUR Signed: 12/28/2021 06:41
--- OUTSIDE RECORDS SUMMARY | 2022-04-22 17:52 | XMS_ITS ---
:1950 Author Organization [facility] Address [address] [place] [address] Support Name Relationship Address Phone HAY GU Unavailable [address] [place] [address] HAY GU Unavailable [address] [place] [address] Insurance Providers: All historical and current Section [...] MEDICARE MEDICARE PART Mar 23, PART A [id number] HOFFMA N PATIENT (WNR) (M) A 2002A 4 MICHAEL MORRIS MEDICARE MEDICARE PART Mar 23, PART B [id number] HOFFMA N PATIENT (WNR) (M) B 2002A 4 MICHAEL MORRIS MEDICARE MEDICARE PART Mar 23, PART A [id number] HOFFMA N PATIENT (WNR) (M) A 2002A 1 MICHAEL MORRIS MEDICARE MEDICARE PART Mar 23, PART B [id number] HOFFMA N PATIENT (WNR) (M) B 2002A 1 MICHAEL MORRIS MEDICARE MEDICARE PART Mar 23, PART A [id number] HOFFMA N,E PATIENT (WNR) (M) A 2002A 00 DWARD MEDICARE MEDICARE PART Mar 23, PART B [id number] HOFFMA N,E PATIENT (WNR) (M) B 2002 SHALA Selected Encounter This section includes the information on record at [place] for the Encounter. Date/Time Encounter Type Encounter Description Reason Provider Source Jan 06, 2022 02:28 Outpatient Encounter PRIMARY CARE/MEDICINE PM IHE Encounter Template Text not used by [place] Plan of Treatment: Future Appointments (+ 6 months) and Future Tests (+/- 45 days) The Plan of Treatment section includes future care activities for the patient from all [place] treatmentfacilities. This section includes future appointments and future orders which are active, pending orscheduled.Future Appointments This section includes appointments that were scheduled to occur 6 months from the date of the Encounter, up to a maximum of 20 appointments. The data comes from all [place] treatment facilities. Appointment Date/Time Appointment Type Appointment Facili ty Name Jan 19, 2022 01:30 PM [facility]ULATORY - [facility] [place] [facility] Feb 22, 2022 10:15 AM [facility] Social History: [...] 2020 02:53 PM VA-TOBACCO [facility] Advance Directives: All historical and current Section Date Range: From patient's date of to the date document was created. This section includes ALL of a patient's completed or amended [place] Advance and Rescinded Directives. The entries below indicate that a directive exists for the patient, but an actual copy is not included with this document. The data comes from all [place] facilities. Date Advance Directives Provider Source Jan 06, 2022 ADVANCE DIRECTIVE CODEY WEBSTER Encounter Notes: All associated encounter notes This section contains the clinical notes associated to the Encounter. Date/Time Encounter Note(s) Provider Source Jan 06, 2022 02:28 PM ADVANCE DIRECTIVE: CODEY WEBSTER [facility] LOCAL TITLE: ADVANCE DIRECTIVE STANDARD TITLE: ADVANCE DIRECTIVE DATE OF NOTE: JAN 06, 2022@14:28 ENTRY DATE: JAN 06, 2022@14:28:17 AUTHOR: CODEY WEBSTER EXP COSIGNER: URGENCY: STATUS: COMPLETED * [ ]Advance Directive executed with . [X]Patient brought in his/her own Advance Direct francheska. Received copy of [facility] Proxy form dated 04/30/2021 from [facility]. Scanned Advance Directive or Advance Directive/A OD Flowsheet is located in Cubie. /es/ BROOKE MCCARTHYN RN-BC REGISTERED NURSE Signed: 01/06/2022 14:29
--- OUTSIDE RECORDS SUMMARY | 2022-04-22 17:52 | XMS_ITS | Encounter Summary ---
:1950 Author Organization [facility] Address [address] [place] [address] Support Name Relationship Address Phone HAY GU Unavailable [address] [place] [address] HAY GU Unavailable [address] [place] [address] Insurance Providers: All historical and current Section [...] MEDICARE MEDICARE PART Mar 23, PART A [id number] HOFFMA N PATIENT (WNR) (M) A 2002A 4 MICHAEL MORRIS MEDICARE MEDICARE PART Mar 23, PART B [id number] HOFFMA N PATIENT (WNR) (M) B 2002A 4 MICHAEL MORRIS MEDICARE MEDICARE PART Mar 23, PART A [id number] HOFFMA N,E PATIENT (WNR) (M) A 2002 26A 00 DWARD MEDICARE MEDICARE PART Mar 23, PART B [id number] HOFFMA N,E PATIENT (WNR) (M) B 2002A 00 DW[place] MEDICARE MEDICARE PART Mar 23, PART A [id number] HOFFMA N PATIENT (WNR) (M) A 2002A 1 MICHAEL MORRIS MEDICARE MEDICARE PART Mar 23, PART B [id number] HOFFMA N PATIENT (WNR) (M) B 2002A MICHAEL Selected Encounter This section includes the information on record at [place] for the Encounter. Date/Time Encounter Type Encounter Description Reason Provider Source Dec 28, 2021 01:43 Outpatient Encounter TELEPHONE/GERIATRICS PM IHE Encounter Template [...] 19, 2022 01:30 PM [facility] Feb 22, 2022 10:15 AM AMBULATORY MEDICINE [facility] Social History: Smoking Status (Most [...] 03, 2020 02:53 PM VA-TOBACCO [facility] Advance Directives: All historical and current [...] Encounter. Date/Time Encounter Note(s) Provider Source Dec 28, 2021 01:43 PM COMMUNITY SENIOR CARE CARE NOTE: Queta [facility]ONEY [facility] LOCAL TITLE: COMMUNITY SENIOR CARE RESTAURANT CREW PERSON C ARE AUTHORIZATION [facility] STANDARD TITLE: COMMUNITY SENIOR CARE CARE NOTE DATE OF NOTE: DEC 28, 2021@13:43 ENTRY DATE: DEC 28, 2021@13:44:11 AUTHOR: ONESIMO MALONEY EXP COSIGNER: URGENCY: STATUS: COMPLETED COMMUNITY SENIOR CARE RESTAURANT CREW PERSON CARE AUTHO RIZATION Has ADDENDA [facility] SENIOR CARE PLACEMENT LONG-TERM CARE AUTHORIZATION FACILITY NAME: [facility] ADDRESS: [address] [place] [address] PHONE NUMBER: [phone] : MICHAEL GU [phone] PACT TEAM/PRIMARY CARE PROVIDER: Dr. Esa Hammond, [facility], [phone] ELIGIBILITY: SERVICE CONNECTION: SERVICE CONNECTED % - 100 RATED DISABILITIES: DIABETES MELLITUS 20% SC POST-TRAUMATIC STRESS DISORDER 100% SC OTHER ELIGIBILITIES: This 71-year-old 100% Servi ce Connected is eligible clinically and administratively for aiden g-term care at a [facility] fci. The had been receiving jesus rt-term care services at [facility] under the [facility] twork benefit until it was determined that he would continue to require cus todial care services in a alf facility. The is also not able to return home home due to the poor condition, issues with hoarding, martina f-neglect, etc. PMH includes Depressive disorder, SONNY, PTSD, DM II, H x of Alcohol abuse, Chronic sinusitis, GERD, HLD, Hx of Sleep Apnea, HTN, and Tremor am lizz other conditions. DAILY RATE APPROVED: Rate consistent with Reduce d Physical Functioning level of care per [place] contract START DATE: Nov END DATE: Nov APPROVAL DATE: Dec APPROVED BY: CHRISTINE Douglas, [facility] DIAGNOSIS: Active problems - Computerized Problem List is the source for the followin. Tremor 2. Rupture of globe 3. Alcohol abuse 4. Chronic post-traumatic stress disorder 5. Chronic pain 6. Bladder Carcinoma 7. Generalized anxiety disorder (SNOMED CT 8367 9799) 8. Gross Hematuria 9. History of male erectile disorder (SNOMED CT 197281353) 10. Anemia 11. Diverticulosis, Colonic 12. Deep venous thrombosis of lower extremity 13. Hepatitis * 14. Hyperlipidemia * 15. GERD * 16. Sleep Apnea 17. Chronic sinusitis (SNOMED CT 48701527) 18. Depressive disorder (SNOMED CT 51095985) 19. Essential hypertension 20. Chronic low back pain (SNOMED CT 663185740) 21. Diabetes Mellitus Type II or unspecified INSTRUCTIONS: Please refer to the negotiated con tract for items covered. Rehabilitation without prior approval and specia l equipment are considered non-routine services. Non-routine services must be approved by [place], [place] in advance. Drug costs which comprise more than 8.5% of the mold stamper and repairer rate is generally not consi dered routine service. You may bill us for the cost of medications above the 8.5% allow ance. Should non-emergent hospitalization be required, you are dir ected to contact our Admissions office at [phone] to determine the most appropriate course of action. If additional medical/diagnostic services are neede d, please consult with the designated [place] Community FdcRestaurant And Bar Manager . In cases of Hospice/Palliative Care needs, please contact [facility] Hospice Rectifier Operator at [phone]. Should the patient require additional medical/diagnostic services and/or ac togiak hospitalization, you are directed to consult with family prior to impleme ntation of additional medical plans. BED HOLDS: Bed Holds must be authorized in advance and are always funded at the lowest mold stamper and repairer rate stated in contract. Facility needs to contact [facility] CN Coordinator or designee in advance to extend bed hold days. QUESTIONS ABOUT PAYMENT: Contact Phan donnelly in Office for Community Care at [phone] /mainor/ CHRISTINE ANTHONY,[facility] STAFF OPERATIONS INTERN Signed: 12/28/2021 14:07 Receipt Acknowledged By: * AWAITING SIGNATURE * SIENNA GALVEZ 12/28/2021 14:17 /mainor/ PHAN ARCOS ADVANCED PATIENT SERVICES REPRESENTATIVE * AWAITING SIGNATURE * DELMI HAMMOND 12/28/2021 ADDENDUM STATUS: COMPLETED Admitting diagnosis is Adult Failure to Thrive(I CD-10-CM R62.7) /mainor/ CHRISTINE ANTHONY,[facility] STAFF OPERATIONS INTERN Signed: 12/28/2021 14:14 Receipt Acknowledged By: * AWAITING SIGNATURE * SIENNA GALVEZ 12/28/2021 14:19 /mainor/ PHAN ARCOS ADVANCED PATIENT SERVICES REPRESENTATIVE 12/28/2021 ADDENDUM STATUS: COMPLETED Authorization and admission have been entered in to VISTA; noted on tracker. /mainor/ MATHEUS ROMANO SOFTWARE APPLICATIONS ENGINEER, [facility] Signed: 12/28/2021 14:42 Receipt Acknowledged By: * AWAITING SIGNATURE * SIENNA GALVEZ * AWAITING SIGNATURE * DOMINGA MCLAUGHLIN
--- OUTSIDE RECORDS SUMMARY | 2022-04-22 17:52 | XMS_ITS ---
:1950 Author Organization [facility] Address [address] [place] [address] Support Name Relationship Address Phone HAY GU Unavailable [address] [place] [address] HAY GU Unavailable [address] [place] [address] Insurance Providers: All historical and current Section [...] MEDICARE MEDICARE PART Mar 23, PART A [id number] HOFFMA N PATIENT (WNR) (M) A 2002A 4 MICHAEL MORRIS MEDICARE MEDICARE PART Mar 23, PART B [id number] HOFFMA N PATIENT (WNR) (M) B 2002A 4 MICHAEL MORRIS MEDICARE MEDICARE PART Mar 23, PART A [id number] HOFFMA N PATIENT (WNR) (M) A 2002A 1 MICHAEL MORRIS MEDICARE MEDICARE PART Mar 23, PART B [id number] HOFFMA N PATIENT (WNR) (M) B 2002A 1 MICHAEL MORRIS MEDICARE MEDICARE PART Mar 23, PART A [id number] [id number] HOFFMA N,E PATIENT (WNR) (M) A 2002A 00 DWARD MEDICARE MEDICARE PART Mar 23, PART B [id number] HOFFMA N,E PATIENT (WNR) (M) B 2002 SHALA Selected Encounter This section includes the information on record at [place] for the Encounter. Date/Time Encounter Type Encounter Description Reason Provider Source Jan 11, 2022 03:37 Outpatient Encounter COMMUNITY CARE PM CONSULT IHE Encounter Template Text not used by [place] Plan of Treatment: Future Appointments (+ 6 months) and Future Tests (+/- 45 days) The Plan of Treatment section includes future care activities for the patient from all [place] treatmentfacilities. This section includes future appointments and future orders which are active, pending orscheduled.Future Appointments This section includes appointments that were scheduled to occur 6 months from the date of the Encounter, up to a maximum of 20 appointments. The data comes from all [place] treatment facilities. Appointment Date/Time Appointment Type Appointment Facili ty Name Jan 19, 2022 01:30 PM AMBULATORY - [place]ICINE [place] [facility] Feb 22, 2022 10:15 AM [facility] Social History: Smoking Status (Most current) [...] 03, 2020 02:53 PM VA-TOBACCO NEVER [facility]ED [facility] Advance Directives: All historical and current Section Date Range: From patient's date of to the date document was created. This section includes ALL of a patient's completed or amended [place] Advance and Rescinded Directives. The entries below indicate that a directive exists for the patient, but an actual copy is not included with this document. The data comes from all [place] facilities. Date Advance Directives Provider Source Jan 06, 2022 ADVANCE DIRECTIVE CODEY WEBSTER Encounter Notes: All associated encounter notes This section contains the clinical notes associated to the Encounter. Date/Time Encounter Note(s) Provider Source Jan 11, 2022 03:37 PM NONVA NOTE: DILLON PRAKASH [facility] TITLE: COMMUNITY CARE-EVERARDO SELF PRESENTIN G CARE COORD PLAN STANDARD TITLE: NONVA NOTE DATE OF NOTE: JAN 11, 2022@15:37 ENTRY DATE: JAN 11, 2022@15:37:33 AUTHOR: DILLON PRAKASH EXP COSIGNER: URGENCY: STATUS: COMPLETED Emergency Notification Intake Date Presenting to the Facility: Dec Method of Contact: Notified from eDealyaAT worklist Notification ID: [id number] [facility] Referral #: [facility] Name: Hospital: [facility] Address: City: [place] State: [place] Zip Code: Phone : [facility] Facility Point of Contact: Name: Flor Phone: Chief complaint: RIGHT SHOULDER PAIN Primary Diagnosis: Disposition Discharged Date of discharge: Dec Discharge to Comment: ER Only /mainor/ DILLON PARIKH Signed: 01/11/2022 15:40 Receipt Acknowledged By: * AWAITING SIGNATURE * CODEY WEBSTER * AWAITING SIGNATURE * TOMÁS PATRICK * AWAITING SIGNATURE * DELMI BULLOCK * AWAITING SIGNATURE * MORE CASANOVA
--- OUTSIDE RECORDS SUMMARY | 2022-04-22 17:53 | XMS_ITS | Encounter Summary ---
:1950 Author Organization [facility] Address [address] [place] [address] Support Name Relationship Address Phone HAY GU Unavailable [address] [place] [address] HAY GU Unavailable [address] [place] [address] Insurance Providers: All historical and current Section [...] MEDICARE MEDICARE PART Mar 23, PART A [id number] HOFFMA N PATIENT (WNR) (M) A 2002A 4 MICHAEL MORRIS MEDICARE MEDICARE PART Mar 23, PART B [id number] HOFFMA N PATIENT (WNR) (M) B 2002A 4 MICHAEL MORRIS MEDICARE MEDICARE PART Mar 23, PART A [id number] [id number] HOFFMA N,E PATIENT (WNR) (M) A 2002A 00 DWARD MEDICARE MEDICARE PART Mar 23, PART B [id number] HOFFMA N,E PATIENT (WNR) (M) B 2002A [place] MEDICARE MEDICARE PART Mar 23, PART A [id number] HOFFMA N PATIENT (WNR) (M) A 2002A 1 MICAHERNANDEZ MEDICARE MEDICARE PART Mar 23, PART B [id number] HOFFMA N PATIENT (WNR) (M) B 2002A 1 MICAHERNANDEZ Selected Encounter This section includes the information on record at [place] for the Encounter. Date/Time Encounter Type Encounter Description Reason Provider Source Jan 19, 2022 08:20 Outpatient Encounter ADMIN YOLANDA CEDRICK AM (AISHA) CARLOZ Encounter Template Text not used by [place] [...] Date/Time Appointment Type Appointment Facili ty Name Feb 22, 2022 10:15 AM [facility] Social History: Smoking Status (Most current) [...] 03, 2020 02:53 PM VA-TOBACCO NEVER USED [place] [facility] Advance Directives: All historical and [...] Encounter. Date/Time Encounter Note(s) Provider Source Jan 19, 2022 08:20 ADMINISTRATIVE NOTE: JOSE RAUL GALVEZ [facility] AMARAL WSTRDeirdre LIRIANO [facility] TITLE: CCC: SCHEDULING ADMINISTRATION [facility]FFEN VIN[facility] STANDARD TITLE: ADMINISTRATIVE NOTE DATE OF NOTE: JAN 19, 2022@08:20:33 ENTRY DATE: JAN 19, 2022@08:26:19 AUTHOR: JOSE RAUL GALVEZ EXP COSIGNER: URGENCY: STATUS: COMPLETED CCC: SCHEDULING ADMINISTRATION Has ADDENDA Type of call: ADMINISTRATIVE. PCMM Provider Info: [facility] ([id number]) PACT: SO PACT 8 (Focus: [facility]om[facility]) Designated Pcp: DELMI BULLOCK Tight Barrel Inspector: CODEY WEBSTER Clinical Associate: AIDAN SCHRADER PHON [id number] Distribution Clerk: TOLU PRAJAPATI PACT Clinical Pharmacist: EHSAN GARCIA Clinical POC: Clinical Associate AIDAN CONNOR PHONE:[phone] Administrative POC: Distribution Clerk TOLU PRAJAPATI OTHER called in for MICHAEL GU ([phone]) . The following identifiers were used to v erify this patient: Other: ARACELI WITH RENAIJOSIE AMESOR. Contact Caller Response: ADM CALL RESOLVED Caller Area: [facility] Comments: ARACELI WITH RENAISSANCE MANOR is requesting a ca ll back. Patient is going to need transportation for an a ppointment with [facility], [address] in [place] for the right shoulder. Riya guidry call her as patient has appointment scheduled for TODAY at 1:30pm at [phone]. Thank you. Author: JOSE RAUL GALVEZ Evaluation/Management Code: HC PRO PHONE CALL 5- 10 MIN ([phone]). Starting at: 01/19/2022 @ 8:20:33 AM Ending at: 01/19/2022 @ 8:25:53 AM Length: 5 minutes. Chief Complaint: Not applicable to call. Class Code: Other specified counseling. /mainor/ JOSE RAUL GALVEZ ADVANCED PATROL MAN Signed: 01/19/2022 08:26 Receipt Acknowledged By: 01/19/2022 10:08 /mainor/ MEGAN MCCARTHY RN-BC REGISTERED NURSE 01/19/2022 09:33 /mainor/ AIDAN SCHRADER LPN Licensed Practical Nurse 01/19/2022 ADDENDUM STATUS: COMPLETED [place] has no consult for t his appt, please enter consult so can attend appt. /mainor/ SIENNA GALVEZ TELEHEALTH L[employer]STOCK FARMWORKER Signed: 01/19/2022 08:33 Receipt Acknowledged By: 01/19/2022 10:08 /mainor/ MEGAN MCCARTHY RN-BC REGISTERED NURSE * AWAITING SIGNATURE * DELMI BULLOCK 01/19/2022 ADDENDUM STATUS: COMPLETED Called Araceli and she advise d family is going to take to appt today but is in need of comm c are ortho consult for scheduled office visit to [facility] today. Author placed comm care ortho consult and held f or provider review. /mainor/ MEGAN MCCARTHY RN-BC REGISTERED NURSE Signed: 01/19/2022 10:08
--- OUTSIDE RECORDS SUMMARY | 2022-04-22 17:53 | XMS_ITS | Encounter Summary ---
:1950 Author Organization [facility] Address [address] [place] [address] Support Name Relationship Address Phone HAY GU Unavailable [address] [place] [address] HAY GU Unavailable [address] [place] [address] Insurance Providers: All historical and current Section [...] MEDICARE MEDICARE PART Mar 23, PART A [id number] [id number] HOFFMA N,E PATIENT (WNR) (M) A 2002A 00 DWARD MEDICARE MEDICARE PART Mar 23, PART B [id number] [id number] HOFFMA N,E PATIENT (WNR) (M) B 2002A 00 [place] MEDICARE MEDICARE PART Mar 23, PART A [id number] HOFFMA N PATIENT (WNR) (M) A 2002A 4 MICHAEL MORRIS MEDICARE MEDICARE PART Mar 23, PART B [id number] HOFFMA N PATIENT (WNR) (M) B 2002A 4 MICHAEL MORRIS MEDICARE MEDICARE PART Mar 23, PART A [id number] [id number] HOFFMA N PATIENT (WNR) (M) A 2002A 1 MICHAEL MORRIS MEDICARE MEDICARE PART Mar 23, PART B [id number] HOFFMA N PATIENT (WNR) (M) B 2002A 1 MICHAEL MORRIS Selected Encounter This section includes the information on record at [place] for the Encounter. Date/Time Encounter Type Encounter Description Reason Provider Source Jan 18, 2022 01:34 Outpatient Encounter PRIMARY CARE/MEDICINE PM IHE Encounter Template Text not used by [place] Plan of Treatment: Future Appointments (+ 6 months) and Future Tests (+/- 45 days) The Plan of Treatment section includes future care activities for the patient from all [place] treatmentfacilities. This section includes future appointments and future orders which are active, pending orscheduled.Future Appointments This section includes appointments that were scheduled to occur 6 months from the date of the Encounter, up to a maximum of 20 appointments. The data comes from all [place] treatment facilities. Appointment Date/Time Appointment Type Appointment Facili ty Name Jan 19, 2022 01:30 PM [facility]UL[facility] Feb 22, 2022 10:15 AM AMBULATORY MEDICINE [facility] Social History: Smoking Status (Most current) [...] 2020 02:53 PM VA-TOBACCO [facility] Advance Directives: All historical and current [...] Encounter. Date/Time Encounter Note(s) Provider Source Jan 18, 2022 01:34 PM NONVA NOTE: CODEY WEBSTER LOCAL TITLE: NON-VA HOSPITALIZATIONS/ER STANDARD TITLE: NONVA NOTE DATE OF NOTE: JAN 18, 2022@13:34 ENTRY DATE: JAN 18, 2022@13:34:22 AUTHOR: CODEY WEBSTER EXP COSIGNER: URGENCY: STATUS: COMPLETED NON VA DISCHARGE SUMMARY Below copied from NON VA MEDICAL RECORD Place of Service: ED [facility], [place], [place] Admission Date: Dec Discharge Date: Dec Discharged to: Rehab Basic Information Time seen: Date & time 01/07/2022 14:00:00, Immed iately upon arrival. History source: Patient. Arrival mode: Ambulance. History limitation: None. History of Present Illness This is a 71-year-old male with a histor y of diabetes mellitus and obstructive sleep apnea status post tracheostomy who presented to the emergency department from his [facility] via EMS for right shoulder pain. Patient reports that he fell down on his right shoulder 5 months ago after slipping o n hardwood floor. An x-ray of the humerus on 08/14 at that time showed a displaced fracture of the right humeral neck. He was placed in a sling and was able to manage the pain with just Tylenol. He stated that about 4 days ago the pain started getting worse. This morning he underwent some x-rays at his SNF, was found to have a fracture, and was sent to the [facility]. Patient endorses significant tenderness to palpation over his rig ht shoulder with limited range of motion. H e denies any skin abrasions, numbness, tingling, fevers, chills. Medical Decision Making Differential Diagnosis: Fracture, humerus. Rationale: This is a 71-year-old male with a his tory of diabetes mellitus and obstructive sleep apnea status post tracheostomy who presented with right shoulder p ain that has been present for 5 months. Humerus x-ray at that time showed displaced fracture. We will rep eat x-rays. EKG and troponin ordered to rule out cardiac cau ses since patient is presenting with R arm/shoulder pain. Radiology results: W/u unremarkable outside of p ersistent R humeral fx. d/w ortho who recommended sling and ortho follow up. sling provided, pt comf ortable on dc, neuro vasc intact, soft compartments. f/u with ortho discussed. stable on dc. Reexamination/ Reevaluation Time: 01/15/2022 15:26:00 . Impression and Plan Diagnosis Shoulder fracture, right Plan Condition: Stable. Disposition: Discharged: time 01/07/2022 16:21:00 . Patient was given the following educational mate zan: You came to the emergency department with significant right shoulder pain. We did some x-r ays and it showed a fracture, and your arm was placed in a sling. Please follow-up with [facility] orthopedic surgeons within 1 week. Please use your sling as instructed as it is imp ortant to prevent your shoulder from rotating outward. You may use some ice packs and some Tylenol as n eeded for pain control. At this time you are safe to go home. Please ret urn to the emergency department if you experience new or worsening symptoms in your arm such as nu mbness, tingling, significant weakness, as well as significant fevers, chest pain, trouble breat gayatri. Upcoming Appointments: 02/18/2022 10:30 [facility] CARE-ENT SENT TO SCANNING This note is entered for the sole purpose of sca nning Non-VA documentation into [employer]. /mainor/ BROOKE MCCARTHYN RN-BC REGISTERED NURSE Signed: 01/18/2022 13:37
--- OUTSIDE RECORDS SUMMARY | 2022-04-22 17:54 | XMS_ITS | Encounter Summary ---
:1950 Author Organization [facility] Address [address] [place] [address] Support Name Relationship Address Phone HAY GU Unavailable [address] [place] [address] HAY GU Unavailable [address] [place] [address] Insurance Providers: All historical and current Section [...] MEDICARE MEDICARE PART Mar 23, PART B [id number] HOFFMA N PATIENT (WNR) (M) B 2002A 4 MICHAEL MORRIS MEDICARE MEDICARE PART Mar 23, PART A [id number] HOFFMA N PATIENT (WNR) (M) A 2002A 4 MICHAEL MORRIS MEDICARE MEDICARE PART Mar 23, PART A [id number] HOFFMA N PATIENT (WNR) (M) A 2002A 1 MICHAEL MORRIS MEDICARE MEDICARE PART Mar 23, PART B [id number] HOFFMA N PATIENT (WNR) (M) B 2002A 1 MICHAEL MORRIS MEDICARE MEDICARE PART Mar 23, PART A [id number] [phone] HOFFMA N,E PATIENT (WNR) (M) A 2002A 00 DWARD MEDICARE MEDICARE PART Mar 23, PART B [id number] [phone] HOFFMA N,E PATIENT (WNR) (M) B 2002 SHALA Selected Encounter This section includes the information on record at [place] for the Encounter. Date/Time Encounter Type Encounter Reason Provider Source Description Feb 08, 2022 Outpatient TELEPHONE/GERIATR ICD-10-CM DELMI BULLOCK 10:45 AM Encounter ICS G89.29 Other J chronic pain with Provider Comments: Chronic pain ([facility] [id number]) IHE Encounter Template Text not used by [place] Assessments - Encounter Diagnoses This section includes the primary and secondary diagnoses documented for the Encounter. Date/Time Primary/Secondary Diagnosis Name Provider Source Diagnosis Feb 08, 2022 PRIMARY Other chronic CYNDI DRUMMOND [facility] 10:45 AM pain [place] [facility] Plan of Treatment: Future Appointments (+ 6 months) and Future Tests (+/- 45 days) The Plan of Treatment section includes future care activities for the patient from all [place] treatmentfacilities. This section includes future appointments and future orders which are active, pending orscheduled.Future Appointments This section includes appointments that were scheduled to occur 6 months from the date of the Encounter, up to a maximum of 20 appointments. The data comes from all [place] treatment facilities. Appointment Date/Time Appointment Type Appointment Facili ty Name Feb 22, 2022 10:15 AM [facility] Social History: Smoking Status (Most [...] 03, 2020 02:53 PM VA-TOBACCO NEVER [facility]ED [facility] Advance Directives: All historical and current Section Date Range: From patient's date of to the date document was created. This section includes ALL of a patient's completed or amended [place] Advance and Rescinded Directives. The entries below [...] the Encounter. Date/Time Encounter Note(s) Provider Source Feb 08, 2022 11:59 ADMINISTRATIVE NOTE: RUTHIE DRUMMOND [place] CN TRL WSTRN AM [facility] TITLE: BENEFICIARY TRAVEL (BT) [facility] STANDARD TITLE: ADMINISTRATIVE NOTE DATE OF NOTE: FEB 08, 2022@11:59 ENTRY DATE: FEB 08, 2022@11:59:35 AUTHOR: RUTHIE DRUMMOND EXP COSIGNER: URGENCY: STATUS: COMPLETED BENEFICIARY TRAVEL SPECIAL MODE TRANSPORTATION: I have informed the [place] that, requests with insufficient evidence of functional need, containing information that ap pears inconsistent with clinical evidence or appears intentionally exag gerated to obtain eligibility will be referred for further review or returned for additional information or clarification. Point of Contact's E-mail:[email or web address] Phone/Pager/Extension:[phone] MEDICAL JUSTIFICATION [place]ones is not able to transfer into a private vehicle or medically appropriate common carrier, or requires additio nal assistance as outlined below. The clinical condition requiring the use of [place] Special Mode transportation to be safely transported are as follows: Severe deconditioning or functional limitation precluding private transportation with assistance Orthopedic condition precluding private transpo rtation with assistance Other physical or mental limitation not listed above Describe: has severe osteoarthritis and is short of breath with any exertion has seasoned tracheostomy oliver t does not need care or suprevision with This request is not for an inter-facility trans linda WHEELCHAIR VAN/AMBULETTE (Receiver/Laborer Only; NO Medic al Attendant; Non-Emergent): Wheelchair type: Manual Date travel is to commence: Jan wind up worker time (if needed): Estimated time frame will require trans portation: 1 Year To and from all authorized VA and Non-VA care From: 's Residence: [facility] [place] [address] [place] [address] Additional Instructions: is a long-term [facility] of [facility] 100% SC To: (Facility Name): all va and non va appt's in [facility] areas City/State: [facility] Additional Information: Jen[place]ones is unable to wal k d/t severe arthritic changes and can only ambulate short distances w ithout being short of breath and pain. He is a high falls risk and re quires assist. He has very seasoned trach that does not require speci al care or oxygen support. He is unable to arrange reliable trans portation from his family and is 100%sc. He requires a w/c for mob ility and a walker for stability Frequency: Round Trip /es/ RUTHIE DRUMMOND RN GREEN TIRE INSPECTOR Signed: 02/08/2022 12:21 Receipt Acknowledged By: * AWAITING SIGNATURE * CODEY WEBSTER * AWAITING SIGNATURE * ANASTASIA SALVADOR
--- OUTSIDE RECORDS SUMMARY | 2022-04-22 17:54 | XMS_ITS | Encounter Summary ---
:1950 Author Organization [facility] Address [address] [place] [address] Support Name Relationship Address Phone HAY GU Unavailable [address] [place] [address] HAY GU Unavailable [address] [place] [address] Insurance Providers: All historical and current Section [...] MEDICARE MEDICARE PART Mar 23, PART A [id number] HOFFMA N PATIENT (WNR) (M) A 2002A 4 MICHAEL MORRIS MEDICARE MEDICARE PART Mar 23, PART B [id number] HOFFMA N PATIENT (WNR) (M) B 2002A 4 MICHAEL MORRIS MEDICARE MEDICARE PART Mar 23, PART A [id number] HOFFMA N PATIENT (WNR) (M) A 2002A 1 MICHAEL MORRIS MEDICARE MEDICARE PART Mar 23, PART B [id number] HOFFMA N PATIENT (WNR) (M) B 2002A 1 MICHAEL MORRIS MEDICARE MEDICARE PART Mar 23, PART A [id number] [id number] HOFFMA N,E PATIENT (WNR) (M) A 2002A 00 DWARD MEDICARE MEDICARE PART Mar 23, PART B [id number] [id number] HOFFMA N,E PATIENT (WNR) (M) B 2002 SHALA Selected Encounter This section includes the information on record at [place] for the Encounter. Date/Time Encounter Type Encounter Description Reason Provider Source Feb 08, 2022 12:00 Outpatient Encounter EVENT (HISTORICAL) AM IHE Encounter Template Text not used by [place] Plan of Treatment: Future Appointments (+ 6 months) and Future Tests (+/- 45 days) The Plan of Treatment section includes future care activities for the patient from all [place] treatmentfacilities. This section includes future appointments and future orders which are active, pending orscheduled.Future Appointments This section includes appointments that were scheduled to occur 6 months from the date of the Encounter, up to a maximum of 20 appointments. The data comes from all [place] treatment facilities. Appointment Date/Time Appointment Type Appointment Facili ty Name Feb 22, 2022 10:15 AM AMBULATORY - MEDICINE [place] [facility] Social History: Smoking Status (Most [...] VA-TOBACCO NEVER USED [place] C [facility] Advance Directives: All historical and [...]
--- OUTSIDE RECORDS SUMMARY | 2022-04-22 17:54 | XMS_ITS | Encounter Summary ---
:1950 Author Organization [facility] Address [address] [place] [address] Support Name Relationship Address Phone HYA GU Unavailable [address] [place] [address] HAY GU Unavailable [address] [place] [address] Insurance Providers: All historical and current Section [...] MEDICARE MEDICARE PART Mar 23, PART A [id number] HOFFMA N PATIENT (WNR) (M) A 2002A 4 MICHAEL MORRIS MEDICARE MEDICARE PART Mar 23, PART B [id number] HOFFMA N PATIENT (WNR) (M) B 2002A 4 MICHAEL MORRIS MEDICARE MEDICARE PART Mar 23, PART A [id number] HOFFMA N,E PATIENT (WNR) (M) A 2002 26A 00 DWARD MEDICARE MEDICARE PART Mar 23, PART B [id number] HOFFMA N,E PATIENT (WNR) (M) B 2002A 00 [place] MEDICARE MEDICARE PART Mar 23, PART A [id number] HOFFMA N PATIENT (WNR) (M) A 2002A 1 MICAHERNANDEZ MEDICARE MEDICARE PART Mar 23, PART B [id number] HOFFMA N PATIENT (WNR) (M) B 2002A MICHAEL Selected Encounter This section includes the information on record at [place] for the Encounter. Date/Time Encounter Type Encounter Description Reason Provider Source Jan 07, 2022 12:00 Outpatient Encounter EVENT (HISTORICAL) AM IHE Encounter Template Text not used by [place] Plan of Treatment: Future Appointments (+ 6 months) and Future Tests (+/- 45 days) The Plan of Treatment section includes future care activities for the patient from all [place] treatmentfacilities. This section includes future appointments and future orders which are active, pending orscheduled.Future Appointments This section includes appointments that were scheduled to occur 6 months from the date of the Encounter, up to a maximum of 20 appointments. The data comes from all [place] treatment facilities. Appointment Date/Time Appointment Type Appointment Facili ty Name Jan 19, 2022 01:30 PM AMBULATORY [facility] Feb 22, 2022 10:15 AM AMBULATORY MEDICINE [facility] Social History: Smoking Status (Most current) and [...] 03, 2020 02:53 PM [facility]BACCO [facility] Advance Directives: All historical and current [...] Encounter. Date/Time Encounter Note(s) Provider Source Jan 07, 2022 12:00 AM NONVA NOTE: [place] CNTRL W STRN LOCAL TITLE: NON-VA [facility]OSPITALIZATIONS/[facility] STAND[facility] TITLE: NONVA NOTE DATE OF NOTE: JAN 07, 2022 ENTRY DATE: FEB 02@10:33:23 AUTHOR: CRISTINO,JONATHON L EXP COSIGNER: URGENCY: STATUS: COMPLETED [facility] [employer] - Scanned Document SCANNED DOCUMENT SIGNATURE NOT REQUIRED Electronically Filed: 02/02/2022 by: JONATHON GREGG ALUMNI SECRETARY
--- OUTSIDE RECORDS SUMMARY | 2022-04-22 17:55 | XMS_ITS ---
:1950 Author Organization [facility] Address [address] [place] [address] Support Name Relationship Address Phone HAY GU Unavailable [address] [place] [address] HAY GU Unavailable [address] [place] [address] Insurance Providers: All historical and current Section [...] MEDICARE MEDICARE PART Mar 23, PART A [id number] HOFFMA N PATIENT (WNR) (M) A 2002A 4 MICHAEL MORRIS MEDICARE MEDICARE PART Mar 23, PART B [id number] HOFFMA N PATIENT (WNR) (M) B 2002A 4 MICHAEL MORRIS MEDICARE MEDICARE PART Mar 23, PART A [id number] [id number] HOFFMA N,E PATIENT (WNR) (M) A 2002 26A 00 DWARD MEDICARE MEDICARE PART Mar 23, PART B [id number] [id number] HOFFMA N,E PATIENT (WNR) (M) B 2002A [place] MEDICARE MEDICARE PART Mar 23, PART A [id number] HOFFMA N PATIENT (WNR) (M) A 2002A 1 MICAHERNANDEZ MEDICARE MEDICARE PART Mar 23, PART B [id number] HOFFMA N PATIENT (WNR) (M) B 2002A MICHAEL MORRIS Selected Encounter This section includes the information on record at [place] for the Encounter. Date/Time Encounter Type Encounter Description Reason Provider Source Feb 19, 2022 10:36 Outpatient Encounter CN FOLLOW-UP AM IHE Encounter Template Text not used by [place] Plan of Treatment: Future Appointments (+ 6 months) and Future Tests (+/- 45 days) The Plan of Treatment section includes future care activities for the patient from all [place] treatmentfacilities. This section includes future appointments and future orders which are active, pending orscheduled.Future Appointments This section includes appointments that were scheduled to occur 6 months from the date of the Encounter, up to a maximum of 20 appointments. The data comes from all [place] treatment facilities. Appointment Date/Time Appointment Type Appointment Facili ty Name Feb 22, 2022 10:15 AM [facility] Social History: Smoking Status (Most current) [...] PM [facility]-TOBACCO [facility] US[facility] [place] [facility] Advance Directives: All historical and current [...] Encounter. Date/Time Encounter Note(s) Provider Source Feb 19, 2022 10:36 AM GERIATRIC MEDICINE NURSING NOTE: KARINE MALONEY [place] [facility] LOCAL TITLE: COMMUNITY HALF-WAY SOCIAL WORK [place] [facility] STANDARD TITLE: GERIATRIC MEDICINE NURSING NOTE DATE OF NOTE: FEB 19, 2022@10:36 ENTRY DATE: FEB 19, 2022@10:37:13 AUTHOR: ONESIMO MALONEY COSIGNER: URGENCY: STATUS: COMPLETED Received call [facility] nor electronics technician apprentice Kathy regarding this 71- year-old 100% Service [employer] adriana who is a long-term care resident of the [place] [facility]. Karine larry reported she believes the may need a psychiatric hospitalization as he continues to exhibit behaviors at the facility including, ongoing agitation and anxiety, diffic ulty sleeping, ongoing complaints of pain, etc. Enc ouraged Kathy to consult with her psych services team about determining if the needs to b e sent on a Section 12 to [facility] for further evalu ation. Also encouraged Kathy to try and facilitate a possible geripsych admit at [facility] if appropriate. Kathy agreed to keep this pattern chart writer informed if he will be sent out to [facility] for further evaluation . /es/ CHRISTINE ANTHONY,[facility] STAFF SUPERVISOR CALIBRATION Signed: 02/19/2022 10:41 Receipt Acknowledged By: * AWAITING SIGNATURE * ALIVIA CLAY * AWAITING SIGNATURE * RUTHIE DRUMMOND
--- OUTSIDE RECORDS SUMMARY | 2022-04-22 17:55 | XMS_ITS ---
:1950 Author Organization [facility] Address [address] [place] [address] Support Name Relationship Address Phone HAY GU Unavailable [address] [place] [address] HAY GU Unavailable [address] [place] [address] Insurance Providers: All historical and current Section [...] MEDICARE MEDICARE PART Mar 23, PART A [id number] HOFFMA N PATIENT (WNR) (M) A 2002A 4 MICHAEL MORRIS MEDICARE MEDICARE PART Mar 23, PART B [id number] HOFFMA N PATIENT (WNR) (M) B 2002A 4 MICHAEL MORRIS MEDICARE MEDICARE PART Mar 23, PART A [id number] HOFFMA N PATIENT (WNR) (M) A 2002A 1 MICHAEL MORRIS MEDICARE MEDICARE PART Mar 23, PART B [id number] HOFFMA N PATIENT (WNR) (M) B 2002A 1 MICHAEL MORRIS MEDICARE MEDICARE PART Mar 23, PART A [id number] HOFFMA N,E PATIENT (WNR) (M) A 2002 00 DWARD MEDICARE MEDICARE PART Mar 23, PART B [id number] [phone] HOFFMA N,E PATIENT (WNR) (M) B 2002 DWARD Selected Encounter This section includes the information on record at [place] for the Encounter. Date/Time Encounter Type Encounter Description Reason Provider Source Feb 15, 2022 10:15 Outpatient Encounter [facility] FOLLOW-UP AM IHE Encounter Template Text not used by [place] Plan of Treatment: Future Appointments (+ 6 months) and Future Tests (+/- 45 days) The Plan of Treatment section includes future care activities for the patient from all [place] treatmentfacilities. This section includes future appointments and future orders which are active, pending orscheduled.Future Appointments This section includes appointments that were scheduled to occur 6 months from the date of the Encounter, up to a maximum of 20 appointments. The data comes from all [place] treatment facilities. Appointment Date/Time Appointment Type Appointment Facili ty Name Feb 22, 2022 10:15 AM AMBULATORY - MEDICINE [place] [facility] Social History: Smoking Status (Most current) [...] 03, 2020 02:53 PM [place]-TOBACCO NEVER USED [place] [facility] Advance Directives: All historical and [...] Encounter. Date/Time Encounter Note(s) Provider Source Feb 15, 2022 10:15 AM ADMINISTRATIVE NOTE: ANASTASIA SALVADOR [facility] TRL [facility] LOCAL TITLE: BENEFICIARY TRAVEL (BT) [facility] STANDARD TITLE: ADMINISTRATIVE NOTE DATE OF NOTE: FEB 15, 2022@10:15 ENTRY DATE: FEB 15, 2022@10:15:19 AUTHOR: ANASTASIA SALVADOR EXP COSIGNER: URGENCY: STATUS: COMPLETED BENEFICIARY TRAVEL (BT) Has ADDENDA resides at: [address] [address] PHONE NUMBER: [phone] Please arrange W/C transport w/Alert for the following scheduled COMMUNITY CARE- ENT appt on: 02/18/22 1030am [facility] [address] [facility] [address] (P)[phone] make up operator helper time 930am [facility] (Kathy) notified of the appt date time an d p/u time /mainor/ ANASTASIA SALVADOR INSURANCE COUNSELOR REHANA/ARTHUR Signed: 02/15/2022 10:20 Receipt Acknowledged By: 02/17/2022 06:25 /es/ DAWOOD HANNON MOTOR BRAIN WAVE TECHNICIAN 02/15/2022 10:32 /es/ JAMES COLINDRES FACILITIES MANAGEMENT * AWAITING SIGNATURE * ISAAC HERNANDEZ 02/15/2022 ADDENDUM STATUS: COMPLETED Scheduled W/C transport w/Alert for the followin g scheduled COMMUNITY CARE- ENT appt on: 02/18/22 1030am [facility] [address] [facility] [address] (P)[phone] make up operator helper time 930am /mainor/ JAMES COLINDRES FACILITIES MANAGEMENT Signed: 02/15/2022 10:31 Receipt Acknowledged By: 02/15/2022 11:06 /mainor/ ANASTASIA SALVADOR INSURANCE COUNSELOR REHANA/ARTHUR 02/17/2022 ADDENDUM STATUS: COMPLETED Per ISAIAH Luz Coordinator this 02/18/22 Co mm Care appointment has been reschedueld to: Alert notified on 02/17/22 of the 02/18 tr ansport cancellation and transport has been rebooked for the following. 02/22/22: 10:30 AM: [facility] [address] [facility] [address] (P)[phone] make up operator helper time: 9:30 AM /mainor/ MATHEUS ROMANO GLASSWARE FINISHER, [facility] [place] Signed: 02/17/2022 15:33 Receipt Acknowledged By: * AWAITING SIGNATURE * ANASTASIA SALVADOR 02/17/2022 15:40 /es/ ONESIMO MALONEY, CHRISTINE,LIC STAFF MACHINE TACK PULLER
--- OUTSIDE RECORDS SUMMARY | 2022-04-22 17:56 | XMS_ITS ---
:1950 Author Organization [facility] Address [address] [place] [address] Support Name Relationship Address Phone HAY GU Unavailable [address] [place] [address] HAY GU Unavailable [address] [place] [address] Insurance Providers: All historical and current Section [...] MEDICARE MEDICARE PART Mar 23, PART A [id number] HOFFMA N PATIENT (WNR) (M) A 2002A 4 MICHAEL MORRIS MEDICARE MEDICARE PART Mar 23, PART B [id number] HOFFMA N PATIENT (WNR) (M) B 2002A 4 MICHAEL MORRIS MEDICARE MEDICARE PART Mar 23, PART A [id number] [id number] HOFFMA N,E PATIENT (WNR) (M) A 2002 26A 00 DW[place] MEDICARE MEDICARE PART Mar 23, PART B [id number] [id number] HOFFMA N,E PATIENT (WNR) (M) B 2002A [place] MEDICARE MEDICARE PART Mar 23, PART A [id number] HOFFMA N PATIENT (WNR) (M) A 2002A 1 MICHAEL MORRIS MEDICARE MEDICARE PART Mar 23, PART B [id number] HOFFMA N PATIENT (WNR) (M) B 2002A MICAHERNANDEZ Selected Encounter This section includes the information on record at [place] for the Encounter. Date/Time Encounter Type Encounter Reason Provider Source Description Mar 04, 2022 OFFICE O/P EST CN FOLLOW-UP ICD-10-CM HODACYNDI 01:42 PM MINIMAL PROB F43.12 NE E Post-traumatic stress disorder, chronic with Provider Comments: Chronic post-traumatic stress disorder ([facility] [id number]) IHE Encounter Template Text not used by [place] Assessments - Encounter Diagnoses This section includes the primary and secondary diagnoses documented for the Encounter. Date/Time Primary/Secondary Diagnosis Name Provider Source Diagnosis Mar 04, 2022 PRIMARY Post-traumatic CYNDI DRUMMOND IN CNTRL [facility] TRN 01:56 PM stress NE [place] [facility] disorder, chronic Social History: Smoking Status (Most current) and Tobacco Use (All prior to encounter date) This section includes the most current, and the historical, smoking and tobacco-related health factors from the [place] facility where the Encounter took place.Current Smoking Status This section includes the most current smoking, or tobacco-related health factor, from the [place] facility where the Encounter took place. Date/Time Current Smoking Status Comment Facility Jul 03, 2020 02:53 PM VA-TOBACCO NEVER USED [place] C NTRL [facility] [place] [facility] Advance Directives: All historical and current Section Date Range: From patient's date of to the date document was created. This section includes ALL of a patient's completed or amended [place] Advance and Rescinded Directives. The entries below indicate that a directive exists for the patient, but an actual copy is not included with this document. The data comes from all [place] facilities. Date Advance Directives Provider Source Jan 06, 2022 ADVANCE DIRECTIVE CODEY WEBSTER Encounter Notes: All associated encounter notes This section contains the clinical notes associated to the Encounter. Date/Time Encounter Note(s) Provider Source Jan 20, 2022 01:42 NURSING COMMUNITY RESIDENTIAL CARE NOTE: RUTHIE ELIZABETH IN CNTRL W[facility]N PM LOCAL TITLE: COMMUNITY HALF-WAY PROGRAM RES IDENT FOLLOW-UP [facility] [place] [facility] STANDARD TITLE: NURSING COMMUNITY RESIDENTIAL CA RE NOTE DATE OF NOTE: JAN 20, 2022@13:42 ENTRY DATE: MAR 04, 2022@13:42:55 AUTHOR: RUTHIE DRUMMOND EXP COSIGNER: URGENCY: STATUS: COMPLETED Community [facility] Program Resident Follow- up Visit Resident Name: MICHAEL GU Usp: [facility], [address] [place] [address], [place] [address] [ , ] Visit by: Nursing Date of Visit: Dec Date Admitted to [facility] ing Home: 12/11/21 Late Entry review done completely remote d/t cov id restrictions Primary Diagnosis (From Usp): ptsd self -neglect Active problems - Computerized Problem List is t he source for the followin. Tremor 2. Rupture of globe 3. Alcohol abuse 4. Chronic post-traumatic stress disorder 5. Chronic pain 6. Bladder Carcinoma 7. Generalized anxiety disorder (SNOMED CT [id number]) 8. Gross Hematuria 9. History of male erectile disorder (SNOMED CT 430900430) 10. Anemia 11. Diverticulosis, Colonic 12. Deep venous thrombosis of lower extremity 13. Hepatitis * 14. Hyperlipidemia * 15. GERD * 16. Sleep Apnea 17. Chronic sinusitis (SNOMED CT 39571265) 18. Depressive disorder (SNOMED CT 62622958) 19. Essential hypertension 20. Chronic low back pain (SNOMED CT 692540752) 21. Diabetes Mellitus Type II or unspecified Care Status: Contract X Length of Contract: X Indefinite/Mill Bill Short-Term: 0 Start of [place] Paid Placement: 12/11/21 [place] Facility Providing Original Contract: [facility] RESIDENT SATISFACTION (Determined by asking Resident, family, and/or [facility] staff observation): Resident is satisfied with care he/she receives at the [facility] [Yes] Comment: [facility] staff is courteous & treats Resident with di gnity [Yes] Comment: Does the Resident like the food [Yes] Comment: Resident is able to eat in the dining room [Yes] Comment: Daily activities are offered for the Resident [Yes] Comment: Spiritual services are offered [Yes] Comment: Resident has adjusted to the placement [Yes] Comment: QUALITY OF CARE (Determined by observation, MDS, and/or Medical Record Review): Resident is clean and appropriately dressed [] Comment: Resident has maintained the same or improved lev el of physical function since the last visit [Yes] Comment: If no, was decline expected [] Comment: Weight loss was 5% or less in last three months [No] Comment: Current weight:175 lbs, date weighed: Dec 21 2 Resident is free from skin breakdown [Yes], if NO, Resident has skin breakdown; Comment: Resident has been free of a fecal impaction sinc e last visit [Yes] Comment: Resident has been restraint free since last visi t [Yes], if no Comment: Fluids are available or offered [Yes] Comment: SAFETY Has the Resident fallen since the last visit [No] Comment: If yes to above, did the Resident experience a f racture or other injury [] Comment: Were there any medication errors resulting in Re sident illness or injury [No] Comment: Has the Resident attempted to elope from the fac ility [No] Comment: Is there any evidence of abuse either confirmed or under investigation [No] Comment: DOCUMENTATION A Progress Note by a Nurse is completed at regul ar intervals according to state regulations [Yes] Resident is being assessed by a physician at req uired intervals [Yes] The MDS was completed within 14 days of admissio n (Answer only once) [Yes] The MDS is reviewed quarterly [] The care plan is updated quarterly [] The care plan is reflective of resident's needs [Yes] Daily medication administration records are avai lable [Yes] PRN medication effectiveness is documented [Yes] Effective pain management is documented by use o f a pain scale [Yes] Weights and vital signs are recorded at least mo nthly, or as ordered [Yes] There is written evidence of Social Work involve ment with the Resident and/or family on a regular interval, including d ischarge planning if applicable [Yes] CARE REQUIREMENTS (Determined by observation, MDS, and/or Medical Record Review): Mental Status: Alert, Forgetful Comment: Mood/Behavior: Other Comment:refuses care self-neglect Verbalization: Coherent Socialization Ability: Fair Appetite: good Diet:reg Supplements: [Yes] Has resident received IV's since last visit [No] Has resident received therapy since last visit [No] Has resident received Restorative/Maintenance nu rsing since last visit [No] Comments: Activities of Daily Living: Independent Functioning [No] Assistance required [Yes] Max Assist Transfers: Self-Transfer Mode of Ambulation: Independent [Yes] Type of Assistance Required: If wheelchair; Is the Resident on oxygen [No] If yes, Continent of Bowel [Yes] Continent of Bladder [No] Catheter Care [No] Colostomy Care [No] Continued need for [facility] care? [Yes] Sensory and environmental aesthetics are accepta ble?[Yes] Comments (Comment must relate to primary /admitting diagnosis from [facility] as listed above): Resident was admitted to LTC from a home that is uninhabitable BIMS 12 chronic shoulder pain was f/u and vet has a fracture of surgical neck of greater tuberosity of r shoulder 01/07 ortho jessie't vetera n has a fall before coming to facility which the fx may flores ve occurred. is s/p trach placement and the trach is very old and metal in nature DO B states it needs replacement but sent to Ent and no recommendations came back with vet amrit. [place] started on slow titration of Wellbutrin anxious re: pain and anx iety meds following nurses around Ativan started for anxiety. refus es to clean himself or bathe DON finally got to shower and MD has spoken to him also. Sling ordered for r shoulder as well as hydrocodone for pain. Occ incontinent of bladder. BIMS 12 RUG ES2 no plans for d/c Has information/concern(s) been discussed with n [facility] home staff? [Yes] If yes, name of person(s) with whom discussion w as held: DISCIPLINE NAME Power Cleaner Operator [] hydrogen plant operations manager [X] Darwin Loading Rack Supervisor/Designee [X] Brenda MENDIOLA [] SONIDO [] NA [] Other [] /es/ RUTHIE DRUMMOND RN FOREST MANAGEMENT PROFESSOR Signed: 03/04/2022 13:56
--- OUTSIDE RECORDS SUMMARY | 2022-04-22 17:56 | XMS_ITS | Encounter Summary ---
:1950 Author Organization [facility] Address [address] [place] [address] Support Name Relationship Address Phone HAY GU Unavailable [address] [place] [address] HAY GU Unavailable [address] [place] [address] Insurance Providers: All historical and current Section [...] MEDICARE MEDICARE PART Mar 23, PART A [id number] [id number] HOFFMA N,E PATIENT (WNR) (M) A 2002A 00 DWARD MEDICARE MEDICARE PART Mar 23, PART A [id number] HOFFMA N PATIENT (WNR) (M) A 2002A 4 MICHAEL MORRIS MEDICARE MEDICARE PART Mar 23, PART B [id number] HOFFMA N PATIENT (WNR) (M) B 2002A 4 MICHAEL MORRIS MEDICARE MEDICARE PART Mar 23, PART B [id number] [id number] HOFFMA N,E PATIENT (WNR) (M) B 2002A 00 [place] MEDICARE MEDICARE PART Mar 23, PART A [id number] HOFFMA N PATIENT (WNR) (M) A 2002A 1 MICHAEL MORRIS MEDICARE MEDICARE PART Mar 23, PART B [id number] HOFFMA N PATIENT (WNR) (M) B 2002A 1 MICAHERNANDEZ Selected Encounter This section includes the information on record at [place] for the Encounter. Date/Time Encounter Type Encounter Description Reason Provider Source Feb 22, 2022 12:00 Outpatient Encounter COMMUNITY CARE AM CONSULT IHE Encounter Template Text not used by [place] Social History: Smoking Status (Most current) and Tobacco Use (All prior to encounter date) This section includes the most current, and the historical, smoking and tobacco-related health factors from the [place] facility where the Encounter took place.Current Smoking Status This section includes the most current smoking, or tobacco-related health factor, from the [place] facility where the Encounter took place. Date/Time Current Smoking Status Comment Facility Jul 03, 2020 02:53 PM VA-TOBACCO NEVER USED [place] C NTRL [facility] Advance Directives: All historical and current Section Date Range: From patient's date of to the date document was created. This section includes ALL of a patient's completed or amended [place] Advance and Rescinded Directives. The entries below indicate that a directive exists for the patient, but an actual copy is not included with this document. The data comes from all [place] facilities. Date Advance Directives Provider Source Jan 06, 2022 ADVANCE DIRECTIVE CODEY WEBSTER Encounter Notes: All associated encounter notes This section contains the clinical notes associated to the Encounter. Date/Time Encounter Note(s) Provider Source Feb 22, 2022 12:00 AM NONVA CONSULT: [place] [facility] [place] [facility] LOCAL TITLE: COMMUNITY CARE-CONSULT RESULT NOTE [facility] STANDARD TITLE: NONVA CONSULT DATE OF NOTE: FEB 22, 2022 ENTRY DATE: MAR 04 022@13:19:48 AUTHOR: SIMEON VALDIVIA EXP COSIGNER: URGENCY: STATUS: COMPLETED VistA Imaging - Scanned Document SCANNED DOCUMENT SIGNATURE NOT REQUIRED Electronically Filed: 03/04/2022 by: SIMEON VALDIVIA
--- OUTSIDE RECORDS SUMMARY | 2022-04-22 17:56 | XMS_ITS | Encounter Summary ---
:1950 Author Organization [facility] Address [address] [place] [address] Support Name Relationship Address Phone HAY GU Unavailable [address] [place] [address] HAY GU Unavailable [address] [place] [address] Insurance Providers: All historical and current Section [...] MEDICARE MEDICARE PART Mar 23, PART B [id number] HOFFMA N PATIENT (WNR) (M) B 2002A 4 MICHAEL MORRIS MEDICARE MEDICARE PART Mar 23, PART A [id number] HOFFMA N PATIENT (WNR) (M) A 2002A 4 MICHAEL MORRIS MEDICARE MEDICARE PART Mar 23, PART A [id number] HOFFMA N PATIENT (WNR) (M) A 2002A 1 MICHAEL MORRIS MEDICARE MEDICARE PART Mar 23, PART B [id number] HOFFMA N PATIENT (WNR) (M) B 2002A 1 MICHAEL MORRIS MEDICARE MEDICARE PART Mar 23, PART A [id number] HOFFMA N,E PATIENT (WNR) (M) A 2002 00 [place] MEDICARE MEDICARE PART Mar 23, PART B [id number] HOFFMA N,E PATIENT (WNR) (M) B 2002 DW[place] Selected Encounter This section includes the information on record at [place] for the Encounter. Date/Time Encounter Type Encounter Description Reason Provider Source Mar 08, 2022 12:49 Outpatient Encounter ADMIN PAT ACTIVTIES PM (MASNONCT) IHE Encounter Template Text not used by [place] Social History: Smoking Status (Most current) and Tobacco Use (All prior to encounter date) This section includes the most current, and the historical, smoking and tobacco-related health factors from the [place] facility where the Encounter took place.Current Smoking Status This section includes the most current smoking, or tobacco-related health factor, from the [place] facility where the Encounter took place. Date/Time Current Smoking Status Comment Facility Jul 03, 2020 02:53 PM VA-TOBACCO NEVER USED [facility] Advance Directives: All historical and current Section Date Range: From patient's date of to the date document was created. This section includes ALL of a patient's completed or amended [place] Advance and Rescinded Directives. The entries below indicate that a directive exists for the patient, but an actual copy is not included with this document. The data comes from all [place] facilities. Date Advance Directives Provider Source Jan 06, 2022 ADVANCE DIRECTIVE CODEY WEBSTER [place] Encounter Notes: All associated encounter notes This section contains the clinical notes associated to the Encounter. Date/Time Encounter Note(s) Provider Source Mar 08, 2022 12:49 PM ADMINISTRATIVE NOTE: KEILY BRASHER [facility] TITLE: CCC: SCHEDULING ADMINISTRATION [facility] STANDARD TITLE: ADMINISTRATIVE NOTE DATE OF NOTE: MAR 08, 2022@12:49:28 ENTRY DATE: MAR 08, 2022@12:55:40 AUTHOR: KEILY BRASHER EXP COSIGNER: URGENCY: STATUS: COMPLETED CCC: SCHEDULING ADMINISTRATION Has ADDENDA Type of call: REFERRAL/CONSULT REQUEST. PCMM Provider Info: [facility] ([id number]) PACT: SO PACT 8 (Focus: Womens Health) Designated Pcp: DELMI BULLOCK Reinforcing Bar Setter: CODEY WEBSTER Clinical Associate: AIDAN SCHRADER PHON [phone] Wind Turbine Erector: TOLU PRAJAPATI PACT Clinical Pharmacist: EHSAN GARCIA Clinical POC: Clinical Associate AIDAN CONNOR PHONE:[phone] Administrative POC: Wind Turbine Erector TOLU PRAJAPATI *PATIENT called in for BRITTANIEMICHAEL BRII GUARDADO ([id number]) . Contact Caller Response: ADM CALL RESOLVED Caller Area: [facility] Comments: Brenda.MAURY Robles on [address]. . She needs a referral to [facility] [place]. He has an appt on 03/17. Please call back matilde. Author: KEILY BRASHER Evaluation/Management Code: HC PRO PHONE CALL [phone] ([phone]). Starting at: 03/08/2022 @ 12:49:28 PM Ending at: 03/08/2022 @ 12:52:50 PM Length: 3 minutes. Chief Complaint: Not applicable to call. Class Code: Other specified counseling. /mainor/ KEILY STODDARD [facility] Signed: 03/08/2022 12:55 Receipt Acknowledged By: 03/08/2022 14:25 /mainor/ MEGAN MCCARTHY RN-BC REGISTERED NURSE * AWAITING SIGNATURE * AIDAN SCHRADER 03/08/2022 ADDENDUM STATUS: COMPLETED Called [facility] and spoke with Dacia who transferred me to [facility] but no answer at that line. Dacia took author's direct nu mber and will request [facility] call back to author to discuss consult request. /mainor/ MEGAN MCCARTHY RN-BC REGISTERED NURSE Signed: 03/08/2022 14:24
--- OUTSIDE RECORDS SUMMARY | 2022-04-22 17:57 | XMS_ITS ---
:1950 Author Organization [facility] Address [address] [place] [address] Support Name Relationship Address Phone HAY GU Unavailable [address] [place] [address] HAY GU Unavailable [address] [place] [address] Insurance Providers: All historical and current Section [...] MEDICARE MEDICARE PART Mar 23, PART A [id number] HOFFMA N,E PATIENT (WNR) (M) A 2002A 00 [place] MEDICARE MEDICARE PART Mar 23, PART B [id number] HOFFMA N,E PATIENT (WNR) (M) B 2002A 00 [place] MEDICARE MEDICARE PART Mar 23, PART A [id number] HOFFMA N PATIENT (WNR) (M) A 2002A 4 MICHAEL MORRIS MEDICARE MEDICARE PART Mar 23, PART B [id number] HOFFMA N PATIENT (WNR) (M) B 2002A 4 MICHAEL MORRIS MEDICARE MEDICARE PART Mar 23, PART A [id number] HOFFMA N PATIENT (WNR) (M) A 2002A 1 MICHAEL MORRIS MEDICARE MEDICARE PART Mar 23, PART B [id number] HOFFMA N PATIENT (WNR) (M) B 2002A 1 MICHAEL Selected Encounter This section includes the information on record at [place] for the Encounter. Date/Time Encounter Type Encounter Description Reason Provider Source Feb 22, 2022 10:15 Outpatient Encounter COMMUNITY CARE AM CONSULT IHE Encounter Template Text not used by [place] Social History: Smoking Status (Most current) and [...] VA-TOBACCO NEVER USED [place] C [place] [facility] Advance Directives: All historical and [...]
--- OUTSIDE RECORDS SUMMARY | 2022-04-22 17:57 | XMS_ITS | Encounter Summary ---
:1950 Author Organization [facility] Address [address] [place] [address] Support Name Relationship Address Phone HAY GU Unavailable [address] [place] [address] HAY GU Unavailable [address] [place] [address] Insurance Providers: All historical and current Section [...] MEDICARE MEDICARE PART Mar 23, PART A [id number] HOFFMA N PATIENT (WNR) (M) A 2002A 4 MICHAEL MORRIS MEDICARE MEDICARE PART Mar 23, PART B [id number] HOFFMA N PATIENT (WNR) (M) B 2002A 4 MICHAEL MORRIS MEDICARE MEDICARE PART Mar 23, PART A [id number] HOFFMA N,E PATIENT (WNR) (M) A 2002A 00 [place] MEDICARE MEDICARE PART Mar 23, PART B [id number] HOFFMA N,E PATIENT (WNR) (M) B 2002A [place] MEDICARE MEDICARE PART Mar 23, PART A [id number] HOFFMA N PATIENT (WNR) (M) A 2002A 1 MICA MORRISHERNANDEZ MEDICARE MEDICARE PART Mar 23, PART B [id number] HOFFMA N PATIENT (WNR) (M) B 2002A MICHAEL Selected Encounter This section includes the information on record at [place] for the Encounter. Date/Time Encounter Type Encounter Description Reason Provider Source Jan 19, 2022 01:30 Outpatient Encounter COMMUNITY CARE PM CONSULT IHE [...] 22, 2022 10:15 AM AMBULATORY - MEDICINE [place] [facility] [place] [facility] Social History: Smoking Status (Most [...] 03, 2020 02:53 PM VA-TOBACCO NEVER USED [place] C [place]TRL [place] [facility] Advance Directives: All historical and [...]
--- OUTSIDE RECORDS SUMMARY | 2022-04-22 17:57 | XMS_ITS | Encounter Summary ---
:1950 Author Organization [facility] Address [address] [place] [address] Support Name Relationship Address Phone HAY GU Unavailable [address] [place] [address] HAY GU Unavailable [address] [place] [address] Insurance Providers: All historical and current Section [...] MEDICARE MEDICARE PART Mar 23, PART A [id number] HOFFMA N PATIENT (WNR) (M) A 2002A 4 MICHAEL MORRIS MEDICARE MEDICARE PART Mar 23, PART B [id number] HOFFMA N PATIENT (WNR) (M) B 2002A 4 MICHAEL MORRIS MEDICARE MEDICARE PART Mar 23, PART A [id number] HOFFMA N,E PATIENT (WNR) (M) A 2002 26A 00 DW[place] MEDICARE MEDICARE PART Mar 23, PART B [id number] HOFFMA N,E PATIENT (WNR) (M) B 2002A [place] MEDICARE MEDICARE PART Mar 23, PART A [id number] HOFFMA N PATIENT (WNR) (M) A 2002A 1 MICAHERNANDEZ MEDICARE MEDICARE PART Mar 23, PART B [id number] HOFFMA N PATIENT (WNR) (M) B 2002A MICHAEL MORRIS Selected Encounter This section includes the information on record at [place] for the Encounter. Date/Time Encounter Type Encounter Description Reason Provider Source Mar 12, 2022 07:42 Outpatient Encounter [facility] FOLLOW-UP AM IHE Encounter Template Text not used by [place] Social History: Smoking Status (Most current) and Tobacco Use (All prior to encounter date) This section includes the most current, and the historical, smoking and tobacco-related health factors from the [place] facility where the Encounter took place.Current Smoking Status This section includes the most current smoking, or tobacco-related health factor, from the [place] facility where the Encounter took place. Date/Time Current Smoking Status Comment Facility Jul 03, 2020 02:53 PM VA-TOBACCO NEVER USED [place] C NTRL WSTR[facility] Advance Directives: All historical and current Section Date Range: From patient's date of to the date document was created. This section includes ALL of a patient's completed or amended [place] Advance and Rescinded Directives. The entries below indicate that a directive exists for the patient, but an actual copy is not included with this document. The data comes from all [place] facilities. Date Advance Directives Provider Source Jan 06, 2022 ADVANCE DIRECTIVE CODEY WEBSTER HOLMES Encounter Notes: All associated encounter notes This section contains the clinical notes associated to the Encounter. Date/Time Encounter Note(s) Provider Source Mar 12, 2022 07:42 AM ADMINISTRATIVE NOTE: ANASTASIA SALVADOR [facility] WSTRN LOCAL TITLE: BENEFICIARY TRAVEL (BT) [facility] STANDARD TITLE: ADMINISTRATIVE NOTE DATE OF NOTE: MAR 12, 2022@07:42 ENTRY DATE: MAR 12, 2022@07:42:47 AUTHOR: ANASTASIA SALVADOR EXP COSIGNER: URGENCY: STATUS: COMPLETED BENEFICIARY TRAVEL (BT) Has ADDENDA [place] resides at: [place] [address] PHONE NUMBER: [phone] Please arrange W/C transport for the following s [facility]-ORTHO GENERAL appt on: 03/17/2022 2:15pm [facility] [address], [address] [place] [address] general milling superintendent time 1:15pm [facility] ([facility]) NOTIFIED OF THE APPT DATE, TIME AND P/U TIME /mainor/ ANASTASIA SALVADOR NIGHT TIME BABYSITTER GEC/HBPC Signed: 03/12/2022 07:46 Receipt Acknowledged By: 03/12/2022 08:24 /mainor/ DAWOOD HANNON MOTOR INSPECTOR [employer] 03/12/2022 07:52 /mainor/ JAMES COLINDRES FACILITIES MANAGEMENT 03/12/2022 08:13 /es/ ISAAC HERNANDEZ 03/12/2022 ADDENDUM STATUS: COMPLETED Arranged W/C transport for the following schedul ed [facility] appt on: 03/17/2022 2:15pm [facility] [address] [facility], [address] [place] [address] general milling superintendent time 1:15pm /mainor/ JAMES COLINDRES FACILITIES MANAGEMENT Signed: 03/12/2022 07:52 Receipt Acknowledged By: 03/17/2022 07:24 /mainor/ ANASTASIA SALVADOR NIGHT TIME BABYSITTER REHANA/ARTHUR 03/19/2022 ADDENDUM STATUS: COMPLETED [place] resides at: [place] [address] PHONE NUMBER: [phone] [facility] ([facility]) called please arrange W/C transport for the following scheduled [facility] GENERAL appt on: 03/30/22 845AM [facility] [address] [place] [address], [address] [address] general milling superintendent time 745AM [facility] ([place]) NOTIFIED OF THE P/U TIME /mainor/ ANASTASIA SALVADOR NIGHT TIME BABYSITTER REHANA/HBPC Signed: 03/19/2022 13:03 Receipt Acknowledged By: * AWAITING SIGNATURE * DAWOOD HANNON 03/19/2022 13:08 /mainor/ JAMES COLINDRES FACILITIES MANAGEMENT * AWAITING SIGNATURE * ISAAC HERNANDEZ 03/19/2022 ADDENDUM STATUS: COMPLETED arranged W/C transport for the following schedul ed [facility] appt on: 03/30/22 845AM [facility] [address] [place] [address], [address] [place] [address] general milling superintendent time 745AM /mainor/ JAMES COLINDRES FACILITIES MANAGEMENT Signed: 03/19/2022 13:08 Receipt Acknowledged By: * AWAITING SIGNATURE * ANASTASIA SALVADOR
--- OUTSIDE RECORDS SUMMARY | 2022-04-22 17:57 | XMS_ITS ---
:1950 Author Organization [facility] Address [address] [place] [address] Support Name Relationship Address Phone HAY UG Unavailable [address] [place] [address] HAY GU Unavailable [address] [place] [address] Insurance Providers: All historical and current Section [...] MEDICARE MEDICARE PART Mar 23, PART A [id number] HOFFMA N PATIENT (WNR) (M) A 2002A 4 MICHAEL MORRIS MEDICARE MEDICARE PART Mar 23, PART B [id number] HOFFMA N PATIENT (WNR) (M) B 2002A 4 MICHAEL MORRIS MEDICARE MEDICARE PART Mar 23, PART A [id number] HOFFMA N PATIENT (WNR) (M) A 2002A 1 MICHAEL MORRIS MEDICARE MEDICARE PART Mar 23, PART B [id number] HOFFMA N PATIENT (WNR) (M) B 2002A 1 MICHAEL MORRIS MEDICARE MEDICARE PART Mar 23, PART A [id number] HOFFMA N,E PATIENT (WNR) (M) A 2002A 00 DW[place] MEDICARE MEDICARE PART Mar 23, PART B [id number] HOFFMA N,E PATIENT (WNR) (M) B 2002A SHALA Selected Encounter This section includes the information on record at CT for the Encounter. Date/Time Encounter Type Encounter Description Reason Provider Source Nov 25, 2021 04:00 Outpatient Encounter COMMUNITY CARE PM CONSULT IHE Encounter Template Text not used by CT Plan of Treatment: Future Appointments (+ 6 months) and Future Tests (+/- 45 days) The Plan of Treatment section includes future care activities for the patient from all CT treatmentfacilities. This section includes future appointments and future orders which are active, pending orscheduled.Future Appointments This section includes appointments that were scheduled to occur 6 months from the date of the Encounter, up to a maximum of 20 appointments. The data comes from all CT treatment facilities. Appointment Date/Time Appointment Type Appointment Facili ty Name Jan 19, 2022 01:30 PM AMBULATORY [facility]INE [facility] Feb 22, 2022 10:15 AM [facility] Social History: Smoking Status (Most current) [...] 03, 2020 02:53 PM [facility]TOBACCO [facility] Advance Directives: All historical and current [...]
--- OUTSIDE RECORDS SUMMARY | 2022-04-22 17:58 | XMS_ITS ---
:1950 Author Organization [facility] Address [address] [place] [address] Support Name Relationship Address Phone HAY GU Unavailable [address] [place] [address] HAY GU Unavailable [address] [place] [address] Insurance Providers: All historical and current Section [...] MEDICARE MEDICARE PART Mar 23, PART A [id number] HOFFMA N,E PATIENT (WNR) (M) A 2002A 00 [place] MEDICARE MEDICARE PART Mar 23, PART B [id number] HOFFMA N,E PATIENT (WNR) (M) B 2002A 00 [place] MEDICARE MEDICARE PART Mar 23, PART A [id number] HOFFMA N PATIENT (WNR) (M) A 2002A 4 MICHAEL MORRIS MEDICARE MEDICARE PART Mar 23, PART B [id number] HOFFMA N PATIENT (WNR) (M) B 2002A 4 MICHAEL MORRIS MEDICARE MEDICARE PART Mar 23, PART A [id number] HOFFMA N PATIENT (WNR) (M) A 2002A 1 MICHAEL MORRIS MEDICARE MEDICARE PART Mar 23, PART B [id number] HOFFMA N PATIENT (WNR) (M) B 2002A 1 MICHAEL Selected Encounter This section includes the information on record at CT for the Encounter. Date/Time Encounter Type Encounter Description Reason Provider Source May 13, 2021 12:30 Outpatient Encounter COMMUNITY CARE PM CONSULT IHE Encounter Template Text not used by CT Plan of Treatment: Future Appointments (+ 6 months) and Future Tests (+/- 45 days) The Plan of Treatment section includes future care activities for the [facility] This section includes future appointments [...] 14, 2021 01:00 PM AMBULATORY - MEDICINE [place] Oct 27, 2021 01:00 PM AMBULATORY - PSYCHIATRY [place] Active, Pending, and Scheduled Orders This section [...] data comes from all CT treatment facilities. Test Date/Time Test Type Test Details Facility Name May 13, 2021 11:56 Consult Order [facility] CNTRL W [facility] AM SKILLED HOME CARE Cons [place] [facility] Pt Sitter's Choice Jun 24, 2021 12:00 Laboratory - ALCOHOL, ETHYL URINE CT CNTRL WSTRN AM Chemistry Order PANEL URINE (DRUG) [place] [facility] Jun 24, 2021 12:00 Laboratory - AMPHETAMINES SCREEN PANEL [facility] AM Chemistry Order URINE (DRUG) [place] [facility] Jun 24, 2021 12:00 Laboratory - FENTANYL SCREEN PANEL CT CNTR L WSTRN AM Chemistry Order URINE (DRUG) [place] [facility] Jun 24, 2021 12:00 Laboratory - BENZODIAZEPINES SCREEN VA CNT RL WSTRN AM Chemistry Order PANEL URINE (DRUG) [place] [facility] Jun 24, 2021 12:00 Laboratory - BUPRENORPHINE SCREEN [facility] AM Chemistry Order PANEL URINE (DRUG) [place] [facility] Jun 24, 2021 12:00 Laboratory - COCAINE SCREEN PANEL CT CNTRL WSTRN AM Chemistry Order URINE (DRUG) [place] [facility] Jun 24, 2021 12:00 Laboratory - OPIATES SCREEN PANEL [facility] AM Chemistry Order URINE (DRUG) [facility] Jun 24, 2021 12:00 Laboratory - CANNABINOIDS SCREEN PANEL [facility]L [facility] AM Chemistry Order URINE (DRUG) [facility] Jun 24, 2021 12:00 Laboratory - ETG SCREEN (wx) URINE [facility] AM Chemistry Order (DRUG) [facility] Jun 24, 2021 12:00 Laboratory - METHADONE SCREEN URINE SP [facility] CN[facility]L [facility] AM Chemistry Order [facility] Jun 24, 2021 12:00 Laboratory - OXYCODONE SCREEN PANEL VA CNT RL [facility]STRN AM Chemistry Order URINE (DRUG) [facility] Jun 24, 2021 12:00 Laboratory - URINALYSIS URINE SP CT CNTRL WSTRN AM Chemistry Order [facility] Jun 24, 2021 12:00 Laboratory - CBC AND DIFF (AUTO) BLOOD [facility] AM Chemistry Order (LAV-BLOOD) [facility] Jun 24, 2021 12:00 Laboratory - HEMOGLOBIN A1C PANEL [facility] AM Chemistry Order BLOOD (LAV-BLOOD) [facility] Jun 24, 2021 12:00 Laboratory - PSA BLOOD (SST-SERUM) SP [facility] C NTRL W[facility]N AM Chemistry Order [facility] Jun 24, 2021 12:00 Laboratory - ALBUMIN BLOOD (SST-SERUM) [facility] AM Chemistry Order [facility] Jun 24, 2021 12:00 Laboratory - URIC ACID BLOOD VA CNTRL WSTR N AM Chemistry Order (SST-SERUM) [facility] Jun 24, 2021 12:00 Laboratory - PROTEIN,TOTAL BLOOD [facility] AM Chemistry Order (SST-SERUM) [facility] Jun 24, 2021 12:00 Laboratory - BILIRUBIN, TOTAL BLOOD VA CNT RL WSTRN AM Chemistry Order (SST-SERUM) [facility] Jun 24, 2021 12:00 Laboratory - TSH BLOOD (SST-SERUM) SP [facility] C NTRL WSTRN AM Chemistry Order [facility] Jun 24, 2021 12:00 Laboratory - AST BLOOD (SST-SERUM) SP [facility] C NTRL [facility] AM Chemistry [facility] Jun 24, 2021 12:00 Laboratory - ALT BLOOD (SST-SERUM) [facility] C NTRL WSTRN AM Chemistry Order [facility] Jun 24, 2021 12:00 Laboratory - GLUCOSE BLOOD (SST-SERUM) [facility] AM Chemistry Order SP [facility] Jun 24, 2021 12:00 Laboratory - UREA NITROGEN BLOOD CT CNTRL WSTRN AM Chemistry Order (SST-SERUM) [facility] Jun 24, 2021 12:00 Laboratory - CREATININE (GFR [facility] CNTRL WSTR N AM Chemistry Order Est.included) [facility]LOOD [facility] (SST-SERUM) Jun 24, 2021 12:00 Laboratory - GAMMA-GTP BLOOD CT CNTRL WSTR N AM Chemistry Order (SST-SERUM) [facility] Jun 24, 2021 12:00 Laboratory - ELECTROLYTE PANEL BLOOD CT CN TRL WSTRN AM Chemistry Order (SST-SERUM) [facility] Jun 24, 2021 12:00 Laboratory - LIPID PANEL FASTING BLOOD CT CNTRL WSTRN AM Chemistry Order (SST-SERUM) [facility] Jun 24, 2021 12:00 Laboratory - GABAPENTIN, Urine URINE CT CN TRL WSTRN AM Chemistry Order (DRUG) [facility] Social History: Smoking Status [...] 03, 2020 02:53 PM VA-TOBACCO NEVER USED [facility] NTRL WSTRN [facility] Advance Directives: All historical and current [...]
--- OUTSIDE RECORDS SUMMARY | 2022-04-22 17:58 | XMS_ITS | Encounter Summary ---
:1950 Author Organization [facility] Address [address] [place] [address] Support Name Relationship Address Phone HAY GU Unavailable [address] [place] [address] HAY GU Unavailable [address] [place] [address] Insurance Providers: All historical and current Section [...] MEDICARE MEDICARE PART Mar 23, PART A [id number] HOFFMA N,E PATIENT (WNR) (M) A 2002A 00 [place] MEDICARE MEDICARE PART Mar 23, PART B [id number] [id number] HOFFMA N,E PATIENT (WNR) (M) B 2002A 00 [place] MEDICARE MEDICARE PART Mar 23, PART A [id number] HOFFMA N PATIENT (WNR) (M) A 2002A 4 MICHAEL MORRIS MEDICARE MEDICARE PART Mar 23, PART B [id number] HOFFMA N PATIENT (WNR) (M) B 2002A 4 MICHAEL MORRIS MEDICARE MEDICARE PART Mar 23, PART A [id number] HOFFMA N PATIENT (WNR) (M) A 2002A 1 MICHAEL MORRIS MEDICARE MEDICARE PART Mar 23, PART B [id number] HOFFMA N PATIENT (WNR) (M) B 2002A 1 MICHAEL MORRIS Selected Encounter This section includes the information on record at [place] for the Encounter. Date/Time Encounter Type Encounter Reason Provider Source Description Apr 01, 2022 HC PRO PHONE TELEPHONE/GERIATRI ICD-10-CM HODABRITTON Zarate 12:02 PM CALL 11-20 MIN CS F43.12 NE E Post-traumatic stress disorder, chronic with Provider Comments: Chronic post-traumatic stress disorder ([facility] [id number]) IHE Encounter Template Text not used by [place] Assessments - Encounter Diagnoses This section includes the primary and secondary diagnoses documented for the Encounter. Date/Time Primary/Secondary Diagnosis Name Provider Source Diagnosis Apr 01, 2022 PRIMARY Post-traumatic DRUMMONDCYNDI IN CNTRL WS TRN 12:02 PM stress NE [facility] disorder, chronic Social History: Smoking Status (Most [...] 03, 2020 02:53 PM VA-TOBACCO NEVER USED [facility] NTRL WSTRN [facility] Advance Directives: All historical and current [...] Encounter. Date/Time Encounter Note(s) Provider Source Apr 01, 2022 12:03 COMMUNITY INTERMEDIATE CARE NOTE: KARLA DRUMMOND IN CNTRL WSTRN PM LOCAL TITLE: COMMUNITY INTERMEDIATE REHAB REIMB URSEMENT AUTHORIZ [facility] STANDARD TITLE: COMMUNITY INTERMEDIATE CARE NOTE DATE OF NOTE: APR 01, 2022@12:03 ENTRY DATE: APR 01, 2022@12:03:26 AUTHOR: RUTHIE DRUMMOND EXP COSIGNER: URGENCY: STATUS: COMPLETED COMMUNITY INTERMEDIATE REHAB REIMBURSEMENT AUTHORIZATION Has [facility] INTERMEDIATE REHAB REIMBURSEMENT AUTHO RIZATION FACILITY NAME:[facility] ADDRESS: [address] [facility] PHONE & FAX NUMBER: [phone] : MICHAEL GU [phone] ELIGIBILITY: SERVICE CONNECTION: SERVICE CONNECTED % - 100 DAILY RATE APPROVED: Negotiated rehabilitation rate for days PT/OT/Sp eech is documented as being provided. 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 NOTE: * Rehabilitation days include any skilled rehabi litation the [place] may require, to include PT/OT/Speech. * All Rehabilitation services should include a r estorative/maintenance care plan to be implemented by nursing withsupp ortive documentation. INSTRUCTIONS: Please refer to the negotiated con tract for items covered. Rehabilitation without prior approval and specia l equipment are considered non-routine services. Non-routine services must be approved by [facility]. Rehabilitation therapies will be provided as a d istinct level of care. Hospice Care and Dialysis are not included in th e rate. VA or other payers may be used for Hospice and Dialysis, as determined by the with VA approval. The rehabilitation therapy per diems shall consist of up to one hundred and eighty (180) minutes of rehabilitation per day and not less than ninety (90) minutes per day ac ross functions of Speech, Occupational and Physical Therapies in a patient -appropriate mix. QUESTIONS REGARDING PAYMENT: Contact the [facility] s Office at x [phone] /es/ RUTHIE DRUMMOND RN SCHOOL LEADER Signed: 04/01/2022 12:10 Receipt Acknowledged By: 04/01/2022 13:49 /es/ SIENNA GALVEZ TELEHEALTH RESIDENTIAL DESIGNER 04/01/2022 13:04 /es/ PHAN ARCOS ADVANCED CINDER CRUSHER OPERATOR * AWAITING SIGNATURE * PAKO LAW 04/01/2022 ADDENDUM STATUS: COMPLETED 15 APPROVED REHAB DAYS NOTED ON VISJENNIFER LAWSON AND Jaime HA /mainor/ SIENNA GALVEZ TELEHEALTH RESIDENTIAL DESIGNER Signed: 04/01/2022 13:50
--- OUTSIDE RECORDS SUMMARY | 2022-04-22 17:58 | XMS_ITS ---
:1950 Author Organization [facility] Address [address] [place] [address] Support Name Relationship Address Phone HAY GU Unavailable [address] [place] [address] HAY GU Unavailable [address] [place] [address] Insurance Providers: All historical and current Section [...] MEDICARE MEDICARE PART Mar 23, PART A [id number] HOFFMA N PATIENT (WNR) (M) A 2002A 4 MICHAEL MORRIS MEDICARE MEDICARE PART Mar 23, PART B [id number] HOFFMA N PATIENT (WNR) (M) B 2002A 4 MICHAEL MORRIS MEDICARE MEDICARE PART Mar 23, PART A [id number] HOFFMA N PATIENT (WNR) (M) A 2002A 1 MICHAEL MORRIS MEDICARE MEDICARE PART Mar 23, PART B [id number] HOFFMA N PATIENT (WNR) (M) B 2002A 1 MICHAEL MORRIS MEDICARE MEDICARE PART Mar 23, PART A [id number] HOFFMA N,E PATIENT (WNR) (M) A 2002A 00 [place] MEDICARE MEDICARE PART Mar 23, PART B [id number] [phone] HOFFMA N,E PATIENT (WNR) (M) B 2002 SHALA Selected Encounter This section includes the information on record at [place] for the Encounter. Date/Time Encounter Type Encounter Description Reason Provider Source Jan 19, 2022 12:00 Outpatient Encounter COMMUNITY CARE AM CONSULT IHE Encounter Template Text not used by [place] Plan of Treatment: Future Appointments (+ 6 months) and Future Tests (+/- 45 days) The Plan of Treatment section includes future care activities for the patient from all [place] treatmentfacilities. This section includes future appointments and future orders which are active, pending orscheduled.Future Appointments This section includes appointments that were scheduled to occur 6 months from the date of the Encounter, up to a maximum of 20 appointments. The data comes from all [place] treatment facilities. Appointment Date/Time Appointment Type Appointment Facili ty Name Feb 22, 2022 10:15 AM AMBULATORY - MEDICINE [place] [facility] Social History: Smoking Status (Most current) [...] 03, 2020 02:53 PM VA-TOBACCO NEVER USED [place] C NTRL WSTRN [facility] Advance Directives: All historical and current Section Date Range: From patient's date of to the date document was created. This section includes ALL of a patient's completed or amended [place] Advance and Rescinded Directives. The entries below indicate that a directive exists for the patient, but an actual copy is not included with this document. The data comes from all [place] facilities. Date Advance Directives Provider Source Jan 06, 2022 ADVANCE DIRECTIVE CODEY WEBSTER Encounter Notes: All associated encounter notes This section contains the clinical notes associated to the Encounter. Date/Time Encounter Note(s) Provider Source Jan 19, 2022 12:00 AM NONVA CONSULT: [place] CNTRL W STRN LOCAL TITLE: COMMUNITY CARE-CONSULT RESULT NOTE [facility] STANDARD TITLE: NONVA CONSULT DATE OF NOTE: JAN 19, 2022 ENTRY DATE: MAR 29 022@11:47:03 AUTHOR: JONATHON GREGG EXP COSIGNER: URGENCY: STATUS: COMPLETED Vist[facility] Imaging - Scanned Document SCANNED DOCUMENT SIGNATURE NOT REQUIRED Electronically Filed: 03/29/2022 by: JONATHON GREGG CAR CLEANER
--- OUTSIDE RECORDS SUMMARY | 2022-04-22 17:59 | XMS_ITS | Continuity of Care Document ---
:1950 Author Organization [facility] Address [address] [place] [address]- Care Team Providers Name Role Phone Karan JACKSON, Hari Gonsalves Primary Care Physician Encounter [facility] Date(s): 04/16/20 - 05/22/[address] [address] Attending Physician: Javy Helton MD Admitting Physician: Javy Helton MD Referring Physician: Javy Helton MD Allergies, Adverse Reactions, Alerts Substance Reaction Severity Status penicillin1 Active 1unknown reaction Medications ipratropium nasal 21 mcg/inh spray See Instructions, PRN Nasal Congestion, 1 spray each nostril BID, # 1 each, 4 Refills, Maintenance, 04/29/20 10:09:00 [id number], Partial fill upon patient request if the prescription is for a schedule II opioid drug., 1 spray ea... 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
--- OUTSIDE RECORDS SUMMARY | 2022-04-22 17:59 | XMS_ITS | Continuity of Care Document ---
:1950 Author Organization [facility] Address [address] [place] [address]- Care Team Providers Name Role Phone Karan JACKSON, Hari Gonsalves Primary Care Physician Encounter [facility] Date(s): 06/16/20 - 08/02/[address] [address] Attending Physician: Steve Osei MD Admitting Physician: Steve Osei MD Allergies, Adverse Reactions, Alerts Substance Reaction Severity Status penicillin1 unknown Active 1unknown reaction Medications Aripiprazole 15 mg, By Mouth, Daily in AM, Refills 0, Maintenance, 06/27/20 15:30:00 EST, Partial fill upon patient request if the prescription is for a schedule II opioid drug. Start Date: 06/27/20 Status: OrderedBusPIRone = 5 mg, By Mouth, Daily in AM, 0 Refills, Maintenance, 06/27/20 15:30:00 EST, Partial fill upon patient request if the prescription is for a schedule II opioid drug. Start Date: 06/27/20 Status: OrderedGabapentin = 600 mg, By Mouth, 2 times a day, 0 Refills, Maintenance, 06/27/20 15:31:00 EST, Partial fill upon patient request if the prescription is for a schedule II opioid drug. Start Date: 06/27/20 Status: Orderedipratropium nasal 21 mcg/inh spray See Instructions, PRN Nasal Congestion, 1 spray each nostril BID, # 1 each, 4 Refills, Maintenance, 04/29/20 10:09:00 EST, [facility] #[id number], Partial fill upon patient request if the prescription is for a schedule II opioid drug., 1 spray ea... Start Date: 04/29/20 Status: OrderedLisinopril = 10 mg, By Mouth, Daily in AM, 0 Refills, Maintenance, 06/27/20 15:31:00 EST, Partial fill upon patient request if the prescription is for a schedule II opioid drug. Start Date: 06/27/20 Status: OrderedMetformin = 500 mg, By Mouth, 2 times a day, 0 Refills, Maintenance, 12/08/18 20:11:51 EDT Start Date: 12/08/18 Status: OrderedPropranolol 60 mg, By Mouth, Daily in AM, Refills 0, Maintenance, 06/27/20 15:32:00 EST, Partial fill upon patient request if the prescription is for a schedule II opioid drug. 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
--- OUTSIDE RECORDS SUMMARY | 2022-04-22 17:59 | XMS_ITS | Continuity of Care Document ---
:1950 Author Organization [facility] Address [address] [place] [address]- Care Team Providers Name Role Phone Berenice Hill MD Primary Care Physician Encounter [facility] Date(s): 01/07/22 - 01/07/[address] [address]- Encounter Diagnosis Shoulder fracture, right (Final) - 01/07/22 Discharge Disposition: A-Transfer SNF Attending Physician: Taylor Johns DO Admitting Physician: Taylor Johns DO Referring Physician: Not on Staff, Referring MD Allergies, Adverse Reactions, Alerts Substance Reaction Severity Status amoxicillin Active penicillin1 rash Active 1unknown reaction Immunizations Given and Recorded Vaccine Date Status Refusal Reason SARS-CoV-2 (COVID-19) mRNA-1273 vaccine 05/07/21 Recorded SARS-CoV-2 (COVID-19) mRNA-1273 vaccine 04/09/21 Recorded SARS-CoV-2 (COVID-19) mRNA-1273 vaccine 07/19/20 Recorded influenza virus vaccine, inactivated 04/09/21 Recorded influenza virus vaccine, inactivated 03/13/19 Recorded pneumococcal 23-valent vaccine 11/02/18 Recorded Zoster Vaccine Live 09/19/17 Recorded pneumococcal 13-valent vaccine 09/19/17 Recorded tetanus/diphtheria/pertussis, acel(Tdap) 09/19/17 Recorde d Medications acetaminophen 500 mg oral tablet 2 tablet = 1,000 mg, By Mouth, 3 times a day, Maintenance, 01/07/22 15:50:00 EDT, ; Start Date: 01/07/22 Status: Orderedacetaminophen-HYDROcodone 325 mg-5 mg oral tablet 1 tablet, By Mouth, Daily, PRN MODERATE PAIN, 0 Refills, Maintenance, 01/07/22 15:56:00 EDT, ; Start Date: 01/07/22 Status: Orderedaspirin 81 mg oral delayed release tablet 81 mg, 1, tablet, By Mouth, Daily, Refills 0, Maintenance, 11/17/21 11:27:00 EDT, ; Start Date: 11/17/21 Status: Orderedbisacodyl 10 mg rectal suppository 1 supp = 10 mg, Rectally, Daily, PRN for constipation, Maintenance, 01/07/22 15:52:00 EDT, Suppository, ; Start Date: 01/07/22 Status: OrderedCane See Instructions, # 1 each, Maintenance, as needed, 08/14/21 14:16:00 EDT, Supply Start Date: 08/14/21 Status: OrderedCentrum 1 tablet, By Mouth, Daily, Maintenance, 01/07/22 16:01:00 EDT, ; Start Date: 01/07/22 Status: OrderedFleet Enema 19 gm-7 gm rectal enema 1 each, Rectally, Once, PRN for constipation, Maintenance, 01/07/22 15:52:00 EDT, Enema, ; Start Date: 01/07/22 Status: Orderedfolic acid 1 mg oral tablet 1 mg, 1, tablet, By Mouth, Daily, Refills 0, Maintenance, 11/24/21 10:11:00 EDT, ; Start Date: 11/24/21 Status: Orderedgabapentin 600 mg oral tablet 1.5 tablet = 900 mg, By Mouth, 3 times a day, 0 Refills, Maintenance, 11/17/21 11:28:00 EDT, ; Start Date: 11/17/21 Status: OrderedGlucagon Emergency Kit for Low Blood Sugar 1 mg injection = 1 mg, Intramuscular, Once, PRN LOW BLOOD SUGAR, Maintenance, 01/07/22 15:53:00 EDT, ; Start Date: 01/07/22 Status: Orderedglucose 40% oral gel 1 DOSE, By Mouth, Once, PRN LOW BLOOD SUGAR, Maintenance, 01/07/22 15:58:00 EDT, Gel, ; Start Date: 01/07/22 Status: OrderedguaiFENesin 600 mg oral tablet, extended release 2 tablet = 1,200 mg, By Mouth, Every 12 hours, Maintenance, 01/07/22 15:54:00 EDT, ER Tablet, ; Start Date: 01/07/22 Status: OrderedHYDROcodone 5 mg/Acetaminophen 325 mg Tablet 1 tablet, Tablet, By Mouth, Once, STAT, 01/07/22 16:22:00 EDT, Stop date 01/07/22 16:22:00 EDT Start Date: 01/07/22 Stop Date: 01/07/22 Status: Completedibuprofen 400 mg oral tablet 400 mg, 1, tablet, By Mouth, Daily, AFTER BREAKFAST, Maintenance, 01/07/22 15:57:00 EDT, ; Start Date: 01/07/22 Status: Orderedlidocaine 5% topical film 1 patch, Topically, Daily in AM, remove after 12 hours, Maintenance, 01/07/22 15:59:00 EDT, Film, ; Start Date: 01/07/22 Status: Orderedloratadine 10 mg oral capsule 1 capsule = 10 mg, By Mouth, Daily, 0 Refills, Maintenance, 08/17/20 0:53:00 EDT, Capsule, ; Start Date: 08/17/20 Status: OrderedMelatonin 5 mg oral tablet 1 tablet = 5 mg, By Mouth, Daily at bedtime, Maintenance, 01/07/22 15:59:00 EDT, ; Start Date: 01/07/22 Status: OrderedmetFORMIN 500 mg oral tablet 1 tablet = 500 mg, By Mouth, 2 times a day, Maintenance, 01/07/22 16:00:00 EDT, Tablet, ; Start Date: 01/07/22 Status: OrderedMOM Liquid 30 mL, By Mouth, Daily at bedtime, if no BM in 3 days, Maintenance, 01/07/22 16:00:00 EDT, ; Start Date: 01/07/22 Status: Orderedprimidone 50 mg oral tablet 50 mg, 1, tablet, By Mouth, 2 times a day, Refills 0, Maintenance, 11/17/21 11:31:00 EDT, ; Start Date: 11/17/21 Status: Orderedthiamine 100 mg oral tablet 100 mg, 1, tablet, By Mouth, Daily, Refills 0, Maintenance, 11/24/21 10:11:00 EDT, ; Start Date: 11/24/21 Status: OrderedtraZODone 100 mg oral tablet 150 mg, 1.5, tablet, By Mouth, Daily at bedtime, PRN, Refills 0, Maintenance, Sleep, 11/17/21 11:32:00 EDT, ; Start Date: 11/17/21 Status: OrderedTrintellix 20 mg oral tablet 1 tablet = 20 mg, By Mouth, Daily, Maintenance, 01/07/22 16:03:00 EDT, Tablet, ; Start Date: 01/07/22 Status: OrderedVitamin B12 1000 mcg oral tablet 1 tablet = 1,000 mcg, By Mouth, Daily, Maintenance, 01/07/22 15:51:00 EDT, Tablet, ; Start Date: 01/07/22 Status: Ordered Problem List Condition Effective Dates Status Health Status Informant MADELEINE (obstructive sleep Active apnea)(Confirmed) Tracheostomy in place(Confirmed) Active Results Radiology Reports Exam Date Time Procedure Performing Provider Status 01/07/22 5:17 PM Shoulder 1 View Right Radha Jefferson; Auth (Chloe ified) Notes:(Shoulder 1 View Right) Reason For Exam: PainRESULT: Shoulder 1 View Right Shoulder 1 View Right, 2 views Hx of Present Illness: Pt coming in today after fall a month ago, persistent R shoulder pain that was found via imaging at PCP to be a frx.; Reason: Pain; Clinical Question(s): Position Fixation; Special Instructions: Axillary view COMPARISON: Right shoulder radiographs from 01/07/2022 and 08/14/2021 FINDINGS: Bones are demineralized. Chronic nonhealed fracture deformity of the proximal right humeral metaphysis with severe posterior angulation at the head neck junction. No additional fracture. Suboptimal evaluation of the elbow secondary to orientation. No lance dislocation is appreciated. IMPRESSION: Chronic nonhealed fracture deformity of the proximal right humerus with severe angulation. No additional fracture is appreciated. WSN: [id number] Ordering Physician: Errol Jones Dictated By: Luis Horton MD Dictated Date/Time: 01/07/22 5:27 pm Reviewed By: Luis Horton MD Signed By: Luis Horton MD Signed Date/Time: 01/07/22 5:27 pm Transcribed By: DENVER Transcribed Date/Time: 01/07/22 5:23 pm Exam Date Time Procedure Performing Provider Status 01/07/22 2:35 PM Shoulder Min 2 Views Right Grzejka , Jeanette; Au th (Verified) Notes:(Shoulder Min 2 Views Right) Reason For Exam: with Pain;TraumaRESULT: Shoulder Min 2 Views Right Shoulder Min 2 Views Right, 2 views Reason: Trauma; with Pain; Clinical Question(s): Fracture COMPARISON: Chest radiograph 11/16/2021, shoulder radiographs 08/14/2021 FINDINGS: Heterogeneous demineralization. Chronic fracture of the humeral metaphysis with associated foreshortening and varus angulation at the head neck junction. No dislocation. Given the underlying deformity and bony demineralization it is difficult to exclude an acute fracture. Tracheostomy noted. Visualized portion of the right lung is clear. Impression: Limited examination due to underlying bony demineralization as well as chronic fracture deformity. No definitive acute fracture. WSN: [id number] Ordering Physician: Taylor Johns Dictated By: Joe Helton MD Dictated Date/Time: 01/07/22 4:54 pm Reviewed By: Joe Helton MD Signed By: Joe Helton MD Signed Date/Time: 01/07/22 4:54 pm Transcribed By: DENVER Transcribed Date/Time: 01/07/22 4:51 pm Vital Signs Most recent to oldest [Reference Range]: 1 Height 169 cm (01/07/22 3:16 PM) Weight 80 kg (01/07/22 3:16 PM) Oxygen Saturation [94-100 %] 98 % (01/07/22 5:18 PM) Pulse Rate [55-90 bpm] 16 bpm *L* (01/07/22 5:18 PM) Blood Pressure [90-138/55-84 mm Hg] 139/85 mm Hg *H* (01/07/22 5:18 PM) Respiratory Rate [16-30 br/min] 16 br/min (01/07/22 5:18 PM) Temperature [96.8-100.4 DegF] 98.8 DegF (01/07/22 5:18 PM) Temperature Route Oral (01/07/22 5:18 PM) Dry Weight 80 kg (01/07/22 3:16 PM) Weight Obtained Via Patient/family stated (01/07/22 3:16 PM) Social History Social History Type Response Smoking Status Never (less than 100 in life time) entered on: 11/17/21 Sex
--- OUTSIDE RECORDS SUMMARY | 2022-04-22 17:59 | XMS_ITS | Continuity of Care Document ---
:1950 Author Organization [facility] Address [address] [place] [address]- Care Team Providers Name Role Phone Karan JACKSON, Hari Gonsalves Primary Care Physician [place] [facility] [place] 08/14/21 - 09/13/[address] [address] Attending Physician: Not on Staff, Attending MD Admitting Physician: Not on Staff, Admitting MD Referring Physician: Not on Staff, Referring MD Allergies, Adverse Reactions, Alerts Substance Reaction Severity Status penicillin1 rash Active 1unknown reaction Immunizations Given [...] Recorded tetanus/diphtheria/pertussis, acel(Tdap) 09/19/17 Recorde d Medications BusPIRone = 5 mg, By Mouth, Daily in AM, 0 Refills, Maintenance, 06/27/20 15:30:00 EST, Partial fill upon patient request if the prescription is for a schedule II opioid drug. Start Date: 06/27/20 Status: OrderedCane See Instructions, # 1 each, Maintenance, as needed, 08/14/21 14:16:00 EDT, Supply Start Date: 08/14/21 Status: Orderedfolic acid 1 mg oral tablet 1 mg, 1, tablet, By Mouth, Daily, # 30 tablet, Refills 0, Tot. Refills 0, Maintenance, 11/23/20 10:59:00 EDT, Route to Pharmacy Electronically, [facility] #[id number], Partial fill upon patient request if the prescription is for a schedule II opi... Start Date: 11/23/20 Status: OrderedGabapentin = 300 mg, By Mouth, 3 times a day, 0 Refills, Maintenance, 06/27/20 15:31:00 EST, Partial fill upon patient request if the prescription is for a schedule II opioid drug. Start Date: 06/27/20 Status: OrderedLisinopril = 10 mg, By Mouth, Daily in AM, 0 Refills, Maintenance, 06/27/20 15:31:00 EST, Partial fill upon patient request if the prescription is for a schedule II opioid drug. Start Date: 06/27/20 Status: Orderedloratadine 10 mg oral capsule 1 capsule = 10 mg, By Mouth, Daily, # 24 capsule, 0 Refills, Maintenance, 08/17/20 0:53:00 EDT, Capsule, Partial fill upon patient request if the prescription is for a schedule II opioid drug. Start Date: 08/17/20 Status: OrderedMetformin = 500 mg, By Mouth, 2 times a day, 0 Refills, Maintenance, 12/08/18 20:11:51 EDT Start Date: 12/08/18 Status: Orderedthiamine 100 mg oral tablet 100 mg, 1, tablet, By Mouth, 2 times a day, # 90 tablet, Refills 4, Tot. Refills 4, Maintenance, 08/21/20 14:46:00 EDT, Route to Pharmacy Electronically, [facility]/pharmacy #[id number], Partial fill upon patient request if the prescription is for a schedule II op... Start Date: 08/21/20 Status: OrderedTrazodone = 200 mg, By Mouth, Daily at bedtime, 0 Refills, Maintenance, 08/22/20 16:43:00 EDT, Partial fill upon patient request if the prescription is for a schedule II opioid drug. Start Date: 08/22/20 Status: OrderedTrintellix = 20 mg, By Mouth, Daily in AM, 0 Refills, Maintenance, 12/08/18 20:11:39 EDT Start Date: 7/19/19 Status: Ordered Problem List Condition Effective Dates Status Health Status Informant MADELEINE (obstructive sleep Active apnea)(Confirmed) Tracheostomy in place(Confirmed) Active Social History Social History Type Response Smoking Status Never (less than 100 in life time) entered on: 08/16/20 Sex
--- OUTSIDE RECORDS SUMMARY | 2022-04-22 17:59 | XMS_ITS | Continuity of Care Document ---
:1950 Author Organization [facility] Address [address] [place] [address]- Care Team Providers Name Role Phone Karan JACKSON, Hari Gonsalves Primary Care Physician Encounter [facility] [place] Date(s): 08/13/21 - 08/14/[address] [address]- Encounter Diagnosis Humerus fracture (Final) - 08/14/21 Rib fracture (Final) - 08/14/21 Discharge Disposition: A-D/C Home Attending Physician: Teofilo Evans MD Admitting Physician: Teofilo Evans MD Referring Physician: Not on Staff, Referring [...] Recorded tetanus/diphtheria/pertussis, acel(Tdap) 09/19/17 Recorde d Medications acetaminophen-hydrocodone 300 mg-5 mg oral tablet 1 tablet, By Mouth, Every 6 hours, PRN for pain, for 3 days, # 10 tablet, 0 Refills, Acute 08/17/21 15:27:00 EDT, 08/14/21 15:27:00 EDT, Tablet, [facility] #[id number], Partial fill upon patient request if the prescription is for a schedule II op... Start Date: 08/14/21 Stop Date: 08/17/21 Status: OrderedBusPIRone = 5 mg, By Mouth, [...] 11/23/20 10:59:00 EDT, Route to Pharmacy Electronically, [facility] #[id number], Partial fill upon patient request if the [...] 12/08/18 20:11:51 EDT Start Date: 12/08/18 Status: OrderedPercocet-5/325 325 mg-5 mg oral tablet 2 tablet, Tablet, By Mouth, Once, Routine, 08/14/21 16:00:00 EDT, Stop date 08/14/21 16:00:00 EDT Start Date: 08/14/21 Stop Date: 08/14/21 Status: Completedthiamine 100 mg oral tablet 100 mg, 1, tablet, By Mouth, 2 times a day, # 90 tablet, Refills 4, Tot. Refills 4, Maintenance, 08/21/20 14:46:00 EDT, Route to Pharmacy Electronically, [facility]/pharmacy #[id number], Partial fill upon patient request if the [...] Exam Date Time Procedure Performing Provider Status 08/14/21 12:40 AM Humerus Min 2 Views Right Brock Boudreaux; Au th (Verified) Notes:(Humerus Min 2 Views Right) Reason For Exam: with Pain;TraumaRESULT: Humerus Min 2 Views Right Humerus Min 2 Views Right, views Hx of Present Illness: Pt. had mechanical fall. Pt. denies LOC, head pain, neck pain and back pain to EMS. Pt. denies thinners. Pt. denies hitting head. R shoulder deformity assessed by ems as well as swelling and brusiing to R collar bone; Reason: Trauma; with Pain; Clinical Question(s): Fracture COMPARISON: None. FINDINGS: Comminuted fracture of the right humeral neck with superior and lateral displacement of the humeral shaft and some rotation of the humeral head. The head appears normally positioned relative to the glenoid. The subacromial space appears substantially narrowed. No other fracture or dislocation is present. Bone mineralization is normal. The elbow joint appears normal. Soft tissue swelling in the upper arm. IMPRESSION: Comminuted and displaced fracture of the right humeral neck. Diminished subacromial space consistent with advanced degenerative change or tear of the rotator cuff. Review of the electronic medical record confirms that this fracture was noted by the emergency department physician. WSN: [id number] Ordering Physician: Teofilo Evans MD Dictated By: Errol Uriostegui MD Dictated Date/Time: 08/14/21 7:41 am Reviewed By: Errol Uriostegui MD Signed By: Errol Uriostegui MD Signed Date/Time: 08/14/21 7:41 am Transcribed By: DENVER Transcribed Date/Time: 08/14/21 7:37 am Vital Signs Most recent to oldest 1 2 3 [Reference Range]: Oxygen Saturation [94-100 %] 98 % 99 % 92 % (08/14/21 5:16 PM) (08/14/21 4:27 PM) *L* (08/14/21 9:38 AM ) Pulse Rate [55-90 bpm] 79 bpm 89 bpm 83 bpm (08/14/21 5:16 PM) (08/14/21 4:27 PM) (08/14/21 12: 50 PM) Blood Pressure [90-138/55-84 133/71 mm Hg 170/84 mm Hg 130 /68 mm Hg mm Hg] (08/14/21 5:16 PM) *H* (08/14/21 12:53 PM) (08/14/21 4:27 PM) Respiratory Rate [16-30 16 br/min 16 br/min 22 br/mi n br/min] (08/14/21 5:16 PM) (08/14/21 5:07 PM) (08/14/21 4:2 7 PM) Temperature [96.8-100.4 DegF] 99.6 DegF 98.1 DegF 98 .3 DegF (08/14/21 5:16 PM) (08/14/21 4:27 PM) (08/14/21 12: 50 PM) Mode of Delivery (Oxygen) Room air Room air Room a ir (08/14/21 5:16 PM) (08/14/21 4:27 PM) (08/14/21 9:3 8 AM) Blood pressure sites Arm, left Arm, right Arm, left (08/14/21 5:16 PM) (08/14/21 4:27 PM) (08/14/21 12: 53 PM) Temperature Route Oral Oral Oral (08/14/21 5:16 PM) (08/14/21 4:27 PM) (08/14/21 12: 50 PM) Social History Social History Type Response Smoking Status Never (less than 100 in life time) entered on: 08/16/20 Sex
--- OUTSIDE RECORDS SUMMARY | 2022-04-22 17:59 | XMS_ITS | Continuity of Care Document ---
:1950 Author Organization [facility] Address [address] [place] [id number]- Care Team Providers Name Role Phone Karan JACKSON, Hari Gonsalves Primary Care Physician Encounter [facility] [place] Date(s): 11/21/20 - 11/23/[address] [address]- Encounter Diagnosis Diverticulitis (Final) - 11/22/20 Discharge Disposition: A-D/C Home Attending Physician: Alejandro Freedman MD Admitting Physician: Fortino Jha MD Referring Physician: Not on Staff, Referring MD Allergies, Adverse Reactions, Alerts Substance Reaction Severity Status penicillin1 rash Active 1unknown reaction Medications BusPIRone = 5 mg, By Mouth, Daily in AM, 0 Refills, Maintenance, 06/27/20 15:30:00 EST, Partial fill upon patient request if the prescription is for a schedule II opioid drug. Start Date: 06/27/20 Status: OrderedFlagyl 500 mg oral tablet 1 tablet = 500 mg, By Mouth, 3 times a day, for 5 days, # 15 tablet, 0 Refills, Acute 11/28/20 10:57:00 EDT, 11/23/20 10:57:00 EDT, Tablet, [facility] #[id number], Partial fill upon patient request if the prescription is for a schedule II opioid... Start Date: 11/23/20 Stop Date: 11/28/20 Status: Orderedfolic acid 1 mg oral tablet 1 mg, 1, tablet, By Mouth, Daily, # 30 tablet, Refills 0, Tot. Refills 0, Maintenance, 11/23/20 10:59:00 EDT, Route to Pharmacy Electronically, [facility] #[id number], Partial fill upon patient request if the prescription is for a schedule II opi... Start Date: 11/23/20 Status: OrderedGabapentin = 300 mg, By Mouth, 3 times a day, 0 Refills, Maintenance, 06/27/20 15:31:00 EST, Partial fill upon patient request if the prescription is for a schedule II opioid drug. Start Date: 06/27/20 Status: Orderedgabapentin 300 mg oral capsule 300 mg, Capsule, By Mouth, 11/23/20 9:00:00 EDT Start Date: 11/23/20 Stop Date: 11/23/20 Status: CompletedlevoFLOXacin 500 mg oral tablet 1 tablet = 500 mg, By Mouth, Every 24 hours, for 5 days, # 5 tablet, 0 Refills, Acute 11/28/20 10:57:00 EDT, 11/23/20 10:57:00 EDT, Tablet, [facility] #[id number], Partial fill upon patient request if the prescription is for a schedule II opioid... Start Date: 11/23/20 Stop Date: 11/28/20 Status: OrderedLisinopril = 10 mg, By Mouth, Daily in AM, 0 Refills, Maintenance, 06/27/20 15:31:00 EST, Partial fill upon patient request if the prescription is for a schedule II opioid drug. Start Date: 06/27/20 Status: Orderedlisinopril 10 mg oral tablet 10 mg, Tablet, By Mouth, 11/23/20 9:00:00 EDT Start Date: 11/23/20 Stop Date: 11/23/20 Status: Completedloratadine 10 mg oral capsule 1 capsule = [...] 08/21/20 14:46:00 EDT, Route to Pharmacy Electronically, [facility]/pharmacy #[id number], Partial fill upon patient request if the [...] Exam Date Time Procedure Performing Provider Status 11/22/20 8:01 AM Chest 2 Views Frontal and Lat Luu, Beau; Au th (Verified) Notes:(Chest 2 Views Frontal and Lat) Reason For Exam: CoughRESULT: Chest 2 Views Frontal and Lat Chest 2 Views Frontal and Lat Hx of Present Illness: pt reports generalized weakness and cough X2 weeks; Reason: Cough; Clinical Question(s): Pneumonia COMPARISON: 08/16/2020. FINDINGS: LINES AND TUBES: Tracheostomy tube in place. LUNGS AND PLEURA: Clear lungs. Normal pulmonary vascularity. No pleural effusion. No pneumothorax. HEART, MEDIASTINUM AND GAMALIEL: Heart is normal in size. Normal upper mediastinal and hilar contour. BONES AND SOFT TISSUES: No acute abnormality. IVC filter in place. A 2 cm calcific density in the midline upper abdomen could at the corresponds to a soft peripancreatic calcification seen on a prior CT. IMPRESSION: No acute abnormality. WSN: [id number] Ordering Physician: Abel Lee Dictated By: Madhavi Murguia MD Dictated Date/Time: 11/22/20 8:13 am Reviewed By: Madhavi Murguia MD Signed By: Madhavi Murguia MD Signed Date/Time: 11/22/20 8:13 am Transcribed By: DEN[place] Transcribed Date/Time: 11/22/20 8:11 am Vital Signs Most recent to oldest [Reference 1 2 3 Range]: Oxygen Saturation [94-100 %] 98 % 98 % 98 % (11/23/20 7:12 AM) (11/23/20 5:06 AM) (11/22/20 11:58 PM) Pulse Rate [55-90 bpm] 71 bpm 45 bpm 56 bpm (11/23/20 7:12 AM) *L* (11/22/20 11:58 P M) (11/23/20 5:06 AM) Blood Pressure [90-138/55-84 mm 118/57 mm Hg 118/57 mm Hg 145/55 mm Hg Hg] (11/23/20 7:13 AM) (11/23/20 7:12 AM) *H* (11/23/20 5:06 AM) Respiratory Rate [16-30 br/min] 16 br/min 18 br/min 16 br/min (11/23/20 7:55 AM) (11/23/20 7:55 AM) (11/23/20 7:13 A M) Temperature [96.8-100.4 DegF] 98.2 DegF 98.2 DegF 98 .1 DegF (11/23/20 7:12 AM) (11/23/20 5:06 AM) (11/22/20 11:58 PM) Mode of Delivery (Oxygen) Room air Room air Room a ir (11/23/20 7:12 AM) (11/23/20 5:06 AM) (11/22/20 11:58 PM) Blood pressure sites Arm, left Arm, right Arm, right (11/23/20 7:12 AM) (11/23/20 5:06 AM) (11/22/20 11:58 PM) Temperature Route Oral Oral Oral (11/23/20 7:12 AM) (11/23/20 5:06 AM) (11/22/20 11:58 PM) Social History Social History Type Response Smoking Status Never (less than 100 in life time) entered on: 08/16/20 Sex
--- OUTSIDE RECORDS SUMMARY | 2022-04-22 17:59 | XMS_ITS | Continuity of Care Document ---
:1950 Author Organization [facility] Address [address] [place] [address]- Care Team Providers Name Role Phone Karan JACKSON, Hari Gonsalves Primary Care Physician [place] [facility] [place] 08/29/20 - 08/29/[address] [address] Discharge Disposition: A-D/C Home Attending Physician: Steve Osei MD Admitting Physician: Steve Osei MD Referring Physician: Steve Osei MD Allergies, Adverse Reactions, Alerts Substance Reaction Severity Status penicillin1 rash Active 1unknown reaction Medications BusPIRone = 5 mg, By Mouth, Daily in AM, 0 Refills, Maintenance, 06/27/20 15:30:00 EST, Partial fill upon patient request if the prescription is for a schedule II opioid drug. Start Date: 06/27/20 Status: Orderedfolic acid 1 mg oral tablet 1 mg, 1, tablet, By Mouth, Daily, # 30 tablet, Refills 4, Tot. Refills 4, Maintenance, 08/21/20 14:46:00 EDT, Route to Pharmacy Electronically, [facility]/pharmacy #[id number], Partial fill upon patient request if the prescription is for a schedule II opioid drug.... Start Date: 08/21/20 Status: OrderedGabapentin = 300 mg, By Mouth, 3 times a day, 0 Refills, Maintenance, 06/27/20 15:31:00 EST, Partial fill upon patient request if the prescription is for a schedule II opioid drug. Start Date: 06/27/20 Status: OrderedguaiFENesin 200 mg oral tablet 1 tablet = 200 mg, By Mouth, 4 times a day, PRN Other, for secretions, # 56 tablet, 0 Refills, Maintenance, 08/17/20 0:57:00 EDT, Tablet, Partial fill upon patient request if the prescription is for a schedule II opioid drug. Start Date: 08/17/20 Stop Date: 08/31/20 Status: OrderedLisinopril = 10 mg, By Mouth, [...] 08/21/20 14:46:00 EDT, Route to Pharmacy Electronically, [facility]/pharmacy #[id number], Partial fill upon patient request [...] Active Vital Signs Most recent to oldest 1 2 3 4 [Reference Range]: Height 167.64 cm 167.64 cm (08/29/20 9:06 AM) (08/22/20 4:47 PM) Weight 77.8 kg (08/29/20 9:06 AM) Oxygen Saturation 98 % 98 % 99 % 99 % [94-100 %] (08/29/20 11:45 AM) (08/29/20 11:30 AM) (08/29/20 11:15 AM) (08/29/20 11:15 AM) Pulse Rate [55-90 64 bpm bpm] (08/29/20 9:06 AM) Body Mass Index 27.68 [18.5-24.99] *H* (08/29/2006 AM) Blood Pressure 91/64 mm Hg 93/47 mm Hg 103/48 mm Hg [90-138/55-84 mm Hg] (08/29/20 11:45 AM) (08/29/20 11:30 AM) (08/29/20 11 :15 AM) Respiratory Rate 23 br/min 16 br/min 14 br/min 14 br/min [16-30 br/min] (08/29/20 11:45 AM) (08/29/20 11:30 AM) *L* *L* (08/29/20 11:15 AM) (08/29/20 11 :15 AM) Temperature 97.3 DegF 97.9 DegF 97.2 DegF [96.8-100.4 DegF] (08/29/20 11:45 AM) (08/29/20 11:00 AM) (08/29/20 9:06 AM) Liters per Minute 10 L/min 10 L/min 10 L/min (08/29/20 11:30 AM) (08/29/20 11:15 AM) (08/29/20 11:00 AM) Mode of Delivery Room air Shovel mask Shovel mask (Oxygen) (08/29/20 11:45 AM) (08/29/20 11:30 AM) (08/29/20 11:15 AM) Blood pressure sites Arm, right Arm, right Arm, right (08/29/20 11:45 AM) (08/29/20 11:30 AM) (08/29/20 11:15 AM) Temperature Route Temporal Temporal Temporal (08/29/20 11:45 AM) (08/29/20 11:00 AM) (08/29/20 9:06 AM) Dry Weight 72.73 kg (08/22/20 4:47 PM) Weight Obtained Via Standing scale (08/29/20 9:06 AM) Social History Social History Type Response Smoking Status Never (less than 100 in life time) entered on: 08/16/20 Sex
--- OUTSIDE RECORDS SUMMARY | 2022-04-22 17:59 | XMS_ITS | Continuity of Care Document ---
:1950 Author Organization [facility] Address [address] [place] [address]- Care Team Providers Name Role Phone Karan JACKSON, Hari Gonsalves Primary Care Physician [place] [facility] [place](s): 11/16/21 - 11/25/[address] [address]- Encounter Diagnosis Bradycardia, sinus (Final) - 11/16/21 Discharge Disposition: A-D/C Home Attending Physician: Veronica Garcia MD Admitting Physician: Bull Fairbanks MD Referring Physician: Not on Staff, Referring [...] Recorded tetanus/diphtheria/pertussis, acel(Tdap) 09/19/17 Recorde d Medications acetaminophen-HYDROcodone 325 mg-5 mg oral tablet 1 tablet, By Mouth, Daily, PRN as needed for pain, # 15 tablet, 0 Refills, Maintenance, 11/25/21 15:59:00 EDT, Tablet, Partial fill upon patient request if the prescription is for a schedule II opioid drug. Start Date: 11/25/21 Status: Orderedaspirin 81 mg oral delayed release tablet 81 mg, 1, tablet, By Mouth, Daily, # 30 tablet, Refills 0, Maintenance, 11/17/21 11:27:00 EDT, Partial fill upon patient request if the prescription is for a schedule II opioid drug. Start Date: 11/17/21 Status: OrderedCane See Instructions, # 1 each, Maintenance, as needed, 08/14/21 14:16:00 EDT, Supply Start Date: 08/14/21 Status: Orderedfolic acid 1 mg oral tablet 1 mg, 1, tablet, By Mouth, Daily, Refills 0, Maintenance, 11/24/21 10:11:00 EDT, Partial fill upon patient request if the prescription is for a schedule II opioid drug. Start Date: 11/24/21 Status: Orderedgabapentin 300 mg oral capsule 900 mg, Capsule, By Mouth, 11/25/21 9:00:00 EDT Start Date: 11/25/21 Stop Date: 11/25/21 Status: Completedgabapentin 300 mg oral capsule 900 mg, Capsule, By Mouth, 11/25/21 15:00:00 EDT Start Date: 11/25/21 Stop Date: 11/25/21 Status: Completedgabapentin 600 mg oral tablet 1.5 tablet = 900 mg, By Mouth, 3 times a day, 0 Refills, Maintenance, 11/17/21 11:28:00 EDT, Partialfill upon patient request if the prescription is for a schedule II opioid drug. Start Date: 11/17/21 Status: OrderedguaiFENesin 100 mg/5 mL oral liquid 10 mL = 200 mg, By Mouth, 4 times a day, 0 Refills, Maintenance, 11/24/21 10:10:00 EDT, Syrup, Partial fill upon patient request if the prescription is for a schedule II opioid drug. Start Date: 11/24/21 Status: Orderedloratadine 10 mg oral capsule 1 capsule = 10 mg, By Mouth, Daily, # 24 capsule, 0 Refills, Maintenance, 08/17/20 0:53:00 EDT, Capsule, Partial fill upon patient request if the prescription is for a schedule II opioid drug. Start Date: 08/17/20 Status: OrderedMetformin = 500 mg, By Mouth, 2 times a day, 0 Refills, Maintenance, 12/08/18 20:11:51 EDT Start Date: 12/08/18 Status: Orderedmultivitamin Lipotropic with Multivitamins oral capsule 1 capsule, By Mouth, Daily, # 30 capsule, 0 Refills, Maintenance, 11/17/21 11:31:00 EDT, Capsule, Partial fill upon patient request if the prescription is for a schedule II opioid drug. Start Date: 11/17/21 Status: Orderedprimidone 50 mg oral tablet 50 mg, 1, tablet, By Mouth, 2 times a day, # 60 tablet, Refills 0, Maintenance, 11/17/21 11:31:00 EDT, Partial fill upon patient request if the prescription is for a schedule II opioid drug. Start Date: 11/17/21 Status: Orderedthiamine 100 mg oral tablet 100 mg, 1, tablet, By Mouth, Daily, Refills 0, Maintenance, 11/24/21 10:11:00 EDT, Partial fill uponpatient request if the prescription is for a schedule II opioid drug. Start Date: 11/24/21 Status: OrderedtraZODone 100 mg oral tablet 150 mg, 1.5, tablet, By Mouth, Daily at bedtime, PRN, Refills 0, Maintenance, Sleep, 11/17/21 11:32:00 EDT, Partial fill upon patient request if the prescription is for a schedule II opioid drug. Start Date: 11/17/21 Status: OrderedTrintellix = 20 mg, By Mouth, Daily in AM, 0 Refills, Maintenance, 12/08/18 20:11:39 EDT Start Date: 12/08/18 Status: Ordered Problem List Condition Effective Dates Status Health Status Informant MADELEINE (obstructive sleep Active apnea)(Confirmed) Tracheostomy in place(Confirmed) Active Results Orders for Microbiology Reports Name Date Blood Culture 11/16/21 Blood Culture #2 11/16/21 Microbiology Reports TEST:Blood Culture STATUS:Auth (Verified) BODY SITE: SOURCE:Blood COLLECTED DATE/TIME:11/16/21 6:12 PMBlood Culture SPECIMEN DESCRIPTION : BLOOD NO SITE SPECIAL REQUESTS : NONE CULTURE : NO GROWTH 5 DAYS. REPORT STATUS : FINAL 11/22/2021TEST:Blood Culture, Second Order STATUS:Auth (Verified) BODY SITE: SOURCE:Blood COLLECTED DATE/TIME:11/16/21 6:12 PMBlood Culture, Second Order SPECIMEN DESCRIPTION : BLOOD R ARM SPECIAL REQUESTS : NONE CULTURE : NO GROWTH 5 DAYS. REPORT STATUS : FINAL 2Radiology Reports Exam Date Time Procedure Performing Provider Status 11/16/21 6:40 PM Chest 2 Views Frontal and Lat Mejia FrankiwillisgauravBethanie Harper [facility] (Verified) Notes:(Chest 2 Views Frontal and Lat) Reason For Exam: Shortness of Breath, Fever;Other:RESULT: Chest 2 Views Frontal and Lat Chest 2 Views Frontal and Lat Hx of Present Illness: generalized weakness; Reason: Other:; Shortness of Breath, Fever; Clinical Question(s): Pneumonia COMPARISON: Chest x-ray 11/22/2020 humerus x-ray 08/14/2021 FINDINGS: LINES AND TUBES: Stable satisfactory positioning of tracheostomy cannula. LUNGS AND PLEURA: Low lung volumes with mild basilar atelectasis. Lungs are otherwise clear with no consolidation. No pleural effusion. No pneumothorax. HEART, MEDIASTINUM AND GAMALIEL: Heart is normal in size. Normal upper mediastinal and hilar contour. 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 IMPRESSION: No acute abnormality. Well-positioned tracheostomy. 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 WSN: [id number] Ordering Physician: Errol Mchugh Dictated By: Luis Prado MD Dictated Date/Time: 11/16/21 6:52 pm Reviewed By: Luis Prado MD Signed By: Luis Prado MD Signed Date/Time: 11/16/21 6:52 pm Transcribed By: [place] Transcribed Date/Time: 11/16/21 6:51 pm Vital Signs Most recent to oldest [Reference 1 2 3 Range]: Height 170.18 cm 170.18 cm (11/25/21 3:14 PM) (11/25/21 2:25 PM) Weight 79.8 kg 72.7 kg (11/25/21 2:25 PM) (11/17/21 8:00 AM) Oxygen Saturation [94-100 %] 95 % 95 % 99 % (11/25/21 3:14 PM) (11/25/21 7:00 AM) (11/24/21 8:00 P M) Pulse Rate [55-90 bpm] 60 bpm 57 bpm 62 bpm (11/25/21 3:14 PM) (11/25/21 7:00 AM) (11/24/21 8:00 P M) Body Mass Index [18.5-24.99] 27.55 *H* (11/25/21 2:25 PM) Blood Pressure [90-138/55-84 mm 123/62 mm Hg 130/65 mm Hg Hg] (11/25/21 3:14 PM) (11/25/21 7:00 AM) Systolic Blood Pressure [90-138 120 mm Hg mm Hg] (11/24/21 8:00 PM) Diastolic Blood Pressure [55-84 42 mm Hg mm Hg] *L* (11/24/21 8:00 PM) Respiratory Rate [16-30 br/min] 20 br/min 20 br/min 22 br/min (11/25/21 4:11 PM) (11/25/21 3:14 PM) (11/25/21 10:08 AM) Temperature [96.8-100.4 DegF] 98.7 DegF 98.2 DegF 98 .8 DegF (11/25/21 3:14 PM) (11/25/21 7:00 AM) (11/24/21 8:00 P M) Mode of Delivery (Oxygen) Room air Room air Room a ir (11/25/21 3:14 PM) (11/25/21 7:00 AM) (11/24/21 8:00 P M) Blood pressure sites Arm, left Arm, left Arm, left (11/25/21 3:14 PM) (11/25/21 7:00 AM) (11/24/21 8:00 P M) Temperature Route Oral Oral Oral (11/25/21 3:14 PM) (11/25/21 7:00 AM) (11/24/21 8:00 P M) Weight Obtained Via Bed scale (11/25/21 2:25 PM) Social History Social History Type Response Smoking Status Never (less than 100 in life time) entered on: 11/17/21 Sex
--- OUTSIDE RECORDS SUMMARY | 2022-04-22 17:59 | XMS_ITS ---
:1950 Author Organization [facility] Address [address] [place] [id number] Support Name Relationship Address Phone HAY GU Unavailable [address] [place] [address] HAY GU Unavailable [address] [place] [address] Insurance Providers: All historical and current Section [...] MEDICARE MEDICARE PART Mar 23, PART A [id number] [id number] HOFFMA N,E PATIENT (WNR) (M) A 2002A [place] MEDICARE MEDICARE PART Mar 23, PART B [id number] [id number] HOFFMA N,E PATIENT (WNR) (M) B 2002A 00 [place] MEDICARE MEDICARE PART Mar 23, PART B [id number] HOFFMA N PATIENT (WNR) (M) B 2002A 4 MICHAEL MORRIS MEDICARE MEDICARE PART Mar 23, PART A [id number] HOFFMA N PATIENT (WNR) (M) A 2002A 4 MICHAEL MORRIS MEDICARE MEDICARE PART Mar 23, PART A [id number] HOFFMA N PATIENT (WNR) (M) A 2002A 1 MICHAEL MORRIS MEDICARE MEDICARE PART Mar 23, PART B [id number] HOFFMA N PATIENT (WNR) (M) B 2002A 1 MICHAEL MORRIS Selected Encounter This section includes the information on record at [place] for the Encounter. Date/Time Encounter Type Encounter Description Reason Provider Source Feb 19, 2022 10:00 Outpatient Encounter [facility] FOLLOW-UP AM [facility] Encounter Template Text not [...] AM [place]IC[place] [facility] [place] [facility] Social History: Smoking Status (Most [...] PM VA-TOBACCO NEVER USED [place] [facility] [place] [facility] Advance Directives: All historical and [...]
--- OUTSIDE RECORDS SUMMARY | 2022-04-22 17:59 | XMS_ITS | Continuity of Care Document ---
:1950 Author Organization [facility] Address [address] [place] [address]- Care Team Providers Name Role Phone Karan JACKSON, Hari Gonsalves Primary Care Physician Encounter [facility] [place] Date(s): 06/03/20 - 11/03/[address] [address] Discharge Disposition: A-D/C Home Attending Physician: Bill Paris MD Admitting Physician: Bill Paris MD Referring Physician: Bill Paris MD Allergies, Adverse Reactions, Alerts Substance Reaction [...] 08/21/20 14:46:00 EDT, Route to Pharmacy Electronically, [facility]/pharmacy #[id number], Partial fill upon patient request if the [...] 08/21/20 14:46:00 EDT, Route to Pharmacy Electronically, [facility]/pharmacy #[id number], Partial fill upon patient request if [...]
--- OUTSIDE RECORDS SUMMARY | 2022-04-22 17:59 | XMS_ITS | Continuity of Care Document ---
:1950 Author Organization [facility] Address [address] [place] [address]- Care Team Providers Name Role Phone Karan JACKSON, Hari Gonsalves Primary Care Physician Encounter [facility] Date(s): 08/16/20 - 08/21/[address] [id number] Discharge Disposition: A-D/C Home Attending Physician: Rosendo Moffett MD Admitting Physician: Bronwyn Goel MD Referring Physician: Not on Staff, Referring MD Allergies, Adverse Reactions, Alerts Substance Reaction Severity Status penicillin1 unknown Active 1unknown reaction Medications BusPIRone = 5 [...] 08/21/20 14:46:00 EDT, Route to Pharmacy Electronically, [facility]/pharmacy #[id number], Partial fill upon patient request if the [...] oral capsule 300 mg, Capsule, By Mouth, 08/21/20 9:00:00 EDT Start Date: 08/21/20 Stop Date: 08/21/20 Status: Completedgabapentin 300 mg oral capsule 300 mg, Capsule, By Mouth, 08/21/20 15:00:00 EDT Start Date: 08/21/20 Stop Date: 08/21/20 Status: CompletedguaiFENesin 200 mg oral tablet 1 tablet = [...] oral tablet 10 mg, Tablet, By Mouth, Hold for: bp<90/60, 08/21/20 9:00:00 EDT Start Date: 08/21/20 Stop Date: 08/21/20 Status: Completedloratadine 10 mg oral capsule 1 [...] 08/21/20 14:46:00 EDT, Route to Pharmacy Electronically, [facility]/pharmacy #[id number], Partial fill upon patient request if the prescription is for a schedule II op... Start Date: 08/21/20 Status: OrderedtraZODone 150 mg oral tablet 1 tablet = 150 mg, By Mouth, Daily at bedtime, # 90 tablet, 0 Refills, Maintenance, 08/17/20 0:54:00EDT, Tablet, Partial fill upon patient request if the prescription is for a schedule II opioid drug. Start Date: 08/17/20 Status: OrderedTrintellix = 20 mg, By Mouth, Daily in AM, 0 Refills, Maintenance, 12/08/18 20:11:39 EDT Start Date: 12/08/18 Status: Ordered Problem List Condition Effective Dates Status Health Status Informant MADELEINE (obstructive sleep Active apnea)(Confirmed) Tracheostomy in place(Confirmed) Active Results Radiology Reports Exam Date Time Procedure Performing Provider Status 08/16/20 5:33 PM Chest 2 Views Frontal and Lat Gladis Rausch; Auth (Verified) Notes:(Chest 2 Views Frontal and Lat) Reason For Exam: weakness;Other:RESULT: Chest 2 Views Frontal and Lat Chest 2 Views Frontal and Lat Hx of Present Illness: from home, lives home alone. EMS called by sister, concerned that patient hasn't eaten anything in 4 days. Pt states he doesn't have any appetite. Denies abd pain nausea vomiting; Reason: Other:; weakness; Clinical Question(s): Pneumonia COMPARISON: None. FINDINGS: LINES AND TUBES: Tracheostomy tube in good position. LUNGS AND PLEURA: Clear lungs. Normal pulmonary vascularity. No pleural effusion. No pneumothorax. HEART, MEDIASTINUM AND GAMALEIL: Heart is normal in size. Normal upper mediastinal and hilar contour. BONES AND SOFT TISSUES: No acute abnormality. Calcific tendinitis of the right rotator cuff. Degenerative changes of both shoulders and AC joints bilaterally. IMPRESSION: No acute abnormality. WSN: [id number] Ordering Physician: Juani Ramsay Dictated By: Jero Lepe MD Dictated Date/Time: 08/16/20 5:39 pm Reviewed By: Jero Lepe MD Signed By: Jero Lepe MD Signed Date/Time: 08/16/20 5:39 pm Transcribed By: DEN[place] Transcribed Date/Time: 08/16/20 5:38 pm Vital Signs Most recent to oldest 1 2 3 [Reference Range]: Height 164 cm 164 cm 164 cm (08/21/20 7:58 AM) (08/20/20 11:12 PM) (08/20/20 7:1 7 PM) Weight 73.1 kg 75 kg 75 kg (08/17/20 2:48 AM) (08/17/20 2:04 AM) (08/17/20 12: 28 AM) Oxygen Saturation [94-100 97 % 98 % 95 % %] (08/21/20 7:58 AM) (08/20/20 11:12 PM) (08/20/20 7:1 7 PM) Pulse Rate [55-90 bpm] 93 bpm 60 bpm 61 bpm *H* (08/20/20 11:12 PM) (08/20/20 7:17 PM) (08/21/20 7:58 AM) Body Mass Index 27.18 28.23 28.23 [18.5-24.99] *H* *H* *H* (08/17/20 2:48 AM) (08/17/20 2:04 AM) (08/17/20 12: 28 AM) Blood Pressure 113/55 mm Hg 113/55 mm Hg 112/63 mm Hg [90-138/55-84 mm Hg] (08/21/20 8:41 AM) (08/21/20 7:58 AM) (08/20/20 11:12 PM) Respiratory Rate [16-30 21 br/min 22 br/min 20 br/mi n br/min] (08/21/20 3:27 PM) (08/21/20 8:40 AM) (08/21/20 7:58 A M) Temperature [96.8-100.4 98.4 DegF 98.4 DegF 98 DegF DegF] (08/21/20 7:58 AM) (08/20/20 11:12 PM) (08/20/20 7:1 7 PM) Mode of Delivery (Oxygen) Room air Room air Room a ir (08/21/20 7:58 AM) (08/20/20 11:12 PM) (08/20/20 7:1 7 PM) Blood pressure sites Arm, left Arm, left Arm, left (08/21/20 7:58 AM) (08/20/20 11:12 PM) (08/20/20 7:1 7 PM) Temperature Route Oral Oral Oral (08/21/20 7:58 AM) (08/20/20 11:12 PM) (08/20/20 7:1 7 PM) Dry Weight 73.1 kg 75 kg 75 kg (08/17/20 2:48 AM) (08/17/20 2:04 AM) (08/17/20 12: 28 AM) Weight Obtained Via Bed scale Patient/family stated (08/17/20 2:48 AM) (08/16/20 4:03 PM) Dry Weight Obtained Via Bed scale Patient/family stated (08/17/20 2:48 AM) (08/16/20 4:03 PM) Social History Social History Type Response Smoking Status Never (less than 100 in life time) entered on: 08/16/20 Sex
--- OUTSIDE RECORDS SUMMARY | 2022-04-22 17:59 | XMS_ITS | Continuity of Care Document ---
:1950 Author Organization [facility] Address [address] [place] [id number]- Care Team Providers Name Role Phone Karan JACKSON, Hari Gonsalves Primary Care Physician Encounter [facility] Date(s): 04/29/20 - 05/29/20 [facility] [address] [id number] Attending Physician: AdmWally bae Admitting Physician: Admtr, Ar8 Referring Physician: Admtr, Ar8 Allergies, Adverse Reactions, Alerts Substance Reaction Severity Status penicillin1 Active 1unknown reaction Medications ipratropium nasal 21 mcg/inh spray See Instructions, PRN Nasal Congestion, 1 spray each nostril BID, # 1 each, 4 Refills, Maintenance, 04/29/20 10:09:00 [facility] #[id number], Partial fill upon patient request if the [...]
[2022-04-22] MEDS: Acetaminophen 325 MG TABLET 650 MG PO (18:43)
--- NOTE | 2022-04-22 18:55 | PC.NURSE ---
Iv # 20 placed in right wrist without complications
--- NOTE | 2022-04-22 19:00 | PC.RT ---
Rt attempt to reinsert pts 8.0 Chino trach tube, secondary to resistance this RT opted to place a 7.0 shiley cuffless trach tube. Pt antonieta well, RN/PSYCHIATRIC ORDERLY aware, placement confirmed by auscaltation, ETCO2. No trauma noted, pt antonieta well and is in no distress. Innercannulas present, pt family educated on different trach tube.
--- NOTE | 2022-04-22 19:12 | PC.NURSE ---
This Us/Pct spoke with Karen Robles On [address] at [address],per provider to see if brother was able to transport patient back.The nurse said yes he is able to transport patient back to facility.Rn and Food Equipment Service Technician aware.
[2022-04-22 19:21] VITALS: BP 146/62; PULSE 48; RESP 13; TEMP 36.4; O2SAT 100
== END 2022-04-22 20:05 | disposition skilled nursing facility (03) ==
PROVIDERS: Emergency Provider Emergency Medicine; PCP Family Medicine Geriatric Medicine
DX: J95.03 Malfunction of tracheostomy stoma (principal)
CPT/HCPCS: 96374; 96375; 99284; J2270; J2405

== ENCOUNTER 2022-04-25 19:53 | Emergency (ER) | payer OTHER, SELFPAY ==
--- NOTE | ~2022-04-25 | XR_ITS ---
EXAMINATION: XR CHEST CLINICAL INFORMATION: Increased tracheal secretions COMPARISON: None TECHNIQUE: Frontal view of the chest was obtained. FINDINGS: Tracheostomy tube is midline. No airspace consolidation. No pleural effusion or pneumothorax. Cardiomediastinal silhouette and pulmonary vascularity are within normal limits. No acute osseous injury. Fracture deformity of the right proximal humerus noted. XR/XR chest 1V IMPRESSION: No acute pulmonary disease.
[2022-04-25 20:00] VITALS: BP 173/67; PULSE 52; RESP 24; TEMP 36.7; O2SAT 100; BMI 26.3
[2022-04-25 20:05] VITALS: BP 130/72; PULSE 64; O2SAT 99
--- NOTE | 2022-04-25 20:34 | ED.GENADULT ---
HPI - General Adult General Chief complaint: General Medical Stated complaint: TRACH ISSUE Time Seen by Provider: 04/25/22 20:11 Source: patient Mode of arrival: ambulatory Limitations: no limitations History of Present Illness HPI narrative: Patient is status post tracheostomy for sleep apnea comes in from skilled nursing for increased secretion patient got panicked been having increased dictation for some time no fever no chills no cough Related Data Previous Rx's Medication Instructions Recorded acetylcysteine 200 mg/mL (20 %) 2 ml inhalation Q6H #100 mL 04/25/22 solution Allergies Allergy/AdvReac Type Severity Reaction Status Date / Time No Known Allergies Allergy Verified 04/22/22 16:52 Review of Systems Review of Systems: Yes all other systems are reviewed and are negative [facility] Social History Social History Smoked in Last 30 Days: No Use of substances other than those prescribed or required for medical reasons: No Advance Directives: Yes Advance Directives on File: Yes Advance Directives Date on File: 04/22/22 Physical Exam ED Vital Signs: Vital Signs - 24 hr 04/25/22 20:00 04/25/22 21:07 Temperature 98.1 F Pulse Rate 52 51 Respiratory Rate 24 H 18 Blood Pressure 173/67 H Pulse Oximetry 100 Oxygen Delivery Method Room Air BMI result Body Mass Index 26.3 Appearance: Alert. Oriented X3. No acute distress. ENT: Pharynx normal. Oral Mucosa moist Neck: Normal inspection. Neck supple. Tracheostomy in place with mucoid secretions CVS: Normal heart rate and rhythm. Pulses normal. Respiratory: No respiratory distress. Equal air entry bilateral, no wheezing/rales/rhonchi Abdomen: Soft and nontender. Bowel sounds are present, Skin: Skin warm and dry. Normal skin color. Normal skin turgor. Extremities: No lower extremity edema. No calf tenderness Neuro: Oriented X 3. No motor deficit. Medications Administered Discontinued Medications Generic Name Dose Route Start Last Admin Trade Name Freq PRN Reason Stop Dose Admin Acetylcysteine 400 mg 04/25/22 20:44 04/25/22 21:06 Acetylcysteine 10 % 400 Mg/4 Ml Vial INHALE 04/25/22 20:45 400 mg ONCE ONE Administration Oxycodone HCl 5 mg 04/25/22 22:08 04/25/22 22:13 Oxycodone Hcl Immed Release 5 Mg Tablet PO 04/25/22 22:09 5 mg ONCE ONE Administration Medical Decision Making MDM Narrative Medical decision making narrative: Patient with clear secretions from tracheostomy tube chest x-ray negative for infiltrates will give Mucomyst nebulizing treatment advised to continue with skilled nursing Discharge Plan Discharge Clinical Impression: Tracheostomy complication, unspecified Patient Disposition: Home, Self-Care Instructions: Tracheostomy Care (ED) Additional Instructions: Care of tracheostomy tube as advised use Mucomyst inhalation 3-4 times a day will make the secretions thinner Prescriptions: New acetylcysteine 200 mg/mL (20 %) solution 2 ml inhalation Q6H Qty: 100 0RF
--- NOTE | 2022-04-25 21:03 | PC.NURSE ---
called facility, spoke with nurse chase, stated that pt last had mucinex 04/25/2022 0800, and last albuterol 0.083% neb tx given 04/24/2022
[2022-04-25] MEDS: Acetylcysteine 10 % 400 MG/4 ML VIAL INHALE (21:06)
[2022-04-25 21:07] VITALS: PULSE 51; RESP 18; O2SAT 99
[2022-04-25] MEDS: oxyCODONE HCl Immed Release 5 MG TABLET PO (22:13)
--- NOTE | 2022-04-25 23:08 | PC.NURSE ---
Nurse called to pt bed side complaining of 10/10 arm pain. pt sts he has an old fx that is hurting him. provider advised 5mg oxycodone ordered. Pt continues to ask nursing repeatedly to give him a shot ., stating he isn;t doing too well. vss, satting 98-99% on RA. This nurse asked patient what i could do to make him more comfortable, and he stated that he wants something to suck out the mucus . Respiratory contacted and suctioned as directed, thick tenacious secretions removed from trach. pt stated to nurse that suctioning does not occur regularly at the facility.RT at bedside advised HCP that pt should be suctioned daily. pt awating transport back to facility via [facility]
== END 2022-04-26 00:05 | disposition home or self-care (01) ==
PROVIDERS: Emergency Provider Internal Medicine; PCP Family Medicine Geriatric Medicine
DX: J95.00 Unspecified tracheostomy complication (principal); Z79.899 Other long term (current) drug therapy
CPT/HCPCS: 71045; 94640; 99284

== ENCOUNTER 2023-07-21 19:29 | Emergency (ER) | payer OTHER, SELFPAY ==
[2023-07-21 19:56] VITALS: BP 138/74; BP 140/70; PULSE 60; PULSE 65; RESP 18; TEMP 36.6; O2SAT 100; BMI 23.9
--- NOTE | 2023-07-21 21:39 | ED.GENADULT ---
HPI - General Adult General Chief complaint: General Medical Stated complaint: Took his trach out Time Seen by Provider: 07/21/23 19:38 History of Present Illness HPI narrative: The patient is a 73-year-old male who lives at the [facility]. He has a chronic tracheostomy. He has had a Chino style tracheostomy tube (metal tracheostomy tube) for several years. He says that he took out the tracheostomy tube earlier today. He can not really say why he took it out but when he tried to put it back and he could not get it back in nor could the staff staff at the facility. He was therefore transferred here. According to records from the patient's long-term care facility the patient has a history of severe sleep apnea and the patient says this is the indication for the tracheostomy. There is no indication of any head or neck cancer. Other diagnoses include primary pulmonary hypertension, depression, diabetes, generalized anxiety disorder, and posttraumatic stress disorder. Related Data Previous Rx's Medication Instructions Recorded acetylcysteine 200 mg/mL (20 %) 2 ml inhalation Q6H #100 mL 04/25/22 solution Allergies Allergy/AdvReac Type Severity Reaction Status Date / Time No Known Allergies Allergy Verified 04/22/22 16:52 Review of Systems Review of Systems: Yes all other systems are reviewed and are negative [facility] Social History Social History Smoked in Last 30 Days: No Use of substances other than those prescribed or required for medical reasons: No Advance Directives: Yes Advance Directives on File: Yes Advance Directives Date on File: 04/22/22 Physical Exam ED Vital Signs: Vital Signs - 24 hr 07/21/23 19:56 Temperature 98 F Pulse Rate 65 Respiratory Rate 18 Blood Pressure 138/74 Pulse Oximetry 100 Oxygen Delivery Method Room Air BMI result Body Mass Index 23.9 Const Other: The patient is a somewhat chronically ill-appearing 73-year-old. He did not appear in distress. HENMT Other: Oropharynx is clear. Mucous membranes moist. Eyes Other: Pupils round equal, conjunctivae clear, extraocular movements intact Neck Other: The patient has a tracheostomy stoma that looks mature. No blood or signs of injury. Resp Other: Lower breath sounds seem clear. Cardio Rate: regular rate Rhythm: regular rhythm Heart sounds: S1 normal heart sound present and S2 normal heart sound present GI Other: Abdomen is soft and nontender Skin Other: Skin is dry and unremarkable Neuro Other: The patient is awake and alert. Speech is clear. Moves extremities symmetrically. Seems grossly neurologically intact. Extrem Other: No peripheral edema Medical Decision Making Medical Decision Making MDM Narrative: The patient came to the emergency room by ambulance after having removed his tracheostomy tube at his long-term care facility. The patient has an unusual tracheostomy tube it is a metal tracheostomy tube that the respiratory therapist described as a Chino tube. The size of the tube was not indicated on the tube. A very promptly attempted to replace the patient's metal tracheostomy tube after cleaning it thoroughly. I was able to replace the tube with some difficulty but without any evidence of trauma. The patient found the replacement of the metal tube very uncomfortable. Once the tube was seemingly in correct position and a trach retaining collar was attached to the patient complained of a severe pinching pain from the tube that we were unable to alleviate by any repositioning of the collar or the tube. Ultimately I felt that we would have to remove the metal tube again and replace it with what might be a slightly smaller tracheostomy tube. I therefore removed the metal tube in inserted a 6 Belgian Shiley. This was easily done in the patient tolerated insertion of this new tube much better than he tolerated the insertion of the metal tube. The new tube was secured in place and the patient seemed much more comfortable with this new tubes and he had with a metal tube. He did not have any of the discomfort that he would previously complained of. Since the patient is tolerating the new tracheostomy tube extremely well I do not see any indication for any additional testing or intervention. There is no hemoptysis. No respiratory difficulty. I think he may be returned to his long-term care facility. Interestingly the paperwork from the long-term care facility includes a MOLST form which indicates that the patient is DNR/DNI/do not use noninvasive ventilation/do not transferred to hospital (unless needed for comfort). Discharge Plan Discharge Clinical Impression: Tracheostomy, acute management, Tracheostomy complication Patient Disposition: [facility] Additional Instructions: We replaced the patient's metal tracheostomy tube but he found it extremely uncomfortable and would not tolerate it in place. We then removed the metal tracheostomy tube and substituted a 6 Belgian plastic tracheostomy tube. The patient found this much more comfortable and tolerable. If he has an ENT doctor or similar specialist he should follow-up with them. Prescriptions: No Action acetylcysteine 200 mg/mL (20 %) solution 2 ml inhalation Q6H Qty: 100 0RF Referrals: Berenice Hill MD [Physician] - (tracheostomy problem)
[2023-07-21 23:57] VITALS: BP 137/64; PULSE 68; RESP 16; TEMP 36.6; O2SAT 100
== END 2023-07-22 00:49 ==
PROVIDERS: Emergency Provider Emergency Medicine
DX: J95.03 Malfunction of tracheostomy stoma (principal)
CPT/HCPCS: 99284